=== PATIENT | female | born 1995 | race Caucasian/White ===

== ENCOUNTER 2016-05-17 10:15 | Emergency (ER) | payer MEDICAID ==
[~2016-05-17] VITALS: Ht 157.5 cm; Wt 63.5 kg
[~2016-05-17 10:15] MED LIST: AMOX500C2 PO; CEFU250T11 PO; CEPH500C PO; CETI10CA PO; CLOT15CR5 TP; Claritin; Conserta; DOXY1TAB3 PO; FERR-74 PO; FERR325C PO; FRS325T PO; HYDR30SU RC; IBP600T1 PO; IBUP-1773 PO; Ibuprofen PO; LORA10TA2 PO; LORA10TA76 PO; Lithium; NITR-65 PO; ONDA-42 SL; PHEN51CR RC; PREN-115 PO; PREN-37 PO; Ritalin; Zoloft
--- OUTSIDE RECORDS SUMMARY | 2016-05-17 10:22 | XMS REPORT | Continuity of Care Document ---
Author Author [facility] Organization [facility] Address Unknown Phone Unavailable Care Team Providers Care Director Clinical Research Name Role Phone PCP Unavailable Source Comments Some departments are not documenting in the electronic medical record. If you do not see the information that you expected, contact Release of Information in the Health Information Management department at [phone] for further assistance in locating additional records.[facility] Active Allergies and Adverse Reactions Not on File Current Medications Not on file Active Problems Not on file Social History Tobacco Use Types Packs/Day Years Used Date Never Assessed Plan of Care Health Maintenance Due Date Last Done Comments Physical (Comprehensive) 2000 Exam Hpv Vaccines (#1) 2004 Pertussis Vaccine 2004 Tetanus Vaccine 2010 Cervical Cancer Screening 2014 Influenza Vaccine 12/18/2015 Results from Last 3 Months Not on file
--- NOTE | 2016-05-17 11:02 | ED GU-Female ---
General Chief Complaint: -Female Stated Complaint: VAG BLEEDING Nursing Triage Note: c/o intermittant vaginal bleeding x 1 month. Had nonpainful intercourse last night. Noticed bleeding this morningl. Had pelvic exam at [facility] earlier this month. Soaked through 3 diapers today. Nursing Sepsis Screen: No Definite Risk Source: patient, RN notes reviewed Exam Limitations: no limitations History of Present Illness Time seen by provider: 11:01 Initial Comments As above. Timing/Duration: this morning (current episode. Has had episodic vaginal bleeding for last month.) Severity/Quality: other (denies pain) Radiation: none Activities at Onset: sleep Prior Genitourinary Problems: similar symptoms Sexual Gilson History: other (last PM) Modifying Factors: Improves With Other (none) Associated Symptoms: denies symptoms Allergies and Home Medications Allergies Coded Allergies: hydrocodone (Verified Allergy, Severe, ANAPHYLAXIS, 05/10/13) latex (Verified Allergy, Unknown, EDEMA, 10/20/13) Uncoded Allergies: BEES (Allergy, Unknown, 09/06/05) Home Medications Ferrous Sulfate 325 Mg Tablet #30 325 MG PO DAILY@0700 Prescribed by: ROSALIO STLOL on 05/16/15 0820 Ibuprofen 600 Mg Tablet #60 600 MG PO Q6H PRN PRN PAIN Prescribed by: ROSALIO STOLL on 05/16/15 0820 Loratadine 10 Mg Tablet 10 MG PO DAILY (Reported) Naproxen Sodium 550 Mg Tablet #20 550 MG PO BID PRN PRN DUB Prescribed by: ANTHONY COCHRAN on 05/17/16 1408 Vit/Iron Fumarate/FA 1 Each Tablet 1 EACH PO DAILY (Reported) Constitutional: see HPI Genitourinary: see HPI other (vag bleeding) : No Past Gerxibo-Diadsc-Fgmgir Hx Patient Social History Former Smoker/When Quit: Apr 17, 2015 Recent Foreign Travel: No Contact w/Someone Who Travel: No Recent Infectious Disease Expo: No Immunizations Up To Date Tetanus Booster (TDap): Less than 5yrs PED Vaccines UTD: Yes Date of Influenza Vaccine: Jan 14, 2015 Seasonal Allergies Seasonal Allergies: No Surgeries HX Surgeries: Yes (oral surgery for teeth) Respiratory Hx Respiratory Disorders: No Cardiovascular Hx Cardiac Disorders: No Neurological Hx Neurological Disorders: Yes (reports hx of seizures) Neurological Disorders: Seizure Disorder Reproductive System Hx Reproductive Disorders: No Sexually Transmitted Disease: No HIV/AIDS: No Female Reproductive Disorders: Denies Genitourinary Hx Genitourinary Disorders: No Gastrointestinal Hx Gastrointestinal Disorders: Yes Gastrointestinal Disorders: Hemorrhoids Musculoskeletal Hx Musculoskeletal Disorders: Yes (rt elbow) Musculoskeletal Disorders: Fractures Endocrine Hx Endocrine Disorders: No HEENT HX ENT Disorders: No Cancer Hx Cancer: No Psychosocial Hx Psychiatric Problems: Yes Behavioral Health Disorders: Anxiety, Depression Integumentary HX Skin/Integumentary Disorder: No Blood Transfusions Hx Blood Disorders: No Adverse Reaction to a Blood Tr: Yes (hx of transfusion last year 2 units received) Family Medical History Significant Family History: No Pertinent Family Hx Family Medial History: Aphasia G8 BROTHER Chest pain 19 MOTHER Family history: Arthritis 19 MOTHER Family history: Diabetes mellitus 19 MOTHER Family history: Hypertension 19 FATHER 19 MOTHER Family history: Thyroid disorder 19 MOTHER G8 BROTHER Headache 19 MOTHER History of drug abuse G8 BROTHER Seizure disorder 19 MOTHER No Family History of: Abdominal aortic aneurysm Clifford's disease Alcoholism Cancer Cancer of colon Cataract Congenital heart disease Congestive heart failure Cystic fibrosis Dementia Dysphagia Family history: Allergy Family history: Alzheimer's disease Family history: Asthma Family history: Breast disease Family history: Cardiovascular disease Family history: Coronary thrombosis Family history: Gastrointestinal disease Family history: Glaucoma Family history: Osteoporosis Hearing loss Heart disease Hereditary disease History of - anemia History of - disorder History of - respiratory disease Human immunodeficiency virus (HIV) seropositivity Hypercholesterolemia Infertile Kidney disease Malignant neoplasm of lung Myocardial infarction Not obtainable due to adoption Parkinson's disease Prostate cancer Psychotic disorder Stroke Tuberculosis Visual impairment Physical Exam Vital Signs Vital Sign - Last 12Hours 05/17/16 05/17/16 10:52 14:15 Temp 96.9 Pulse 65 Resp 16 B/P 134/80 Pulse Ox 98 O2 Delivery Room Air Capillary Refill : Less Than 3 Seconds General Appearance: WD/WN no apparent distress Cardiovascular: regular rate, rhythm Respiratory: no respiratory distress Gastrointestinal: softNo tenderness Rectal: deferred Neurologic/Psychiatric: no motor/sensory deficits alert oriented x 3 Skin: warm/dry Progress/Results/Core Measures Results/Orders Lab Results Laboratory Tests Test 05/17/16 12:05 Range/Units Activated Partial Thromboplast Time 28 24-35 SEC Alanine Aminotransferase (ALT/SGPT) 9 0-55 U/L Albumin 4.0 3.2-4.5 G/DL Alkaline Phosphatase 124 40-136 U/L Anion Gap 7 5-14 MMOL/L Aspartate Amino Transf (AST/SGOT) 12 5-34 U/L BUN/Creatinine Ratio 13 Basophils # (Auto) 0.0 0.0-0.1 10^3/uL Basophils (%) (Auto) 0 0-10 % Blood Urea Nitrogen 9 7-18 MG/DL Calcium Level 9.2 8.5-10.1 MG/DL Carbon Dioxide Level 25 21-32 MMOL/L Chloride Level 107 98-107 MMOL/L Creatinine 0.71 0.60-1.30 MG/DL Eosinophils # (Auto) 0.1 0.0-0.3 10^3/uL Eosinophils (%) (Auto) 2 0-10 % Estimat Glomerular Filtration Rate > 60 Glucose Level 83 70-105 MG/DL Hematocrit 39 35-52 % Hemoglobin 13.3 11.5-16.0 G/DL INR Comment 1.0 0.8-1.4 Lymphocytes # (Auto) 2.6 1.0-4.0 X 10^3 Lymphocytes (%) (Auto) 36 12-44 % Mean Corpuscular Hemoglobin 29 25-34 PG Mean Corpuscular Hemoglobin Concent 34 32-36 G/DL Mean Corpuscular Volume 85 80-99 FL Mean Platelet Volume 11.7 H 7.4-10.4 FL Monocytes # (Auto) 0.4 0.0-1.0 X 10^3 Monocytes (%) (Auto) 6 0-12 % Neutrophils # (Auto) 4.0 1.8-7.8 X 10^3 Neutrophils (%) (Auto) 56 42-75 % Platelet Count 183 130-400 10^3/uL Potassium Level 4.2 3.6-5.0 MMOL/L Prothrombin Time 12.5 12.2-14.7 SEC Red Blood Count 4.60 4.35-5.85 10^6/uL Red Cell Distribution Width 13.8 10.0-14.5 % Serum Test, Qualitative NEGATIVE NEGATIVE Sodium Level 139 135-145 MMOL/L Total Bilirubin 0.4 0.1-1.0 MG/DL Total Protein 7.1 6.4-8.2 G/DL White Blood Count 7.2 4.3-11.0 10^3/uL My Orders Orders-ANTHONY COCHRAN DO Cbc With Automated Diff (05/17/16 11:02) Comprehensive Metabolic Panel (05/17/16 11:02) Hcg,Qualitative Serum (05/17/16 11:02) Protime With Inr (05/17/16 11:02) Partial Thromboplastin Time (05/17/16 11:02) Us Non Ob Transvaginal [id number] (05/17/16 12:38) Ketorolac Injection (Toradol Injection) (05/17/16 14:15) Vital Signs/I&O Blood Pressure Mean: 98 Departure Impression Impression: Primary Impression: DUB (dysfunctional uterine bleeding) Disposition: 01 HOME, SELF-CARE Condition: Critical Departure-Patient Inst. Decision time for Depature: 14:05 Referrals: ROSALIO STOLL MD (PCP/Family) Primary Care Physician Patient Instructions: Menstruation Scripts Naproxen Sodium (Anaprox Ds)550 Mg Qynjms637 Mg PO BID PRN DUB #20 TAB Ref 0 Prov:ANTHONY COCHRAN DO 05/17/16 ANTHONY COCHRAN DO May 17, 2016 11:01
[2016-05-17 12:14] LABS: BASOPHILS % (AUTO) 0 % (0-10); EOSINOPHILS # (AUTO) 0.1 10^3/uL (0.0-0.3); EOSINOPHILS % (AUTO) 2 % (0-10); LYMPHOCYTES # (AUTO) 2.6 X 10^3 (1.0-4.0); LYMPHOCYTES % (AUTO) 36 % (12-44); MEAN CORPUSCULAR HEMOGLOBIN 29 PG (25-34); MEAN CORPUSCULAR HGB CONC 34 G/DL (32-36); MEAN CORPUSCULAR VOLUME 85 FL (80-99); MEAN PLATELET VOLUME 11.7 FL (7.4-10.4); MONOCYTES # (AUTO) 0.4 X 10^3 (0.0-1.0); MONOCYTES % (AUTO) 6 % (0-12); NEUTROPHILS % (AUTO) 56 % (42-75); PLATELET COUNT 183 10^3/uL (130-400); RED CELL DISTRIBUTION WIDTH 13.8 % (10.0-14.5); WHITE BLOOD COUNT 7.2 10^3/uL (4.3-11.0)
[2016-05-17 12:22] LABS: PROTHROMBIN TIME PATIENT 12.5 SEC (12.2-14.7)
[2016-05-17 12:32] LABS: ALANINE AMINOTRANSFERASE 9 U/L (0-55); ANION GAP 7 MMOL/L (5-14); ASPARTATE AMINO TRANSFERASE 12 U/L (5-34); BILIRUBIN,TOTAL 0.4 MG/DL (0.1-1.0); BLOOD UREA NITROGEN 9 MG/DL (7-18); BUN/CREATININE RATIO 13; CALCIUM 9.2 MG/DL (8.5-10.1); CARBON DIOXIDE 25 MMOL/L (21-32); CHLORIDE 107 MMOL/L (98-107); CREATININE SERUM 0.71 MG/DL (0.60-1.30); GFR ESTIMATED > 60; GLUCOSE 83 MG/DL (70-105); POTASSIUM 4.2 MMOL/L (3.6-5.0); SODIUM 139 MMOL/L (135-145); TOTAL PROTEIN 7.1 G/DL (6.4-8.2)
[2016-05-17] MEDS ORDERED: NAPR550T PO (14:08)
--- NOTE | 2016-05-17 14:08 | Diagnostic Imaging Report ---
Transvaginal pelvic ultrasound. INDICATION: Vaginal bleeding. FINDINGS: The uterus is 7.4 x 4.5 x 4.1 cm. The endometrial stripe is 0.6 cm in thickness. The right ovary is 3.9 x 1.5 x 2.3 cm. The left ovary is 2.5 x 3.1 x 1.6 cm. Normal follicle seen. No solid mass or fluid collection identified. Both ovaries demonstrate color flow with Doppler examination. IMPRESSION: Unremarkable exam. Dictated by: Dictated on workstation # [id number]
[2016-05-17 14:15] VITALS: BP 119/75
[2016-05-17] MEDS ORDERED: KETOROLAC 60 MG/2 ML VIAL IM ONE (14:15)
== END 2016-05-17 14:15 | disposition home or self-care (01) ==
LOC: EDUNIT# 10:15 → ER 10:18
DX: N93.8 Other specified abnormal uterine and vaginal bleeding (principal)
CPT/HCPCS: 36415; 76830; 80053; 84703; 85025; 85610; 85730; 96372; 99282

== ENCOUNTER 2016-06-23 21:44 | Emergency (ER) | payer MEDICAID ==
[~2016-06-23] VITALS: Ht 160 cm; Wt 72.1 kg
[~2016-06-23 21:44] MED LIST changes: +NAPR550T PO
--- OUTSIDE RECORDS SUMMARY | 2016-06-23 21:50 | XMS REPORT | Continuity of Care Document ---
Author Author [facility] Organization [facility] Address Unknown Phone Unavailable Care Team Providers Care Labview Programmer Name Role Phone PCP Unavailable Source Comments Some departments are not documenting in the electronic medical record. If you do not see the information that you expected, contact Release of Information in the Health Information Management department at [phone] for further assistance in locating additional records.[facility] Active Allergies and Adverse Reactions Not on [...]
[2016-06-23] MEDS ORDERED: SUDOGEST (22:26)
[2016-06-23] MEDS ORDERED: AMOX1TAB12 (22:26)
[2016-06-23] MEDS ORDERED: TETRACAINE 0.5% OPHTH SOLN 5 ML BTL OU STA (22:32)
[2016-06-23] MEDS ORDERED: FLUORESCEIN (FLUOR-I-STRIPS) 1 MG STRP OU ONE (22:45)
[2016-06-23] MEDS ORDERED: BSS 15 ML IR ONE (22:45)
[2016-06-23] MEDS ORDERED: RX-GENTAMICIN 0.3% OP OINT 3.5 GM TUBE OP STA (23:00)
--- NOTE | 2016-06-23 23:07 | ED EENT ---
History of Present Illness General Chief Complaint: Eye Problems Stated Complaint: RT EYE PAIN Nursing Triage Note: PT TO ED 10 W/ C/O RT EYE IRRITATION ONSET YESTERDAY. REPORTS WAS SEEN AT [facility] ET TOLD SHE HAD "DUST AND AN INFECTION IN HER EYE". PT STATES SHE WAS PLACED ON ABX BUT DENIES IMPROVEMENT Source: patient Exam Limitations: no limitations History of Present Illness Time seen by provider: 22:20 Initial Comments This patient complains of right eye irritation with pain and itching 3 days. It started in the morning after she drove down a dirt road with the windows down. She has localized erythema of the eyelid and face surrounding the eye. She was seen at the clinic and was started on Augmentin and pseudoephedrine. She complains of blurred vision in the right eye with inability to distinguish fingers on my exam. She has some light sensitivity. She denies any other symptoms. She receives her eye care at Dr. Funez[facility] clinic. Allergies and Home Medications Allergies Coded Allergies: hydrocodone (Verified Allergy, Severe, ANAPHYLAXIS, 05/10/13) latex (Verified Allergy, Unknown, EDEMA, 10/20/13) Uncoded Allergies: BEES (Allergy, Unknown, 09/06/05) Home Medications (Reported) Amoxicillin/Potassium Clav 1 Each Tablet #20 (Reported) Review of Systems Constitutional: no symptoms reported Eyes: See HPI Ears: No Symptoms Reported Nose: no symptoms reported Mouth: no symptoms reported Throat: no symptoms reported Respiratory: no symptoms reported Cardiovascular: no symptoms reported Gastrointestinal: no symptoms reported Musculoskeletal: no symptoms reported Skin: see HPI Neurological: No Symptoms Reported Past Reezfnu-Zrlcyd-Rpauha Hx Patient Social History Alcohol Use: Denies Use Recreational Drug Use: No Smoking Status: Current Everyday Smoker Type Used: Cigarettes Former Smoker/When Quit: Apr 17, 2015 Recent Foreign Travel: No Contact w/Someone Who Travel: No Recent Infectious Disease Expo: No Recent Hopitalizations: No Immunizations Up To Date Tetanus Booster (TDap): Less than 5yrs PED Vaccines UTD: Yes Date of Influenza Vaccine: Jan 14, 2015 Seasonal Allergies Seasonal Allergies: No Surgeries HX Surgeries: Yes (oral surgery for teeth) Surgeries: Tubal Ligation Respiratory Hx Respiratory Disorders: No Cardiovascular Hx Cardiac Disorders: No Neurological Hx Neurological Disorders: Yes (reports hx of seizures) Neurological Disorders: Seizure Disorder Reproductive System Hx Reproductive Disorders: No Sexually Transmitted Disease: No HIV/AIDS: No Female Reproductive Disorders: Denies Genitourinary Hx Genitourinary Disorders: No Gastrointestinal Hx Gastrointestinal Disorders: Yes Gastrointestinal Disorders: Hemorrhoids Musculoskeletal Hx Musculoskeletal Disorders: Yes (rt elbow) Musculoskeletal Disorders: Fractures Endocrine Hx Endocrine Disorders: No HEENT HX ENT Disorders: No Cancer Hx Cancer: No Psychosocial Hx Psychiatric Problems: Yes Behavioral Health Disorders: Anxiety, Depression Integumentary HX Skin/Integumentary Disorder: No Blood Transfusions Hx Blood Disorders: No Adverse Reaction to a Blood Tr: Yes (hx of transfusion last year 2 units received) Family Medical History Significant Family History: No Pertinent Family Hx Family Medial History: Aphasia G8 BROTHER Chest pain 19 MOTHER Family history: Arthritis 19 MOTHER Family history: Diabetes mellitus 19 MOTHER Family history: Hypertension 19 FATHER 19 MOTHER Family history: Thyroid disorder 19 MOTHER G8 BROTHER Headache 19 MOTHER History of drug abuse G8 BROTHER Seizure disorder 19 MOTHER No Family History of: Abdominal aortic aneurysm [place]'s disease Alcoholism Cancer Cancer of colon Cataract Congenital heart disease Congestive heart failure Cystic fibrosis Dementia Dysphagia Family history: Allergy Family history: Alzheimer's disease Family history: Asthma Family history: Breast disease Family history: Cardiovascular disease Family history: Coronary thrombosis Family history: Gastrointestinal disease Family history: Glaucoma Family history: Osteoporosis Hearing loss Heart disease Hereditary disease History of - anemia History of - disorder History of - respiratory disease Human immunodeficiency virus (HIV) seropositivity Hypercholesterolemia Infertile Kidney disease Malignant neoplasm of lung Myocardial infarction Not obtainable due to adoption Parkinson's disease Prostate cancer Psychotic disorder Stroke Tuberculosis Visual impairment Visual Acuity : Eye Location: Right Physical Exam Vital Signs Vital Sign - Last 12Hours 06/23/16 22:13 Temp 98.3 Pulse 73 Resp 18 B/P 118/85 Pulse Ox 99 O2 Delivery Room Air General Appearance: WD/WN no apparent distress Eyes: right eye lid inflammation, right eye vision changes, left eye normal inspection, bilateral eye EOMI, bilateral eye PERRL Ears: bilateral ear TM normal, bilateral ear auricle normal, bilateral ear canal normal Nose: normal inspection Mouth/Throat: normal mouth inspection pharynx normal Neck: normal inspection Cardiovascular: regular rate, rhythm no edema no murmur Respiratory: lungs clear normal breath sounds no respiratory distress no accessory muscle use Neurologic/Psychiatric: hook tender II-XII nml as tested no motor/sensory deficits alert normal mood/affect oriented x 3 Skin: normal color other (erythema of the right eyelid and surrounding skin including the cheek) Additional Procedures : Progress Patient was treated with tetracaine which completely resolved her pain. Exam was then performed with fluorescein. No abnormalities were identified. Patient was irrigated thoroughly with balanced saline. This improved her vision significantly and she could again distinguish fingers. Gentamicin ointment was then applied by nursing staff. Progress/Results/Core Measures Results/Orders My Orders Orders-PAULY BELLO MD Tetracaine 0.5% Ophth Soln (Tetravisc 0. (06/23/16 22:32) Fluorescein Strips (Cqtbs-B-Elxorn) (06/23/16 22:45) Balanced Salt Irrigation Soln (Bss Irrig (06/23/16 22:45) Rx-Gentamicin Ophth Oint (Rx-Gentamicin (06/23/16 23:00) Medications Given in ED Current Medications Medications Dose Ordered Sig/Brissa Route Start Time Stop Time Status Last Admin Dose Admin Balanced Salt Solution 15 ml ONCE ONCE IR 06/23/16 22:45 06/23/16 22:46 DC 06/23/16 22:45 15 ML Fluorescein Sodium 1 mg ONCE ONCE OU 06/23/16 22:45 06/23/16 22:46 DC 06/23/16 22:45 1 MG Vital Signs/I&O Vital Sign - Last 12Hours 06/23/16 06/23/16 22:13 23:12 Temp 98.3 Pulse 73 0 Resp 18 0 B/P 118/85 Pulse Ox 99 0 O2 Delivery Room Air Blood Pressure Mean: 96 Progress Note : Progress Note No abnormalities were identified on the fluorescein exam. Patient reported complete resolution of pain with tetracaine. Vision improved after irrigation. Patient was given instructions to follow-up with Dr. Funez symptoms were not completely resolved by morning. Departure Impression Impression: Primary Impression: Periorbital cellulitis Qualified Code: L03.213 - Periorbital cellulitis Additional Impressions: Blurred vision Conjunctivitis Qualified Code: H10.31 - Unspecified acute conjunctivitis, right eye Disposition: HOME, SELF-CARE Condition: Improved Departure-Patient Inst. Decision time for Depature: 23:04 Referrals: ROSALIO STOLL MD (PCP/Family) Primary Care Physician Patient Instructions: Cellulitis (Skin Infection), Adult (DC) Add. Discharge Instructions: Apply a half-inch ribbon of ointment to your lower eyelid 3 times daily for at least 3 days. For itching you may use Benadryl 25-50 mg every 4 hours as needed. If you need a nondrowsy antihistamine, use loratadine 10 mg daily for itching. You may use the saline drops provided as needed to moisten URI. Avoid rubbing URI as this may cause further irritation. Follow-up with Dr. Funez tomorrow if symptoms are not completely resolved by tomorrow morning. Continue to take the oral antibiotic, but discontinue Pseudogest. All discharge instructions reviewed with patient and/or family. Voiced understanding. Copy Copies To 1: ISAURA FUNEZ OD, JOSHUA T MD Jun 23, 2016 23:07
[2016-06-23 23:12] VITALS: BP 0/0
== END 2016-06-23 23:12 | disposition home or self-care (01) ==
LOC: EDUNIT# 21:44 → ER 21:45
DX: H10.31 Unspecified acute conjunctivitis, right eye (principal); H53.8 Other visual disturbances
CPT/HCPCS: 99283

== ENCOUNTER 2016-07-19 20:34 | Emergency (ER) | payer MEDICAID ==
[~2016-07-19] VITALS: Ht 160 cm; Wt 87.1 kg
[~2016-07-19 20:34] MED LIST changes: +AMOX1TAB12; +SUDOGEST
--- NOTE | 2016-07-19 20:59 | ED Cough/URI ---
General Chief Complaint: Cough/Cold/Flu Symptoms Stated Complaint: DIZZINESS/CHEST AND RIB PAIN Nursing Triage Note: PT REPORTS COUGH X 2 WEEKS, LEFT SIDE RIB/CHEST PAIN X 30-45 MINS Source: patient, RN notes reviewed Exam Limitations: no limitations History of Present Illness Time seen by provider: 20:58 Initial Comments As above and below. Severity/Quality: moderate, dry cough Prior Episodes/Possible Cause: occasional episodes Modifying Factors: Worse With Coughing Associated Symptoms: chest pain/soreness (left sided, especially c/ coughing and inspiration), cough Allergies and Home Medications Allergies Coded Allergies: hydrocodone (Verified Allergy, Severe, ANAPHYLAXIS, 05/10/13) latex (Verified Allergy, Unknown, EDEMA, 10/20/13) Uncoded Allergies: BEES (Allergy, Unknown, 09/06/05) Home Medications Meloxicam 15 Mg Tablet, 15 MG PO DAILY PRN for rib pain, #30 Ref 0 Prescribed by: ANTHONY COCHRAN on 07/19/168 Constitutional: see HPI Respiratory: see HPI, cough Cardiovascular: see HPI, chest pain : No All Other Systems Reviewed Negative Unless Noted: Yes (Negative excepted noted.) Past Iatlonj-Xihpjj-Fxopxi Hx Patient Social History Type Used: Cigarettes Former Smoker/When Quit: Apr 17, 2015 Recent Foreign Travel: No Contact w/Someone Who Travel: No Recent Infectious Disease Expo: No Recent Hopitalizations: No Immunizations Up To Date Tetanus Booster (TDap): Less than 5yrs PED Vaccines UTD: Yes Date of Influenza Vaccine: Jan 14, 2015 Seasonal Allergies Seasonal Allergies: No Surgeries HX Surgeries: Yes (oral surgery for teeth) Surgeries: Tubal Ligation Respiratory Hx Respiratory Disorders: No Cardiovascular Hx Cardiac Disorders: No Neurological Hx Neurological Disorders: Yes (reports hx of seizures) Neurological Disorders: Seizure Disorder Reproductive System Hx Reproductive Disorders: No Sexually Transmitted Disease: No HIV/AIDS: No Female Reproductive Disorders: Denies Genitourinary Hx Genitourinary Disorders: No Gastrointestinal Hx Gastrointestinal Disorders: Yes Gastrointestinal Disorders: Hemorrhoids Musculoskeletal Hx Musculoskeletal Disorders: Yes (rt elbow) Musculoskeletal Disorders: Fractures Endocrine Hx Endocrine Disorders: No HEENT HX ENT Disorders: No Cancer Hx Cancer: No Psychosocial Hx Psychiatric Problems: Yes Behavioral Health Disorders: Anxiety, Depression Integumentary HX Skin/Integumentary Disorder: No Blood Transfusions Hx Blood Disorders: No Adverse Reaction to a Blood Tr: Yes (hx of transfusion last year 2 units received) Family Medical History Significant Family History: No Pertinent Family Hx Family Medial History: Aphasia G8 BROTHER Chest pain 19 MOTHER Family history: Arthritis 19 MOTHER Family history: Diabetes mellitus 19 MOTHER Family history: Hypertension 19 FATHER 19 MOTHER Family history: Thyroid disorder 19 MOTHER G8 BROTHER Headache 19 MOTHER History of drug abuse G8 BROTHER Seizure disorder 19 MOTHER No Family History of: Abdominal aortic aneurysm Radhames's disease Alcoholism Cancer Cancer of colon Cataract Congenital heart disease Congestive heart failure Cystic fibrosis Dementia Dysphagia Family history: Allergy Family history: Alzheimer's disease Family history: Asthma Family history: Breast disease Family history: Cardiovascular disease Family history: Coronary thrombosis Family history: Gastrointestinal disease Family history: Glaucoma Family history: Osteoporosis Hearing loss Heart disease Hereditary disease History of - anemia History of - disorder History of - respiratory disease Human immunodeficiency virus (HIV) seropositivity Hypercholesterolemia Infertile Kidney disease Malignant neoplasm of lung Myocardial infarction Not obtainable due to adoption Parkinson's disease Prostate cancer Psychotic disorder Stroke Tuberculosis Visual impairment Physical Exam Vital Signs Vital Sign - Last 12Hours 07/19/16 07/19/16 20:40 22:48 Temp 97.6 Pulse 90 Resp 16 B/P (MAP) 120/84 Pulse Ox 96 O2 Delivery Room Air Capillary Refill : Less Than 3 Seconds General Appearance: WD/WN, mild distress HEENT: pharynx normal Neck: normal inspection Respiratory: no respiratory distress, decreased breath sounds, other ((+) left ACW/costochondral pain c/ palpation) Cardiovascular: regular rate, rhythm Neurologic/Psychiatric: no motor/sensory deficits, alert, oriented x 3 Skin: warm/dry Progress/Results/Core Measures Results/Orders Lab Results Laboratory Tests Test 07/19/16 21:30 Range/Units White Blood Count 10.1 4.3-11.0 10^3/uL Red Blood Count 4.75 4.35-5.85 10^6/uL Hemoglobin 13.3 11.5-16.0 G/DL Hematocrit 40 35-52 % Mean Corpuscular Volume 84 80-99 FL Mean Corpuscular Hemoglobin 28 25-34 PG Mean Corpuscular Hemoglobin Concent 33 32-36 G/DL Red Cell Distribution Width 13.9 10.0-14.5 % Platelet Count 187 130-400 10^3/uL Mean Platelet Volume 11.9 H 7.4-10.4 FL Neutrophils (%) (Auto) 63 42-75 % Lymphocytes (%) (Auto) 29 12-44 % Monocytes (%) (Auto) 6 0-12 % Eosinophils (%) (Auto) 2 0-10 % Basophils (%) (Auto) 1 0-10 % Neutrophils # (Auto) 6.4 1.8-7.8 X 10^3 Lymphocytes # (Auto) 2.9 1.0-4.0 X 10^3 Monocytes # (Auto) 0.6 0.0-1.0 X 10^3 Eosinophils # (Auto) 0.2 0.0-0.3 10^3/uL Basophils # (Auto) 0.1 0.0-0.1 10^3/uL Sodium Level 140 135-145 MMOL/L Potassium Level 3.7 3.6-5.0 MMOL/L Chloride Level 106 98-107 MMOL/L Carbon Dioxide Level 25 21-32 MMOL/L Anion Gap 9 5-14 MMOL/L Blood Urea Nitrogen 11 7-18 MG/DL Creatinine 0.77 0.60-1.30 MG/DL Estimat Glomerular Filtration Rate > 60 BUN/Creatinine Ratio 14 Glucose Level 105 70-105 MG/DL Calcium Level 9.5 8.5-10.1 MG/DL Total Bilirubin 0.5 0.1-1.0 MG/DL Aspartate Amino Transf (AST/SGOT) 13 5-34 U/L Alanine Aminotransferase (ALT/SGPT) 8 0-55 U/L Alkaline Phosphatase 106 40-136 U/L Troponin I < 0.30 <0.30 NG/ML Total Protein 7.6 6.4-8.2 G/DL Albumin 4.2 3.2-4.5 G/DL My Orders Orders - ANTHONY COCHRAN DO Chest Pa/Lat (2 View) (07/19/16 20:59) Ekg Tracing (07/19/16 21:01) Cbc With Automated Diff (07/19/16 21:01) Comprehensive Metabolic Panel (07/19/16 21:01) Troponin I (07/19/16 21:01) Meloxicam Tablet (Mobic Tablet) (07/20/16 09:00) Meloxicam Tablet (Mobic Tablet) (07/19/16 22:40) Vital Signs/I&O Vital Sign - Last 12Hours 07/19/16 07/19/16 07/19/16 20:40 20:59 22:48 Temp 97.6 Pulse 90 85 Resp 16 16 B/P (MAP) 120/84 Pulse Ox 96 O2 Delivery Room Air Room Air Blood Pressure Mean: 96 ECG Initial ECG Impression Date: Jul 19, 2016 Initial ECG Impression Time: 20:49 Initial ECG Rate: 82 Initial ECG Rhythm: Normal Sinus Initial ECG Intervals: Normal Initial ECG Impression: Normal Initial ECG Comparisson: No Previous ECG Available Diagnostic Imaging Diagonstic Imaging: Xray Plain Films/CT/US/NM/MRI: chest (nothing acute) Departure Impression Impression: Primary Impression: Cough Additional Impressions: Costochondritis, acute Tobacco abuse Disposition: HOME, SELF-CARE Condition: Stable Departure-Patient Inst. Decision time for Depature: 22:26 Referrals: ROSALIO STOLL MD (PCP/Family) Primary Care Physician Patient Instructions: Costochondritis (DC), Cough, Adult (DC) Scripts Meloxicam (Mobic) 15 Mg Tablet 15 MG PO DAILY Y for rib pain, #30 TAB 0 Refills Prov: ANTHONY COCHRAN DO 07/19/16 ANTHONY COCHRAN DO Jul 19, 2016 20:59
--- NOTE | 2016-07-19 21:18 | Diagnostic Imaging Report ---
Indication: Chest pain PA and lateral chest Heart size and pulmonary vascularity are normal. Lungs are clear. There are no effusions or pneumothoraces. Impression: Negative chest Dictated by: Dictated on workstation # [id number]
[2016-07-19 21:40] LABS: BASOPHILS # (AUTO) 0.1 10^3/uL (0.0-0.1); BASOPHILS % (AUTO) 1 % (0-10); EOSINOPHILS # (AUTO) 0.2 10^3/uL (0.0-0.3); EOSINOPHILS % (AUTO) 2 % (0-10); LYMPHOCYTES # (AUTO) 2.9 X 10^3 (1.0-4.0); LYMPHOCYTES % (AUTO) 29 % (12-44); MEAN CORPUSCULAR HEMOGLOBIN 28 PG (25-34); MEAN CORPUSCULAR HGB CONC 33 G/DL (32-36); MEAN CORPUSCULAR VOLUME 84 FL (80-99); MEAN PLATELET VOLUME 11.9 FL (7.4-10.4); MONOCYTES # (AUTO) 0.6 X 10^3 (0.0-1.0); MONOCYTES % (AUTO) 6 % (0-12); NEUTROPHILS # (AUTO) 6.4 X 10^3 (1.8-7.8); NEUTROPHILS % (AUTO) 63 % (42-75); PLATELET COUNT 187 10^3/uL (130-400); RED BLOOD COUNT 4.75 10^6/uL (4.35-5.85); RED CELL DISTRIBUTION WIDTH 13.9 % (10.0-14.5); WHITE BLOOD COUNT 10.1 10^3/uL (4.3-11.0)
[2016-07-19 22:01] LABS: TROPONIN I < 0.30 NG/ML (<0.30)
[2016-07-19 22:06] LABS: ALANINE AMINOTRANSFERASE 8 U/L (0-55); ALBUMIN 4.2 G/DL (3.2-4.5); ANION GAP 9 MMOL/L (5-14); ASPARTATE AMINO TRANSFERASE 13 U/L (5-34); BILIRUBIN,TOTAL 0.5 MG/DL (0.1-1.0); BLOOD UREA NITROGEN 11 MG/DL (7-18); BUN/CREATININE RATIO 14; CALCIUM 9.5 MG/DL (8.5-10.1); CARBON DIOXIDE 25 MMOL/L (21-32); CHLORIDE 106 MMOL/L (98-107); CREATININE SERUM 0.77 MG/DL (0.60-1.30); GFR ESTIMATED > 60; GLUCOSE 105 MG/DL (70-105); POTASSIUM 3.7 MMOL/L (3.6-5.0); SODIUM 140 MMOL/L (135-145); TOTAL PROTEIN 7.6 G/DL (6.4-8.2)
[2016-07-19] MEDS ORDERED: MELO15TA14 PO (22:28)
[2016-07-19] MEDS ORDERED: MELOXICAM 7.5 MG (MOBIC) TABLET PO ONE (22:40)
[2016-07-19 22:48] VITALS: BP 112/69
[2016-07-20] MEDS ORDERED: MELOXICAM 7.5 MG (MOBIC) TABLET PO SCH (09:00)
--- OUTSIDE RECORDS SUMMARY | 2016-08-22 06:57 | XMS REPORT ---
Author Author ROSALIO STOLL [facility] Address [address] [place] [address] Care Team Providers Care Clinical Documentation Nurse Name Role Phone ROSALIO STOLL Unavailable PROBLEMS Type Condition ICD9-CM Code [id number] Code Onset Dates Condition Status SNOMED Code Problem Adjustment disorder with mixed anxiety and depressed mood F43.23 Active 77837419 Problem Major depressive disorder F32.9 Active [id number] ALLERGIES Unknown Allergies SOCIAL HISTORY No smoking Hx information available PLAN OF CARE VITAL SIGNS MEDICATIONS Medication Instructions Dosage Frequency Start Date End Date Duration Status Clindamycin Phosphate 2 % Vaginal Once a day 1 application at bedtime 24h Dec, Jan, 07 days Active RESULTS No Results PROCEDURES No Known procedures IMMUNIZATIONS No Known Immunizations
--- OUTSIDE RECORDS SUMMARY | 2016-08-22 06:57 | XMS REPORT ---
Author Author ROSALIO STOLL [employer] Address Unknown Phone Unavailable Care Team Providers Care Correctional Probation Officer Name Role Phone ROSALIO STOLL Unavailable Allergies No Known Allergies Problems Problem Type Condition Code Onset Dates Condition Status Assessment 34 weeks gestation of Z3A.34 Active Assessment Supervision of high risk , unspecified, third trimester O09.93 Active Problem Supervision of high risk , unspecified, third trimester O09.93 Active Medications No Known Medications Procedures Procedure Coding System Code Date Office Visit, Est Pt., Level 2 CPT-4 82183 Apr 08, 2015 URINE-NO MICRO CPT-4 13335 Apr 08, 2015 Vital Signs Date/Time: Apr 08, 2015 Temperature 98.6 F Weight 185.7 lbs Height 62 in BMI 33.965 Index Blood Pressure Diastolic 78 mmHg Blood Pressure Systolic 118 mmHg Cardiac Monitoring Heart Rate 82 bpm Results Name Result Date Reference Range Unit Abnormality Flag UA OB DIP (IN HOUSE) ----Glucose negative [id number] ----Protein negative [id number] Summary Purpose eClinicalWorks Submission
--- OUTSIDE RECORDS SUMMARY | 2016-08-22 06:57 | XMS REPORT | Continuity of Care Document ---
Author Author [facility] Organization [facility] Address Unknown Phone Unavailable Care Team Providers Care Helicopter Specialist Name Role Phone PCP Unavailable Source Comments Some departments are not documenting in the electronic medical record. If you do not see the information that you expected, contact Release of Information in the Health Information Management department at [phone] for further assistance in locating additional records.[facility] Active Allergies and Adverse Reactions Not on File Current Medications Not on file Active Problems Not on file Social History Tobacco Use Types Packs/Day Years Used Date Never Assessed Plan of Care Health Maintenance Due Date Last Done Comments Physical (Comprehensive) 2000 Exam Hpv Vaccines (#1) 2004 Pertussis Vaccine 2004 Tetanus Vaccine 2010 Cervical Cancer Screening 2014 Influenza Vaccine 12/17/2016 Results from Last 3 Months Not on file
--- OUTSIDE RECORDS SUMMARY | 2016-08-22 06:57 | XMS REPORT ---
Author Author ROSALIO STOLL [facility] e[employer] Address Unknown Phone Unavailable Care Team Providers Care Aquatics Manager Name Role Phone ROSALIO STOLL Unavailable Allergies No Known Allergies Problems Problem Type Condition Code Onset Dates Condition Status Problem Supervision of high risk , unspecified, third trimester O09.93 Active Medications No Known Medications Results No Known Results Summary Purpose eClinicalWorks Submission
--- OUTSIDE RECORDS SUMMARY | 2016-08-22 06:57 | XMS REPORT ---
Author Author ROSALIO STOLL [employer] Address Unknown Phone Unavailable Care Team Providers Care Drywall Contractor Name Role Phone ROSALIO STOLL CP Unavailable Allergies, Adverse Reactions, Alerts Substance Reaction Event Type Hydrocodone-Acetaminophen anaphylaxis Drug Allergy Problems Problem Type Condition Code Onset Dates Condition Status Problem Supervision of high risk , unspecified, second trimester O09.92 Active Assessment Supervision of high risk , unspecified, third trimester O09.93 Active Problem Supervision of high risk , unspecified, third trimester O09.93 Active Assessment 31 weeks gestation of Z3A.31 Active Medications Medication Code System Code Instructions Start Date End Date Status Dosage Classic [facility] [address]-08 28-0.8 MG Orally 1 time a day September 17, 2014 as directed Procedures Procedure Coding System Code Date Office Visit, Est Pt., Level 2 CPT-4 26090 Mar 18, 2015 URINE-NO MICRO CPT-4 76881 Mar 18, 2015 Vital Signs Date/Time: Mar 18, 2015 Temperature 97.4 F Weight 184.2 lbs Height 62 in BMI 33.691 Index Blood Pressure Diastolic 68 mmHg Blood Pressure Systolic 102 mmHg Cardiac Monitoring Heart Rate 84 bpm Results No Known Results Summary Purpose eClinicalWorks Submission
--- OUTSIDE RECORDS SUMMARY | 2016-08-22 06:58 | XMS REPORT ---
Author Author ROSALIO STOLL [facility] e[employer] Address Unknown Phone Unavailable Care Team Providers Care Director Of Casino Marketing Name Role Phone ROSALIO STOLL Unavailable Allergies No Known Allergies Problems Problem Type Condition Code Onset Dates Condition Status Problem UTI in 646.60 Active Problem Supervision of high risk , unspecified, second trimester O09.92 Active Medications Medication Code System Code Instructions Start Date End Date Status Dosage Natroba [facility] [address]-56 0.9 % Externally Jan 22, 2015 as directed Results No Known Results Summary Purpose eClinicalWorks Submission
--- OUTSIDE RECORDS SUMMARY | 2016-08-22 06:58 | XMS REPORT ---
Author Author ROSALIO STOLL [facility] e[employer] Address Unknown Phone Unavailable Care Team Providers Care Tyre Finisher And Examiner Name Role Phone ROSALIO STOLL CP Unavailable Allergies No Known Allergies Problems Problem Type Condition Code Onset Dates Condition Status Problem UTI in 646.60 Active Problem , high-risk V23.9 Active Problem Unspecified high-risk V23.9 Active Assessment Unspecified high-risk V23.9 Active Assessment Influenza vaccine administered V04.81 Active Medications No Known Medications Procedures Procedure Coding System Code Date Office Visit, Est Pt., Level 2 CPT-4 34108 Jan 14, 2015 FLUARIX QUAD (3 & UP)-GSK-2014 CPT-4 57875 Jan 14, 2015 URINE-NO MICRO CPT-4 08579 Jan 14, 2015 SINGLE IMMUNIZATION ADMIN CPT-4 58210 Jan 14, 2015 Vital Signs Date/Time: Jan 14, 2015 Temperature 97.2 F Weight 182.5 lbs Height 62 in BMI 33.38 Index Blood Pressure Diastolic 74 mmHg Blood Pressure Systolic 112 mmHg Cardiac Monitoring Heart Rate 86 bpm Results Name Result Date Reference Range Unit Abnormality Flag UA OB DIP (IN HOUSE) Immunizations Vaccine Administration Date FLUARIX QUAD (3 & UP)-GSK-2014Jan 14, 2015 Summary Purpose eClinicalWorks Submission
--- OUTSIDE RECORDS SUMMARY | 2016-08-22 06:58 | XMS REPORT ---
Author ORIN Damon Organization [employer] Address Unknown Phone Unavailable Care Team Providers Care Track Layer Name Role Phone ORIN KULKARNI CP Unavailable Allergies No Known Allergies Problems Problem Type Condition Code Onset Dates Condition Status Problem Adjustment disorder with mixed anxiety and depressed mood F43.23 Active Problem Major depressive disorder F32.9 Active Problem Slow transit constipation K59.01 Active Medications No Known Medications Results No Known Results Summary Purpose eClinicalWorks Submission
--- OUTSIDE RECORDS SUMMARY | 2016-08-22 06:58 | XMS REPORT ---
Author STEPHANE Calle [facility] e[employer] Address Unknown Phone Unavailable Care Team Providers Care Video Surveillance Technician Name Role Phone STEPHANE JUAREZ CP Unavailable Allergies, Adverse Reactions, Alerts Substance Reaction Event Type Hydrocodone-Acetaminophen anaphylaxis Drug Allergy Problems Problem Type Condition Code Onset Dates Condition Status Problem UTI in 646.60 Active Assessment Supervision of high risk , unspecified, second trimester O09.92 Active Problem Supervision of high risk , unspecified, second trimester O09.92 Active Assessment 23 weeks gestation of Z3A.23 Active Assessment Acute nasopharyngitis [common cold] J00 Active Medications Medication Code System Code Instructions Start Date End Date Status Dosage Claritin [facility] [address]-73 10 MG Orally Once a day October 15, 2014 Feb 12, 2015 1 tablet Classic [facility] [address]-66 28-0.8 MG Orally 1 time a day September 17, 2014 as directed Procedures Procedure Coding System Code Date Office Visit, Est Pt., Level 3 CPT-4 91503 Jan 22, 2015 URINE-NO MICRO CPT-4 89518 Jan 22, 2015 Vital Signs Date/Time: Jan 22, 2015 Temperature 98.8 F Weight 183.0 lbs Height 62 in BMI 33.471 Index Blood Pressure Diastolic 70 mmHg Blood Pressure Systolic 120 mmHg Cardiac Monitoring Heart Rate 78 bpm Results Name Result Date Reference Range Unit Abnormality Flag UA OB DIP (IN HOUSE) Summary Purpose eClinicalWorks Submission
--- OUTSIDE RECORDS SUMMARY | 2016-08-22 06:59 | XMS REPORT ---
Author Author ROSALIO STOLL [facility] [employer] Address Unknown Phone Unavailable Care Team Providers Care Quality Compliance Consultant Name Role Phone ROSALIO STOLL Unavailable Allergies No Known Allergies Problems Problem Type Condition Code Onset Dates Condition Status Problem UTI in 646.60 Active Assessment Supervision of high risk , unspecified, second trimester O09.92 Active Problem Supervision of high risk , unspecified, second trimester O09.92 Active Medications No Known Medications Results No Known Results Summary Purpose eClinicalWorks Submission
--- OUTSIDE RECORDS SUMMARY | 2016-08-22 06:59 | XMS REPORT ---
Author Author JIMMIE CONTEH [facility] Address [address] [place] [address] Care Team Providers Care Manager Banking Name Role Phone JIMMIE CONTEH Unavailable PROBLEMS Type Condition ICD9-CM Code [id number] Code Onset Dates Condition Status SNOMED Code Problem Adjustment disorder with mixed anxiety and depressed mood F43.23 Active 35356386 Problem Major depressive disorder F32.9 Active [id number] Assessment Dysmenorrhea N94.6 08 Dec, 2015 Active [id number] ALLERGIES Unknown Allergies SOCIAL HISTORY No smoking Hx information available PLAN OF CARE VITAL SIGNS MEDICATIONS Unknown Medications RESULTS Name Result Date Reference Range HEMOGLOBIN (IN HOUSE) 2015-12-25 HEMOGLOBIN 13.1 11.5 - 16 gm/dL Lot # [id number] Exp date 10/12/16 PROCEDURES Procedure Date Ordered Related Diagnosis Body Site Office Visit, Est Pt., Level 2 Dec 25, 2015 HEMOGLOBIN Dec 25, 2015 IMMUNIZATIONS No Known Immunizations
--- OUTSIDE RECORDS SUMMARY | 2016-08-22 06:59 | XMS REPORT ---
Author Author ROSALIO STOLL [employer] Address Unknown Phone Unavailable Care Team Providers Care Profiling Machine Set Up Operator Name Role Phone ROSALIO STOLL CP Unavailable Allergies, Adverse Reactions, Alerts Substance Reaction Event Type Hydrocodone-Acetaminophen anaphylaxis Drug Allergy Problems Problem Type Condition Code Onset Dates Condition Status Assessment Supervision of high risk , unspecified, second trimester O09.92 Active Problem Supervision of high risk , unspecified, second trimester O09.92 Active Medications Medication Code System Code Instructions Start Date End Date Status Dosage Classic [facility] [address]-47 28-0.8 MG Orally 1 time a day September 17, 2014 as directed Procedures Procedure Coding System Code Date GLUCOSE TEST CPT-4 41672 Feb 13, 2015 URINE-NO MICRO CPT-4 93494 Feb 13, 2015 COMPLETE CBC W/AUTO DIFF WBC CPT-4 33151 Feb 13, 2015 VENIPUNCT, ROUTINE* CPT-4 46808 Feb 13, 2015 Office Visit, Est Pt., Level 2 CPT-4 34238 Feb 13, 2015 Vital Signs Date/Time: Feb 13, 2015 Temperature 98.3 F Weight 182.3 lbs Height 62 in BMI 33.343 Index Blood Pressure Diastolic 72 mmHg Blood Pressure Systolic 124 mmHg Cardiac Monitoring Heart Rate 88 bpm Results Name Result Date Reference Range Unit Abnormality Flag UA OB DIP (IN HOUSE) Summary Purpose eClinicalWorks Submission
--- OUTSIDE RECORDS SUMMARY | 2016-08-22 06:59 | XMS REPORT ---
Author ORIN Damon Organization [employer] Address Unknown Phone Unavailable Care Team Providers Care Hydrant Setter Name Role Phone ORIN KULKARNI CP Unavailable Allergies, Adverse Reactions, Alerts Substance Reaction Event Type Hydrocodone-Acetaminophen anaphylaxis Drug Allergy Latex Info Not Available Non Drug Allergy Problems Problem Type Condition Code Onset Dates Condition Status Problem Adjustment disorder with mixed anxiety and depressed mood F43.23 Active Problem Major depressive disorder F32.9 Active Problem Slow transit constipation K59.01 Active Assessment Slow transit constipation K59.01 Active Medications Medication Code System Code Instructions Start Date End Date Status Dosage Magnesium Citrate [facility] [address]-53 1.745 GM/30ML Orally once Feb 02, 2016 drink full bottle within 30 min, follow wtih 12oz water Zoloft [facility] [address]-66 100 MG Orally Once a day 1 tablet Procedures Procedure Coding System Code Date Office Visit, Est Pt., Level 3 CPT-4 09620 Feb 02, 2016 Vital Signs Date/Time: Feb 02, 2016 Cardiac Monitoring Heart Rate 68 bpm Weight 192.3 lbs Height 62 in BMI 35.17 Index Blood Pressure Diastolic 88 mmHg Blood Pressure Systolic 116 mmHg Results No Known Results Summary Purpose eClinicalWorks Submission
--- OUTSIDE RECORDS SUMMARY | 2016-08-22 06:59 | XMS REPORT ---
Author MARCELLE Freeman [facility] eClinicalWorks Address Unknown Phone Unavailable Care Team Providers Care Rebar Fabricator Name Role Phone MARCELLE IRWIN CP Unavailable Allergies No Known Allergies Problems Problem Type Condition Code Onset Dates Condition Status Problem Major depressive disorder F32.9 Active Assessment Adjustment disorder with mixed anxiety and depressed mood F43.23 Active Problem Adjustment disorder with mixed anxiety and depressed mood F43.23 Active Medications No Known Medications Procedures Procedure Coding System Code Date Psych diagnostic evaluation, established patient CPT-4 64270 Dec 16, 2015 Results No Known Results Summary Purpose eClinicalWorks Submission
--- OUTSIDE RECORDS SUMMARY | 2016-08-22 06:59 | XMS REPORT ---
Author JENNIFER Christianson Organization [employer] Address Unknown Phone Unavailable Care Team Providers Care Lunch Wagon Operator Name Role Phone JENNIFER MELLO CP Unavailable Allergies, Adverse Reactions, Alerts Substance Reaction Event Type Hydrocodone-Acetaminophen anaphylaxis Drug Allergy Latex Info Not Available Non Drug Allergy Problems Problem Type Condition Code Onset Dates Condition Status Assessment Gastroenteritis and colitis, viral A08.4 Active Problem Major depressive disorder F32.9 Active Medications Medication Code System Code Instructions Start Date End Date Status Dosage Ondansetron HCl [facility] [address]-45 4 MG Orally 3 times a day November 10, 2015 1 tablets Procedures Procedure Coding System Code Date URINALYSIS, AUTO, W/O SCOPE CPT-4 38969 November 10, 2015 Office Visit, Est Pt., Level 4 CPT-4 51352 November 10, 2015 Vital Signs Date/Time: November 10, 2015 Cardiac Monitoring Heart Rate 80 bpm Weight 187 lbs Height 62 in Blood Pressure Diastolic 80 mmHg Blood Pressure Systolic 118 mmHg Results No Known Results Summary Purpose eClinicalWorks Submission
--- OUTSIDE RECORDS SUMMARY | 2016-08-22 06:59 | XMS REPORT ---
Author Author ROSALIO STOLL [facility] eClinicalWorks Address Unknown Phone Unavailable Care Team Providers Care Money Order Clerk Name Role Phone ROSALIO STOLL Unavailable Allergies No Known Allergies Problems Problem Type Condition Code Onset Dates Condition Status Problem Supervision of high risk , unspecified, second trimester O09.92 Active Medications No Known Medications Results No Known Results Summary Purpose eClinicalWorks Submission
--- OUTSIDE RECORDS SUMMARY | 2016-08-22 07:00 | XMS REPORT ---
Author Author ROSALIO STOLL [facility] e[employer]Works Address Unknown Phone Unavailable Care Team Providers Care Program Scheduler Name Role Phone ROSALIO STOLL Unavailable Allergies No Known Allergies Problems Problem Type Condition Code Onset Dates Condition Status Problem Supervision of high risk , unspecified, third trimester O09.93 Active Medications No Known Medications Results No Known Results Summary Purpose eClinicalWorks Submission
--- OUTSIDE RECORDS SUMMARY | 2016-08-22 07:00 | XMS REPORT ---
Author Author ROSALIO STOLL eClinical[employer] Address Unknown Phone Unavailable Care Team Providers [place] Demonstrator Name Role Phone ROSALIO STOLL CP Unavailable Allergies, Adverse Reactions, Alerts Substance Reaction Event Type Hydrocodone-Acetaminophen anaphylaxis Drug Allergy Problems Problem Type Condition ICD-9 Code Onset Dates Condition Status Problem UTI in 646.60 Active Problem , high-risk V23.9 Active Problem Unspecified high-risk V23.9 Active Assessment Unspecified high-risk V23.9 Active Medications Medication Code System Code Instructions Start Date End Date Status Dosage Classic [facility] [address]-34 28-0.8 MG Orally 1 time a day September 17, 2014 as directed Claritin [facility] [address]-66 10 MG Orally Once a day October 15, 2014 Feb 12, 2015 1 tablet Procedures Procedure Coding System Code Date ALPHA-FETOPROTEIN, SERUM CPT-4 23039 Dec 17, 2014 INHIBIN A CPT-4 81308 Dec 17, 2014 URINE-NO MICRO CPT-4 87204 Dec 17, 2014 CHORIONIC GONADOTROPIN TEST CPT-4 25040 Dec 17, 2014 ASSAY OF [place] CPT-4 21406 Dec 17, 2014 VENIPUNCT, ROUTINE* CPT-4 93699 Dec 17, 2014 Office Visit, Est Pt., Level 2 CPT-4 60531 Dec 17, 2014 Vital Signs Date/Time: Dec 17, 2014 Temperature 97.4 F Weight 180.5 lbs Height 62 in BMI 33.014 Index Blood Pressure Diastolic 78 mmHg Blood Pressure Systolic 122 mmHg Cardiac Monitoring Heart Rate 100 bpm Results Name Result Date Reference Range Unit Abnormality Flag UA OB DIP (IN HOUSE) Summary Purpose eClinicalWorks Submission
--- OUTSIDE RECORDS SUMMARY | 2016-08-22 07:00 | XMS REPORT ---
Author Author ROSALIO STOLL e[employer] Address Unknown Phone Unavailable Care Team Providers Care Hand Reamer Name Role Phone ROSALIO STOLL CP Unavailable Allergies, Adverse Reactions, Alerts Substance Reaction Event Type Hydrocodone-Acetaminophen anaphylaxis Drug Allergy Latex Info Not Available Non Drug Allergy Problems Problem Type Condition Code Onset Dates Condition Status Assessment screening for streptococcus B Z36 Active Assessment Supervision of high risk , unspecified, third trimester O09.93 Active Problem Supervision of high risk , unspecified, third trimester O09.93 Active Assessment Candidal vaginitis B37.3 Active Assessment 36 weeks gestation of Z3A.36 Active Assessment Other specified related conditions, third trimester O26.893 Active Assessment Pelvic and perineal pain R10.2 Active Medications Medication Code System Code Instructions Start Date End Date Status Dosage Claritin [facility] [address]-37 10 MG Orally Once a day 1 tablet Clotrimazole-7 [facility] [address] 1 % Vaginal Once a day Apr 22, 2015Apr 1 application at bedtime Classic [facility] [address]-90 28-0.8 MG Orally 1 time a day September 17, 2014 as directed Procedures Procedure Coding System Code Date DETECT AGNT MULT, DNA, AMPLI CPT-4 07886 Apr 22, 2015 URINALYSIS, AUTO, W/O SCOPE CPT-4 96661 Apr 22, 2015 URINE-NO MICRO CPT-4 45373 Apr 22, 2015 URINE CULTURE/COLONY COUNT CPT-4 45121 Apr 22, 2015 Office Visit, Est Pt., Level 3 CPT-4 83678 Apr 22, 2015 Vital Signs Date/Time: Apr 22, 2015 Temperature 97.3 F Weight 189.5 lbs Height 62 in BMI 34.66 Index Blood Pressure Diastolic 72 mmHg Blood Pressure Systolic 118 mmHg Cardiac Monitoring Heart Rate 88 bpm Results Name Result Date Reference Range Unit Abnormality Flag UA OB DIP (IN HOUSE) ----Glucose negative 20150422 ----Protein negative 20150422 UA W/CULTURE IF INDICATED (IN HOUSE) ----SAIRA neg 20150422 ----GLU neg 20150422 ----SG 1.025 20150422 ----KET neg 20150422 ----pH 7.0 20150422 ----Protein neg 20150422 ----BLO trace-intact 20150422 ----[place] 1= [id number] ----Color dark yellow 20150422 ----Odor yes 20150422 ----Exp date 20150422 ----URO 1.0 20150422 ----NIT neg 20150422 ----Clarity cloudy 20150422 ----Lot # [id number] Summary Purpose eClinicalWorks Submission
--- OUTSIDE RECORDS SUMMARY | 2016-08-22 07:03 | XMS REPORT | Continuity of Care Document ---
Author Author [facility] Address Unknown Phone Unavailable Allergies Active Description Code Type Severity Reaction Onset Reported/Identified Relationship to Patient Clinical Status Yes BEES BEES Unknown N/A 09/06/2005 Yes hydrocodone [id number] Drug Allergy Severe ANAPHYLAXIS 05/10/2013 Yes latex [id number] Drug Allergy Unknown EDEMA 10/20/2013 Medications Problems Date Dx Coded Attending Type Code Diagnosis Diagnosed By 02/03/2010 STEPHANE JUAREZ DO 296.52 MO BIPOLAR I DEPRESSED MODERATE 02/03/2010 STEPHANE JUAREZ DO 313.81 CD OPPOSITIONAL DEFIANT 02/03/2010 STEPHANE JUAREZ DO 314.01 ADHD COMBINED 02/03/2010 SCOTTIE ALTAMIRANO APRN 296.52 MO BIPOLAR I DEPRESSED MODERATE 02/03/2010 SCOTTIE ALTAMIRANO APRN 313.81 CD OPPOSITIONAL DEFIANT 02/03/2010 SCOTTIE ALTAMIRANO APRN 314.01 ADHD COMBINED 02/03/2010 296.52 MO BIPOLAR I DEPRESSED MODERATE 02/03/2010 313.81 CD OPPOSITIONAL DEFIANT 02/03/2010 314.01 ADHD COMBINED 02/03/2010 296.52 MO BIPOLAR I DEPRESSED MODERATE 02/03/2010 313.81 CD OPPOSITIONAL DEFIANT 02/03/2010 314.01 ADHD COMBINED 02/03/2010 296.52 MO BIPOLAR I DEPRESSED MODERATE 02/03/2010 313.81 CD OPPOSITIONAL DEFIANT 02/03/2010 314.01 ADHD COMBINED 02/03/2010 296.52 MO BIPOLAR I DEPRESSED MODERATE 02/03/2010 313.81 CD OPPOSITIONAL DEFIANT 02/03/2010 314.01 ADHD COMBINED 02/03/2010 296.52 MO BIPOLAR I DEPRESSED MODERATE 02/03/2010 313.81 CD OPPOSITIONAL DEFIANT 02/03/2010 314.01 ADHD COMBINED 02/03/2010 296.52 MO BIPOLAR I DEPRESSED MODERATE 02/03/2010 313.81 CD OPPOSITIONAL DEFIANT 02/03/2010 314.01 ADHD COMBINED 02/03/2010 296.52 MO BIPOLAR I DEPRESSED MODERATE 02/03/2010 313.81 CD OPPOSITIONAL DEFIANT 02/03/2010 314.01 ADHD COMBINED 02/03/2010 296.52 MO BIPOLAR I DEPRESSED MODERATE 02/03/2010 313.81 CD OPPOSITIONAL DEFIANT 02/03/2010 314.01 ADHD COMBINED 02/03/2010 296.52 MO BIPOLAR I DEPRESSED MODERATE 02/03/2010 313.81 CD OPPOSITIONAL DEFIANT 02/03/2010 314.01 ADHD COMBINED 02/03/2010 JUAREZ DO, STEPHANE K 296.52 MO BIPOLAR I DEPRESSED MODERATE 02/03/2010 JUAREZ DO, STEPHANE K 313.81 CD OPPOSITIONAL DEFIANT 02/03/2010 JUAREZ DO, STEPHANE K 314.01 ADHD COMBINED 02/03/2010 JUAREZ DO, STEPHANE K 296.52 MO BIPOLAR I DEPRESSED MODERATE 02/03/2010 JUAREZ DO, STEPHANE K 313.81 CD OPPOSITIONAL DEFIANT 02/03/2010 JUAREZ DO, STEPHANE K 314.01 ADHD COMBINED 02/03/2010 EVEILA SORIANON, SCOTTIE A 296.52 MO BIPOLAR I DEPRESSED MODERATE 02/03/2010 EVELIA PILLOWCASE CUTTER, SCOTTIE A 313.81 CD OPPOSITIONAL DEFIANT 02/03/2010 EVELIA PILLOWCASE CUTTER, SCOTTIE A 314.01 ADHD COMBINED 02/03/2010 EVELIA PILLOWCASE CUTTER, SCOTTIE A 296.52 MO BIPOLAR I DEPRESSED MODERATE 02/03/2010 EVELIA PILLOWCASE CUTTER, SCOTTIE A 313.81 CD OPPOSITIONAL DEFIANT 02/03/2010 EVELIA SORIANON, SCOTTIE A 314.01 ADHD COMBINED 02/03/2010 296.52 MO BIPOLAR I DEPRESSED MODERATE 02/03/2010 313.81 CD OPPOSITIONAL DEFIANT 02/03/2010 314.01 ADHD COMBINED 02/03/2010 EVELIA PILLOWCASE CUTTER, SCOTTIE A 296.52 MO BIPOLAR I DEPRESSED MODERATE 02/03/2010 EVELIA PILLOWCASE CUTTER, SCOTTIE A 313.81 CD OPPOSITIONAL DEFIANT 02/03/2010 EVELIA PILLOWCASE CUTTER, SCOTTIE A 314.01 ADHD COMBINED 02/03/2010 PRESTON PHD, HANS A 296.52 MO BIPOLAR I DEPRESSED MODERATE 02/03/2010 PRESTON PHD, HANS A 313.81 CD OPPOSITIONAL DEFIANT 02/03/2010 PRESTON PHD, HANS A 314.01 ADHD COMBINED 02/03/2010 [facility] PHD, HANS A 296.52 MO BIPOLAR I DEPRESSED MODERATE 02/03/2010 [facility] PHD, HANS A 313.81 CD OPPOSITIONAL DEFIANT 02/03/2010 [facility] PHD, HANS A 314.01 ADHD COMBINED 02/03/2010 [facility] PHD, HANS A 296.52 MO BIPOLAR I DEPRESSED MODERATE 02/03/2010 [facility] PHD, HANS A 313.81 CD OPPOSITIONAL DEFIANT 02/03/2010 [facility] PHD, HANS A 314.01 ADHD COMBINED 02/03/2010 ROSALIO STOLL MD N 296.52 MO BIPOLAR I DEPRESSED MODERATE 02/03/2010 DODIE HICKS, ROSALIO N 313.81 CD OPPOSITIONAL DEFIANT 02/03/2010 ROSALIO STOLL MD N 314.01 ADHD COMBINED 02/03/2010 [facility] PHD, HANS A 296.52 MO BIPOLAR I DEPRESSED MODERATE 02/03/2010 [facility] PHD, HANS A 313.81 CD OPPOSITIONAL DEFIANT 02/03/2010 [facility] PHD, HANS A 314.01 ADHD COMBINED 02/03/2010 ROSALIO STOLL MD N 296.52 MO BIPOLAR I DEPRESSED MODERATE 02/03/2010 CARMELA STOLL MDY N 313.81 CD OPPOSITIONAL DEFIANT 02/03/2010 CARMELA STOLL MDY N 314.01 ADHD COMBINED 02/03/2010 CARMELA STOLL MDY N 296.52 MO BIPOLAR I DEPRESSED MODERATE 02/03/2010 CARMELA STOLL MDY N 313.81 CD OPPOSITIONAL DEFIANT 02/03/2010 DODIE HICKS ROSALIO N 314.01 ADHD COMBINED 02/03/2010 DODIE HICKS, ROSALIO N 296.52 MO BIPOLAR I DEPRESSED MODERATE 02/03/2010 DODIE HICKS ROSALIO N 313.81 CD OPPOSITIONAL DEFIANT 02/03/2010 CARMELA STOLL MDY N 314.01 ADHD COMBINED 02/03/2010 CARMELA STOLL MDY N 296.52 MO BIPOLAR I DEPRESSED MODERATE 02/03/2010 CARMELA STOLL MDY N 313.81 CD OPPOSITIONAL DEFIANT 02/03/2010 DODIE HICKS ROSALIO N 314.01 ADHD COMBINED 02/03/2010 SCOTTIE ALTAMIRANO APRN A 296.52 MO BIPOLAR I DEPRESSED MODERATE 02/03/2010 EVELIA PILLOWCASE CUTTER, SCOTTIE A 313.81 CD OPPOSITIONAL DEFIANT 02/03/2010 EVELIA PILLOWCASE CUTTER, SCOTTIE A 314.01 ADHD COMBINED 02/03/2010 JUAREZ DO, STEPHANE K 296.52 MO BIPOLAR I DEPRESSED MODERATE 02/03/2010 JUAREZ DO, STEPHANE K 313.81 CD OPPOSITIONAL DEFIANT 02/03/2010 JUAREZ DO, STEPHANE K 314.01 ADHD COMBINED 02/03/2010 EVELIA PILLOWCASE CUTTER, SCOTTIE A 296.52 MO BIPOLAR I DEPRESSED MODERATE 02/03/2010 EVELIA PILLOWCASE CUTTER, SCOTTIE A 313.81 CD OPPOSITIONAL DEFIANT 02/03/2010 EVELIA PILLOWCASE CUTTER, SCOTTIE A 314.01 ADHD COMBINED 02/03/2010 ROSALIO STOLL MD 296.52 MO BIPOLAR I DEPRESSED MODERATE 02/03/2010 ROSALIO STOLL MD 313.81 CD OPPOSITIONAL DEFIANT 02/03/2010 ROSALIO STOLL MD 314.01 ADHD COMBINED 02/03/2010 EVELIA PILLOWCASE CUTTER, SCOTTIE A 296.52 MO BIPOLAR I DEPRESSED MODERATE 02/03/2010 EVELIA PILLOWCASE CUTTER, SCOTTIE A 313.81 CD OPPOSITIONAL DEFIANT 02/03/2010 EVELIA PILLOWCASE CUTTER, SCOTTIE A 314.01 ADHD COMBINED 02/03/2010 JUAREZ DO, STEPHANE K 296.52 MO BIPOLAR I DEPRESSED MODERATE 02/03/2010 JUAREZ DO, STEPHANE K 313.81 CD OPPOSITIONAL DEFIANT 02/03/2010 JUAREZ DO, STEPHANE K 314.01 ADHD COMBINED 02/03/2010 EVELIA PILLOWCASE CUTTER, SCOTTIE A 296.52 MO BIPOLAR I DEPRESSED MODERATE 02/03/2010 EVELIA PILLOWCASE CUTTER, SCOTTIE A 313.81 CD OPPOSITIONAL DEFIANT 02/03/2010 EVELIA PILLOWCASE CUTTER, SCOTTIE A 314.01 ADHD COMBINED 02/03/2010 ROSALIO STOLL MD N 296.52 MO BIPOLAR I DEPRESSED MODERATE 02/03/2010 ROSALIO STOLL MD N 313.81 CD OPPOSITIONAL DEFIANT 02/03/2010 ROSALIO STOLL MD N 314.01 ADHD COMBINED 02/03/2010 EVELIA PILLOWCASE CUTTER, SCOTTIE A 296.52 MO BIPOLAR I DEPRESSED MODERATE 02/03/2010 EVELIA PILLOWCASE CUTTER, SCOTTIE A 313.81 CD OPPOSITIONAL DEFIANT 02/03/2010 EVELIA PILLOWCASE CUTTER, SCOTTIE A 314.01 ADHD COMBINED 02/03/2010 ROSALIO STOLL MD N 296.52 MO BIPOLAR I DEPRESSED MODERATE 02/03/2010 ROSALIO STOLL MD N 313.81 CD OPPOSITIONAL DEFIANT 02/03/2010 ROSALIO STOLL MD N 314.01 ADHD COMBINED 02/03/2010 EVELIA PILLOWCASE CUTTER, SCOTTIE A 296.52 MO BIPOLAR I DEPRESSED MODERATE 02/03/2010 EVELIA PILLOWCASE CUTTER, SCOTTIE A 313.81 CD OPPOSITIONAL DEFIANT 02/03/2010 EVELIA PILLOWCASE CUTTER, SCOTTIE A 314.01 ADHD COMBINED 02/03/2010 EVELIA PILLOWCASE CUTTER, SCOTTIE A 296.52 MO BIPOLAR I DEPRESSED MODERATE 02/03/2010 EVELIA PILLOWCASE CUTTER, SCOTTIE A 313.81 CD OPPOSITIONAL DEFIANT 02/03/2010 EVELIA PILLOWCASE CUTTER, SCOTTIE A 314.01 ADHD COMBINED 02/03/2010 EVELIA PILLOWCASE CUTTER, SCOTTIE A 296.52 MO BIPOLAR I DEPRESSED MODERATE 02/03/2010 EVELIA PILLOWCASE CUTTER, SCOTTIE A 313.81 CD OPPOSITIONAL DEFIANT 02/03/2010 EVELIA PILLOWCASE CUTTER, SCOTTIE A 314.01 ADHD COMBINED 02/03/2010 EVELIA PILLOWCASE CUTTER, SCOTTIE A 296.52 MO BIPOLAR I DEPRESSED MODERATE 02/03/2010 EVELIA PILLOWCASE CUTTER, SCOTTIE A 313.81 CD OPPOSITIONAL DEFIANT 02/03/2010 EVELIA PILLOWCASE CUTTER, SCOTTIE A 314.01 ADHD COMBINED 02/03/2010 EVELIA PILLOWCASE CUTTER, SCOTTIE A 296.52 MO BIPOLAR I DEPRESSED MODERATE 02/03/2010 EVELIA PILLOWCASE CUTTER, SCOTTIE A 313.81 CD OPPOSITIONAL DEFIANT 02/03/2010 EVELIA PILLOWCASE CUTTER, SCOTTIE A 314.01 ADHD COMBINED 02/03/2010 EVELIA PILLOWCASE CUTTER, SCOTTIE A 296.52 MO BIPOLAR I DEPRESSED MODERATE 02/03/2010 EVELIA PILLOWCASE CUTTER, SCOTTIE A 313.81 CD OPPOSITIONAL DEFIANT 02/03/2010 EVELIA PILLOWCASE CUTTER, SCOTTIE A 314.01 ADHD COMBINED 02/03/2010 EVELIA PILLOWCASE CUTTER, SCOTTIE A 296.52 MO BIPOLAR I DEPRESSED MODERATE 02/03/2010 EVELIA PILLOWCASE CUTTER, SCOTTIE A 313.81 CD OPPOSITIONAL DEFIANT 02/03/2010 EVELIA PILLOWCASE CUTTER, SCOTTIE A 314.01 ADHD COMBINED 02/03/2010 CHRISTOPHER PILLOWCASE CUTTER, COLTEN R 296.52 MO BIPOLAR I DEPRESSED MODERATE 02/03/2010 CHRISTOPHER PILLOWCASE CUTTER, COLTEN R 313.81 CD OPPOSITIONAL DEFIANT 02/03/2010 CHRISTOPHER PILLOWCASE CUTTER, COLTEN R 314.01 ADHD COMBINED 02/03/2010 CHRISTOPHER PILLOWCASE CUTTER, COLTEN R 296.52 MO BIPOLAR I DEPRESSED MODERATE 02/03/2010 CHRISTOPHER PILLOWCASE CUTTER, COLTEN R 313.81 CD OPPOSITIONAL DEFIANT 02/03/2010 CHRISTOPHER PILLOWCASE CUTTER, COLTEN R 314.01 ADHD COMBINED 07/21/2010 STEPHANE JUAREZ DO 296.80 MO BIPOLAR NOS 07/21/2010 STEPHANE JUAREZ DO V58.69 MEDICATION HIGH RISK 07/21/2010 HEVER ALTAMIRANO APRNIDI A 296.80 MO BIPOLAR NOS 07/21/2010 SCOTTIE ALTAMIRANO APRN A V58.69 MEDICATION HIGH RISK 07/21/2010 296.80 MO BIPOLAR NOS 07/21/2010 V58.69 MEDICATION HIGH RISK 07/21/2010 296.80 MO BIPOLAR NOS 07/21/2010 V58.69 MEDICATION HIGH RISK 07/21/2010 296.80 MO BIPOLAR NOS 07/21/2010 V58.69 MEDICATION HIGH RISK 07/21/2010 296.80 MO BIPOLAR NOS 07/21/2010 V58.69 MEDICATION HIGH RISK 07/21/2010 296.80 MO BIPOLAR NOS 07/21/2010 V58.69 MEDICATION HIGH RISK 07/21/2010 296.80 MO BIPOLAR NOS 07/21/2010 V58.69 MEDICATION HIGH RISK 07/21/2010 296.80 MO BIPOLAR NOS 07/21/2010 V58.69 MEDICATION HIGH RISK 07/21/2010 296.80 MO BIPOLAR NOS 07/21/2010 V58.69 MEDICATION HIGH RISK 07/21/2010 296.80 MO BIPOLAR NOS 07/21/2010 V58.69 MEDICATION HIGH RISK 07/21/2010 STEPHANE JUAREZ DO 296.80 MO BIPOLAR NOS 07/21/2010 STEPHANE JUAREZ DO V58.69 MEDICATION HIGH RISK 07/21/2010 STEPHANE JUAREZ DO 296.80 MO BIPOLAR NOS 07/21/2010 STEPHANE JUAREZ DO V58.69 MEDICATION HIGH RISK 07/21/2010 EVELIA PILLOWCASE CUTTER, SCOTTIE A 296.80 MO BIPOLAR NOS 07/21/2010 EVELIA PILLOWCASE CUTTER, SCOTTIE A V58.69 MEDICATION HIGH RISK 07/21/2010 EVELIA PILLOWCASE CUTTER, SCOTTIE A 296.80 MO BIPOLAR NOS 07/21/2010 EVELIA PILLOWCASE CUTTER, SCOTTIE A V58.69 MEDICATION HIGH RISK 07/21/2010 296.80 MO BIPOLAR NOS 07/21/2010 V58.69 MEDICATION HIGH RISK 07/21/2010 EVELIA PILLOWCASE CUTTER, SCOTTIE A 296.80 MO BIPOLAR NOS 07/21/2010 EVELIA PILLOWCASE CUTTER, SCOTTIE A V58.69 MEDICATION HIGH RISK 07/21/2010 PRESTON PHD, HANS A 296.80 MO BIPOLAR NOS 07/21/2010 PRESTON PHD, HANS A V58.69 MEDICATION HIGH RISK 07/21/2010 PRESTON PHD, HANS A 296.80 MO BIPOLAR NOS 07/21/2010 PRESTON PHD, HANS A V58.69 MEDICATION HIGH RISK 07/21/2010 PRESTON PHD, HANS A 296.80 MO BIPOLAR NOS 07/21/2010 PRESTON PHD, HANS A V58.69 MEDICATION HIGH RISK 07/21/2010 DODIE HICKS, ROSALIO N 296.80 MO BIPOLAR NOS 07/21/2010 DODIE HICKS, ROSALIO N V58.69 MEDICATION HIGH RISK 07/21/2010 PRESTON PHD, HANS A 296.80 MO BIPOLAR NOS 07/21/2010 PRESTON PHD, HANS A V58.69 MEDICATION HIGH RISK 07/21/2010 DODIE HICKS, ROSALIO N 296.80 MO BIPOLAR NOS 07/21/2010 DODIE HICKS, ROSALIO N V58.69 MEDICATION HIGH RISK 07/21/2010 DODIE HICKS, ROSALIO N 296.80 MO BIPOLAR NOS 07/21/2010 DODIE HICKS, ROSALIO N V58.69 MEDICATION HIGH RISK 07/21/2010 DODIE HICKS, ROSALIO N 296.80 MO BIPOLAR NOS 07/21/2010 DODIE HICKS, ROSALIO N V58.69 MEDICATION HIGH RISK 07/21/2010 DODIE HICKS, ROSALIO N 296.80 MO BIPOLAR NOS 07/21/2010 DODIE HICKS, ROSALIO N V58.69 MEDICATION HIGH RISK 07/21/2010 EVELIA PILLOWCASE CUTTER, SCOTTIE A 296.80 MO BIPOLAR NOS 07/21/2010 EVELIA PILLOWCASE CUTTER, SCOTTIE A V58.69 MEDICATION HIGH RISK 07/21/2010 JUAREZ DO, STEPHANE K 296.80 MO BIPOLAR NOS 07/21/2010 JUAREZ DO, STEPHANE K V58.69 MEDICATION HIGH RISK 07/21/2010 EVELIA PILLOWCASE CUTTER, SCOTTIE A 296.80 MO BIPOLAR NOS 07/21/2010 EVELIA PILLOWCASE CUTTER, SCOTTIE A V58.69 MEDICATION HIGH RISK 07/21/2010 ROSALIO STOLL MD N 296.80 MO BIPOLAR NOS 07/21/2010 ROSALIO STOLL MD V58.69 MEDICATION HIGH RISK 07/21/2010 EVELIA PILLOWCASE CUTTER, SCOTTIE A 296.80 MO BIPOLAR NOS 07/21/2010 EVELIA PILLOWCASE CUTTER, SCOTTIE A V58.69 MEDICATION HIGH RISK 07/21/2010 JUAREZ DO, STEPHANE K 296.80 MO BIPOLAR NOS 07/21/2010 JUAREZ DO, STEPHANE K V58.69 MEDICATION HIGH RISK 07/21/2010 EVELIA PILLOWCASE CUTTER, SCOTTIE A 296.80 MO BIPOLAR NOS 07/21/2010 EVELIA PILLOWCASE CUTTER, SCOTTIE A V58.69 MEDICATION HIGH RISK 07/21/2010 ROSALIO STOLL MD N 296.80 MO BIPOLAR NOS 07/21/2010 ROSALIO STOLL MD V58.69 MEDICATION HIGH RISK 07/21/2010 EVELIA PILLOWCASE CUTTER, SCOTTIE A 296.80 MO BIPOLAR NOS 07/21/2010 EVELIA PILLOWCASE CUTTER, SCOTTIE A V58.69 MEDICATION HIGH RISK 07/21/2010 ROSALIO STOLL MD N 296.80 MO BIPOLAR NOS 07/21/2010 ROSALIO STOLL MD V58.69 MEDICATION HIGH RISK 07/21/2010 EVELIA PILLOWCASE CUTTER, SCOTTIE A 296.80 MO BIPOLAR NOS 07/21/2010 EVELIA PILLOWCASE CUTTER, SCOTTIE A V58.69 MEDICATION HIGH RISK 07/21/2010 EVELIA PILLOWCASE CUTTER, SCOTTIE A 296.80 MO BIPOLAR NOS 07/21/2010 EVELIA PILLOWCASE CUTTER, SCOTTIE A V58.69 MEDICATION HIGH RISK 07/21/2010 EVELIA PILLOWCASE CUTTER, SCOTTIE A 296.80 MO BIPOLAR NOS 07/21/2010 EVELIA PILLOWCASE CUTTER, SCOTTIE A V58.69 MEDICATION HIGH RISK 07/21/2010 EVELIA PILLOWCASE CUTTER, SCOTTIE A 296.80 MO BIPOLAR NOS 07/21/2010 EVELIA PILLOWCASE CUTTER, SCOTTIE A V58.69 MEDICATION HIGH RISK 07/21/2010 EVELIA PILLOWCASE CUTTER, SCOTTIE A 296.80 MO BIPOLAR NOS 07/21/2010 EVELIA PILLOWCASE CUTTER, SCOTTIE A V58.69 MEDICATION HIGH RISK 07/21/2010 EVELIA PILLOWCASE CUTTER, SCOTTIE A 296.80 MO BIPOLAR NOS 07/21/2010 EVELIA PILLOWCASE CUTTER, SCOTTIE A V58.69 MEDICATION HIGH RISK 07/21/2010 EVELIA PILLOWCASE CUTTER, SCOTTIE A 296.80 MO BIPOLAR NOS 07/21/2010 EVELIA PILLOWCASE CUTTER, SCOTTIE A V58.69 MEDICATION HIGH RISK 07/21/2010 CHRISTOPHER PILLOWCASE CUTTER, COLTEN R 296.80 MO BIPOLAR NOS 07/21/2010 CHRISTOPHER PILLOWCASE CUTTER, COLTEN R V58.69 MEDICATION HIGH RISK 07/21/2010 CHRISTOPHER PILLOWCASE CUTTER, COLTEN R 296.80 MO BIPOLAR NOS 07/21/2010 CHRISTOPHER PILLOWCASE CUTTER, COLTEN R V58.69 MEDICATION HIGH RISK 06/12/2011 Ot 789.00 ABDOMINAL PAIN, UNSPECIFIED SITE 07/10/2011 STEPHANE JUAREZ DO 314.00 ADHD INATTENTIVE 07/10/2011 EVELIA PILLOWCASE CUTTER, SCOTTIE A 314.00 ADHD INATTENTIVE 07/10/2011 314.00 ADHD INATTENTIVE 07/10/2011 314.00 ADHD INATTENTIVE 07/10/2011 314.00 ADHD INATTENTIVE 07/10/2011 314.00 ADHD INATTENTIVE 07/10/2011 314.00 ADHD INATTENTIVE 07/10/2011 314.00 ADHD INATTENTIVE 07/10/2011 314.00 ADHD INATTENTIVE 07/10/2011 314.00 ADHD INATTENTIVE 07/10/2011 314.00 ADHD INATTENTIVE 07/10/2011 STEPHANE JUAREZ DO 314.00 ADHD INATTENTIVE 07/10/2011 STEPHANE JUAREZ DO 314.00 ADHD INATTENTIVE 07/10/2011 EVELIA PILLOWCASE CUTTER, SCOTTIE A 314.00 ADHD INATTENTIVE 07/10/2011 EVELIA PILLOWCASE CUTTER, SCOTTIE A 314.00 ADHD INATTENTIVE 07/10/2011 314.00 ADHD INATTENTIVE 07/10/2011 EVELIA PILLOWCASE CUTTER, SCOTTIE A 314.00 ADHD INATTENTIVE 07/10/2011 PRESTON PHD, HANS A 314.00 ADHD INATTENTIVE 07/10/2011 PRESTON PHD, HANS A 314.00 ADHD INATTENTIVE 07/10/2011 PRESTON PHD, HANS A 314.00 ADHD INATTENTIVE 07/10/2011 DODIE HICKS, ROSALIO N 314.00 ADHD INATTENTIVE 07/10/2011 PRESTON PHD, HANS A 314.00 ADHD INATTENTIVE 07/10/2011 DODIE HICKS, ROSALIO N 314.00 ADHD INATTENTIVE 07/10/2011 DODIE HICKS, ROSALIO N 314.00 ADHD INATTENTIVE 07/10/2011 DODIE HICKS, ROSALIO N 314.00 ADHD INATTENTIVE 07/10/2011 DODIE HICKS, ROSALIO N 314.00 ADHD INATTENTIVE 07/10/2011 EVELIA PILLOWCASE CUTTER, SCOTTIE A 314.00 ADHD INATTENTIVE 07/10/2011 JUAREZ DO, STEPHANE K 314.00 ADHD INATTENTIVE 07/10/2011 EVELIA PILLOWCASE CUTTER, SCOTTIE A 314.00 ADHD INATTENTIVE 07/10/2011 DODIE HICKS, ROSALIO N 314.00 ADHD INATTENTIVE 07/10/2011 EVELIA PILLOWCASE CUTTER, SCOTTIE A 314.00 ADHD INATTENTIVE 07/10/2011 JUAREZ DO, STEPHANE K 314.00 ADHD INATTENTIVE 07/10/2011 EVELIA PILLOWCASE CUTTER, SCOTTIE A 314.00 ADHD INATTENTIVE 07/10/2011 DODIE HICKS, ROSALIO N 314.00 ADHD INATTENTIVE 07/10/2011 EVELIA PILLOWCASE CUTTER, SCOTTIE A 314.00 ADHD INATTENTIVE 07/10/2011 DODIE HICKS, ROSALIO N 314.00 ADHD INATTENTIVE 07/10/2011 EVELIA PILLOWCASE CUTTER, SCOTTIE A 314.00 ADHD INATTENTIVE 07/10/2011 EVELIA PILLOWCASE CUTTER, SCOTTIE A 314.00 ADHD INATTENTIVE 07/10/2011 EVELIA PILLOWCASE CUTTER, SCOTTIE A 314.00 ADHD INATTENTIVE 07/10/2011 EVELIA PILLOWCASE CUTTER, SCOTTIE A 314.00 ADHD INATTENTIVE 07/10/2011 EVELIA PILLOWCASE CUTTER, SCOTTIE A 314.00 ADHD INATTENTIVE 07/10/2011 EVELIA PILLOWCASE CUTTER, SCOTTIE A 314.00 ADHD INATTENTIVE 07/10/2011 EVELIA PILLOWCASE CUTTER, SCOTTIE A 314.00 ADHD INATTENTIVE 07/10/2011 CHRISTOPHER PILLOWCASE CUTTER, COLTEN R 314.00 ADHD INATTENTIVE 07/10/2011 CHRISTOPHER PILLOWCASE CUTTER, COLTEN R 314.00 ADHD INATTENTIVE 06/09/2012 STEPHANE JUAREZ DO K 521.00 DENTAL CARIES 06/09/2012 STEPHANE JUAREZ DO K 599.0 URINARY TRACT INFECTION 06/09/2012 YUE JUAREZ DOA K V72.42 TEST POSITIVE RESULT 06/09/2012 EVELIA ARAYA, SCOTTIE A 521.00 DENTAL CARIES 06/09/2012 EVELIA SORIANON, SCOTTIE A 599.0 URINARY TRACT INFECTION 06/09/2012 EVELIA ARAYA, SCOTTIE A V72.42 TEST POSITIVE RESULT 06/09/2012 521.00 DENTAL CARIES 06/09/2012 599.0 URINARY TRACT INFECTION 06/09/2012 V72.42 TEST POSITIVE RESULT 06/09/2012 521.00 DENTAL CARIES 06/09/2012 599.0 URINARY TRACT INFECTION 06/09/2012 V72.42 TEST POSITIVE RESULT 06/09/2012 521.00 DENTAL CARIES 06/09/2012 599.0 URINARY TRACT INFECTION 06/09/2012 V72.42 TEST POSITIVE RESULT 06/09/2012 521.00 DENTAL CARIES 06/09/2012 599.0 URINARY TRACT INFECTION 06/09/2012 V72.42 TEST POSITIVE RESULT 06/09/2012 521.00 DENTAL CARIES 06/09/2012 599.0 URINARY TRACT INFECTION 06/09/2012 V72.42 TEST POSITIVE RESULT 06/09/2012 521.00 DENTAL CARIES 06/09/2012 599.0 URINARY TRACT INFECTION 06/09/2012 V72.42 TEST POSITIVE RESULT 06/09/2012 521.00 DENTAL CARIES 06/09/2012 599.0 URINARY TRACT INFECTION 06/09/2012 V72.42 TEST POSITIVE RESULT 06/09/2012 521.00 DENTAL CARIES 06/09/2012 599.0 URINARY TRACT INFECTION 06/09/2012 V72.42 TEST POSITIVE RESULT 06/09/2012 521.00 DENTAL CARIES 06/09/2012 599.0 URINARY TRACT INFECTION 06/09/2012 V72.42 TEST POSITIVE RESULT 06/09/2012 STEPHANE JUAREZ DO K 521.00 DENTAL CARIES 06/09/2012 JUAREZ DO, STEPHANE K 599.0 URINARY TRACT INFECTION 06/09/2012 JUAREZ DO, STEPHANE K V72.42 TEST POSITIVE RESULT 06/09/2012 JUAREZ DO, STEPHANE K 521.00 DENTAL CARIES 06/09/2012 JUAREZ DO, STEPHANE K 599.0 URINARY TRACT INFECTION 06/09/2012 JUAREZ DO, STEPHANE K V72.42 TEST POSITIVE RESULT 06/09/2012 EVELIA ARAYA, SCOTTIE A 521.00 DENTAL CARIES 06/09/2012 EVELIA ARAYA, SCOTTIE A 599.0 URINARY TRACT INFECTION 06/09/2012 EVELIA ARAYA, SCOTTIE A V72.42 TEST POSITIVE RESULT 06/09/2012 EVELIA ARAYA, SCOTTIE A 521.00 DENTAL CARIES 06/09/2012 EVELIA ARAYA, SCOTTIE A 599.0 URINARY TRACT INFECTION 06/09/2012 EVELIA ARAYA, SCOTTIE A V72.42 TEST POSITIVE RESULT 06/09/2012 521.00 DENTAL CARIES 06/09/2012 599.0 URINARY TRACT INFECTION 06/09/2012 V72.42 TEST POSITIVE RESULT 06/09/2012 EVELIA ARAYA, SCOTTIE A 521.00 DENTAL CARIES 06/09/2012 EVELIA ARAYA, SCOTTIE A 599.0 URINARY TRACT INFECTION 06/09/2012 HEVER ALTAMIRANO APRNIDI A V72.42 TEST POSITIVE RESULT 06/09/2012 PRESTON OJY, HANS A 521.00 DENTAL CARIES 06/09/2012 PRESTON PHD, HANS A 599.0 URINARY TRACT INFECTION 06/09/2012 PRESTON PHD, HANS A V72.42 TEST POSITIVE RESULT 06/09/2012 PRESTON PHD, HANS A 521.00 DENTAL CARIES 06/09/2012 PRESTON PHD, HANS A 599.0 URINARY TRACT INFECTION 06/09/2012 PRESTON JOY, HANS A V72.42 TEST POSITIVE RESULT 06/09/2012 PRESTON PHD, HANS A 521.00 DENTAL CARIES 06/09/2012 PRESTON PHD, HANS A 599.0 URINARY TRACT INFECTION 06/09/2012 PRESTON JOY, HANS A V72.42 TEST POSITIVE RESULT 06/09/2012 ROSALIO STOLL MD N 521.00 DENTAL CARIES 06/09/2012 ROSALIO STOLL MD N 599.0 URINARY TRACT INFECTION 06/09/2012 ROSALIO STOLL MD V72.42 TEST POSITIVE RESULT 06/09/2012 PRESTON PHD, HANS A 521.00 DENTAL CARIES 06/09/2012 PRESTON PHD, HANS A 599.0 URINARY TRACT INFECTION 06/09/2012 PRESTON JOY, HANS [place] V72.42 TEST POSITIVE RESULT 06/09/2012 ROSALIO STOLL MD N 521.00 DENTAL CARIES 06/09/2012 ROSALIO STOLL MD N 599.0 URINARY TRACT INFECTION 06/09/2012 ROSALIO STOLL MD V72.42 TEST POSITIVE RESULT 06/09/2012 ROSALIO STOLL MD N 521.00 DENTAL CARIES 06/09/2012 ROSALIO STOLL MD N 599.0 URINARY TRACT INFECTION 06/09/2012 ROSALIO STOLL MD V72.42 TEST POSITIVE RESULT 06/09/2012 ROSALIO STOLL MD N 521.00 DENTAL CARIES 06/09/2012 ROSALIO STOLL MD N 599.0 URINARY TRACT INFECTION 06/09/2012 ROSALIO STOLL MD V72.42 TEST POSITIVE RESULT 06/09/2012 ROSALIO STOLL MD N 521.00 DENTAL CARIES 06/09/2012 ROSALIO STOLL MD N 599.0 URINARY TRACT INFECTION 06/09/2012 ROSALIO STOLL MD N V72.42 TEST POSITIVE RESULT 06/09/2012 SCOTTIE ALTAMIRANO APRN A 521.00 DENTAL CARIES 06/09/2012 SCOTTIE ALTAMIRANO APRN A 599.0 URINARY TRACT INFECTION 06/09/2012 SCOTTIE ALTAMIRANO APRN V72.42 TEST POSITIVE RESULT 06/09/2012 JUAREZ DO STEPHANE K 521.00 DENTAL CARIES 06/09/2012 JUAREZ DO STEPHANE K 599.0 URINARY TRACT INFECTION 06/09/2012 [place] STPEHANE K V72.42 TEST POSITIVE RESULT 06/09/2012 SCOTTIE ALTAMIRANO APRN A 521.00 DENTAL CARIES 06/09/2012 EVELIA PILLOWCASE CUTTER, SCOTTIE A 599.0 URINARY TRACT INFECTION 06/09/2012 EVELIA PILLOWCASE CUTTERHEVERSCOTTIE A V72.42 TEST POSITIVE RESULT 06/09/2012 ROSALIO STOLL MD N 521.00 DENTAL CARIES 06/09/2012 ROSALIO STOLL MD N 599.0 URINARY TRACT INFECTION 06/09/2012 ROSALIO STOLL MD V72.42 TEST POSITIVE RESULT 06/09/2012 EVELIAALLA ARAYAHEVERSCOTTIE A 521.00 DENTAL CARIES 06/09/2012 EVELIA PILLOWCASE CUTTER, SCOTTIE A 599.0 URINARY TRACT INFECTION 06/09/2012 EVELIA PILLOWCASE CUTTERHEVERSCOTTIE A V72.42 TEST POSITIVE RESULT 06/09/2012 JUAREZ DO, STEPHANE K 521.00 DENTAL CARIES 06/09/2012 JUAREZ DO, STEPHANE K 599.0 URINARY TRACT INFECTION 06/09/2012 JUAREZ DO, STEPHANE K V72.42 TEST POSITIVE RESULT 06/09/2012 EVELIAALLA ARAYAHEVERSCOTTIE A 521.00 DENTAL CARIES 06/09/2012 EVELIA ARAYA SCOTTIE A 599.0 URINARY TRACT INFECTION 06/09/2012 EVELIAALLA ARAYAHEVERSCOTTIE A V72.42 TEST POSITIVE RESULT 06/09/2012 ROSALIO STOLL MD N 521.00 DENTAL CARIES 06/09/2012 ROSALIO STOLL MD N 599.0 URINARY TRACT INFECTION 06/09/2012 ROSALIO STOLL MD V72.42 TEST POSITIVE RESULT 06/09/2012 EVELIAALLA ARAYA SCOTTIE A 521.00 DENTAL CARIES 06/09/2012 EVELIA ARAYA SCOTTIE A 599.0 URINARY TRACT INFECTION 06/09/2012 EVELIAALLA ARAYA SCOTTIE A V72.42 TEST POSITIVE RESULT 06/09/2012 ROSALIO STOLL MD N 521.00 DENTAL CARIES 06/09/2012 ROSALIO STOLL MD 599.0 URINARY TRACT INFECTION 06/09/2012 ROSALIO STOLL MD N V72.42 TEST POSITIVE RESULT 06/09/2012 EVELIAALLA ARAYAHEVERSCOTTIE A 521.00 DENTAL CARIES 06/09/2012 EVELIA ARAYA SCOTTIE A 599.0 URINARY TRACT INFECTION 06/09/2012 EVELIA PILLOWCASE CUTTER, SCOTTIE A V72.42 TEST POSITIVE RESULT 06/09/2012 EVELIA PILLOWCASE CUTTER, SCOTTIE A 521.00 DENTAL CARIES 06/09/2012 EVELIA PILLOWCASE CUTTER, SCOTTIE A 599.0 URINARY TRACT INFECTION 06/09/2012 EVELIA PILLOWCASE CUTTER, SCOTTIE A V72.42 TEST POSITIVE RESULT 06/09/2012 EVELIA PILLOWCASE CUTTER, SCOTTIE A 521.00 DENTAL CARIES 06/09/2012 EVELIA PILLOWCASE CUTTER, SCOTTIE A 599.0 URINARY TRACT INFECTION 06/09/2012 EVELIA PILLOWCASE CUTTER, SCOTTIE A V72.42 TEST POSITIVE RESULT 06/09/2012 EVELIA PILLOWCASE CUTTER, SCOTTIE A 521.00 DENTAL CARIES 06/09/2012 EVELIA PILLOWCASE CUTTER, SCOTTIE A 599.0 URINARY TRACT INFECTION 06/09/2012 EVELIA PILLOWCASE CUTTER, SCOTTIE A V72.42 TEST POSITIVE RESULT 06/09/2012 EVELIA PILLOWCASE CUTTER, SCOTTIE A 521.00 DENTAL CARIES 06/09/2012 EVELIA PILLOWCASE CUTTER, SCOTTIE A 599.0 URINARY TRACT INFECTION 06/09/2012 EVELAI PILLOWCASE CUTTER, SCOTTIE A V72.42 TEST POSITIVE RESULT 06/09/2012 EVELIA PILLOWCASE CUTTER, SCOTTIE A 521.00 DENTAL CARIES 06/09/2012 EVELIA PILLOWCASE CUTTER, SCOTTIE A 599.0 URINARY TRACT INFECTION 06/09/2012 EVELIA PILLOWCASE CUTTER, SCOTTIE A V72.42 TEST POSITIVE RESULT 06/09/2012 EVELIA PILLOWCASE CUTTER, SCOTTIE A 521.00 DENTAL CARIES 06/09/2012 EVELIA PILLOWCASE CUTTER, SCOTTIE A 599.0 URINARY TRACT INFECTION 06/09/2012 EVELIA PILLOWCASE CUTTER, SCOTTIE A V72.42 TEST POSITIVE RESULT 06/09/2012 CHRISTOPHER PILLOWCASE CUTTER, COLTEN R 521.00 DENTAL CARIES 06/09/2012 CHRISTOPHER PILLOWCASE CUTTER, COLTEN R 599.0 URINARY TRACT INFECTION 06/09/2012 CHRISTOPHER PILLOWCASE CUTTER, COLTEN R V72.42 TEST POSITIVE RESULT 06/09/2012 CHRISTOPHER PILLOWCASE CUTTER, COLTEN R 521.00 DENTAL CARIES 06/09/2012 CHRISTOPHER PILLOWCASE CUTTER, COLTEN R 599.0 URINARY TRACT INFECTION 06/09/2012 CHRISTOPHER PILLOWCASE CUTTER, COLTEN R V72.42 TEST POSITIVE RESULT 07/12/2012 EVELIA PILLOWCASE CUTTER, SCOTTIE A V23.9 , HIGH-RISK (UNSPEC) 07/12/2012 V23.9 , HIGH-RISK (UNSPEC) 07/12/2012 V23.9 , HIGH-RISK (UNSPEC) 07/12/2012 V23.9 , HIGH-RISK (UNSPEC) 07/12/2012 V23. , HIGH-RISK (UNSPEC) 07/12/2012 V23. , HIGH-RISK (UNSPEC) 07/12/2012 V23 , HIGH-RISK (UNSPEC) 07/12/2012 V23 , HIGH-RISK (UNSPEC) 07/12/2012 V206.24 , HIGH-RISK (UNSPEC) 07/12/2012 , HIGH-RISK (UNSPEC) 07/12/2012 JUAREZ DO, STEPHANE K V23.9 , HIGH-RISK (UNSPEC) 07/12/2012 JUAREZ DO, STEPHANE K V23.9 , HIGH-RISK (UNSPEC) 07/12/2012 EVELIA PILLOWCASE CUTTER, SCOTTIE A V23.9 , HIGH-RISK (UNSPEC) 07/12/2012 EVELIA PILLOWCASE CUTTER, SCOTTIE A V23.9 , HIGH-RISK (UNSPEC) 07/12/2012 V23.9 , HIGH-RISK (UNSPEC) 07/12/2012 EVELIA PILLOWCASE CUTTER, SCOTTIE A V23.9 , HIGH-RISK (UNSPEC) 07/12/2012 PRESTON JOY, HANS A V23.9 , HIGH-RISK (UNSPEC) 07/12/2012 PRESTON JOY, HANS A V23.9 , HIGH-RISK (UNSPEC) 07/12/2012 PRESTON PHD, HANS A V23.9 , HIGH-RISK (UNSPEC) 07/12/2012 ROSALIO STOLL MD V23.9 , HIGH-RISK (UNSPEC) 07/12/2012 PRESTON JOY, HANS A V23.9 , HIGH-RISK (UNSPEC) 07/12/2012 ROSALIO STOLL MD V23.9 , HIGH-RISK (UNSPEC) 07/12/2012 ROSALIO STOLL MD V23.9 , HIGH-RISK (UNSPEC) 07/12/2012 DODIE HICKS, ROSALIO N V23.9 , HIGH-RISK (UNSPEC) 07/12/2012 ROSALIO STOLL MD N V23.9 , HIGH-RISK (UNSPEC) 07/12/2012 EVELIA PILLOWCASE CUTTER, SCOTTIE A V23.9 , HIGH-RISK (UNSPEC) 07/12/2012 JUAREZ DO, STEPHANE K V23.9 , HIGH-RISK (UNSPEC) 07/12/2012 EVELIA PILLOWCASE CUTTER, SCOTTIE A V23.9 , HIGH-RISK (UNSPEC) 07/12/2012 ROSALIO STOLL MD N V23.9 , HIGH-RISK (UNSPEC) 07/12/2012 EVELIA PILLOWCASE CUTTER, SCOTTIE A V23.9 , HIGH-RISK (UNSPEC) 07/12/2012 JUAREZ DO, STEPHANE K V23.9 , HIGH-RISK (UNSPEC) 07/12/2012 EVELIA PILLOWCASE CUTTER, SCOTTIE A V23.9 , HIGH-RISK (UNSPEC) 07/12/2012 ROSALIO STOLL MD N V23.9 , HIGH-RISK (UNSPEC) 07/12/2012 EVELIA PILLOWCASE CUTTER, SCOTTIE A V23.9 , HIGH-RISK (UNSPEC) 07/12/2012 ROSALIO STOLL MD N V23.9 , HIGH-RISK (UNSPEC) 07/12/2012 EVELIA PILLOWCASE CUTTER, SCOTTIE A V23.9 , HIGH-RISK (UNSPEC) 07/12/2012 EVELIA PILLOWCASE CUTTER, SCOTTIE A V23.9 , HIGH-RISK (UNSPEC) 07/12/2012 EVELIA PILLOWCASE CUTTER, SCOTTIE A V23.9 , HIGH-RISK (UNSPEC) 07/12/2012 EVELIA PILLOWCASE CUTTER, SCOTTIE A V23.9 , HIGH-RISK (UNSPEC) 07/12/2012 EVELIA PILLOWCASE CUTTER, SCOTTIE A V23.9 , HIGH-RISK (UNSPEC) 07/12/2012 EVELIA PILLOWCASE CUTTER, SCOTTIE A V23.9 , HIGH-RISK (UNSPEC) 07/12/2012 EVELIA PILLOWCASE CUTTER, SCOTTIE A V23.9 , HIGH-RISK (UNSPEC) 07/12/2012 CHRISTOPHER PILLOWCASE CUTTER, COLTEN R V23.9 , HIGH-RISK (UNSPEC) 07/12/2012 CHRISTOPHER PILLOWCASE CUTTER, COLTEN R V23.9 , HIGH-RISK (UNSPEC) 08/11/2012 477.9 ALLERGIC RHINITIS CAUSE UNSPECIFIED 08/11/2012 646.60 COMPL OF - UTI 08/11/2012 V74.5 STD SCREEN 08/11/2012 477.9 ALLERGIC RHINITIS CAUSE UNSPECIFIED 08/11/2012 646.60 COMPL OF - UTI 08/11/2012 V74.5 STD SCREEN 08/11/2012 477.9 ALLERGIC RHINITIS CAUSE UNSPECIFIED 08/11/2012 646.60 COMPL OF - UTI 08/11/2012 V74.5 STD SCREEN 08/11/2012 477.9 ALLERGIC RHINITIS CAUSE UNSPECIFIED 08/11/2012 646.60 COMPL OF - UTI 08/11/2012 V74.5 STD SCREEN 08/11/2012 477.9 ALLERGIC RHINITIS CAUSE UNSPECIFIED 08/11/2012 646.60 COMPL OF - UTI 08/11/2012 V74.5 STD SCREEN 08/11/2012 477.9 ALLERGIC RHINITIS CAUSE UNSPECIFIED 08/11/2012 646.60 COMPL OF - UTI 08/11/2012 V74.5 STD SCREEN 08/11/2012 477.9 ALLERGIC RHINITIS CAUSE UNSPECIFIED 08/11/2012 646.60 COMPL OF - UTI 08/11/2012 V74.5 STD SCREEN 08/11/2012 477.9 ALLERGIC RHINITIS CAUSE UNSPECIFIED 08/11/2012 646.60 COMPL OF - UTI 08/11/2012 V74.5 STD SCREEN 08/11/2012 477.9 ALLERGIC RHINITIS CAUSE UNSPECIFIED 08/11/2012 646.60 COMPL OF - UTI 08/11/2012 V74.5 STD SCREEN 08/11/2012 JUAREZ DOYUEA K 477.9 ALLERGIC RHINITIS CAUSE UNSPECIFIED 08/11/2012 STEPHANE JUAREZ DO K 646.60 COMPL OF - UTI 08/11/2012 YUE JUAREZ DOA K V74.5 STD SCREEN 08/11/2012 JUAREZ STEPHANE [place] 477.9 ALLERGIC RHINITIS CAUSE UNSPECIFIED 08/11/2012 JUAREZ YUE NYA K 646.60 COMPL OF - UTI 08/11/2012 JUAREZ DO STEPHANE K V74.5 STD SCREEN 08/11/2012 SCOTTIE ALTAMIRANO APRN A 477.9 ALLERGIC RHINITIS CAUSE UNSPECIFIED 08/11/2012 SCOTTIE ALTAMIRANO APRN A 646.60 COMPL OF - UTI 08/11/2012 SCOTTIE ALTAMIRANO APRN A V74.5 STD SCREEN 08/11/2012 SCOTTIE ALTAMIRANO APRN A 477.9 ALLERGIC RHINITIS CAUSE UNSPECIFIED 08/11/2012 SCOTTIE ALTAMIRANO APRN A 646.60 COMPL OF - UTI 08/11/2012 SCOTTIE ALTAMIRANO APRN A V74.5 STD SCREEN 08/11/2012 477.9 ALLERGIC RHINITIS CAUSE UNSPECIFIED 08/11/2012 646.60 COMPL OF - UTI 08/11/2012 V74.5 STD SCREEN 08/11/2012 SCOTTIE ALTAMIRANO APRN A 477.9 ALLERGIC RHINITIS CAUSE UNSPECIFIED 08/11/2012 SCOTTIE ALTAMIRANO APRN A 646.60 COMPL OF - UTI 08/11/2012 SCOTTIE ALTAMIRANO APRN A V74.5 STD SCREEN 08/11/2012 HANS JOHNSTON PHD 477.9 ALLERGIC RHINITIS CAUSE UNSPECIFIED 08/11/2012 HANS JOHNSTON PHD 646.60 COMPL OF - UTI 08/11/2012 HANS JOHNSTON PHD V74.5 STD SCREEN 08/11/2012 HANS JOHNSTON PHD 477.9 ALLERGIC RHINITIS CAUSE UNSPECIFIED 08/11/2012 HANS JOHNSTON PHD 646.60 COMPL OF - UTI 08/11/2012 HANS JOHNSTON PHD V74.5 STD SCREEN 08/11/2012 HANS JOHNSTON PHD 477.9 ALLERGIC RHINITIS CAUSE UNSPECIFIED 08/11/2012 HANS JOHNSTON PHD 646.60 COMPL OF - UTI 08/11/2012 HANS JOHNSTON PHD V74.5 STD SCREEN 08/11/2012 ROSALIO STOLL MD 477.9 ALLERGIC RHINITIS CAUSE UNSPECIFIED 08/11/2012 ROSALIO STOLL MD 646.60 COMPL OF - UTI 08/11/2012 ROSALIO STOLL MD V74.5 STD SCREEN 08/11/2012 HANS JOHNSTON PHD 477.9 ALLERGIC RHINITIS CAUSE UNSPECIFIED 08/11/2012 HANS JOHNSTON PHD A 646.60 COMPL OF - UTI 08/11/2012 HANS JOHNSTON PHD A V74.5 STD SCREEN 08/11/2012 ROSALIO STOLL MD 477.9 ALLERGIC RHINITIS CAUSE UNSPECIFIED 08/11/2012 ROSALIO STOLL MD 646.60 COMPL OF - UTI 08/11/2012 ROSALIO STOLL MD V74.5 STD SCREEN 08/11/2012 ROSALIO STOLL MD 477.9 ALLERGIC RHINITIS CAUSE UNSPECIFIED 08/11/2012 ROSALIO STOLL MD 646.60 COMPL OF - UTI 08/11/2012 ROSALIO STOLL MD V74.5 STD SCREEN 08/11/2012 ROSALIO STOLL MD 477.9 ALLERGIC RHINITIS CAUSE UNSPECIFIED 08/11/2012 ROSALIO STOLL MD 646.60 COMPL OF - UTI 08/11/2012 ROSALIO STOLL MD V74.5 STD SCREEN 08/11/2012 ROSALIO STOLL MD 477.9 ALLERGIC RHINITIS CAUSE UNSPECIFIED 08/11/2012 ROSALIO STOLL MD 646.60 COMPL OF - UTI 08/11/2012 ROSALIO STOLL MD V74.5 STD SCREEN 08/11/2012 SCOTTIE ALTAMIRANO APRN A 477.9 ALLERGIC RHINITIS CAUSE UNSPECIFIED 08/11/2012 SCOTTIE ALTAMRIANO APRN A 646.60 COMPL OF - UTI 08/11/2012 SCOTTIE ALTAMIRANO APRN A V74.5 STD SCREEN 08/11/2012 JUAREZ DO, STEPHANE K 477.9 ALLERGIC RHINITIS CAUSE UNSPECIFIED 08/11/2012 JUAREZ DO, STEPHANE K 646.60 COMPL OF - UTI 08/11/2012 JUAREZ DO, STEPHANE K V74.5 STD SCREEN 08/11/2012 SCOTTIE ALTAMIRANO APRN A 477.9 ALLERGIC RHINITIS CAUSE UNSPECIFIED 08/11/2012 HEVER ALTAMIRANO APRNIDI A 646.60 COMPL OF - UTI 08/11/2012 EVELIA ARAYA SCOTTIE A V74.5 STD SCREEN 08/11/2012 ROSALIO STOLL MD 477.9 ALLERGIC RHINITIS CAUSE UNSPECIFIED 08/11/2012 ROSALIO STOLL MD 646.60 COMPL OF - UTI 08/11/2012 ROSALIO STOLL MD V74.5 STD SCREEN 08/11/2012 SCOTTIE ALTAMIRANO APRN A 477.9 ALLERGIC RHINITIS CAUSE UNSPECIFIED 08/11/2012 SCOTTIE ALTAMIRANO APRN A 646.60 COMPL OF - UTI 08/11/2012 SCOTTIE ALTAMIRANO APRN A V74.5 STD SCREEN 08/11/2012 JUAREZ DO, STEPHANE K 477.9 ALLERGIC RHINITIS CAUSE UNSPECIFIED 08/11/2012 JUAREZ DO, STEPHANE K 646.60 COMPL OF - UTI 08/11/2012 JUAREZ DO, STEPHANE K V74.5 STD SCREEN 08/11/2012 SCOTTIE ALTAMIRANO APRN A 477.9 ALLERGIC RHINITIS CAUSE UNSPECIFIED 08/11/2012 SCOTTIE ALTAMIRANO APRN A 646.60 COMPL OF - UTI 08/11/2012 SCOTTIE ALTAMIRANO APRN A V74.5 STD SCREEN 08/11/2012 ROSALIO STOLL MD 477.9 ALLERGIC RHINITIS CAUSE UNSPECIFIED 08/11/2012 ROSALIO STOLL MD 646.60 COMPL OF - UTI 08/11/2012 ROSALIO STOLL MD V74.5 STD SCREEN 08/11/2012 SCOTTIE ALTAMIRANO APRN 477.9 ALLERGIC RHINITIS CAUSE UNSPECIFIED 08/11/2012 SCOTTIE ALTAMIRANO APRN A 646.60 COMPL OF - UTI 08/11/2012 SCOTTIE ALTAMIRANO APRN A V74.5 STD SCREEN 08/11/2012 ROSALIO STOLL MD 477.9 ALLERGIC RHINITIS CAUSE UNSPECIFIED 08/11/2012 ROSALIO STOLL MD 646.60 COMPL OF - UTI 08/11/2012 ROSALIO STOLL MD V74.5 STD SCREEN 08/11/2012 SCOTTIE ALTAMIRANO APRN A 477.9 ALLERGIC RHINITIS CAUSE UNSPECIFIED 08/11/2012 SCOTTIE ALTAMIRANO APRN A 646.60 COMPL OF - UTI 08/11/2012 EVELIA PILLOWCASE CUTTER, SCOTTIE A V74.5 STD SCREEN 08/11/2012 EVELIA PILLOWCASE CUTTER, SCOTTIE A 477.9 ALLERGIC RHINITIS CAUSE UNSPECIFIED 08/11/2012 EVELIA PILLOWCASE CUTTER, SCOTTIE A 646.60 COMPL OF - UTI 08/11/2012 EVELIA PILLOWCASE CUTTER, SCOTTIE A V74.5 STD SCREEN 08/11/2012 EVELIA PILLOWCASE CUTTER, SCOTTIE A 477.9 ALLERGIC RHINITIS CAUSE UNSPECIFIED 08/11/2012 EVELIA PILLOWCASE CUTTER, SCOTTIE A 646.60 COMPL OF - UTI 08/11/2012 EVELIA PILLOWCASE CUTTER, SCOTTIE A V74.5 STD SCREEN 08/11/2012 EEVLIA PILLOWCASE CUTTER, SCOTTIE A 477.9 ALLERGIC RHINITIS CAUSE UNSPECIFIED 08/11/2012 EVELIA PILLOWCASE CUTTER, SCOTTIE A 646.60 COMPL OF - UTI 08/11/2012 EVELIA PILLOWCASE CUTTER, SCOTTIE A V74.5 STD SCREEN 08/11/2012 EVELIA PILLOWCASE CUTTER, SCOTTIE A 477.9 ALLERGIC RHINITIS CAUSE UNSPECIFIED 08/11/2012 EVELIA PILLOWCASE CUTTER, SCOTTIE A 646.60 COMPL OF - UTI 08/11/2012 EVELIA PILLOWCASE CUTTER, SCOTTIE A V74.5 STD SCREEN 08/11/2012 EVELIA PILLOWCASE CUTTER, SCOTTIE A 477.9 ALLERGIC RHINITIS CAUSE UNSPECIFIED 08/11/2012 EVELIA PILLOWCASE CUTTER, SCOTTIE A 646.60 COMPL OF - UTI 08/11/2012 EVELIA PILLOWCASE CUTTER, SCOTTIE A V74.5 STD SCREEN 08/11/2012 EVELIA PILLOWCASE CUTTER, SCOTTIE A 477.9 ALLERGIC RHINITIS CAUSE UNSPECIFIED 08/11/2012 EEVLIA PILLOWCASE CUTTER, SCOTTIE A 646.60 COMPL OF - UTI 08/11/2012 EVELIA PILLOWCASE CUTTER, SCOTTIE A V74.5 STD SCREEN 08/11/2012 CHRISTOPHER PILLOWCASE CUTTER, COLTEN R 477.9 ALLERGIC RHINITIS CAUSE UNSPECIFIED 08/11/2012 CHRISTOPHER SORIANON, COLTEN R 646.60 COMPL OF - UTI 08/11/2012 CHRISTOPHER PILLOWCASE CUTTER, COLTEN R V74.5 STD SCREEN 08/11/2012 CHRISTOPHER PILLOWCASE CUTTER, COLTEN R 477.9 ALLERGIC RHINITIS CAUSE UNSPECIFIED 08/11/2012 CHRISTOPHER PILLOWCASE CUTTER, COLTEN R 646.60 COMPL OF - UTI 08/11/2012 CHRISTOPHER PILLOWCASE CUTTER, COLTEN R V74.5 STD SCREEN 08/13/2012 AKBAR BAILEY MD Ot 591 HYDRONEPHROSIS 08/13/2012 AKBAR BAILEY MD Ot 646.53 ASY BACTERIURIA-ANTEPART 08/13/2012 AKBAR BAILEY MD Ot 646.83 PREG COMPL NEC-ANTEPART 08/13/2012 AKBAR BAILEY MD Ot 789.09 ABDOMINAL PAIN, OTHER SPECIFIED SITE 08/19/2012 380.10 OTITIS EXTERNA RIGHT 08/19/2012 380.10 OTITIS EXTERNA RIGHT 08/19/2012 380.10 OTITIS EXTERNA RIGHT 08/19/2012 380.10 OTITIS EXTERNA RIGHT 08/19/2012 380.10 OTITIS EXTERNA RIGHT 08/19/2012 380.10 OTITIS EXTERNA RIGHT 08/19/2012 380.10 OTITIS EXTERNA RIGHT 08/19/2012 380.10 OTITIS EXTERNA RIGHT 08/19/2012 STEPHANE JUAREZ DO 380.10 OTITIS EXTERNA RIGHT 08/19/2012 STEPHANE JUAREZ DO K 380.10 OTITIS EXTERNA RIGHT 08/19/2012 SCOTTIE ALTAMIRANO APRN 380.10 OTITIS EXTERNA RIGHT 08/19/2012 SCOTTIE ALTAMIRANO APRN 380.10 OTITIS EXTERNA RIGHT 08/19/2012 380.10 OTITIS EXTERNA RIGHT 08/19/2012 SCOTTIE ALTAMIRANO APRN A 380.10 OTITIS EXTERNA RIGHT 08/19/2012 HANS JOHNSTON PHD 380.10 OTITIS EXTERNA RIGHT 08/19/2012 HANS JOHNSTON PHD 380.10 OTITIS EXTERNA RIGHT 08/19/2012 HANS JOHNSTON PHD 380.10 OTITIS EXTERNA RIGHT 08/19/2012 ROSALIO STOLL MD 380.10 OTITIS EXTERNA RIGHT 08/19/2012 HANS JOHNSTON PHD 380.10 OTITIS EXTERNA RIGHT 08/19/2012 ROSALIO STOLL MD 380.10 OTITIS EXTERNA RIGHT 08/19/2012 ROSALIO STOLL MD 380.10 OTITIS EXTERNA RIGHT 08/19/2012 ROSALIO STOLL MD 380.10 OTITIS EXTERNA RIGHT 08/19/2012 ROSALIO STOLL MD 380.10 OTITIS EXTERNA RIGHT 08/19/2012 EVELIA PILLOWCASE CUTTER, SCOTTIE A 380.10 OTITIS EXTERNA RIGHT 08/19/2012 STEPHANE JUAREZ DO K 380.10 OTITIS EXTERNA RIGHT 08/19/2012 EVELIA PILLOWCASE CUTTER, SCOTTIE A 380.10 OTITIS EXTERNA RIGHT 08/19/2012 ROSALIO STOLL MD N 380.10 OTITIS EXTERNA RIGHT 08/19/2012 EVELIA PILLOWCASE CUTTER, SCOTTIE A 380.10 OTITIS EXTERNA RIGHT 08/19/2012 JUAREZ , STEPHANE K 380.10 OTITIS EXTERNA RIGHT 08/19/2012 EVELIA PILLOWCASE CUTTER, SCOTTIE A 380.10 OTITIS EXTERNA RIGHT 08/19/2012 ROSALIO STOLL MD N 380.10 OTITIS EXTERNA RIGHT 08/19/2012 EVELIA PILLOWCASE CUTTER, SCOTTIE A 380.10 OTITIS EXTERNA RIGHT 08/19/2012 ROSALIO STOLL MD 380.10 OTITIS EXTERNA RIGHT 08/19/2012 EVELIA PILLOWCASE CUTTER, SCOTTIE A 380.10 OTITIS EXTERNA RIGHT 08/19/2012 EVELIA SORIANON, SCOTTIE A 380.10 OTITIS EXTERNA RIGHT 08/19/2012 EVELIA PILLOWCASE CUTTER, SCOTTIE A 380.10 OTITIS EXTERNA RIGHT 08/19/2012 EVELIA PILLOWCASE CUTTER, SCOTTIE A 380.10 OTITIS EXTERNA RIGHT 08/19/2012 EVELIA PILLOWCASE CUTTER, SCOTTIE A 380.10 OTITIS EXTERNA RIGHT 08/19/2012 EVELIA PILLOWCASE CUTTER, SCOTTIE A 380.10 OTITIS EXTERNA RIGHT 08/19/2012 EVELIA PILLOWCASE CUTTER, SCOTTIE A 380.10 OTITIS EXTERNA RIGHT 08/19/2012 CHRISTOPHER ARAYA, COLTEN R 380.10 OTITIS EXTERNA RIGHT 08/19/2012 CHRISTOPHER ARAYA, COLTEN R 380.10 OTITIS EXTERNA RIGHT 10/09/2012 V06.1 TDAP DX 10/09/2012 V77.1 DIABETES SCREENING 10/09/2012 V78.0 ANEMIA SCREENING 10/09/2012 V06.1 TDAP DX 10/09/2012 V77.1 DIABETES SCREENING 10/09/2012 V78.0 ANEMIA SCREENING 10/09/2012 V06.1 TDAP DX 10/09/2012 V77.1 DIABETES SCREENING 10/09/2012 V78.0 ANEMIA SCREENING 10/09/2012 V06.1 TDAP DX 10/09/2012 V77.1 DIABETES SCREENING 10/09/2012 V78.0 ANEMIA SCREENING 10/09/2012 V06.1 TDAP DX 10/09/2012 V77.1 DIABETES SCREENING 10/09/2012 V78.0 ANEMIA SCREENING 10/09/2012 V06.1 TDAP DX 10/09/2012 V77.1 DIABETES SCREENING 10/09/2012 V78.0 ANEMIA SCREENING 10/09/2012 JUAREZ DO STEPHANE K V06.1 TDAP DX 10/09/2012 JUAREZ DO, STEPHANE K V77.1 DIABETES SCREENING 10/09/2012 JUAREZ DO, STEPHANE K V78.0 ANEMIA SCREENING 10/09/2012 JUAREZ DO, STEPHANE K V06.1 TDAP DX 10/09/2012 JUAREZ DO, STEPHANE K V77.1 DIABETES SCREENING 10/09/2012 JUAREZ DO, STEPHANE K V78.0 ANEMIA SCREENING 10/09/2012 EVELIAALLA SORIANON, SCOTTIE A V06.1 TDAP DX 10/09/2012 HEVER ALTAMIRANO APRNIDI A V77.1 DIABETES SCREENING 10/09/2012 EVELIA SORIANON SCOTTIE A V78.0 ANEMIA SCREENING 10/09/2012 EVELIA PILLOWCASE CUTTER, SCOTTIE A V06.1 TDAP DX 10/09/2012 EVELIA PILLOWCASE CUTTER, SCOTTIE A V77.1 DIABETES SCREENING 10/09/2012 EVELIA SORIANON, SCOTTIE A V78.0 ANEMIA SCREENING 10/09/2012 V06.1 TDAP DX 10/09/2012 V77.1 DIABETES SCREENING 10/09/2012 V78.0 ANEMIA SCREENING 10/09/2012 EVELIA PILLOWCASE CUTTER, SCOTTIE A V06.1 TDAP DX 10/09/2012 EVELIA PILLOWCASE CUTTER, SCOTTIE A V77.1 DIABETES SCREENING 10/09/2012 EVELIA PILLOWCASE CUTTER, SCOTTIE A V78.0 ANEMIA SCREENING 10/09/2012 PRESTON PHD, HNAS Acuna V06.1 TDAP DX 10/09/2012 PRESTON PHD, HANS Acuna V77.1 DIABETES SCREENING 10/09/2012 PRESTON PHD, HANS Acuna V78.0 ANEMIA SCREENING 10/09/2012 PRESTON PHD, HANS Acuna V06.1 TDAP DX 10/09/2012 PRESTON PHD, HANS Acuna V77.1 DIABETES SCREENING 10/09/2012 PRESTON PHD, HANS A V78.0 ANEMIA SCREENING 10/09/2012 PRESTON PHD, HANS A V06.1 TDAP DX 10/09/2012 PRESTON PHD, HANS A V77.1 DIABETES SCREENING 10/09/2012 PRESTON PHD, HANS A V78.0 ANEMIA SCREENING 10/09/2012 DODIE HICKS, ROSALIO N V06.1 TDAP DX 10/09/2012 DODIE HICKS, ROSALIO N V77.1 DIABETES SCREENING 10/09/2012 DODIE HICKS, ROSALIO N V78.0 ANEMIA SCREENING 10/09/2012 PRESTON PHD, HANS A V06.1 TDAP DX 10/09/2012 PRESTON PHD, HANS A V77.1 DIABETES SCREENING 10/09/2012 PRESTON PHD, HANS A V78.0 ANEMIA SCREENING 10/09/2012 DODIE HICKS, ROSALIO N V06.1 TDAP DX 10/09/2012 DODIE HICKS, ROSALIO Nieto V77.1 DIABETES SCREENING 10/09/2012 DODIE HICKS, ROSALIO N V78.0 ANEMIA SCREENING 10/09/2012 DODIE HICKS, ROSALIO N V06.1 TDAP DX 10/09/2012 ROSALIO STOLL MD V77.1 DIABETES SCREENING 10/09/2012 DODIE HICKS, ROSALIO N V78.0 ANEMIA SCREENING 10/09/2012 DODIE HICKS, ROSALIO N V06.1 TDAP DX 10/09/2012 ROSALIO STOLL MD N V77.1 DIABETES SCREENING 10/09/2012 ROSALIO STOLL MD N V78.0 ANEMIA SCREENING 10/09/2012 DODIE HICKS, ROSALIO N V06.1 TDAP DX 10/09/2012 ROSALIO STOLL MD N V77.1 DIABETES SCREENING 10/09/2012 ROSALIO STOLL MD N V78.0 ANEMIA SCREENING 10/09/2012 SCOTTIE ALTAMIRANO APRN A V06.1 TDAP DX 10/09/2012 SCOTTIE ALTAMIRANO APRN A V77.1 DIABETES SCREENING 10/09/2012 SCOTTIE ALTAMIRANO APRN A V78.0 ANEMIA SCREENING 10/09/2012 STEPHANE JUAREZ DO V06.1 TDAP DX 10/09/2012 JUAREZ DO STEPHANE K V77.1 DIABETES SCREENING 10/09/2012 JUAREZ DO STEPHANE K V78.0 ANEMIA SCREENING 10/09/2012 EVELIA PILLOWCASE CUTTER, SCOTTIE A V06.1 TDAP DX 10/09/2012 EVELIA PILLOWCASE CUTTER, SCOTTIE A V77.1 DIABETES SCREENING 10/09/2012 EVELIA APRN, SCOTTIE A V78.0 ANEMIA SCREENING 10/09/2012 ROSALIO STOLL MD V06.1 TDAP DX 10/09/2012 ROSALIO STOLL MD V77.1 DIABETES SCREENING 10/09/2012 ROSALIO STOLL MD V78.0 ANEMIA SCREENING 10/09/2012 EVELIA APRN, SCOTTIE A V06.1 TDAP DX 10/09/2012 EVELIA APRN, SCOTTIE A V77.1 DIABETES SCREENING 10/09/2012 EVELIAALLA ARAYA, SCOTTIE A V78.0 ANEMIA SCREENING 10/09/2012 ANN [place] STEPHANE K V06.1 TDAP DX 10/09/2012 JUAREZ DO STEPHANE K V77.1 DIABETES SCREENING 10/09/2012 JUAERZ , STEPHANE K V78.0 ANEMIA SCREENING 10/09/2012 EVELIA APRN, SCOTTIE A V06.1 TDAP DX 10/09/2012 EVELIA APRN, SCOTTIE A V77.1 DIABETES SCREENING 10/09/2012 EVELIAALLA ARAYA, SCOTTIE A V78.0 ANEMIA SCREENING 10/09/2012 ROSALIO STOLL MD V06.1 TDAP DX 10/09/2012 ROSALIO STOLL MD V77.1 DIABETES SCREENING 10/09/2012 ROSALIO STOLL MD V78.0 ANEMIA SCREENING 10/09/2012 EVELIA APRN, SCOTTIE A V06.1 TDAP DX 10/09/2012 SCOTTIE ALTAMIRANO APRN A V77.1 DIABETES SCREENING 10/09/2012 EVELIA ARAYA, SCOTTIE A V78.0 ANEMIA SCREENING 10/09/2012 ROSALIO STOLL MD V06.1 TDAP DX 10/09/2012 ROSALIO STOLL MD V77.1 DIABETES SCREENING 10/09/2012 DODIE MD, ROSALIO N V78.0 ANEMIA SCREENING 10/09/2012 EVELIA PILLOWCASE CUTTER, SCOTTIE A V06.1 TDAP DX 10/09/2012 EVELIA PILLOWCASE CUTTER, SCOTTIE A V77.1 DIABETES SCREENING 10/09/2012 EVELIA PILLOWCASE CUTTER, SCOTTIE A V78.0 ANEMIA SCREENING 10/09/2012 EVELIA PILLOWCASE CUTTER, SCOTTIE A V06.1 TDAP DX 10/09/2012 EVELIA PILLOWCASE CUTTER, SCOTTIE A V77.1 DIABETES SCREENING 10/09/2012 EVELIA PILLOWCASE CUTTER, SCTOTIE A V78.0 ANEMIA SCREENING 10/09/2012 EVELIA PILLOWCASE CUTTER, SCOTTIE A V06.1 TDAP DX 10/09/2012 EVELIA PILLOWCASE CUTTER, SCOTTIE A V77.1 DIABETES SCREENING 10/09/2012 EVELIA PILLOWCASE CUTTER, SCOTTIE A V78.0 ANEMIA SCREENING 10/09/2012 EVELIA PILLOWCASE CUTTER, SCOTTIE A V06.1 TDAP DX 10/09/2012 EVELIA PILLOWCASE CUTTER, SCOTTIE A V77.1 DIABETES SCREENING 10/09/2012 EVELIA PILLOWCASE CUTTER, SCOTTIE A V78.0 ANEMIA SCREENING 10/09/2012 EVELIA PILLOWCASE CUTTER, SCOTTIE A V06.1 TDAP DX 10/09/2012 EVELIA PILLOWCASE CUTTER, SCOTTIE A V77.1 DIABETES SCREENING 10/09/2012 EVELIA PILLOWCASE CUTTER, SCOTTIE A V78.0 ANEMIA SCREENING 10/09/2012 EVELIA PILLOWCASE CUTTER, SCOTTIE A V06.1 TDAP DX 10/09/2012 EVELIA PILLOWCASE CUTTER, SCOTTIE A V77.1 DIABETES SCREENING 10/09/2012 EVELIA PILLOWCASE CUTTER, SCOTTIE A V78.0 ANEMIA SCREENING 10/09/2012 EVELIA PILLOWCASE CUTTER, SCOTTIE A V06.1 TDAP DX 10/09/2012 EVELIA PILLOWCASE CUTTER, SCOTTIE A V77.1 DIABETES SCREENING 10/09/2012 EVELIA PILLOWCASE CUTTER, SCOTTIE A V78.0 ANEMIA SCREENING 10/09/2012 CHRISTOPHER PILLOWCASE CUTTER, COLTEN R V06.1 TDAP DX 10/09/2012 CHRISTOPHER PILLOWCASE CUTTER, COLTEN R V77.1 DIABETES SCREENING 10/09/2012 CHRISTOPHER SORIANON, COLTEN R V78.0 ANEMIA SCREENING 10/09/2012 CHRISTOPHER PILLOWCASE CUTTER, COLTEN R V06.1 TDAP DX 10/09/2012 COLTEN WHITE APRN R V77.1 DIABETES SCREENING 10/09/2012 COLTEN WHITE APRN R V78.0 ANEMIA SCREENING 10/12/2012 ACE HICKS, PAULY Pope Ot 784.92 JAW PAIN 10/13/2012 ACE HICKS, PAULY Pope Ot 521.00 UNSPEC DENTAL CARIES 10/13/2012 ACE HICKS, PAULY Pope Ot 522.5 PERIAPICAL ABSCESS 10/13/2012 ACE HICKS, PAULY Pope Ot 646.83 PREG COMPL NEC-ANTEPART 10/13/2012 ACE HICKS, PAULY Pope Ot 784.92 JAW PAIN 11/04/2012 STEPHANE JUAREZ DO Ot 648.93 OTH CURR COND-ANTEPARTUM 11/04/2012 STEPHANE JUAREZ DO Ot 784.0 HEADACHE 11/24/2012 STEPHANE JUAREZ DO Ot 625.9 FEM GENITAL SYMPTOMS NOS 11/24/2012 STEPHANE JUAREZ DO Ot 648.93 OTH CURR COND-ANTEPARTUM 12/21/2012 V28.6 GBS SCREENING 12/21/2012 V28.6 GBS SCREENING 12/21/2012 V28.6 GBS SCREENING 12/21/2012 STEPHANE JUAREZ DO V28.6 GBS SCREENING 12/21/2012 STEPHANE JUAREZ DO V28.6 GBS SCREENING 12/21/2012 SCOTTIE ALTAMIRANO APRN V28.6 GBS SCREENING 12/21/2012 SCOTTIE ALTAMIRANO APRN A V28.6 GBS SCREENING 12/21/2012 V28.6 GBS SCREENING 12/21/2012 SCOTTIE ALTAMIRANO APRN A V28.6 GBS SCREENING 12/21/2012 PRESTON JOY, HANS Acuna V28.6 GBS SCREENING 12/21/2012 PRESTON PHD, HANS Acuna V28.6 GBS SCREENING 12/21/2012 PRESTON PHD, HANS Acuna V28.6 GBS SCREENING 12/21/2012 ROSALIO STOLL MD V28.6 GBS SCREENING 12/21/2012 PRESTON JOY, HANS Acuna V28.6 GBS SCREENING 12/21/2012 DODIE MD, ROSALIO N V28.6 GBS SCREENING 12/21/2012 ROSALIO STOLL MD V28.6 GBS SCREENING 12/21/2012 ROSALIO STOLL MD V28.6 GBS SCREENING 12/21/2012 ROSALIO STOLL MD V28.6 GBS SCREENING 12/21/2012 EVELIA ARAYA, SCOTTIE A V28.6 GBS SCREENING 12/21/2012 STEPHANE JUAREZ DO V28.6 GBS SCREENING 12/21/2012 EVELIA APRN, SCOTTIE A V28.6 GBS SCREENING 12/21/2012 ROSALIO STOLL MD V28.6 GBS SCREENING 12/21/2012 EVELIAALLA ARAYA, SCOTTIE A V28.6 GBS SCREENING 12/21/2012 STEPHANE JUAREZ DO V28.6 GBS SCREENING 12/21/2012 EVELIA ARAYA, SCOTTIE A V28.6 GBS SCREENING 12/21/2012 ROSALIO STOLL MD V28.6 GBS SCREENING 12/21/2012 EVELIA ARAYA, SCOTTIE A V28.6 GBS SCREENING 12/21/2012 ROSALIO STOLL MD V28.6 GBS SCREENING 12/21/2012 EVELIAALLA ARAYA, SCOTTIE A V28.6 GBS SCREENING 12/21/2012 EVELIA PILLOWCASE CUTTER, SCOTTIE A V28.6 GBS SCREENING 12/21/2012 EVELIA PILLOWCASE CUTTER, SCOTTIE A V28.6 GBS SCREENING 12/21/2012 EVELIA PILLOWCASE CUTTER, SCOTTIE A V28.6 GBS SCREENING 12/21/2012 EVELIA PILLOWCASE CUTTER, SCOTTIE A V28.6 GBS SCREENING 12/21/2012 EVELIA PILLOWCASE CUTTER, SCOTTIE A V28.6 GBS SCREENING 12/21/2012 EVELIA PILLOWCASE CUTTER, SCOTTIE A V28.6 GBS SCREENING 12/21/2012 CHRISTOPHER PILLOWCASE CUTTER, COLTEN R V28.6 GBS SCREENING 12/21/2012 CHRISTOPHER PILLOWCASE CUTTER, COLTEN R V28.6 GBS SCREENING 12/27/2012 642.90 COMPL OF - HTN/PIH 12/27/2012 642.90 COMPL OF - HTN/PIH 12/27/2012 JUAREZ DO, STEPHANE K 642.90 COMPL OF - HTN/PIH 12/27/2012 STEPHANE JUAREZ DO K 642.90 COMPL OF - HTN/PIH 12/27/2012 SCOTTIE ALTAMIRANO APRN A 642.90 COMPL OF - HTN/PIH 12/27/2012 EVELIA ARAYA, SCOTTIE A 642.90 COMPL OF - HTN/PIH 12/27/2012 642.90 COMPL OF - HTN/PIH 12/27/2012 SCOTTIE ALTAMIRANO APRN A 642.90 COMPL OF - HTN/PIH 12/27/2012 PRESTON PHD, HANS A 642.90 COMPL OF - HTN/PIH 12/27/2012 PRESTON JOY, HANS Acuna 642.90 COMPL OF - HTN/PIH 12/27/2012 PRESTON JOY, HANS A 642.90 COMPL OF - HTN/PIH 12/27/2012 ROSALIO STOLL MD N 642.90 COMPL OF - HTN/PIH 12/27/2012 PRESTON JOY, HANS Acuna 642.90 COMPL OF - HTN/PIH 12/27/2012 ROSALIO STOLL MD N 642.90 COMPL OF - HTN/PIH 12/27/2012 ROSALIO STOLL MD N 642.90 COMPL OF - HTN/PIH 12/27/2012 ROSALIO STOLL MD N 642.90 COMPL OF - HTN/PIH 12/27/2012 ROSALIO STOLL MD N 642.90 COMPL OF - HTN/PIH 12/27/2012 EVELIASCOTTIE Nieto APRN A 642.90 COMPL OF - HTN/PIH 12/27/2012 STEPHANE JUAREZ DO K 642.90 COMPL OF - HTN/PIH 12/27/2012 EVELIASCOTTIE Nieto APRN A 642.90 COMPL OF - HTN/PIH 12/27/2012 ROSALIO STOLL MD N 642.90 COMPL OF - HTN/PIH 12/27/2012 SCOTTIE ALTAMIRANO APRN A 642.90 COMPL OF - HTN/PIH 12/27/2012 STEPHANE JUAREZ DO 642.90 COMPL OF - HTN/PIH 12/27/2012 EVELIA PILLOWCASE CUTTER, SCOTTIE A 642.90 COMPL OF - HTN/PIH 12/27/2012 ROSALIO STOLL MD N 642.90 COMPL OF - HTN/PIH 12/27/2012 EVELIAALLA ARAYA, SCOTTIE A 642.90 COMPL OF - HTN/PIH 12/27/2012 ROSALIO STOLL MD N 642.90 COMPL OF - HTN/PIH 12/27/2012 EVELIA PILLOWCASE CUTTER, SCOTTIE A 642.90 COMPL OF -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 APRN A V72.41 TEST NEGATIVE RESULT 01/29/2014 SCOTTIE ALTAMIRANO APRN A V72.41 TEST NEGATIVE RESULT 01/29/2014 SCOTTIE ALTAMIRANO APRN A V72.41 TEST NEGATIVE RESULT 01/29/2014 SCOTTIE ALTAMIRANO APRN A V72.41 TEST NEGATIVE RESULT 01/29/2014 AHMET WHITE APRNINA R V72.41 TEST NEGATIVE RESULT 01/29/2014 AHMET WHITE APRNINA R V72.41 TEST NEGATIVE RESULT 01/29/2014 YISSEL SERRATO DO Ot 305.70 AMPHETAMINE ABUSE-UNSPEC 01/29/2014 YISSEL SERRATO DO Ot 558.9 NONINF GASTROENTERIT NEC 01/29/2014 YISSEL SERRATO DO Ot 599.0 URIN TRACT INFECTION NOS 01/29/2014 YISSEL SERRATO DO Ot 787.03 VOMITING ALONE 01/30/2014 SCOTTIE ALTAMIRANO APRN A V25.5 IMPLANON INSERTION 01/30/2014 SCOTTIE ALTAMIRANO APRN A V25.5 IMPLANON INSERTION 01/30/2014 SCOTTIE ALTAMIRANO APRN A V25.5 IMPLANON INSERTION 01/30/2014 COLTEN WHITE APRN R V25.5 IMPLANON INSERTION 01/30/2014 AHMET WHITE APRNINA R V25.5 IMPLANON INSERTION 06/12/2014 SCOTTIE ALTAMIRANO APRN V65.42 COUNSELING - SMOKING CESSATION 06/12/2014 SCOTTIE ALTAMIRANO APRN V72.31 MECHANICAL CAR CHECKER EXAM, ROUTINE 06/12/2014 SCOTTIE ALTAMIRANO APRN V74.5 STD SCREEN 06/12/2014 SCOTTIE ALTAMIRANO APRN V76.10 BREAST CANCER SCREENING 06/12/2014 SCOTTIE ALTAMIRANO APRN V76.2 CERVICAL CANCER SCREENING (PAP SMEAR) 06/12/2014 CHRISTOPHER ARAYA, COLTEN R V65.42 COUNSELING - SMOKING CESSATION 06/12/2014 COLTEN WHITE APRN R V72.31 MECHANICAL CAR CHECKER EXAM, ROUTINE 06/12/2014 CHRISTOPHER ARAYA, COLTEN R V74.5 STD SCREEN 06/12/2014 CHRISTOPHER ARAYA, COLTEN R V76.10 BREAST CANCER SCREENING 06/12/2014 CHRISTOPHER ARAYA, COLTEN R V76.2 CERVICAL CANCER SCREENING (PAP SMEAR) 06/12/2014 COLTEN WHITE APRN R V65.42 COUNSELING - SMOKING CESSATION 06/12/2014 CHRISTOPHER ARAYA, COLTEN R V72.31 MECHANICAL CAR CHECKER EXAM, ROUTINE 06/12/2014 CHRISTOPHER ARAYA, COLTEN R V74.5 STD SCREEN 06/12/2014 CHRISTOPHER ARAYA, COLTEN R V76.10 BREAST CANCER SCREENING 06/12/2014 CHRISTOPHER ARAYA, COLTEN R V76.2 CERVICAL CANCER SCREENING (PAP SMEAR) 06/21/2014 Ot 850.11 CONCUSSION, W LOSS OF CONSCIOUSNESS OF 3 06/21/2014 Ot 923.11 CONTUSION OF ELBOW 06/21/2014 Ot 959.01 HEAD INJURY, NOS 06/21/2014 Ot E000.8 OTHER EXTERNAL CAUSE STATUS 06/21/2014 Ot E849[address] NEC 06/21/2014 Ot E888.9 FALL NOS 06/27/2014 SCOTTIE ALTAMIRANO APRN A 959.3 OTHER AND UNSPECIFIED INJURY TO ELBOW FOREARM AND WRIST 06/27/2014 COLTEN WHITE APRN R 959.3 OTHER AND UNSPECIFIED INJURY TO ELBOW FOREARM AND WRIST 06/27/2014 COLTEN WHITE APRN R 959.3 OTHER AND UNSPECIFIED INJURY TO ELBOW FOREARM AND WRIST 07/02/2014 SCOTTIE ALTAMIRANO APRN A V25.43 IMPLANON REMOVAL 07/02/2014 COLTEN WHITE APRN R V25.43 IMPLANON REMOVAL 07/02/2014 AHMET WHITE APRNINA R V25.43 IMPLANON REMOVAL 07/02/2014 SCOTTIE ALTAMIRANO APRN A 626.9 MENSTRUATION AND OTHER ABNORMAL BLEEDING FROM FEMALE GENITAL TRACT 07/16/2014 COLTEN WHITE APRN R 462 ACUTE PHARYNGITIS 07/16/2014 COLTEN WHITE APRN E906.0 DOG BITE 07/16/2014 CHRISTOPHER PILLOWCASE CUTTER, COLTEN R 462 ACUTE PHARYNGITIS 07/16/2014 CHRISTOPHER PILLOWCASE CUTTER, COLTEN R E906.0 DOG BITE 07/17/2014 CHRISTOPHER PILLOWCASE CUTTER, COLTEN R 626.9 MENSTRUATION AND OTHER ABNORMAL BLEEDING FROM FEMALE GENITAL TRACT 07/17/2014 CHRISTOPHER PILLOWCASE CUTTER, COLTEN R 626.9 MENSTRUATION AND OTHER ABNORMAL BLEEDING FROM FEMALE GENITAL TRACT 07/30/2014 CHRISTOPHER PILLOWCASE CUTTER, COLTEN R 626.9 MENSTRUATION AND OTHER ABNORMAL BLEEDING FROM FEMALE GENITAL TRACT 09/23/2014 EVELIA, SCOTTIE A PILLOWCASE CUTTER Ot V28.81 09/23/2014 JUAREZ DO, STEPHANE K Ot V23.9 09/23/2014 JUAREZ DO, STEPHANE K Ot V23.9 09/23/2014 JUAREZ DO, STEPHANE K Ot V28.89 09/23/2014 EVELIA, SCOTTIE A PILLOWCASE CUTTER Ot V28.89 09/23/2014 EVELIA SCOTTIE A PILLOWCASE CUTTER Ot 641.93 09/23/2014 DODIE HICKS, ROSALIO Nieto Ot 317 09/23/2014 DODIE HICKS, ROSALIO Nieto Ot V28.81 09/23/2014 DODIE HICKS, ROSALIO Nieto Ot 663.93 09/23/2014 EVELIA SCOTTIE A PILLOWCASE CUTTER Ot V23.9 09/23/2014 EVELIA SCOTTIE A PILLOWCASE CUTTER Ot V77.1 09/23/2014 EVELIA SCOTTIE A PILLOWCASE CUTTER Ot 656.53 09/23/2014 EVELIA, SCOTTIE A PILLOWCASE CUTTER Ot 658.03 10/08/2014 EVELIA, SCOTTIE A PILLOWCASE CUTTER Ot V23.9 10/12/2014 EVELIA, SCOTTIE A PILLOWCASE CUTTER Ot V28.81 10/12/2014 JUAREZ DO, STEPHANE K Ot V23.9 10/12/2014 JUAREZ DO, STEPHANE K Ot V23.9 10/12/2014 JUAREZ DO, STEPHANE K Ot V28.89 10/12/2014 EVELIA, SCOTTIE A PILLOWCASE CUTTER Ot V28.89 10/12/2014 EVELIA, SCOTTIE A PILLOWCASE CUTTER Ot 641.93 10/12/2014 DODIE HICKS, ROSALIO Nieto Ot 317 10/12/2014 DODIE HICKS, ROSALIO N Ot V28.81 10/12/2014 DODIE HICKS, ROSALIO N Ot 663.93 10/12/2014 EVELIASCOTTIE PILLOWCASE CUTTER Ot V23.9 10/12/2014 EVELIASCOTTIE PILLOWCASE CUTTER Ot V77.1 10/12/2014 EVELIAHEVERSCOTTIE A PILLOWCASE CUTTER Ot 656.53 10/12/2014 EVELIAHEVERSCOTTIE A PILLOWCASE CUTTER Ot 658.03 10/12/2014 EVELIASCOTTIE PILLOWCASE CUTTER Ot V23.9 10/12/2014 ANA LAURA BENEDICT PILLOWCASE CUTTER Ot 599.0 URIN TRACT INFECTION NOS 10/12/2014 ANA LAURA BENEDICT PILLOWCASE CUTTER Ot 646.63 INFECTION-ANTEPARTUM 11/02/2014 EVELIA SCOTTIE Acuna PILLOWCASE CUTTER Ot V28.81 11/02/2014 JUAREZ DOYUEA K Ot V23.9 11/02/2014 JUAREZ DO, STEPHANE K Ot V23.9 11/02/2014 JUAREZ DO, STEPHANE K Ot V28.89 11/02/2014 EVELIASCOTTIE A PILLOWCASE CUTTER Ot V28.89 11/02/2014 EVELIASCOTTIE A PILLOWCASE CUTTER Ot 641.93 11/02/2014 DODIE HICKS, ROSALIO Nieto Ot 317 11/02/2014 DODIE HICKS, ROSALIO N Ot V28.81 11/02/2014 DODIE HICKS, ROSALIO N Ot 663.93 11/02/2014 EVELIASCOTTIE A PILLOWCASE CUTTER Ot V23.9 11/02/2014 EVELIASCOTTIE A PILLOWCASE CUTTER Ot V77.1 11/02/2014 EVELIASCOTTIE A PILLOWCASE CUTTER Ot 656.53 11/02/2014 EVELIAHEVERSCOTTIE A PILLOWCASE CUTTER Ot 658.03 11/02/2014 EVELIAHEVERSCOTTIE A PILLOWCASE CUTTER Ot V23.9 11/02/2014 ANA LAURA BENEDICT PILLOWCASE CUTTER Ot 643.03 MILD HYPEREMESIS-ANTEPAR 11/02/2014 ANA LAURA BENEDICT PILLOWCASE CUTTER Ot 649.03 TOBACCO USE DISOR COMP PREG/CHILDBIRTH/P 12/10/2014 EVELIA SCOTTIE A PILLOWCASE CUTTER Ot V28.81 12/10/2014 JUAREZ DO, STEPHANE K Ot V23.9 12/10/2014 JUAREZ DO, STEPHANE K Ot V23.9 12/10/2014 JUAREZ DO, STEPHANE K Ot V28.89 12/10/2014 EVELIAHEVERSCOTTIE A PILLOWCASE CUTTER Ot V28.89 12/10/2014 EVELIA, SCOTTIE A PILLOWCASE CUTTER Ot 641.93 12/10/2014 DODIE HICKS, ROSALIO Nieto Ot 317 12/10/2014 DODIE HICKS, ROSALIO Nieto Ot V28.81 12/10/2014 DODIE HICKS, ROSALIO N Ot 663.93 12/10/2014 EVELIA, SCOTTIE A PILLOWCASE CUTTER Ot V23.9 12/10/2014 EVELIA SCOTTIE A PILLOWCASE CUTTER Ot V77.1 12/10/2014 EVELIA SCOTTIE A PILLOWCASE CUTTER Ot 656.53 12/10/2014 EVELIA SCOTTIE A PILLOWCASE CUTTER Ot 658.03 12/10/2014 EVELIA SCOTTIE A PILLOWCASE CUTTER Ot V23.9 12/10/2014 ANA LAURA BENEDICT PILLOWCASE CUTTER Ot 623.8 NONINFLAM DIS VAGINA NEC 12/10/2014 ANA LAURA BENEDICT PILLOWCASE CUTTER Ot 640.03 THREATEN ABORT-ANTEPART 12/10/2014 ANA LAURA BENEDICT PILLOWCASE CUTTER Ot 654.73 ABNORM VAGINA-ANTEPARTUM 12/31/2014 EVELIA SCOTTIE A PILLOWCASE CUTTER Ot V28.81 12/31/2014 JUAREZ DOSTEPHANE K Ot V23.9 12/31/2014 JUAREZ DOSTEPHANE K Ot V23.9 12/31/2014 JUAREZ DO, STEPHANE K Ot V28.89 12/31/2014 EVELIA SCOTTIE A PILLOWCASE CUTTER Ot V28.89 12/31/2014 EVELIA, SCOTTIE A PILLOWCASE CUTTER Ot 641.93 12/31/2014 DODIE HICKS, ROSALIO Nieto Ot 317 12/31/2014 DODIE HICKS, ROSALIO N Ot V28.81 12/31/2014 DODIE HICKS, ROSALIO N Ot 663.93 12/31/2014 EVELIA, SCOTTIE A PILLOWCASE CUTTER Ot V23.9 12/31/2014 EVELIA, SCOTTIE A PILLOWCASE CUTTER Ot V77.1 12/31/2014 EVELIA SCOTTIE A PILLOWCASE CUTTER Ot 656.53 12/31/2014 EVELIA, SCOTTIE A PILLOWCASE CUTTER Ot 658.03 12/31/2014 EVELIA, SCOTTIE A PILLOWCASE CUTTER Ot V23.9 01/10/2015 DODIE HICKS, ROSALIO N Ot V23.9 01/10/2015 DODIE HICKS, ROSALIO N Ot V28.81 01/23/2015 EVELIA, SCOTTIE A PILLOWCASE CUTTER Ot V28.81 01/23/2015 JUAREZ DO, STEPHANE K Ot V23.9 01/23/2015 JUAREZ DO, STEPHANE K Ot V23.9 01/23/2015 JUAREZ DO, STEPHANE K Ot V28.89 01/23/2015 EVELIA, SCOTTIE A PILLOWCASE CUTTER Ot V28.89 01/23/2015 EVELIA, SCOTTIE A PILLOWCASE CUTTER Ot 641.93 01/23/2015 DODIE HICKS, ROSALIO N Ot 317 01/23/2015 DODIE HICKS, ROSALIO N Ot V28.81 01/23/2015 DODIE HICKS, ROSALIO N Ot 663.93 01/23/2015 EVELIA, SCOTTIE A PILLOWCASE CUTTER Ot V23.9 01/23/2015 EVELIA, SCOTTIE A PILLOWCASE CUTTER Ot V77.1 01/23/2015 EVELIA, SCOTTIE A PILLOWCASE CUTTER Ot 656.53 01/23/2015 EVELIA, SCOTTIE A PILLOWCASE CUTTER Ot 658.03 01/23/2015 EVELIA, SCOTTIE A PILLOWCASE CUTTER Ot V23.9 01/23/2015 DODIE HICKS, ROSALIO N Ot V23.9 01/23/2015 DODIE HICKS, ROSALIO N Ot V28.81 02/10/2015 DODIE HICKS, ROSALIO N Ot O09.92 02/10/2015 DODIE HICKS, ROSALIO N Ot Z36 02/10/2015 DODIE HICKS, ROSALIO N Ot Z3A.22 02/20/2015 EVELIA, SCOTTIE A PILLOWCASE CUTTER Ot V28.81 02/20/2015 JUAREZ DO, STEPHANE K Ot V23.9 02/20/2015 JUAREZ DO, STEPHANE K Ot V23.9 02/20/2015 JUAREZ DO, STEPHANE K Ot V28.89 02/20/2015 EVELIA, SCOTTIE A PILLOWCASE CUTTER Ot V28.89 02/20/2015 EVELIA, SCOTTIE A PILLOWCASE CUTTER Ot 641.93 02/20/2015 DODIE HICKS, ROSALIO N Ot 317 02/20/2015 DODIE HICKS, ROSALIO N Ot V28.81 02/20/2015 DODIE HICKS, ROSALIO N Ot 663.93 02/20/2015 EVELIA SCOTTIE A PILLOWCASE CUTTER Ot V23.9 02/20/2015 EVELIA, SCOTTIE A PILLOWCASE CUTTER Ot V77.1 02/20/2015 EVELIA, SCOTTIE A PILLOWCASE CUTTER Ot 656.53 02/20/2015 EVELIA, SCOTTIE A PILLOWCASE CUTTER Ot 658.03 02/20/2015 EVELIA SCOTTIE A PILLOWCASE CUTTER Ot V23.9 02/20/2015 DODIE HICKS, ROSALIO N Ot V23.9 02/20/2015 DODIE HICKS, ROSALIO N Ot V28.81 02/20/2015 DODIE HICKS, ROSALIO N Ot O09.92 02/20/2015 DODIE HICKS, ROSALIO Nieto Ot Z36 02/20/2015 DODIE HICKS, ROSALIO N Ot Z3A.22 03/04/2015 DODIE HICKS, ROSALIO Nieto Ot O09.92 03/06/2015 YUE JUAREZ DOA Georgina Ot O47.03 FALSE LABOR BEFORE 37 COMPLETED WEEKS OF 03/06/2015 YUE JUAREZ DOA K Ot Z3A.29 29 WEEKS GESTATION OF 04/18/2015 SCOTTIE ALTAMIRANO A PILLOWCASE CUTTER Ot V28.81 04/18/2015 JUAREZ DO STEPHANE K Ot V23.9 04/18/2015 [place] STEPHANE K Ot V23.9 04/18/2015 JUAREZ , STEPHANE K Ot V28.89 04/18/2015 EVELIA SCOTTIE A PILLOWCASE CUTTER Ot V28.89 04/18/2015 EVELIA SCOTTIE A PILLOWCASE CUTTER Ot 641.93 04/18/2015 DODIE HICKS, ROSALIO N Ot 317 04/18/2015 DODIE HICKS, ROSALIO N Ot V28.81 04/18/2015 DODIE HICKS, ROSALIO N Ot 663.93 04/18/2015 SCOTTIE ALTAMIRANO A PILLOWCASE CUTTER Ot V23.9 04/18/2015 EVELIA SCOTTIE A PILLOWCASE CUTTER Ot V77.1 04/18/2015 EVELIAHEVERSCOTTIE A PILLOWCASE CUTTER Ot 656.53 04/18/2015 EVELIA SCOTTIE A PILLOWCASE CUTTER Ot 658.03 04/18/2015 EVELIA SCOTTIE A PILLOWCASE CUTTER Ot V23.9 04/18/2015 DODIE HICKS, ROSALIO N Ot V23.9 04/18/2015 DODIE HICKS, ROSALIO N Ot V28.81 04/18/2015 DODIE HICKS, ROSALIO N Ot O09.92 04/18/2015 DODIE HICKS, ROSALIO N Ot Z36 04/18/2015 DODIE HICKS, ROSALIO N Ot Z3A.22 04/18/2015 DODIE HICKS, ROSALIO N Ot O09.92 04/18/2015 DODIE HICKS, ROSALIO N Ot O99.89 OTH DISEASES AND CONDITIONS COMPL PREG/C 04/18/2015 DODIE HICKS, ROSALIO N Ot R07.81 PLEURODYNIA 04/18/2015 DODIE HICKS, ROSALIO N Ot Z3A.36 36 WEEKS GESTATION OF 04/24/2015 EVELIA SCOTTIE A PILLOWCASE CUTTER Ot V28.81 04/24/2015 JUAREZ DO, STEPHANE K Ot V23.9 04/24/2015 JUAREZ DO, STEPHANE K Ot V23.9 04/24/2015 JUAREZ DO, STEPHANE K Ot V28.89 04/24/2015 EVELIA SCOTTIE A PILLOWCASE CUTTER Ot V28.89 04/24/2015 EVELIA SCOTTIE A PILLOWCASE CUTTER Ot 641.93 04/24/2015 DODIE HICKS, ROSALIO N Ot 317 04/24/2015 DODIE HICKS, ROSALIO N Ot V28.81 04/24/2015 DODIE HICKS, ROSALIO N Ot 663.93 04/24/2015 EVELIA SCOTTIE A PILLOWCASE CUTTER Ot V23.9 04/24/2015 EVELIA SCOTTIE A PILLOWCASE CUTTER Ot V77.1 04/24/2015 EVELIA SCOTTIE A PILLOWCASE CUTTER Ot 656.53 04/24/2015 EVELIA SCOTTIE A PILLOWCASE CUTTER Ot 658.03 04/24/2015 EVELIA SCOTTIE A PILLOWCASE CUTTER Ot V23.9 04/24/2015 DODIE ROSALIO HICKS Ot V23.9 04/24/2015 ROSALIO STOLL MD Ot V28.81 04/24/2015 ROSALIO STOLL MD Ot O09.92 04/24/2015 ROSALIO STOLL MD Ot Z36 04/24/2015 ROSALIO STOLL MD Ot Z3A.22 04/24/2015 ROSALIO STOLL MD Ot O09.92 04/25/2015 JED AGUILERA MD Ot O23.43 UNSP INFCT OF URINARY TRACT IN 04/25/2015 JED AGUILERA MD Ot Z3A.36 36 WEEKS GESTATION OF 2015 ROSALIO STOLL MD Ot O47.1 FALSE LABOR AT OR AFTER 37 COMPLETED WEE 2015 ROSALIO STOLL MD Ot Z3A.38 38 WEEKS GESTATION OF 05/05/2015 ROSALIO STOLL MD Ot O26.93 RELATED CONDITIONS, UNSPECIFIE 05/05/2015 ROSALIO STOLL MD Ot R10.9 UNSPECIFIED ABDOMINAL PAIN 05/05/2015 ROSALIO STOLL MD Ot Z3A.00 WEEKS OF GESTATION OF NOT SPEC 05/12/2015 ROSALIO STOLL MD Ot O47.1 FALSE LABOR AT OR AFTER 37 COMPLETED WEE 05/12/2015 ROSALIO STOLL MD Ot Z3A.39 39 WEEKS GESTATION OF 05/14/2015 SCOTTIE ALTAMIRANO APRN Ot V28.81 05/14/2015 JUAREZ DO STEPHANE K Ot V23.9 05/14/2015 JUAREZ DO STEPHANE K Ot V23.9 05/14/2015 JUAREZ DO, STEPHANE K Ot V28.89 05/14/2015 SCOTTIE ALTAMIRANO PILLOWCASE CUTTER Ot V28.89 05/14/2015 SCOTTIE ALTAMIRANO PILLOWCASE CUTTER Ot 641.93 05/14/2015 ROSALIO STOLL MD Ot 317 05/14/2015 ROSALIO STOLL MD Ot V28.81 05/14/2015 ROSALIO STOLL MD Ot 663.93 05/14/2015 SCOTTIE ALTAMIRANO APRN Ot V23.9 05/14/2015 SCOTTIE ALTAMIRANO PILLOWCASE CUTTER Ot V77.1 05/14/2015 EVELIAHEVERSCOTTIE Kalpana PILLOWCASE CUTTER Ot 656.53 05/14/2015 EVELIA, SCOTTIE Kalpana PILLOWCASE CUTTER Ot 658.03 05/14/2015 EVELIA, SCOTTIE Kalpana PILLOWCASE CUTTER Ot V23.9 05/14/2015 ROSALIO STOLL MD Ot V23.9 05/14/2015 ROSALIO STOLL MD Ot V28.81 05/14/2015 ROSALIO STOLL MD Ot O09.92 05/14/2015 ROSALIO STOLL MD Ot Z36 05/14/2015 ROSALIO STOLL MD Ot Z3A.22 05/14/2015 ROSALIO STOLL MD Ot O09.92 05/14/2015 ROSALIO STOLL MD Ot O09.93 05/14/2015 ROSALIO STOLL MD Ot Z3A.36 05/16/2015 ROSALIO STOLL MD Ot D62 ACUTE POSTHEMORRHAGIC ANEMIA 05/16/2015 ROSALIO STOLL MD Ot O36.0930 MATERNAL CARE FOR OTH RHESUS ISOIMMUN, T 05/16/2015 ROSALIO STOLL MD Ot O90.81 ANEMIA OF THE PUERPERIUM 05/16/2015 ROSALIO STOLL MD Ot Z23 ENCOUNTER FOR IMMUNIZATION 05/16/2015 ROSALIO STOLL MD Ot Z37.0 SINGLE LIVE 05/16/2015 ROSALIO STOLL MD Ot Z3A.39 39 WEEKS GESTATION OF 12/29/2015 SCOTTIE ALTAMIRANO APRN Ot V28.81 ENCOUNTER FOR ANATOMIC SURVEY 12/29/2015 STEPHANE JUAREZ DO Ot V23.9 SUPRV HIGH-RISK PREG NOS 12/29/2015 STEPHANE JUAREZ DO Ot V23.9 SUPRV HIGH-RISK PREG NOS 12/29/2015 STEPHANE JUAREZ DO Ot V28.89 OTHER SPECIFIED SCREENING 12/29/2015 SCOTTIE ALTAMIRANO APRN Ot V28.89 OTHER SPECIFIED SCREENING 12/29/2015 SCOTTIE ALTAMIRANO APRN Ot 641.93 ANTEPART HEM NOS-ANTEPAR 12/29/2015 ROSALIO STOLL MD Ot 317 MILD INTELLECTUAL DISABILITIES 12/29/2015 ROSALIO STOLL MD Ot V28.81 ENCOUNTER FOR ANATOMIC SURVEY 12/29/2015 ROSALIO STOLL MD Ot 663.93 CORD COMPL NOS-ANTEPART 12/29/2015 SCOTTIE ALTAMIRANO APRN Ot V23.9 SUPRV HIGH-RISK PREG NOS 12/29/2015 SCOTTIE ALTAMIRANO PILLOWCASE CUTTER Ot V77.1 SCREEN-DIABETES MELLITUS 12/29/2015 SCOTTIE ALTAMIRANO PILLOWCASE CUTTER Ot 656.53 POOR GRTH-ANTEPART 12/29/2015 SCOTTIE ALTAMIRANO APRN Ot 658.03 OLIGOHYDRAMNIOS-ANTEPAR 12/29/2015 SCOTTIE ALTAMIRANO APRN Ot V23.9 SUPRV HIGH-RISK PREG NOS 12/29/2015 ROSALIO STOLL MD Ot V23.9 SUPRV HIGH-RISK PREG NOS 12/29/2015 ROSALIO STOLL MD Ot V28.81 ENCOUNTER FOR ANATOMIC SURVEY 12/29/2015 ROSALIO STOLL MD Ot O09.92 SUPERVISION OF HIGH RISK , [facility] 12/29/2015 ROSALIO STOLL MD Ot Z36 ENCOUNTER FOR SCREENING OF MOT 12/29/2015 ROSALIO STOLL MD Ot Z3A.22 22 WEEKS GESTATION OF 12/29/2015 ROSALIO STOLL MD Ot O09.92 SUPERVISION OF HIGH RISK , [facility] 12/29/2015 ROSALIO STOLL MD Ot O09.93 SUPERVISION OF HIGH RISK , [facility] 12/29/2015 ROSALIO STOLL MD, Ot Z3A.36 36 WEEKS GESTATION OF 12/29/2015 ANTHONY COCHRAN DO Ot K59.00 CONSTIPATION, UNSPECIFIED 12/29/2015 ANTHONY COCHRAN DO Ot Z53.21 PROC/TRTMT NOT CRD OUT D/T PT LV BEF SEE 12/31/2015 ANTHONY COCHRAN DO Ot K59.00 CONSTIPATION, UNSPECIFIED 12/31/2015 ANTHONY COCHRAN DO Ot Z53.21 PROC/TRTMT NOT CRD OUT D/T PT LV BEF SEE 04/03/2016 SCOTTIE ALTAMIRANO APRN Ot V28.81 ENCOUNTER FOR ANATOMIC SURVEY 04/03/2016 JUAREZ DO, STEPHANE K Ot V23.9 SUPRV HIGH-RISK PREG NOS 04/03/2016 JUAREZ DO, STEPHANE K Ot V23.9 SUPRV HIGH-RISK PREG NOS 04/03/2016 JUAREZ DO, STEPHANE K Ot V28.89 OTHER SPECIFIED SCREENING 04/03/2016 EVELIAHEVERSCOTTIE A PILLOWCASE CUTTER Ot V28.89 OTHER SPECIFIED SCREENING 04/03/2016 EVELIA, SCOTTIE A PILLOWCASE CUTTER Ot 641.93 ANTEPART HEM NOS-ANTEPAR 04/03/2016 ROSALIO STOLL MD Ot 317 MILD INTELLECTUAL DISABILITIES 04/03/2016 ROSALIO STOLL MD Ot V28.81 ENCOUNTER FOR ANATOMIC SURVEY 04/03/2016 ROSALIO STOLL MD Ot 663.93 CORD COMPL NOS-ANTEPART 04/03/2016 EVELIA, SCOTTIE A PILLOWCASE CUTTER Ot V23.9 SUPRV HIGH-RISK PREG NOS 04/03/2016 EVELIAHEVER GOLDIDI A PILLOWCASE CUTTER Ot V77.1 SCREEN-DIABETES MELLITUS 04/03/2016 EVELIA SCOTTIE A PILLOWCASE CUTTER Ot 656.53 POOR GRTH-ANTEPART 04/03/2016 EVELIAHEVERSCOTTIE A PILLOWCASE CUTTER Ot 658.03 OLIGOHYDRAMNIOS-ANTEPAR 04/03/2016 SCOTTIE ALTAMIRANO A PILLOWCASE CUTTER Ot V23.9 SUPRV HIGH-RISK PREG NOS 04/03/2016 ROSALIO STOLL MD Ot V23.9 SUPRV HIGH-RISK PREG NOS 04/03/2016 ROSALIO STOLL MD Ot V28.81 ENCOUNTER FOR ANATOMIC SURVEY 04/03/2016 ROSALIO STOLL MD Ot O09.92 SUPERVISION OF HIGH RISK , [facility] 04/03/2016 ROSALIO STOLL MD Ot Z36 ENCOUNTER FOR SCREENING OF MOT 04/03/2016 ROSALIO STOLL MD Ot Z3A.22 22 WEEKS GESTATION OF 04/03/2016 ROSALIO STOLL MD Ot O09.92 SUPERVISION OF HIGH RISK , [facility] 04/03/2016 ROSALIO STOLL MD Ot O09.93 SUPERVISION OF HIGH RISK , [facility] 04/03/2016 ROSALIO STOLL MD Ot Z3A.36 36 WEEKS GESTATION OF 04/05/2016 ACE HICKS, PAULY Pope Ot R10.84 GENERALIZED ABDOMINAL PAIN 04/05/2016 ACE HICKS, PAULY Pope Ot Z53.21 PROC/TRTMT NOT CRD OUT D/T PT LV BEF SEE 05/17/2016 ANTHONY COCHRAN DO, Ot N92.0 EXCESSIVE AND FREQUENT MENSTRUATION WITH 05/17/2016 ANTHONY COCHRAN DO Ot N93.8 OTHER SPECIFIED ABNORMAL UTERINE AND VAG 06/23/2016 ACE HICKS, PAULY Pope Ot H10.31 UNSPECIFIED ACUTE CONJUNCTIVITIS, RIGHT 06/23/2016 ACE HICKS, PAULY Pope Ot H53.8 OTHER VISUAL DISTURBANCES 06/23/2016 ACE HICKS, PAULY Pope Ot H57.11 OCULAR PAIN, RIGHT EYE 06/24/2016 ACE HICKS, PAULY Pope Ot H10.31 UNSPECIFIED ACUTE CONJUNCTIVITIS, RIGHT 06/24/2016 ACE HICKS, PAULY Pope Ot H53.8 OTHER VISUAL DISTURBANCES 06/24/2016 ACE HICKS, PAULY Pope Ot H57.11 OCULAR PAIN, RIGHT EYE 07/19/2016 ANTHONY COCHRAN DO Ot F17.210 NICOTINE DEPENDENCE, CIGARETTES, UNCOMPL 07/19/2016 ANTHONY COCHRAN DO, Ot M94.0 CHONDROCOSTAL JUNCTION SYNDROME [TIETZE] 07/19/2016 ANTHONY COCHRAN DO, Ot R05 COUGH 07/19/2016 ANTHONY COCHRAN DO, Ot R07.89 OTHER CHEST PAIN Procedures Code Description [place] [address] URINE TEST (IN-HOUSE) 06/09/2012 72229 UA W/ CULTURE IF INDICATED 06/09/2012 60452 CULTURE URINE 50131 ROUTINE VENIPUNCTURE 07/12/2012 87182 UA LONG DIP 07/12 20259 CBC 07/12/2012 85907 TSH 07/12/2012 61534 BLOOD TYPE/Rh FACTOR 07/12/2012 8309521 ANTIBODY SCREEN (RESULT ONLY) 07/12/2012 71446 HIV ANTIBODIES (RML) 07/12/2012 52957 RUBELLA ANTIBODY, IGG 07/13/2012 14467 SYPHILLIS-[facility] 07/13/2012 32203 ANTIBODY SCREEN (order) 07/13/2012 79910 CULTURE URINE 05154 HEP B SURFACE ANTIGEN (STATE) 07/13/2012 27568 UA OB DIP 2012 50528 TRICHOMONAS (IN-HOUSE) 08/11/2012 07654 US OB - COMPLETE >14 WEEKS 08/13/2012 66341 CULTURE URINE 53872 CULTURE UROGENITAL 08/14/2012 06515 GC/CHLAM PROBE (STATE) 08/14/2012 64073 UA OB DIP 2012 03770 CULTURE URINE 41862 US OB - COMPLETE >14 WEEKS 09/13/2012 66211 ROUTINE VENIPUNCTURE 10/09/2012 95967 UA OB DIP 2012 98052 CBC 10/09/2012 47083 GLUCOSE VEENA 1 HOUR 10/09/2012 83639 US OB - LIMITED 11/08/2012 52746 UA OB DIP 2012 70062 UA OB DIP 2012 51038 UA OB DIP 2012 59477 CULTURE GROUP B STREP VAG 12/23/2012 20773 ROUTINE VENIPUNCTURE 12/27/2012 22095 UA LONG DIP 12/27 43899 CMP 12/27/2012 94555 LDH 12/27/2012 24790 URIC ACID 2012 94238 CBC 12/27/2012 33520 URINE PROTEIN 24 HOUR 12/29/2012 PRO/CRE URINE PROTEIN TO CREATNINE RATIO 12/29/2012 51264 ROUTINE VENIPUNCTURE 01/01/2013 84768 NON-STRESS TEST 01/01/2013 62261 UA OB DIP 2012 38118 CMP 01/02/2013 79265 URIC ACID 2012 96466 LDH 01/02/2013 5239990 GFR CALC (RESULT ONLY) 01/02/2013 20697 CBC 01/02/2013 75129 DIFFERENTIAL WBC COUNT (CBC DIFF RESULT) 01/02/2013 73.59 MANUAL ASSIST DELIV NEC 01/04/2013 96.49 OTHER INSTILLATION 01/04/2013 73313 URINE TEST (IN-HOUSE) 04/02/2013 96946 US OB - EARLY <14 WEEKS 04/02/2013 26033 UA W/ CULTURE IF INDICATED 04/26/2013 72110 TRICHOMONAS (IN-HOUSE) 04/26/2013 70598 US OB - FOLLOW UP 04/26/2013 56210 GC/CHLAM PROBE ([facility]) 04/26/2013 05369 CULTURE URINE 02/2014 33643 CULTURE UROGENITAL 04/29/2013 77951 ROUTINE VENIPUNCTURE 05/10/2013 69069 SYPHILLIS-[facility] 05/10/2013 88514 HIV ([facility]) 05/10/2013 37829 ANTIBODY SCREEN (order) 05/10/2013 62037 HEP B SURFACE ANTIGEN (STATE) 05/10/2013 11344 UA OB DIP 2013 94309 CBC 05/11/2013 5763868 ANTIBODY SCREEN (RESULT ONLY) 05/12/2013 72461 PSYCH DIAGNOSTIC EVALUATION 05/21/2013 81344 PSYCHO TESTING 1 HR W TECH 05/25/2013 33104 PSYCHO TESTING 1 HR W COMP 05/31/2013 02001 ROUTINE VENIPUNCTURE 06/07/2013 09653 UA OB DIP 2013 TETRA TETRA SCREEN 60283 PSYTX PT&/FAMILY 45 MINUTES 07/04/2013 73295 UA OB DIP 2013 14105 US OB - COMPLETE >14 WEEKS 07/05/2013 17820 US OB - FOLLOW UP 08/09/2013 83166 CULTURE URINE OBSTETRIC LUCA BASS 08/09/2013 03052 UA W/ CULTURE IF INDICATED 08/09/2013 45954 ROUTINE VENIPUNCTURE 09/12/2013 87625 GLUCOSE VEENA 3 HOUR 09/12/2013 57725 UA OB DIP 2013 34229 CBC 09/12/2013 70323 GLUCOSE VEENA 1 HOUR 09/12/2013 87513 UA OB DIP 2013 36403 UA LONG DIP 10/11 60139 CULTURE URINE 75883 UA OB DIP 2013 69220 NON-STRESS TEST 10/23/2013 11603 CULTURE GROUP B STREP VAG 10/23/2013 38834 NON-STRESS TEST 10/29/2013 79098 UA OB DIP 2013 43271 NON-STRESS TEST 11/01/2013 41168 BIOPHYSICAL PROFILE () W/O NST 11/01/2013 95435 UA W/ CULTURE IF INDICATED 11/05/2013 04895 CULTURE URINE 31888 UA OB DIP 2013 83257 UA OB DIP 2013 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 11/14/2013 73.59 MANUAL ASSIST DELIV NEC 11/14/2013 31730 THERAPUTIC INJ SQ/IM 11/19/2013 J1050 DEPO PROVERA 07/2013 84422 TEST, URINE (IN-HOUSE) 12/31/2013 11287 TEST, URINE (IN-HOUSE) 01/29/2014 01954 IMPLANON INSERTION 01/30/2014 J7307 ETONOGESTREL IMPLANT SYSTEM 01/30/2014 98103 TEST, URINE (IN-HOUSE) 01/30/2014 55009 URINE DRUG SCREEN (IN-HOUSE) 01/31/2014 62133 ROUTINE VENIPUNCTURE 07/30/2014 15532 TEST, SERUM (RML) 07/30/2014 [id number] DELIVERY OF PRODUCTS OF CONCEPTION, EXTE 05/14/2015 [id number] INTRODUCTION OF OTH HORMONE INTO PERIPH 05/14/2015 Results Test Result Range Complete blood count (CBC) with automated white blood cell (WBC) differential - 05/17/16 12:05 Blood leukocytes automated count (number/volume) 7.2 10*3/ uL 4.3-11.0 Blood erythrocytes automated count (number/volume) 4.60 10*6 /uL 4.35-5.85 Venous blood hemoglobin measurement (mass/volume) 13.3 g/dL 11.5-16.0 Blood hematocrit (volume fraction) 39 % 35-52 Automated erythrocyte mean corpuscular volume 85 [foz_us] 80-99 Automated erythrocyte mean corpuscular hemoglobin (mass per erythrocyte) 29 pg 25-34 Automated erythrocyte mean corpuscular hemoglobin concentration measurement ( mass/volume) 34 g/dL 32-36 Automated erythrocyte distribution width ratio 13.8 % 10.0-14.5 Automated blood platelet count (count/volume) 183 10*3/uL 130-400 Automated blood platelet mean volume measurement 11.7 [foz_ us] 7.4-10.4 Automated blood neutrophils/100 leukocytes 56 % 42-75 Automated blood lymphocytes/100 leukocytes 36 % 12-44 Blood monocytes/100 leukocytes 6 % 0-12 Automated blood eosinophils/100 leukocytes 2 % 0-10 Automated blood basophils/100 leukocytes 0 % 0-10 Blood neutrophils automated count (number/volume) 4.0 10*3 1.8-7.8 Blood lymphocytes automated count (number/volume) 2.6 10*3 1.0-4.0 Blood monocytes automated count (number/volume) 0.4 10*3 0.0-1.0 Automated eosinophil count 0.1 10*3/uL 0.0-0.3 Automated blood basophil count (count/volume) 0.0 10*3/uL 0.0-0.1 Serum or plasma choriogonadotropin ( test) detection - 05/17/16 12:05 Serum or plasma choriogonadotropin ( test) detection NEGATIVE NEGATIVE PT panel in platelet poor plasma by coagulation assay - 05/17/16 12:05 Prothrombin time (PT) in platelet poor plasma by coagulation assay 12.5 s 12.2-14.7 INR in platelet poor plasma or blood by coagulation assay 1.0 0.8-1.4 Activated partial thromboplastin time (aPTT) in platelet poor plasma bycoagulation assay - 05/17/16 12:05 Activated partial thromboplastin time (aPTT) in platelet poor plasma bycoagulation assay 28 s 24-35 Comprehensive metabolic panel - 05/17/16 12:05 Serum or plasma sodium measurement (moles/volume) 139 mmol/ L 135-145 Serum or plasma potassium measurement (moles/volume) 4.2 mmol/L 3.6-5.0 Serum or plasma chloride measurement (moles/volume) 107 mmol /L 98-107 Carbon dioxide 25 mmol/L 21-32 Serum or plasma anion gap determination (moles/volume) 7 mmol/L 5-14 Serum or plasma urea nitrogen measurement (mass/volume) 9 mg /dL 7-18 Serum or plasma creatinine measurement (mass/volume) 0.71 mg /dL 0.60-1.30 Serum or plasma urea nitrogen/creatinine mass ratio 13 NRG Serum or plasma creatinine measurement with calculation of estimated glomerular filtration rate > NRG Serum or plasma glucose measurement (mass/volume) 83 mg/dL 70-105 Serum or plasma calcium measurement (mass/volume) 9.2 mg/dL 8.5-10.1 Serum or plasma total bilirubin measurement (mass/volume) 0.4 mg/dL 0.1-1.0 Serum or plasma alkaline phosphatase measurement (enzymatic activity/volume) 124 U/L 40-136 Serum or plasma aspartate aminotransferase measurement (enzymatic activity/ volume) 12 U/L 5-34 Serum or plasma alanine aminotransferase measurement (enzymatic activity/volume ) 9 U/L 0-55 Serum or plasma protein measurement (mass/volume) 7.1 g/dL 6.4-8.2 Serum or plasma albumin measurement (mass/volume) 4.0 g/dL 3.2-4.5 Complete blood count (CBC) with automated white blood cell (WBC) differential - 07/19/16 21:30 Blood leukocytes automated count (number/volume) 10.1 10*3/ uL 4.3-11.0 Blood erythrocytes automated count (number/volume) 4.75 10*6 /uL 4.35-5.85 Venous blood hemoglobin measurement (mass/volume) 13.3 g/dL 11.5-16.0 Blood hematocrit (volume fraction) 40 % 35-52 Automated erythrocyte mean corpuscular volume 84 [foz_us] 80-99 Automated erythrocyte mean corpuscular hemoglobin (mass per erythrocyte) 28 pg 25-34 Automated erythrocyte mean corpuscular hemoglobin concentration measurement ( mass/volume) 33 g/dL 32-36 Automated erythrocyte distribution width ratio 13.9 % 10.0-14.5 Automated blood platelet count (count/volume) 187 10*3/uL 130-400 Automated blood platelet mean volume measurement 11.9 [foz_ us] 7.4-10.4 Automated blood neutrophils/100 leukocytes 63 % 42-75 Automated blood lymphocytes/100 leukocytes 29 % 12-44 Blood monocytes/100 leukocytes 6 % 0-12 Automated blood eosinophils/100 leukocytes 2 % 0-10 Automated blood basophils/100 leukocytes 1 % 0-10 Blood neutrophils automated count (number/volume) 6.4 10*3 1.8-7.8 Blood lymphocytes automated count (number/volume) 2.9 10*3 1.0-4.0 Blood monocytes automated count (number/volume) 0.6 10*3 0.0-1.0 Automated eosinophil count 0.2 10*3/uL 0.0-0.3 Automated blood basophil count (count/volume) 0.1 10*3/uL 0.0-0.1 Comprehensive metabolic panel - 07/19/16 21:30 Serum or plasma sodium measurement (moles/volume) 140 mmol/ L 135-145 Serum or plasma potassium measurement (moles/volume) 3.7 mmol/L 3.6-5.0 Serum or plasma chloride measurement (moles/volume) 106 mmol /L 98-107 Carbon dioxide 25 mmol/L 21-32 Serum or plasma anion gap determination (moles/volume) 9 mmol/L 5-14 Serum or plasma urea nitrogen measurement (mass/volume) 11 mg/dL 7-18 Serum or plasma creatinine measurement (mass/volume) 0.77 mg /dL 0.60-1.30 Serum or plasma urea nitrogen/creatinine mass ratio 14 NRG Serum or plasma creatinine measurement with calculation of estimated glomerular filtration rate > NRG Serum or plasma glucose measurement (mass/volume) 105 mg/dL 70-105 Serum or plasma calcium measurement (mass/volume) 9.5 mg/dL 8.5-10.1 Serum or plasma total bilirubin measurement (mass/volume) 0.5 mg/dL 0.1-1.0 Serum or plasma alkaline phosphatase measurement (enzymatic activity/volume) 106 U/L 40-136 Serum or plasma aspartate aminotransferase measurement (enzymatic activity/ volume) 13 U/L 5-34 Serum or plasma alanine aminotransferase measurement (enzymatic activity/volume ) 8 U/L 0-55 Serum or plasma protein measurement (mass/volume) 7.6 g/dL 6.4-8.2 Serum or plasma albumin measurement (mass/volume) 4.2 g/dL 3.2-4.5 Serum or plasma troponin i.cardiac measurement (mass/volume) - 07/19/16 21:30 Serum or plasma troponin i.cardiac measurement (mass/volume) < ng/mL <0.30 Encounters ACCT No. Visit Date/Time Discharge Status Pt. Type Provider Facility Loc./Unit Complaint [id number] 07/30/2014 10:41:00 07/30/2014 23: 59:59 [facility] Outpatient COLTEN WHITE APRN [id number] 07/16/2014 18:25:00 07/16/2014 23: 59:59 [facility] Outpatient COLTEN WHITE APRN [id number] 07/02/2014 14:48:00 07/02/2014 23: 59:59 [facility] Outpatient SCOTTIE ALTAMIRANO APRN [id number] 02/04/2014 14:21:00 02/04/2014 23: 59:59 [facility] Outpatient SCOTTIE ALTAMIRANO APRN [id number] 01/30/2014 13:50:00 01/30/2014 23: 59:59 [facility] SCOTTIE ALTAMIRANO APRN [id number] 01/29/2014 11:42:00 01/29/2014 23: 59:59 [facility]patient SCOTTIE ALTAMIRANO APRN [id number] 12/31/2013 11:11:00 12/31/2013 23: 59:59 [facility]patient SCOTTIE ALTAMIRANO APRN [id number] 12/31/2013 11:11:00 12/31/2013 23: 59:59 [facility]patient SCOTTIE ALTAMIRANO APRN [id number] 11/13/2013 13:38:00 11/13/2013 23: 59:59 [facility] Outpatient ROSALIO STOLL MD [id number] 11/06/2013 15:30:00 11/06/2013 23: 59:59 [facility] Outpatient ROSALIO STOLL MD [id number] 11/05/2013 12:31:00 11/05/2013 23: 59:59 [facility] Outpatient SCOTTIE ALTAMIRANO APRN [id number] 11/05/2013 12:31:00 11/05/2013 23: 59:59 [facility]patient SCOTTIE ALTAMIRANO APRN [id number] 11/01/2013 14:26:00 11/01/2013 23: 59:59 [facility]patient SCOTTIE ALTAMIRANO APRN [id number] 10/31/2013 11:37:00 10/31/2013 23: 59:59 [facility] Outpatient STEPHANE JUAREZ DO [id number] 10/29/2013 11:33:00 10/29/2013 23: 59:59 [facility]patient SCOTTIE ALTAMIRANO APRN [id number] 10/23/2013 14:50:00 10/23/2013 23: 59:59 [facility] Outpatient ROSALIO STOLL MD [id number] 10/11/2013 16:01:00 10/11/2013 23: 59:59 [facility]patient SCOTTIE ALTAMIRANO APRN [id number] 09/25/2013 14:03:00 09/25/2013 23: 59:59 [facility] Outpatient STEPHANE JUAREZ DO [id number] 09/12/2013 07:46:00 09/12/2013 23: 59:59 [facility]patient SCOTTIE ALTAMIRANO APRN A [id number] 08/09/2013 11:25:00 08/09/2013 23: 59:59 [facility] Outpatient ROSALIO STOLL MD [id number] 08/09/2013 11:25:00 08/09/2013 23: 59:59 [facility] Outpatient ROSALIO STOLL MD [id number] 07/05/2013 07:48:00 07/05/2013 23: 59:59 [facility] Outpatient ROSALIO STOLL MD [id number] 07/05/2013 07:48:00 07/05/2013 23: 59:59 [facility] Outpatient ROSALIO STOLL MD [id number] 07/03/2013 13:41:00 07/03/2013 23: 59:59 [facility] Outpatient HANS JOHNSTON PHD [id number] 06/07/2013 11:52:00 06/07/2013 23: 59:59 [facility] Outpatient ROSALIO STOLL MD [id number] 05/30/2013 11:41:00 05/30/2013 23: 59:59 [facility] Outpatient HANS JOHNSTON PHD [id number] 05/24/2013 17:15:00 05/24/2013 23: 59:59 [facility] Outpatient HANS JOHNSTON PHD [id number] 05/17/2013 09:47:00 05/17/2013 23: 59:59 [facility] Outpatient HANS JOHNSTON PHD [id number] 05/10/2013 14:06:00 05/10/2013 23: 59:59 [facility] Outpatient SCOTTIE ALTAMIRANO APRN [id number] 2013 06:11:00 2013 23: 59:59 [facility] Outpatient [id number] 04/26/2013 13:40:00 04/26/2013 23: 59:59 [facility] Outpatient SCOTTIE ALTAMIRANO APRN [id number] 04/02/2013 16:07:00 04/02/2013 23: 59:59 [facility] Outpatient SCOTTIE ALTAMIRANO APRN [id number] 01/01/2013 15:05:00 01/01/2013 23: 59:59 [facility] Outpatient STEPHANE JUAREZ DO [id number] 01/01/2013 15:05:00 01/01/2013 23: 59:59 [facility] Outpatient STEPHANE JUAREZ DO [id number] 07/12/2012 11:33:00 07/12/2012 23: 59:59 [facility] Outpatient SCOTTIE ALTAMIRANO APRN [id number] 06/09/2012 11:45:00 06/09/2012 23: 59:59 [facility] Outpatient STEPHANE JUAREZ DO [id number] 12/28/2012 17:20:00 Document Registration [id number] 12/27/2012 14:10:00 Document Registration [id number] 12/21/2012 14:19:00 Document Registration [id number] 11/20/2012 14:20:00 Document Registration [id number] 11/08/2012 14:18:00 Document Registration [id number] 10/09/2012 14:33:00 Document Registration [id number] 09/12/2012 09:50:00 Document Registration [id number] 08/19/2012 11:14:00 Document Registration [id number] 08/11/2012 08:50:00 Document Registration
--- OUTSIDE RECORDS SUMMARY | 2016-08-22 07:04 | XMS REPORT ---
Author Author ROSALIO STOLL [facility] eClinicalWorks Address Unknown Phone Unavailable Care Team Providers Care Optical Brightener Maker Helper Name Role Phone ROSALIO STOLL Unavailable Allergies No Known Allergies Problems Problem Type Condition Code Onset Dates Condition Status Problem UTI in 646.60 Active Problem Supervision of high risk , unspecified, second trimester O09.92 Active Medications No Known Medications Results No Known Results Summary Purpose eClinicalWorks Submission
--- OUTSIDE RECORDS SUMMARY | 2016-08-22 07:04 | XMS REPORT ---
Author Author ROSALIO STOLL eClinicalWorks Address Unknown Phone Unavailable Care Team Providers Care Residential Green Building Designer Name Role Phone ROSALIO STOLL Unavailable Allergies No Known Allergies Problems Problem Type Condition Code Onset Dates Condition Status Assessment 37 weeks gestation of Z3A.37 Active Assessment Supervision of high risk , unspecified, third trimester O09.93 Active Problem Supervision of high risk , unspecified, third trimester O09.93 Active Medications No Known Medications Procedures Procedure Coding System Code Date Office Visit, Est Pt., Level 2 CPT-4 68600 May 01, 2015 URINE-NO MICRO CPT-4 00362 May 01, 2015 Vital Signs Date/Time: May 01, 2015 Temperature 97.6 F Weight 190.1 lbs Height 62 in BMI 34.77 Index Blood Pressure Diastolic 76 mmHg Blood Pressure Systolic 116 mmHg Cardiac Monitoring Heart Rate 86 bpm Results Name Result Date Reference Range Unit Abnormality Flag UA OB DIP (IN HOUSE) ----Glucose negative 20150501 ----Protein negative [id number] Summary Purpose eClinicalWorks Submission
--- OUTSIDE RECORDS SUMMARY | 2016-08-22 07:04 | XMS REPORT ---
Author Author DODIE ROSALIO Organization [facility] [place] Address [address] [place] [address] Care Team Providers Care Technician Support Association Name Role Phone ROSALIO STOLL Unavailable PROBLEMS Type Condition ICD9-CM Code [id number] Code Onset Dates Condition Status SNOMED Code Problem Adjustment disorder with mixed anxiety and depressed mood F43.23 Active 83225326 Problem Major depressive disorder F32.9 Active 345995449 Assessment Pelvic pain R10.2 Dec, Active 45943412 Assessment Acute cystitis with hematuria N30.01 Dec, Active 14711639 Assessment PID (acute pelvic inflammatory disease) N73.0 Dec, Active 554499992 Assessment Vaginal bleeding N93.9 Dec, Active 672170936 ALLERGIES Substance Reaction Event Type Date Status Hydrocodone-Acetaminophen anaphylaxis Drug Allergy Dec, Active Latex Unknown Non Drug Allergy Dec, Active SOCIAL HISTORY No smoking Hx information available PLAN OF CARE VITAL SIGNS Height 62 in 2015-12-30 Weight 189.7 lbs 2015-12-30 Heart Rate 80 bpm 2015-12-30 Respiratory Rate 18 2015-12-30 BMI 34.69 kg/m2 2015-12-30 Blood pressure systolic 123 mmHg 2015-12-30 Blood pressure diastolic 82 mmHg 2015-12-30 MEDICATIONS Medication Instructions Dosage Frequency Start Date End Date Duration Status Macrobid 100 MG Orally every 12 hrs 1 capsule with food h Dec, Dec, 03 days Active Zoloft 100 MG Orally Once a day 1 tablet 24h Active Doxycycline Hyclate 100 MG Orally every 12 hrs 1 tablet 12h Dec, Dec, 14 days Active RESULTS Name Result Date Reference Range TEST, URINE (IN HOUSE) 2015-12-30 RESULTS Negative Lot # [id number] Control + Exp date TRICHOMONAS (IN HOUSE) 2015-12-30 TRICHOMONAS Negative Control + Lot # [id number] Exp date UA W/CULTURE IF INDICATED (IN HOUSE) 2015-12-30 Lot # [id number] Exp date Clarity clear Color dark yellow Odor yes GLU negative SAIRA 1+ KET Trace SG >=1.030 BLO Trace-intact pH 6.5 Protein 1+ URO 2.0 NIT positive CH[place] negative Lot # Exp date CULTURE, GENITAL 2015-12-30 Genital Culture, Routine Final report Result 1 CULTURE, URINE 2015-12-30 Urine Culture, Routine Final report Result 1 Antimicrobial Susceptibility BACTERIAL VAGINOSIS (IN HOUSE) 2015-12-30 RESULTS Positive Control + Lot # [id number] Exp date GC/CHLAM PROBE (STATE) 2015-12-30 CHLAMYDIA GC PROCEDURES Procedure Date Ordered Related Diagnosis Body Site No Charge Dec 30, 2015 [facility] Dec 30, 2015 THER/PROPH/DIAG INJ, SC/IM Dec 30, 2015 ROCEPHIN 250 MG (IM) Dec 30, 2015 URINE TEST Dec 30, 2015 VELAZQUEZ VAG, DNA, DIR PROBE Dec 30, 2015 Office Visit, Est Pt., Level 3 Dec 30, 2015 URINALYSIS, AUTO, W/O SCOPE Dec 30, 2015 IMMUNIZATIONS Vaccine Route Administration Date Status ROCEPHIN 250 MG (IM) IM Intramuscular Dec 30, 2015 Administered
== END 2016-07-19 22:49 | disposition home or self-care (01) ==
LOC: EDUNIT# 20:34 → ER 20:35
DX: R05 Cough (principal); M94.0 Chondrocostal junction syndrome [Tietze]; F17.210 Nicotine dependence, cigarettes, uncomplicated
CPT/HCPCS: 36415; 71020; 80053; 84484; 85025; 93005

== ENCOUNTER 2016-11-21 16:14 | Emergency (ER) | payer MEDICAID ==
[~2016-11-21] VITALS: Ht 160 cm; Wt 84.8 kg
[~2016-11-21 16:14] MED LIST changes: +MELO15TA14 PO
--- NOTE | 2016-11-21 16:43 | ED Upper Extremity ---
General Chief Complaint: Upper Extremity Stated Complaint: L HAND INJ Nursing Triage Note: PT STATES SHE FELL OFF THE COUCH LAST NIGHT AND HIT HER LT HAND, CC OF LT THUMB PAIN AND SWELLING. Nursing Sepsis Screen: No Definite Risk Source: patient History of Present Illness Time seen by provider: 16:35 Initial Comments PT STATES SHE FELL GETTING ON THE COUCH AND HIT LEFT HAND ON A TABLE OCCURRED LAST NIGHT AT HOME C/O PAIN TO LEFT HAND/WRIST/THUMB NO PARESTHESIAS OR MOTOR DEFICITS NO PRIOR INJURY TO THIS HAND NO OTHER INJURIES PT IS RIGHT HANDED Allergies and Home Medications Allergies Coded Allergies: hydrocodone (Verified Allergy, Severe, ANAPHYLAXIS, 05/10/13) latex (Verified Allergy, Unknown, EDEMA, 10/20/13) Uncoded Allergies: BEES (Allergy, Unknown, 09/06/05) Constitutional: no symptoms reported LMP: Nov 03, 2016 (S/P BTL) Musculoskeletal: see HPI Skin: no symptoms reported Psychiatric/Neurological: No Symptoms Reported Past Akkfvfu-Galvge-Fccnjq Hx Patient Social History Type Used: Cigarettes Former Smoker/When Quit: Apr 17, 2015 Recent Foreign Travel: No Contact w/Someone Who Travel: No Recent Infectious Disease Expo: No Recent Hopitalizations: No Immunizations Up To Date Tetanus Booster (TDap): Less than 5yrs PED Vaccines UTD: Yes Date of Influenza Vaccine: Jan 14, 2015 Seasonal Allergies Seasonal Allergies: No Surgeries HX Surgeries: Yes (oral surgery for teeth) Surgeries: Tubal Ligation Respiratory Hx Respiratory Disorders: No Cardiovascular Hx Cardiac Disorders: No Neurological Hx Neurological Disorders: Yes (reports hx of seizures) Neurological Disorders: Seizure Disorder Reproductive System : No Hx Reproductive Disorders: No Sexually Transmitted Disease: No HIV/AIDS: No Female Reproductive Disorders: Denies 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 Genitourinary Hx Genitourinary Disorders: No Gastrointestinal Hx Gastrointestinal Disorders: Yes Gastrointestinal Disorders: Hemorrhoids Musculoskeletal Hx Musculoskeletal Disorders: Yes (rt elbow) Musculoskeletal Disorders: Fractures Endocrine Hx Endocrine Disorders: No HEENT HX ENT Disorders: Yes (POOR DENTITION) Cancer Hx Cancer: No Psychosocial Hx Psychiatric Problems: Yes Behavioral Health Disorders: Anxiety, Depression Integumentary HX Skin/Integumentary Disorder: No Blood Transfusions Hx Blood Disorders: No Hx of Blood Transfusion YES Adverse Reaction to a Blood Tr: No (hx of transfusion last year 2 units received) Family Medical History Significant Family History: No Pertinent Family Hx Family Medial History: Aphasia G8 BROTHER Chest pain 19 MOTHER Family history: Arthritis 19 MOTHER Family history: Diabetes mellitus 19 MOTHER Family history: Hypertension 19 FATHER 19 MOTHER Family history: Thyroid disorder 19 MOTHER G8 BROTHER Headache 19 MOTHER History of drug abuse G8 BROTHER Seizure disorder 19 MOTHER No Family History of: Abdominal aortic aneurysm Vigo's disease Alcoholism Cancer Cancer of colon Cataract Congenital heart disease Congestive heart failure Cystic fibrosis Dementia Dysphagia Family history: Allergy Family history: Alzheimer's disease Family history: Asthma Family history: Breast disease Family history: Cardiovascular disease Family history: Coronary thrombosis Family history: Gastrointestinal disease Family history: Glaucoma Family history: Osteoporosis Hearing loss Heart disease Hereditary disease History of - anemia History of - disorder History of - respiratory disease Human immunodeficiency virus (HIV) seropositivity Hypercholesterolemia Infertile Kidney disease Malignant neoplasm of lung Myocardial infarction Not obtainable due to adoption Parkinson's disease Prostate cancer Psychotic disorder Stroke Tuberculosis Visual impairment Physical Exam Vital Signs Vital Sign - Last 12Hours 11/21/16 16:31 Temp 97.7 Pulse 83 Resp 20 B/P (MAP) 129/86 Pulse Ox 99 O2 Delivery Room Air Capillary Refill : Less Than 3 Seconds General Appearance: WD/WN, no apparent distress, other (MALODOROUS) HEENT: other (EXTENSIVE DENTAL DECAY-MOST DECAYED DOWN TO GUMS) Wrist: Yes bone tenderness, Yes limited ROM, Yes pain, Yes soft tissue tenderness Hand: Left, bone tenderness, limited ROM, soft tissue tenderness Neurologic/Tendon: normal sensation, normal motor functions, normal tendon functions Neurologic/Psychiatric: implementation technician II-XII nml as tested, no motor/sensory deficits, alert, oriented x 3 Skin: normal color, warm/dry Progress/Results/Core Measures Results/Orders My Orders Orders - YISSEL SERRATO DO Wrist, Left, 3 Views Or More (11/21/16 16:37) Hand, Left, 3 Views (11/21/16 16:37) Vital Signs/I&O Vital Sign - Last 12Hours 11/21/16 16:31 Temp 97.7 Pulse 83 Resp 20 B/P (MAP) 129/86 Pulse Ox 99 O2 Delivery Room Air Blood Pressure Mean: 100 Diagnostic Imaging Comments XRAYS LEFT HAND AND WRIST--NO ACUTE PROCESS, PER RADIOLOGIST REPORTS AT 1712 Reviewed: Reviewed by Me Departure Impression Impression: Primary Impression: LEFT HAND AND WRIST SPRAIN/CONTUSION Disposition: 01 HOME, SELF-CARE Condition: Stable Departure-Patient Inst. Referrals: GINGER JIMENEZ MD (PCP/Family) Primary Care Physician Patient Instructions: Contusion (DC), Common Wrist Injuries (DC) Add. Discharge Instructions: ICE TO AREA AT 20 MINUTE INTERVALS TYLENOL AND MOTRIN NEEDED FOR PAIN FOLLOW UP WITH YOUR DR IN 1 WEEK IF NO BETTER All discharge instructions reviewed with patient and/or family. Voiced understanding. Images Extremities-Upper 1 - Moderate, Tenderness YISSEL SERRATO DO Nov 21, 2016 16:43
--- NOTE | 2016-11-21 17:06 | Diagnostic Imaging Report ---
INDICATION: Trauma, left hand pain. EXAMINATION: Three views of the left hand were obtained. FINDINGS: No fracture, dislocation or other abnormality. IMPRESSION: Normal left hand. Dictated by: Dictated on workstation # [id number]
--- NOTE | 2016-11-21 17:06 | Diagnostic Imaging Report ---
INDICATION: Trauma, left wrist pain. EXAMINATION: Three views of the left wrist were obtained. FINDINGS: No fracture, dislocation or other abnormality. IMPRESSION: Normal left wrist. Dictated by: Dictated on workstation # [id number]
[2016-11-21 17:21] VITALS: BP 129/86
== END 2016-11-21 17:21 | disposition home or self-care (01) ==
LOC: EDUNIT# 16:14 → ER 16:16
DX: S63.92XA Sprain of unspecified part of left wrist and hand, initial encounter (principal); F41.9 Anxiety disorder, unspecified; F32.9 Major depressive disorder, single episode, unspecified; G40.909 Epilepsy, unspecified, not intractable, without status epilepticus; Z87.81 Personal history of (healed) traumatic fracture; Z98.51 Tubal ligation status; Z87.891 Personal history of nicotine dependence; W08.XXXA Fall from other furniture, initial encounter; W22.03XA Walked into furniture, initial encounter
CPT/HCPCS: 73110; 73130; 99282

== ENCOUNTER 2017-04-28 11:06 | Emergency (ER) | payer MEDICAID ==
[~2017-04-28 11:06] MED LIST changes: -FERR-74 PO; +FERR325T18 PO; +NAPR-1070 PO; -NAPR550T PO
--- OUTSIDE RECORDS SUMMARY | 2017-04-28 21:02 | XMS REPORT ---
Author Author GINGER JIMENEZ [facility] Address [address] [place] [address] Care Team Providers Care Production Expert Name Role Phone GINGER JIMENEZ Unavailable PROBLEMS Type Condition ICD9-CM Code [id number] Code Onset Dates Condition Status SNOMED Code Problem Adjustment disorder with mixed anxiety and depressed mood F43.23 Active 65932524 Problem Major depressive disorder F32.9 Active 764835566 Problem Excessive, frequent and irregular menstruation N92.1 Active 265912663 Problem Intractable migraine without aura and without status migrainosus G43.019 Active 388813891 Problem Postcoital bleeding N93.0 Active 41845767 Problem Slow transit constipation K59.01 Active 10458067 Problem Seasonal allergic rhinitis due to pollen J30.1 Active 83242415 Problem Muscle tension headache G44.209 Active 141112650 ALLERGIES Substance Reaction Event Type Date Status Hydrocodone-Acetaminophen anaphylaxis Drug Allergy August, Active Latex Unknown Non Drug Allergy August, Active SOCIAL HISTORY Never Assessed PLAN OF CARE Activity Details Follow Up prn Reason: VITAL SIGNS Height 62 in 2016-08-19 Weight 186.0 lbs 2016-08-19 Temperature 98.4 degrees Fahrenheit 2016-08-19 Heart Rate 84 bpm 2016-08-19 Respiratory Rate 18 2016-08-19 BMI 34.02 kg/m2 2016-08-19 Blood pressure systolic 120 mmHg 2016-08-19 Blood pressure diastolic 76 mmHg 2016-08-19 MEDICATIONS Medication Instructions Dosage Frequency Start Date End Date Duration Status Lamisil 250 MG Orally Once a day 1 tablet 24h August, August, 10 day(s) Active RESULTS No Results PROCEDURES No Known procedures IMMUNIZATIONS No Known Immunizations MEDICAL (GENERAL) HISTORY Type Description Date Medical History depression Surgical History dental surgery Surgical History Bilateral Tubal Ligation 05/2015 Hospitalization History for deliveries
--- OUTSIDE RECORDS SUMMARY | 2017-04-28 21:02 | XMS REPORT ---
Author Author DODIE ROSALIO Organization [facility] Address [address] [place] [address] Care Team Providers Care Municipal [address] Magistrate Name Role Phone JUSTYN STOLLHANY Unavailable PROBLEMS Type Condition ICD9-CM Code YWW02-AW Code Onset Dates Condition Status SNOMED Code Problem Major depressive disorder F32.9 Active 289341652 Problem Intractable migraine without aura and without status migrainosus G43.019 Active 214720060 Problem Seasonal allergic rhinitis due to pollen J30.1 Active 48330297 Problem Slow transit constipation K59.01 Active 85169733 Problem Adjustment disorder with mixed anxiety and depressed mood F43.23 Active 71804175 Problem Muscle tension headache G44.209 Active 766036058 Problem Postcoital bleeding N93.0 Active 68757765 ALLERGIES Substance Reaction Event Type Date Status Hydrocodone-Acetaminophen anaphylaxis Drug Allergy Apr, Active Latex Unknown Non Drug Allergy Apr, Active SOCIAL HISTORY No smoking Hx information available PLAN OF CARE Activity Details Follow Up 4 Weeks Reason:irregular bleeding VITAL SIGNS Height 62 in 2016-04-29 Weight 193.6 lbs 2016-04-29 Temperature 97.3 degrees Fahrenheit 2016-04-29 Heart Rate 72 bpm 2016-04-29 Respiratory Rate 18 2016-04-29 BMI 35.41 kg/m2 2016-04-29 Blood pressure systolic 108 mmHg 2016-04-29 Blood pressure diastolic 72 mmHg 2016-04-29 MEDICATIONS Unknown Medications RESULTS Name Result Date Reference Range TRICHOMONAS (IN HOUSE) 2016-04-29 TRICHOMONAS negative Control + Lot # [id number] Exp date 03/2017 BACTERIAL VAGINOSIS (IN HOUSE) 2016-04-29 RESULTS negative Control + Lot # [id number] Exp date 11/2016 CULTURE, GENITAL 2016-04-29 Genital Culture, Routine Final report Result 1 GC/CHLAM PROBE (STATE) 2016-04-29 CHLAMYDIA Neg GC Neg PROCEDURES Procedure Date Ordered Related Diagnosis Body Site LAB NOT BILLED BY [facility] Apr 29, 2016 No Charge Apr 29, 2016 Office Visit, Est Pt., Level 3 Apr 29, 2016 CAROLINE VAG, DNA, DIR PROBE Apr 29, 2016 IMMUNIZATIONS No Known Immunizations
--- OUTSIDE RECORDS SUMMARY | 2017-04-28 21:03 | XMS REPORT ---
Author Author DOUGLASSLEONARDO Vila Organization [facility] Address [address] [place] [address] Care Team Providers Care Sand Car Worker Name Role Phone LEONARDO DOUGLASS Unavailable PROBLEMS Type Condition ICD9-CM Code [id number] Code Onset Dates Condition Status SNOMED Code Problem Adjustment disorder with mixed anxiety and depressed mood F43.23 Active 04416585 Problem Major depressive disorder F32.9 Active 344668730 Problem Excessive, frequent and irregular menstruation N92.1 Active 816089834 Problem Intractable migraine without aura and without status migrainosus G43.019 Active 738586350 Problem Postcoital bleeding N93.0 Active 29745825 Problem Slow transit constipation K59.01 Active 44593572 Problem Seasonal allergic rhinitis due to pollen J30.1 Active 19133779 Problem Muscle tension headache G44.209 Active 841114595 ALLERGIES Substance Reaction Event Type Date Status Hydrocodone-Acetaminophen anaphylaxis Drug Allergy August, Active Latex Unknown Non Drug Allergy August, Active SOCIAL HISTORY Never Assessed PLAN OF CARE Activity Details Follow Up prn Reason: VITAL SIGNS Height 62 in 2016-09-02 Weight 187.6 lbs 2016-09-02 Temperature 98.5 degrees Fahrenheit 2016-09-02 Heart Rate 82 bpm 2016-09-02 Respiratory Rate 18 2016-09-02 BMI 34.31 kg/m2 2016-09-02 Blood pressure systolic 109 mmHg 2016-09-02 Blood pressure diastolic 74 mmHg 2016-09-02 MEDICATIONS Medication Instructions Dosage Frequency Start Date End Date Duration Status Cetirizine HCl 10 mg Orally Once a day 1 tablet 24h August, Nov, 90 days Active Amoxicillin 500 mg Orally every 12 hrs 1 capsule 12h August, August, 10 day(s) Active RESULTS Name Result Date Reference Range STREP A (IN HOUSE) 2016-09-02 STREP A Negative Control + Lot # [id number] Exp date PROCEDURES Procedure Date Ordered Result Body Site STREP A ASSAY W/OPTIC September 02, 2016 IMMUNIZATIONS No Known Immunizations MEDICAL (GENERAL) HISTORY Type Description Date Medical History depression Surgical History dental surgery Surgical History Bilateral Tubal Ligation 05/2015 Hospitalization History for deliveries
--- OUTSIDE RECORDS SUMMARY | 2017-04-28 21:03 | XMS REPORT ---
Author Author GINGER JIMENEZ [facility] Address [address] [place] [address] Care Team Providers Care Switch Box Installer Name Role Phone GINGER JIMENEZ Unavailable PROBLEMS Type Condition ICD9-CM Code [id number] Code Onset Dates Condition Status SNOMED Code Problem Adjustment disorder with mixed anxiety and depressed mood F43.23 Active 87774817 Problem Major depressive disorder F32.9 Active 056597361 Problem Excessive, frequent and irregular menstruation N92.1 Active 260825806 Problem Intractable migraine without aura and without status migrainosus G43.019 Active 001096252 Problem Postcoital bleeding N93.0 Active 90250905 Problem Slow transit constipation K59.01 Active 41712913 Problem Seasonal allergic rhinitis due to pollen J30.1 Active 84548021 Problem Muscle tension headache G44.209 Active 259326988 ALLERGIES Substance Reaction Event Type Date Status Hydrocodone-Acetaminophen anaphylaxis Drug Allergy Jun, Active Latex Unknown Non Drug Allergy Jun, Active SOCIAL HISTORY Never Assessed PLAN OF CARE Activity Details Follow Up prn Reason: VITAL SIGNS Height 62 in 2016-06-22 Weight 192 lbs 2016-06-22 Temperature 98.4 degrees Fahrenheit 2016-06-22 Heart Rate 76 bpm 2016-06-22 Respiratory Rate 18 2016-06-22 BMI 35.11 kg/m2 2016-06-22 Blood pressure systolic 106 mmHg 2016-06-22 Blood pressure diastolic 74 mmHg 2016-06-22 MEDICATIONS Medication Instructions Dosage Frequency Start Date End Date Duration Status Augmentin 875-125 MG Orally every 12 hrs 1 tablet 12h Jun,Jun 10 day(s) Active Pseudoephedrine HCl 60 mg Orally every 6 hrs 1 tablet as needed 6h Jun, 05 days Active RESULTS No Results PROCEDURES No Known procedures IMMUNIZATIONS No Known Immunizations MEDICAL (GENERAL) HISTORY Type Description Date Medical History depression Surgical History dental surgery Surgical History Bilateral Tubal Ligation 05/2015 Hospitalization History for deliveries
--- OUTSIDE RECORDS SUMMARY | 2017-04-28 21:03 | XMS REPORT ---
Author Author STEPHANE JUAREZ [facility] Address [address] [place] [address] Care Team Providers Care Senior Lead Project Manager Name Role Phone STEPHANE JUAREZ Unavailable PROBLEMS Type Condition ICD9-CM Code [id number] Code Onset Dates Condition Status SNOMED Code Problem Major depressive disorder F32.9 Active 162810609 Problem Intractable migraine without aura and without status migrainosus G43.019 Active 620070120 Problem Seasonal allergic rhinitis due to pollen J30.1 Active 71854026 Problem Slow transit constipation K59.01 Active 63495283 Problem Adjustment disorder with mixed anxiety and depressed mood F43.23 Active 41394051 Problem Muscle tension headache G44.209 Active 487267882 Problem Postcoital bleeding N93.0 Active 45428956 ALLERGIES Unknown Allergies SOCIAL HISTORY No smoking Hx information available PLAN OF CARE VITAL SIGNS MEDICATIONS Unknown Medications RESULTS No Results PROCEDURES No Known procedures IMMUNIZATIONS No Known Immunizations
--- OUTSIDE RECORDS SUMMARY | 2017-04-28 21:03 | XMS REPORT ---
Author Author CIARA RAYO Organization [facility] Address [address] [place] [address] Care Team Providers Care Assembler Convertible Top Name Role Phone GIRMA, CIARA Unavailable PROBLEMS Type Condition ICD9-CM Code [id number] Code Onset Dates Condition Status SNOMED Code Problem Adjustment disorder with mixed anxiety and depressed mood F43.23 Active 99822152 Problem Major depressive disorder F32.9 Active 961334100 Problem Excessive, frequent and irregular menstruation N92.1 Active 942023372 Problem Intractable migraine without aura and without status migrainosus G43.019 Active 805020962 Problem Postcoital bleeding N93.0 Active 08800574 Problem Slow transit constipation K59.01 Active 27310776 Problem Seasonal allergic rhinitis due to pollen J30.1 Active 97243022 Problem Muscle tension headache G44.209 Active 438380923 ALLERGIES Substance Reaction Event Type Date Status Hydrocodone-Acetaminophen anaphylaxis Drug Allergy August, Active Latex Unknown Non Drug Allergy August, Active SOCIAL HISTORY Never Assessed PLAN OF CARE Activity Details Follow Up prn Reason: VITAL SIGNS Height 62 in 2016-09-14 Weight 183.7 lbs 2016-09-14 Temperature 98.1 degrees Fahrenheit 2016-09-14 Heart Rate 60 bpm 2016-09-14 Respiratory Rate 18 2016-09-14 BMI 33.60 kg/m2 2016-09-14 Blood pressure systolic 98 mmHg 2016-09-14 Blood pressure diastolic 64 mmHg 2016-09-14 MEDICATIONS Medication Instructions Dosage Frequency Start Date End Date Duration Status Cetirizine HCl 10 mg Orally Once a day 1 tablet 24h August, Nov, 90 days Active RESULTS No Results PROCEDURES No Known procedures IMMUNIZATIONS No Known Immunizations MEDICAL (GENERAL) HISTORY Type Description Date Medical History depression Surgical History dental surgery Surgical History Bilateral Tubal Ligation 05/2015 Hospitalization History for deliveries
--- OUTSIDE RECORDS SUMMARY | 2017-04-28 21:05 | XMS REPORT ---
Author Author GINGER JIMENEZ [facility] Address [address] [place] [address] Care Team Providers Care Wet Roaster Name Role Phone GINGER JIMENEZ Unavailable PROBLEMS Type Condition ICD9-CM Code [id number] Code Onset Dates Condition Status SNOMED Code Problem Adjustment disorder with mixed anxiety and depressed mood F43.23 Active 06848932 Problem Major depressive disorder F32.9 Active 082159151 Problem Excessive, frequent and irregular menstruation N92.1 Active 599731764 Problem Intractable migraine without aura and without status migrainosus G43.019 Active 207949991 Problem Postcoital bleeding N93.0 Active 28590375 Problem Slow transit constipation K59.01 Active 05900537 Problem Seasonal allergic rhinitis due to pollen J30.1 Active 99249231 Problem Muscle tension headache G44.209 Active 892377312 ALLERGIES Substance Reaction Event Type Date Status Hydrocodone-Acetaminophen anaphylaxis Drug Allergy Jun, Active Latex Unknown Non Drug Allergy Jun, Active SOCIAL HISTORY Never Assessed PLAN OF CARE Activity Details Follow Up prn Reason: VITAL SIGNS Height 62 in 2016-07-01 Weight 190 lbs 2016-07-01 Temperature 97.0 degrees Fahrenheit 2016-07-01 Heart Rate 70 bpm 2016-07-01 Respiratory Rate 16 2016-07-01 BMI 34.75 kg/m2 2016-07-01 Blood pressure systolic 102 mmHg 2016-07-01 Blood pressure diastolic 70 mmHg 2016-07-01 MEDICATIONS Unknown Medications RESULTS No Results PROCEDURES No Known procedures IMMUNIZATIONS No Known Immunizations MEDICAL (GENERAL) HISTORY Type Description Date Medical History depression Surgical History dental surgery Surgical History Bilateral Tubal Ligation 05/2015 Hospitalization History for deliveries
--- OUTSIDE RECORDS SUMMARY | 2017-04-28 21:09 | XMS REPORT | Continuity of Care Document ---
Author Author [facility] C[facility] of [facility] C[facility] of [facility] [place] Address Unknown Phone Unavailable Allergies Active Description Code Type Severity Reaction Onset Reported/Identified Relationship to Patient Clinical Status Yes BEES BEES Unknown N/A 09/06/2005 Yes hydrocodone [id number] Drug Allergy Severe ANAPHYLAXIS 05/10/2013 Yes latex [id number] Drug Allergy Unknown EDEMA 10/20/2013 Medications There is no data. Problems Date Dx Coded Attending Type Code [...] STEPHANE K 314.01 ADHD COMBINED 02/03/2010 EVELIA TIMING INSPECTOR, SCOTTIE A 296.52 MO BIPOLAR I DEPRESSED MODERATE 02/03/2010 EVELIA TIMING INSPECTOR, SCOTTIE A 313.81 CD OPPOSITIONAL DEFIANT 02/03/2010 EVELIA TIMING INSPECTOR, SCOTTIE A 314.01 ADHD COMBINED 02/03/2010 EVELIA TIMING INSPECTOR, SCOTTIE A 296.52 MO BIPOLAR I DEPRESSED MODERATE 02/03/2010 EVELIA TIMING INSPECTOR, SCOTTIE A 313.81 CD OPPOSITIONAL DEFIANT 02/03/2010 EVELIA TIMING INSPECTOR, SCOTTIE A 314.01 ADHD COMBINED 02/03/2010 296.52 MO BIPOLAR I DEPRESSED MODERATE 02/03/2010 313.81 CD OPPOSITIONAL DEFIANT 02/03/2010 314.01 ADHD COMBINED 02/03/2010 EVELIA TIMING INSPECTOR, SCOTTIE A 296.52 MO BIPOLAR I DEPRESSED MODERATE 02/03/2010 EVELIA TIMING INSPECTOR, SCOTTIE A 313.81 CD OPPOSITIONAL DEFIANT 02/03/2010 EVELIA TIMING INSPECTOR, SCOTTIE A 314.01 ADHD COMBINED 02/03/2010 [facility] PHD, HANS A 296.52 MO BIPOLAR I DEPRESSED MODERATE 02/03/2010 [facility] PHD, HANS A 313.81 CD OPPOSITIONAL DEFIANT 02/03/2010 [facility] PHD, HANS A 314.01 ADHD COMBINED 02/03/2010 [facility] PHD, HANS A 296.52 MO BIPOLAR I DEPRESSED MODERATE 02/03/2010 [facility] PHD, HANS A 313.81 CD OPPOSITIONAL DEFIANT 02/03/2010 [facility] PHD, HANS A 314.01 ADHD COMBINED 02/03/2010 [facility] PHD, HANS A 296.52 MO BIPOLAR I DEPRESSED MODERATE 02/03/2010 [facility] PHD, HANS A 313.81 CD OPPOSITIONAL DEFIANT 02/03/2010 [facility] PHD, HANS A 314.01 ADHD COMBINED 02/03/2010 DODIE HICKS, ROSALIO N 296.52 MO BIPOLAR I DEPRESSED MODERATE 02/03/2010 DODIE HICKS, ROSALIO N 313.81 CD OPPOSITIONAL DEFIANT 02/03/2010 DODIE HICKS, ROSALIO N 314.01 ADHD COMBINED 02/03/2010 [facility] PHD, HANS A 296.52 MO BIPOLAR I DEPRESSED MODERATE 02/03/2010 [facility] PHD, HANS A 313.81 CD OPPOSITIONAL DEFIANT 02/03/2010 [facility] PHD, HANS A 314.01 ADHD COMBINED 02/03/2010 ROSALIO STOLL MD N 296.52 MO BIPOLAR I DEPRESSED MODERATE 02/03/2010 DODIE HICKS ROSALIO N 313.81 CD OPPOSITIONAL DEFIANT 02/03/2010 CARMELA STOLL MDY N 314.01 ADHD COMBINED 02/03/2010 ROSALIO STOLL MD N 296.52 MO BIPOLAR I DEPRESSED MODERATE 02/03/2010 CARMELA STOLL MDY N 313.81 CD OPPOSITIONAL DEFIANT 02/03/2010 DODIE HICKS ROSALIO N 314.01 ADHD COMBINED 02/03/2010 DODIE HICKS, ROSALIO N 296.52 MO BIPOLAR I DEPRESSED MODERATE 02/03/2010 DODIE HICKS, ROSALIO N 313.81 CD OPPOSITIONAL DEFIANT 02/03/2010 DODIE HICKS, ROSALIO N 314.01 ADHD COMBINED 02/03/2010 DODIE HICKS ROSALIO N 296.52 MO BIPOLAR I DEPRESSED MODERATE 02/03/2010 DODIE HICKS ROSALIO N 313.81 CD OPPOSITIONAL DEFIANT 02/03/2010 DODIE HICKS ROSALIO N 314.01 ADHD COMBINED 02/03/2010 EVELIA TIMING INSPECTOR, SCOTTIE A 296.52 MO BIPOLAR I DEPRESSED MODERATE 02/03/2010 EVELIA TIMING INSPECTOR, SCOTTIE A 313.81 CD OPPOSITIONAL DEFIANT 02/03/2010 EVELIA TIMING INSPECTOR, SCOTTIE A 314.01 ADHD COMBINED 02/03/2010 JUAREZ DO, STEPHANE K 296.52 MO BIPOLAR I DEPRESSED MODERATE 02/03/2010 JUAREZ DO, STEPHANE K 313.81 CD OPPOSITIONAL DEFIANT 02/03/2010 JUAREZ DO, STEPHANE K 314.01 ADHD COMBINED 02/03/2010 EVELIA TIMING INSPECTOR, SCOTTIE A 296.52 MO BIPOLAR I DEPRESSED MODERATE 02/03/2010 EVELIA TIMING INSPECTOR, SCOTTIE A 313.81 CD OPPOSITIONAL DEFIANT 02/03/2010 EVELIA TIMING INSPECTOR, SCOTTIE A 314.01 ADHD COMBINED 02/03/2010 ROSALIO STOLL MD 296.52 MO BIPOLAR I DEPRESSED MODERATE 02/03/2010 ROSALIO STOLL MD 313.81 CD OPPOSITIONAL DEFIANT 02/03/2010 ROSALIO STOLL MD 314.01 ADHD COMBINED 02/03/2010 EVELIA TIMING INSPECTOR, SCOTTIE A 296.52 MO BIPOLAR I DEPRESSED MODERATE 02/03/2010 EVELIA TIMING INSPECTOR, SCOTTIE A 313.81 CD OPPOSITIONAL DEFIANT 02/03/2010 EVELIA TIMING INSPECTOR, SCOTTIE A 314.01 ADHD COMBINED 02/03/2010 JUAREZ DO, STEPHANE K 296.52 MO BIPOLAR I DEPRESSED MODERATE 02/03/2010 JUAREZ DO, STEPHANE K 313.81 CD OPPOSITIONAL DEFIANT 02/03/2010 JUAREZ DO, STEPHANE K 314.01 ADHD COMBINED 02/03/2010 EVELIA TIMING INSPECTOR, SCOTTIE A 296.52 MO BIPOLAR I DEPRESSED MODERATE 02/03/2010 EVELIA TIMING INSPECTOR, SCOTTIE A 313.81 CD OPPOSITIONAL DEFIANT 02/03/2010 EVELIA TIMING INSPECTOR, SCOTTIE A 314.01 ADHD COMBINED 02/03/2010 ROSALIO STOLL MD 296.52 MO BIPOLAR I DEPRESSED MODERATE 02/03/2010 ROSALIO STOLL MD N 313.81 CD OPPOSITIONAL DEFIANT 02/03/2010 ROSALIO STOLL MD N 314.01 ADHD COMBINED 02/03/2010 EVELIA TIMING INSPECTOR, SCOTTIE A 296.52 MO BIPOLAR I DEPRESSED MODERATE 02/03/2010 EVELIA TIMING INSPECTOR, SCOTTIE A 313.81 CD OPPOSITIONAL DEFIANT 02/03/2010 EVELIA TIMING INSPECTOR, SCOTTIE A 314.01 ADHD COMBINED 02/03/2010 ROSALIO STOLL MD N 296.52 MO BIPOLAR I DEPRESSED MODERATE 02/03/2010 ROSALIO STOLL MD N 313.81 CD OPPOSITIONAL DEFIANT 02/03/2010 ROSALIO STOLL MD N 314.01 ADHD COMBINED 02/03/2010 EVELIA TIMING INSPECTOR, SCOTTIE A 296.52 MO BIPOLAR I DEPRESSED MODERATE 02/03/2010 EVELIA TIMING INSPECTOR, SCOTTIE A 313.81 CD OPPOSITIONAL DEFIANT 02/03/2010 EVELIA TIMING INSPECTOR, SCOTTIE A 314.01 ADHD COMBINED 02/03/2010 EVELIA TIMING INSPECTOR, SCOTTIE A 296.52 MO BIPOLAR I DEPRESSED MODERATE 02/03/2010 EVELIA TIMING INSPECTOR, SCOTTIE A 313.81 CD OPPOSITIONAL DEFIANT 02/03/2010 EVELIA TIMING INSPECTOR, SCOTTIE A 314.01 ADHD COMBINED 02/03/2010 EVELIA TIMING INSPECTOR, SCOTTIE A 296.52 MO BIPOLAR I DEPRESSED MODERATE 02/03/2010 EVELIA TIMING INSPECTOR, SCOTTIE A 313.81 CD OPPOSITIONAL DEFIANT 02/03/2010 EVELIA TIMING INSPECTOR, SCOTTIE A 314.01 ADHD COMBINED 02/03/2010 EVELIA TIMING INSPECTOR, SCOTTIE A 296.52 MO BIPOLAR I DEPRESSED MODERATE 02/03/2010 EVELIA TIMING INSPECTOR, SCOTTIE A 313.81 CD OPPOSITIONAL DEFIANT 02/03/2010 EVELIA TIMING INSPECTOR, SCOTTIE A 314.01 ADHD COMBINED 02/03/2010 EVELIA TIMING INSPECTOR, SCOTTIE A 296.52 MO BIPOLAR I DEPRESSED MODERATE 02/03/2010 EVELIA TIMING INSPECTOR, SCOTTIE A 313.81 CD OPPOSITIONAL DEFIANT 02/03/2010 EVELIA TIMING INSPECTOR, SCOTTIE A 314.01 ADHD COMBINED 02/03/2010 EVELIA TIMING INSPECTOR, SCOTTIE A 296.52 MO BIPOLAR I DEPRESSED MODERATE 02/03/2010 EVELIA TIMING INSPECTOR, SCOTTIE A 313.81 CD OPPOSITIONAL DEFIANT 02/03/2010 EVELIA TIMING INSPECTOR, SCOTTIE A 314.01 ADHD COMBINED 02/03/2010 EVELIA TIMING INSPECTOR, SCOTTIE A 296.52 MO BIPOLAR I DEPRESSED MODERATE 02/03/2010 EVELIA TIMING INSPECTOR, SCOTTIE A 313.81 CD OPPOSITIONAL DEFIANT 02/03/2010 EVELIA TIMING INSPECTOR, SCOTTIE A 314.01 ADHD COMBINED 02/03/2010 CHRISTOPHER TIMING INSPECTOR, COLTEN R 296.52 MO BIPOLAR I DEPRESSED MODERATE 02/03/2010 CHRISTOPHER TIMING INSPECTOR, COLTEN R 313.81 CD OPPOSITIONAL DEFIANT 02/03/2010 CHRISTOPHER TIMING INSPECTOR, COLTEN R 314.01 ADHD COMBINED 02/03/2010 CHRISTOPHER TIMING INSPECTOR, COLTEN R 296.52 MO BIPOLAR I DEPRESSED MODERATE 02/03/2010 CHRISTOPHER TIMING INSPECTOR, COLTEN R 313.81 CD OPPOSITIONAL DEFIANT 02/03/2010 CHRISTOPHER TIMING INSPECTOR, COLTEN R 314.01 ADHD COMBINED 07/21/2010 STEPHANE JUAREZ DO 296.80 MO BIPOLAR NOS 07/21/2010 STEPHANE JUAREZ DO V58.69 MEDICATION HIGH RISK 07/21/2010 EVELIA ARAYA, SCOTTIE A 296.80 MO BIPOLAR NOS 07/21/2010 EVELIA ARAYA SCOTTIE A V58.69 MEDICATION HIGH RISK 07/21/2010 [...] DO V58.69 MEDICATION HIGH RISK 07/21/2010 EVELIA TIMING INSPECTOR, SCOTTIE A 296.80 MO BIPOLAR NOS 07/21/2010 EVELIA TIMING INSPECTOR, SCOTTIE A V58.69 MEDICATION HIGH RISK 07/21/2010 EVELIA TIMING INSPECTOR, SCOTTIE A 296.80 MO BIPOLAR NOS 07/21/2010 EVELIA TIMING INSPECTOR, SCOTTIE A V58.69 MEDICATION HIGH RISK 07/21/2010 296.80 MO BIPOLAR NOS 07/21/2010 V58.69 MEDICATION HIGH RISK 07/21/2010 EVELIA TIMING INSPECTOR, SCOTTIE A 296.80 MO BIPOLAR NOS 07/21/2010 EVELIA TIMING INSPECTOR, SCOTTIE A V58.69 MEDICATION HIGH RISK 07/21/2010 [...] N V58.69 MEDICATION HIGH RISK 07/21/2010 EVELIA TIMING INSPECTOR, SCOTTIE A 296.80 MO BIPOLAR NOS 07/21/2010 EVELIA TIMING INSPECTOR, SCOTTIE A V58.69 MEDICATION HIGH RISK 07/21/2010 JUAREZ DO, STEPHANE K 296.80 MO BIPOLAR NOS 07/21/2010 JUAREZ DO, STEPHANE K V58.69 MEDICATION HIGH RISK 07/21/2010 EVELIA TIMING INSPECTOR, SCOTTIE A 296.80 MO BIPOLAR NOS 07/21/2010 EVELIA TIMING INSPECTOR, SCOTTIE A V58.69 MEDICATION HIGH RISK 07/21/2010 DODIE HICKS, ROSALIO N 296.80 MO BIPOLAR NOS 07/21/2010 ROSALIO STOLL MD V58.69 MEDICATION HIGH RISK 07/21/2010 EVELIA TIMING INSPECTOR, SCOTTIE A 296.80 MO BIPOLAR NOS 07/21/2010 EVELIA TIMING INSPECTOR, SCOTTIE A V58.69 MEDICATION HIGH RISK 07/21/2010 JUAREZ DO, STEPHANE K 296.80 MO BIPOLAR NOS 07/21/2010 JUAREZ DO, STEPHANE K V58.69 MEDICATION HIGH RISK 07/21/2010 EVELIA TIMING INSPECTOR, SCOTTIE A 296.80 MO BIPOLAR NOS 07/21/2010 EVELIA TIMING INSPECTOR, SCOTTIE A V58.69 MEDICATION HIGH RISK 07/21/2010 ROSALIO STOLL MD N 296.80 MO BIPOLAR NOS 07/21/2010 ROSALIO STOLL MD V58.69 MEDICATION HIGH RISK 07/21/2010 EVELIA TIMING INSPECTOR, SCOTTIE A 296.80 MO BIPOLAR NOS 07/21/2010 EVELIA TIMING INSPECTOR, SCOTTIE A V58.69 MEDICATION HIGH RISK 07/21/2010 ROSALIO STOLL MD N 296.80 MO BIPOLAR NOS 07/21/2010 ROSALIO STOLL MD V58.69 MEDICATION HIGH RISK 07/21/2010 EVELIA TIMING INSPECTOR, SCOTTIE A 296.80 MO BIPOLAR NOS 07/21/2010 EVELIA TIMING INSPECTOR, SCOTTIE A V58.69 MEDICATION HIGH RISK 07/21/2010 EVELIA TIMING INSPECTOR, SCOTTIE A 296.80 MO BIPOLAR NOS 07/21/2010 EVELIA TIMING INSPECTOR, SCOTTIE A V58.69 MEDICATION HIGH RISK 07/21/2010 EVELIA TIMING INSPECTOR, SCOTTIE A 296.80 MO BIPOLAR NOS 07/21/2010 EVELIA TIMING INSPECTOR, SCOTTIE A V58.69 MEDICATION HIGH RISK 07/21/2010 EVELIA TIMING INSPECTOR, SCOTTIE A 296.80 MO BIPOLAR NOS 07/21/2010 EVELIA TIMING INSPECTOR, SCOTTIE A V58.69 MEDICATION HIGH RISK 07/21/2010 EVELIA TIMING INSPECTOR, SCOTTIE A 296.80 MO BIPOLAR NOS 07/21/2010 EVELIA TIMING INSPECTOR, SCOTTIE A V58.69 MEDICATION HIGH RISK 07/21/2010 EVELIA TIMING INSPECTOR, SCOTTIE A 296.80 MO BIPOLAR NOS 07/21/2010 EVELIA TIMING INSPECTOR, SCOTTIE A V58.69 MEDICATION HIGH RISK 07/21/2010 EVELIA TIMING INSPECTOR, SCOTTIE A 296.80 MO BIPOLAR NOS 07/21/2010 EVELIA TIMING INSPECTOR, SCOTTIE A V58.69 MEDICATION HIGH RISK 07/21/2010 CHRISTOPHER TIMING INSPECTOR, COLTEN R 296.80 MO BIPOLAR NOS 07/21/2010 CHRISTOPHER TIMING INSPECTOR, COLTEN R V58.69 MEDICATION HIGH RISK 07/21/2010 CHRISTOPHER TIMING INSPECTOR, COLTEN R 296.80 MO BIPOLAR NOS 07/21/2010 CHRISTOPHER TIMING INSPECTOR, COLTEN R V58.69 MEDICATION HIGH RISK 06/12/2011 Ot 789.00 ABDOMINAL PAIN, UNSPECIFIED SITE 07/10/2011 STEPHANE JUAREZ DO 314.00 ADHD INATTENTIVE 07/10/2011 EVELIA ARAYA SCOTTIE A 314.00 ADHD INATTENTIVE 07/10/2011 314.00 ADHD INATTENTIVE 07/10/2011 314.00 ADHD INATTENTIVE 07/10/2011 314.00 ADHD INATTENTIVE 07/10/2011 314.00 ADHD INATTENTIVE 07/10/2011 314.00 ADHD INATTENTIVE 07/10/2011 314.00 ADHD INATTENTIVE 07/10/2011 314.00 ADHD INATTENTIVE 07/10/2011 314.00 ADHD INATTENTIVE 07/10/2011 314.00 ADHD INATTENTIVE 07/10/2011 STEPHANE JUAREZ DO 314.00 ADHD INATTENTIVE 07/10/2011 STEPHANE JUAREZ DO 314.00 ADHD INATTENTIVE 07/10/2011 HEVER ALTAMIRANO APRNIDI A 314.00 ADHD INATTENTIVE 07/10/2011 EVELIAALLA ARAYA SCOTTIE A 314.00 ADHD INATTENTIVE 07/10/2011 314.00 ADHD INATTENTIVE 07/10/2011 EVELIA TIMING INSPECTOR, SCOTTIE A 314.00 ADHD INATTENTIVE 07/10/2011 PRESTON [...] ROSALIO N 314.00 ADHD INATTENTIVE 07/10/2011 EVELIA TIMING INSPECTOR, SCOTTIE A 314.00 ADHD INATTENTIVE 07/10/2011 JUAREZ DOSTEPHANE K 314.00 ADHD INATTENTIVE 07/10/2011 EVELIA TIMING INSPECTOR, SCOTTIE A 314.00 ADHD INATTENTIVE 07/10/2011 DODIE HICKS, ROSALIO N 314.00 ADHD INATTENTIVE 07/10/2011 EVELIA TIMING INSPECTOR, SCOTTIE A 314.00 ADHD INATTENTIVE 07/10/2011 JUAREZ DO, STEPHANE K 314.00 ADHD INATTENTIVE 07/10/2011 EVELIA TIMING INSPECTOR, SCOTTIE A 314.00 ADHD INATTENTIVE 07/10/2011 DODIE HICKS, ROSALIO N 314.00 ADHD INATTENTIVE 07/10/2011 EVEILA TIMING INSPECTOR, SCOTTIE A 314.00 ADHD INATTENTIVE 07/10/2011 DODIE HICKS, ROSALIO N 314.00 ADHD INATTENTIVE 07/10/2011 EVELIA TIMING INSPECTOR, SCOTTIE A 314.00 ADHD INATTENTIVE 07/10/2011 EVELIA TIMING INSPECTOR, SCOTTIE A 314.00 ADHD INATTENTIVE 07/10/2011 EVELIA TIMING INSPECTOR, SCOTTIE A 314.00 ADHD INATTENTIVE 07/10/2011 EVELIA TIMING INSPECTOR, SCOTTIE A 314.00 ADHD INATTENTIVE 07/10/2011 EVELIA TIMING INSPECTOR, SCOTTIE A 314.00 ADHD INATTENTIVE 07/10/2011 EVELIA TIMING INSPECTOR, SCOTTIE A 314.00 ADHD INATTENTIVE 07/10/2011 EVELIA TIMING INSPECTOR, SCOTTIE A 314.00 ADHD INATTENTIVE 07/10/2011 CHRISTOPHER TIMING INSPECTOR, COLTEN R 314.00 ADHD INATTENTIVE 07/10/2011 CHRISTOPHER TIMING INSPECTOR, COLTEN R 314.00 ADHD INATTENTIVE 06/09/2012 STEPHANE JUAREZ DO 521.00 DENTAL CARIES 06/09/2012 JUAREZ DOSTEPHANE K 599.0 URINARY TRACT INFECTION 06/09/2012 JUAREZ DO, STEPHANE K V72.42 TEST POSITIVE RESULT 06/09/2012 EVELIA ARAYA, SCOTTIE A 521.00 DENTAL CARIES 06/09/2012 HEVER ALTAMIRANO APRNIDI A 599.0 URINARY TRACT INFECTION 06/09/2012 EVELIA [...] SCOTTIE A V72.42 TEST POSITIVE RESULT 06/09/2012 PRESTON [...] URINARY TRACT INFECTION 06/09/2012 [facility] PHD, HANS [place] V72.42 TEST POSITIVE RESULT 06/09/2012 ROSALIO STOLL MD N 521.00 DENTAL CARIES 06/09/2012 ROSALIO STOLL MD N 599.0 URINARY TRACT INFECTION 06/09/2012 ROSALIO STOLL MD N V72.42 TEST POSITIVE RESULT 06/09/2012 [facility] JOY, HANS A 521.00 DENTAL CARIES 06/09/2012 [facility] PHD, HANS A 599.0 URINARY TRACT INFECTION 06/09/2012 [facility] , HANS A V72.42 TEST POSITIVE RESULT 06/09/2012 [...] STOLL MD V72.42 TEST POSITIVE RESULT 06/09/2012 SCOTTIE ALTAMIRANO APRN A 521.00 DENTAL CARIES 06/09/2012 SCOTTIE ALTAMIRANO APRN A 599.0 URINARY TRACT INFECTION 06/09/2012 SCOTTIE ALTAMIRANO APRN A V72.42 TEST POSITIVE RESULT 06/09/2012 JUAREZ DO, STEPHANE K 521.00 DENTAL CARIES 06/09/2012 JUAREZ DO, STEPHANE K 599.0 URINARY TRACT INFECTION 06/09/2012 JUAREZ DO, STEPHANE K V72.42 TEST POSITIVE RESULT 06/09/2012 SCOTTIE ALTAMIRANO APRN A 521.00 DENTAL CARIES 06/09/2012 SCOTTIE ALTAMIRANO APRN A 599.0 URINARY TRACT INFECTION 06/09/2012 EVELIAALLA ARAYAHEVERSCOTTIE A V72.42 TEST POSITIVE RESULT 06/09/2012 ROSALIO STOLL MD 521.00 DENTAL CARIES 06/09/2012 ROSALIO STOLL MD 599.0 URINARY TRACT INFECTION 06/09/2012 ROSALIO STOLL MD V72.42 TEST POSITIVE RESULT 06/09/2012 EVELIASCOTTIE GOLD APRN A 521.00 DENTAL CARIES 06/09/2012 EVELIASCOTTIE GOLD APRN A 599.0 URINARY TRACT INFECTION 06/09/2012 EVELIAALLA ARAYA SCOTTIE A V72.42 TEST POSITIVE RESULT 06/09/2012 JUAREZ DO, STEPHANE K 521.00 DENTAL CARIES 06/09/2012 JUAREZ DO, STEPHANE K 599.0 URINARY TRACT INFECTION 06/09/2012 JUAREZ DO, STEPHANE K V72.42 TEST POSITIVE RESULT 06/09/2012 EVELIA ARAYA SCOTTIE A 521.00 DENTAL CARIES 06/09/2012 SCOTTIE ALTAMIRANO APRN A 599.0 URINARY TRACT INFECTION 06/09/2012 SCOTTIE ALTAMIRANO APRN A V72.42 TEST POSITIVE RESULT 06/09/2012 ROSALIO STOLL MD N 521.00 DENTAL CARIES 06/09/2012 ROSALIO STOLL MD 599.0 URINARY TRACT INFECTION 06/09/2012 ROSALIO STOLL MD V72.42 TEST POSITIVE RESULT 06/09/2012 SCOTTIE ALTAMIRANO APRN A 521.00 DENTAL CARIES 06/09/2012 SCOTTIE ALTAMIRANO APRN A 599.0 URINARY TRACT INFECTION 06/09/2012 SCOTTIE ALTAMIRANO APRN A V72.42 TEST POSITIVE RESULT 06/09/2012 ROSALIO STOLL MD N 521.00 DENTAL CARIES 06/09/2012 ROSALIO STOLL MD 599.0 URINARY TRACT INFECTION 06/09/2012 ROSALIO STOLL MD V72.42 TEST POSITIVE RESULT 06/09/2012 SCOTTIE ALTAMIRANO APRN A 521.00 DENTAL CARIES 06/09/2012 SCOTTIE ALTAMIRANO APRN A 599.0 URINARY TRACT INFECTION 06/09/2012 EVELIA SORIANON, SCOTTIE A V72.42 TEST POSITIVE RESULT 06/09/2012 EVELIA TIMING INSPECTOR, SCOTTIE A 521.00 DENTAL CARIES 06/09/2012 EVELIA TIMING INSPECTOR, SCOTTIE A 599.0 URINARY TRACT INFECTION 06/09/2012 EVELIA SORIANON, SCOTTIE A V72.42 TEST POSITIVE RESULT 06/09/2012 EVELIA TIMING INSPECTOR, SCOTTIE A 521.00 DENTAL CARIES 06/09/2012 EVELIA TIMING INSPECTOR, SCOTTIE A 599.0 URINARY TRACT INFECTION 06/09/2012 EVELIA SORIANON, SCOTTIE A V72.42 TEST POSITIVE RESULT 06/09/2012 EVELIA SORIANON, SCOTTIE A 521.00 DENTAL CARIES 06/09/2012 EVELIA SORIANON, SCOTTIE A 599.0 URINARY TRACT INFECTION 06/09/2012 EVELIA SORIANON, SCOTTIE A V72.42 TEST POSITIVE RESULT 06/09/2012 EVELIA SORIANON, SCOTTIE A 521.00 DENTAL CARIES 06/09/2012 EVELIA TIMING INSPECTOR, SCOTTIE A 599.0 URINARY TRACT INFECTION 06/09/2012 EVELIA SORIANON, SCOTTIE A V72.42 TEST POSITIVE RESULT 06/09/2012 EVELIA SORIANON, SCOTTIE A 521.00 DENTAL CARIES 06/09/2012 EVELIA SORIANON, SCOTTIE A 599.0 URINARY TRACT INFECTION 06/09/2012 EVELIA SORIANON, SCOTTIE A V72.42 TEST POSITIVE RESULT 06/09/2012 EVELIA SORIANON, SCOTTIE A 521.00 DENTAL CARIES 06/09/2012 EVELIA TIMING INSPECTOR, SCOTTIE A 599.0 URINARY TRACT INFECTION 06/09/2012 EVELIA TIMING INSPECTOR, SCOTTIE A V72.42 TEST POSITIVE RESULT 06/09/2012 CHRISTOPHER TIMING INSPECTOR, COLTEN R 521.00 DENTAL CARIES 06/09/2012 CHRISTOPHER TIMING INSPECTOR, COLTEN R 599.0 URINARY TRACT INFECTION 06/09/2012 CHRISTOPHER TIMING INSPECTOR, COLTEN R V72.42 TEST POSITIVE RESULT 06/09/2012 CHRISTOPHER TIMING INSPECTOR, COLTEN R 521.00 DENTAL CARIES 06/09/2012 CHRISTOPHER SORIANON, COLTEN R 599.0 URINARY TRACT INFECTION 06/09/2012 CHRISTOPHER TIMING INSPECTOR, COLTEN [place] V72.42 TEST POSITIVE RESULT 07/12/2012 EVELIA TIMING INSPECTOR, SCOTTIE A V23.9 , HIGH-RISK (UNSPEC) 07/12/2012 V23. , HIGH-RISK (UNSPEC) 07/12/2012 V23 , HIGH-RISK (UNSPEC) 07/12/2012 V23. , HIGH-RISK (UNSPEC) 07/12/2012 V23 , HIGH-RISK (UNSPEC) 07/12/2012 V206.24 , HIGH-RISK (UNSPEC) 07/12/2012 V206.24 , HIGH-RISK (UNSPEC) 07/12/2012 V206.24 , HIGH-RISK (UNSPEC) 07/12/2012 , HIGH-RISK (UNSPEC) 07/12/2012 V206.24 , HIGH-RISK (UNSPEC) 07/12/2012 JUAREZ DO, STEPHANE K V23.9 , HIGH-RISK (UNSPEC) 07/12/2012 JUAREZ DO, STEPHANE K V23.9 , HIGH-RISK (UNSPEC) 07/12/2012 EVELIA TIMING INSPECTOR, SCOTTIE A V23.9 , HIGH-RISK (UNSPEC) 07/12/2012 EVELIA TIMING INSPECTOR, SCOTTIE A V23.9 , HIGH-RISK (UNSPEC) 07/12/2012 V206.24 , HIGH-RISK (UNSPEC) 07/12/2012 EVELIA TIMING INSPECTOR, SCOTTIE A V23.9 , HIGH-RISK (UNSPEC) 07/12/2012 [facility] JOY, HANS A V23.9 , HIGH-RISK (UNSPEC) 07/12/2012 [facility] PHD, HANS A V23.9 , HIGH-RISK (UNSPEC) 07/12/2012 [facility] PHD, HANS A V23.9 , HIGH-RISK (UNSPEC) 07/12/2012 ROSALIO STOLL MD V23.9 , HIGH-RISK (UNSPEC) 07/12/2012 PRE[facility]ON JOY, HANS A V23.9 , HIGH-RISK (UNSPEC) 07/12/2012 ROSALIO STOLL MD V23.9 , HIGH-RISK (UNSPEC) 07/12/2012 DODIE MD, ROSALIO N V23.9 , HIGH-RISK (UNSPEC) 07/12/2012 ROSALIO STOLL MD N V23.9 , HIGH-RISK (UNSPEC) 07/12/2012 ROSALIO STOLL MD N V23.9 , HIGH-RISK (UNSPEC) 07/12/2012 EVELIA TIMING INSPECTOR, SCOTTIE A V23.9 , HIGH-RISK (UNSPEC) 07/12/2012 JUAREZ DO, STEPHANE K V23.9 , HIGH-RISK (UNSPEC) 07/12/2012 EVELIA TIMING INSPECTOR, SCOTTIE A V23.9 , HIGH-RISK (UNSPEC) 07/12/2012 ROSALIO STOLL MD N V23.9 , HIGH-RISK (UNSPEC) 07/12/2012 EVELIA TIMING INSPECTOR, SCOTTIE A V23.9 , HIGH-RISK (UNSPEC) 07/12/2012 JUAREZ DO, STEPHANE K V23.9 , HIGH-RISK (UNSPEC) 07/12/2012 EVELIA TIMING INSPECTOR, SCOTTIE A V23.9 , HIGH-RISK (UNSPEC) 07/12/2012 ROSALIO STOLL MD N V23.9 , HIGH-RISK (UNSPEC) 07/12/2012 EVELIA TIMING INSPECTOR, SCOTTIE A V23.9 , HIGH-RISK (UNSPEC) 07/12/2012 ROSALIO STOLL MD N V23.9 , HIGH-RISK (UNSPEC) 07/12/2012 EVELIA TIMING INSPECTOR, SCOTTIE A V23.9 , HIGH-RISK (UNSPEC) 07/12/2012 EVELIA TIMING INSPECTOR, SCOTTIE A V23.9 , HIGH-RISK (UNSPEC) 07/12/2012 EVELIA TIMING INSPECTOR, SCOTTIE A V23.9 , HIGH-RISK (UNSPEC) 07/12/2012 EVELIA TIMING INSPECTOR, SCOTTIE A V23.9 , HIGH-RISK (UNSPEC) 07/12/2012 EVELIA TIMING INSPECTOR, SCOTTIE A V23.9 , HIGH-RISK (UNSPEC) 07/12/2012 EVELIA TIMING INSPECTOR, SCOTTIE A V23.9 , HIGH-RISK (UNSPEC) 07/12/2012 EVELIA TIMING INSPECTOR, SCOTTIE A V23.9 , HIGH-RISK (UNSPEC) 07/12/2012 CHRISTOPHER TIMING INSPECTOR, COLTEN R V23.9 , HIGH-RISK (UNSPEC) 07/12/2012 CHRISTOPHER TIMING INSPECTOR, COLTEN R V23.9 , HIGH-RISK (UNSPEC) 08/11/2012 [...] UTI 08/11/2012 V74.5 STD SCREEN 08/11/2012 JUAREZ DOSTEPHANE K 477.9 ALLERGIC RHINITIS CAUSE UNSPECIFIED 08/11/2012 STEPHANE JUAREZ DO K 646.60 COMPL OF - UTI 08/11/2012 JUAREZ DOYUEA K V74.5 STD SCREEN 08/11/2012 JUAREZ YUE NYA K 477.9 ALLERGIC RHINITIS CAUSE UNSPECIFIED 08/11/2012 JUAREZ YUE NYA K 646.60 COMPL OF - UTI 08/11/2012 JUAREZ DO STEPHANE K V74.5 STD SCREEN 08/11/2012 EVELIA ARAYA, SCOTTIE A 477.9 ALLERGIC RHINITIS CAUSE UNSPECIFIED 08/11/2012 EVELIA ARAYA, SCOTTIE A 646.60 COMPL OF - UTI 08/11/2012 EVELIA SORIANON, SCOTTIE A V74.5 STD SCREEN 08/11/2012 EVELIA SORIANON, SCOTTIE A 477.9 ALLERGIC RHINITIS CAUSE UNSPECIFIED 08/11/2012 EVELIA SORIANON, SCOTTIE A 646.60 COMPL OF - UTI 08/11/2012 EVELIA SORIANON, SCOTTIE A V74.5 STD SCREEN 08/11/2012 477.9 ALLERGIC RHINITIS CAUSE UNSPECIFIED 08/11/2012 646.60 COMPL OF - UTI 08/11/2012 V74.5 STD SCREEN 08/11/2012 EVELIA ARAYA, SCOTTIE A 477.9 ALLERGIC RHINITIS CAUSE UNSPECIFIED 08/11/2012 EVELIA ARAYA, SCOTTIE A 646.60 COMPL OF - UTI 08/11/2012 EVELIA SORIANON, SCOTTIE A V74.5 STD SCREEN 08/11/2012 HANS JOHNSTON [...] RHINITIS CAUSE UNSPECIFIED 08/11/2012 ROSALIO STOLL MD N 646.60 COMPL OF - UTI 08/11/2012 ROSALIO STOLL MD V74.5 STD SCREEN 08/11/2012 ROSALIO STOLL MD 477.9 ALLERGIC RHINITIS CAUSE UNSPECIFIED 08/11/2012 ROSALIO STOLL MD N 646.60 COMPL OF - UTI 08/11/2012 ROSALIO [...] A 646.60 COMPL OF - UTI 08/11/2012 HEVER ALTAMIRANO APRNIDI A V74.5 STD SCREEN 08/11/2012 JUAREZ DO, STEPHANE K 477.9 ALLERGIC RHINITIS CAUSE UNSPECIFIED 08/11/2012 JUAREZ DO, STEPHANE K 646.60 COMPL OF - UTI 08/11/2012 JUAREZ DO, STEPHANE K V74.5 STD SCREEN 08/11/2012 SCOTTIE ALTAMIRANO APRN A 477.9 ALLERGIC RHINITIS CAUSE UNSPECIFIED 08/11/2012 EVELIA ARAYA SCOTTIE A 646.60 COMPL OF - UTI 08/11/2012 EVELIA ARAYA SCOTTIE A V74.5 STD SCREEN 08/11/2012 ROSALIO STOLL MD 477.9 ALLERGIC RHINITIS CAUSE UNSPECIFIED 08/11/2012 ROSALIO STOLL MD 646.60 COMPL OF - UTI 08/11/2012 ROSALIO STOLL MD V74.5 STD SCREEN 08/11/2012 SCOTTIE ALTAMIRANO APRN A 477.9 ALLERGIC RHINITIS CAUSE UNSPECIFIED 08/11/2012 EVELIA TIMING INSPECTORHEVERSCOTTIE A 646.60 COMPL OF - UTI 08/11/2012 EVELIA TIMING INSPECTOR SCOTTIE A V74.5 STD SCREEN 08/11/2012 JUAREZ DO, STEPHANE K 477.9 ALLERGIC RHINITIS CAUSE UNSPECIFIED 08/11/2012 JUAREZ DO, STEPHANE K 646.60 COMPL OF - UTI 08/11/2012 JUAREZ DO, STEPHANE K V74.5 STD SCREEN 08/11/2012 SCOTTIE ALTAMIRANO APRN A 477.9 ALLERGIC RHINITIS CAUSE UNSPECIFIED 08/11/2012 EVELIASCOTTIE Nieto APRN A 646.60 COMPL OF - UTI [...] A 477.9 ALLERGIC RHINITIS CAUSE UNSPECIFIED 08/11/2012 EVELIASCOTTIE Nieto APRN A 646.60 COMPL OF - UTI 08/11/2012 EVELIA TIMING INSPECTOR, SCOTTIE A V74.5 STD SCREEN 08/11/2012 EVELIA TIMING INSPECTOR, SCOTTIE A 477.9 ALLERGIC RHINITIS CAUSE UNSPECIFIED 08/11/2012 EVELIA TIMING INSPECTOR, SCOTTIE A 646.60 COMPL OF - UTI 08/11/2012 EVELIA TIMING INSPECTOR, SCOTTIE A V74.5 STD SCREEN 08/11/2012 EVELIA TIMING INSPECTOR, SCOTTIE A 477.9 ALLERGIC RHINITIS CAUSE UNSPECIFIED 08/11/2012 EVELIA TIMING INSPECTOR, SCOTTIE A 646.60 COMPL OF - UTI 08/11/2012 EVELIA TIMING INSPECTOR, SCOTTIE A V74.5 STD SCREEN 08/11/2012 EVELIA TIMING INSPECTOR, SCOTTIE A 477.9 ALLERGIC RHINITIS CAUSE UNSPECIFIED 08/11/2012 EVELIA TIMING INSPECTOR, SCOTTIE A 646.60 COMPL OF - UTI 08/11/2012 EVELIA TIMING INSPECTOR, SCOTTIE A V74.5 STD SCREEN 08/11/2012 EVELIA TIMING INSPECTOR, SCOTTIE A 477.9 ALLERGIC RHINITIS CAUSE UNSPECIFIED 08/11/2012 EVELIA TIMING INSPECTOR, SCOTTIE A 646.60 COMPL OF - UTI 08/11/2012 EVELIA TIMING INSPECTOR, SCOTTIE A V74.5 STD SCREEN 08/11/2012 EVELIA TIMING INSPECTOR, SCOTTIE A 477.9 ALLERGIC RHINITIS CAUSE UNSPECIFIED 08/11/2012 EVELIA TIMING INSPECTOR, SCOTTIE A 646.60 COMPL OF - UTI 08/11/2012 EVELIA TIMING INSPECTOR, SCOTTIE A V74.5 STD SCREEN 08/11/2012 EVELIA TIMING INSPECTOR, SCOTTIE A 477.9 ALLERGIC RHINITIS CAUSE UNSPECIFIED 08/11/2012 EVELIA TIMING INSPECTOR, SCOTTIE A 646.60 COMPL OF - UTI 08/11/2012 EVELIA TIMING INSPECTOR, SCOTTIE A V74.5 STD SCREEN 08/11/2012 CHRISTOPHER SORIANON, COLTEN R 477.9 ALLERGIC RHINITIS CAUSE UNSPECIFIED 08/11/2012 CHRISTOPHER ARAYA, COLTNE R 646.60 COMPL OF - UTI 08/11/2012 CHRISTOPHER ARAYA, COLTEN R V74.5 STD SCREEN 08/11/2012 CHRISTOPHER ARAYA, COLTEN R 477.9 ALLERGIC RHINITIS CAUSE UNSPECIFIED 08/11/2012 CHRISTOPHER ARAYA, COLTEN R 646.60 COMPL OF - UTI 08/11/2012 CHRISTOPHER TIMING INSPECTOR, COLTEN R V74.5 STD SCREEN 08/13/2012 LEO HICKS, AKBAR Ac[place] Ot 591 HYDRONEPHROSIS 08/13/2012 LEO HICKS, AKBAR [facility] Ot 646.53 ASY BACTERIURIA-ANTEPART 08/13/2012 LEO HICKS, AKBAR [place] Ot 646.83 PREG COMPL NEC-ANTEPART 08/13/2012 LEO HICKS, AKBAR Ac[place] Ot 789.09 ABDOMINAL PAIN, OTHER SPECIFIED SITE 08/19/2012 380.10 OTITIS EXTERNA RIGHT 08/19/2012 380.10 OTITIS EXTERNA RIGHT 08/19/2012 380.10 OTITIS EXTERNA RIGHT 08/19/2012 380.10 OTITIS EXTERNA RIGHT 08/19/2012 380.10 OTITIS EXTERNA RIGHT 08/19/2012 380.10 OTITIS EXTERNA RIGHT 08/19/2012 380.10 OTITIS EXTERNA RIGHT 08/19/2012 380.10 OTITIS EXTERNA RIGHT 08/19/2012 STEPHANE JUAREZ DO K 380.10 OTITIS EXTERNA RIGHT 08/19/2012 STEPHANE JUAREZ DO K 380.10 OTITIS EXTERNA RIGHT 08/19/2012 SCOTTIE ALTAMIRANO APRN A 380.10 OTITIS EXTERNA RIGHT 08/19/2012 SCOTTIE ALTAMIRANO APRN A 380.10 OTITIS EXTERNA RIGHT 08/19/2012 380.10 OTITIS EXTERNA RIGHT 08/19/2012 SCOTTIE ALTAMIRANO APRN A 380.10 OTITIS EXTERNA RIGHT 08/19/2012 PRESTON JOY, HANS Acuna 380.10 OTITIS EXTERNA RIGHT 08/19/2012 PRESTON PHD, HANS A 380.10 OTITIS EXTERNA RIGHT 08/19/2012 PRESTON PHD, HANS Ac[facility] 380.10 OTITIS EXTERNA RIGHT 08/19/2012 ROSALIO STOLL MD 380.10 OTITIS EXTERNA RIGHT 08/19/2012 PRESTON JOY, HANS [place] 380.10 OTITIS EXTERNA RIGHT 08/19/2012 ROSALIO STOLL MD 380.10 OTITIS EXTERNA RIGHT 08/19/2012 ROSALIO STOLL MD 380.10 OTITIS EXTERNA RIGHT 08/19/2012 ROSALIO STOLL MD 380.10 OTITIS EXTERNA RIGHT 08/19/2012 ROSALIO STOLL MD 380.10 OTITIS EXTERNA RIGHT 08/19/2012 EVELIA TIMING INSPECTOR, SCOTTIE A 380.10 OTITIS EXTERNA RIGHT 08/19/2012 STEPHANE JUAREZ DO K 380.10 OTITIS EXTERNA RIGHT 08/19/2012 EVELIA TIMING INSPECTOR, SCOTTIE A 380.10 OTITIS EXTERNA RIGHT 08/19/2012 ROSALIO STOLL MD 380.10 OTITIS EXTERNA RIGHT 08/19/2012 EVELIA TIMING INSPECTOR, SCOTTIE A 380.10 OTITIS EXTERNA RIGHT 08/19/2012 STEPHANE JUAREZ DO K 380.10 OTITIS EXTERNA RIGHT 08/19/2012 EVELIA TIMING INSPECTOR, SCOTTIE A 380.10 OTITIS EXTERNA RIGHT 08/19/2012 ROSALIO STOLL MD N 380.10 OTITIS EXTERNA RIGHT 08/19/2012 EVELIA TIMING INSPECTOR, SCOTTIE A 380.10 OTITIS EXTERNA RIGHT 08/19/2012 ROSALIO STOLL MD 380.10 OTITIS EXTERNA RIGHT 08/19/2012 EVELIA TIMING INSPECTOR, SCOTTIE A 380.10 OTITIS EXTERNA RIGHT 08/19/2012 EVELIA TIMING INSPECTOR, SCOTTIE A 380.10 OTITIS EXTERNA RIGHT 08/19/2012 EVELIA TIMING INSPECTOR, SCOTTIE A 380.10 OTITIS EXTERNA RIGHT 08/19/2012 EVELIA TIMING INSPECTOR, SCOTTIE A 380.10 OTITIS EXTERNA RIGHT 08/19/2012 EVELIA TIMING INSPECTOR, SCOTTIE A 380.10 OTITIS EXTERNA RIGHT 08/19/2012 EVELIA TIMING INSPECTOR, SCOTTIE A 380.10 OTITIS EXTERNA RIGHT 08/19/2012 EVELIA TIMING INSPECTOR, SCOTTIE A 380.10 OTITIS EXTERNA RIGHT 08/19/2012 CHRISTOPHER ARAAY, COLTEN R 380.10 OTITIS EXTERNA RIGHT 08/19/2012 [...] DO, STEPHANE K V78.0 ANEMIA SCREENING 10/09/2012 EVELIA TIMING INSPECTOR, SCOTTIE A V06.1 TDAP DX 10/09/2012 EEVLIAALLA ARAYA, SCOTTIE A V77.1 DIABETES SCREENING 10/09/2012 EVELIAALLA SORIANON, SCOTTIE A V78.0 ANEMIA SCREENING 10/09/2012 EVELIA TIMING INSPECTOR, SCOTTIE A V06.1 TDAP DX 10/09/2012 EVELIA TIMING INSPECTOR, SCOTTIE A V77.1 DIABETES SCREENING 10/09/2012 EVELIA TIMING INSPECTOR, SCOTTIE A V78.0 ANEMIA SCREENING 10/09/2012 V06.1 TDAP DX 10/09/2012 V77.1 DIABETES SCREENING 10/09/2012 V78.0 ANEMIA SCREENING 10/09/2012 EVELIA TIMING INSPECTOR, SCOTTIE A V06.1 TDAP DX 10/09/2012 EVELIA TIMING INSPECTOR, SCOTTIE A V77.1 DIABETES SCREENING 10/09/2012 EVELIA TIMING INSPECTOR, SCOTTIE A V78.0 ANEMIA SCREENING 10/09/2012 PRESTON [...] STOLL MD N V77.1 DIABETES SCREENING 10/09/2012 DODIE HICKS, ROSALIO N V78.0 ANEMIA SCREENING 10/09/2012 ROSALIO STOLL MD N V06.1 TDAP DX 10/09/2012 DODIE HICKS, ROSALIO N V77.1 DIABETES SCREENING 10/09/2012 DODIE HICKS, ROSALIO N V78.0 ANEMIA SCREENING 10/09/2012 SCOTTIE ALTAMIRANO APRN A V06.1 TDAP DX 10/09/2012 EVELIA ARAYA, SCOTTIE A V77.1 DIABETES SCREENING 10/09/2012 EVELIA ARAYA SCOTTIE A V78.0 ANEMIA SCREENING 10/09/2012 JUAREZ DO, STEPHANE K V06.1 TDAP DX 10/09/2012 JUAREZ DO STEPHANE K V77.1 DIABETES SCREENING 10/09/2012 JUAREZ DO, STEPHANE K V78.0 ANEMIA SCREENING 10/09/2012 EVELIA APRN, SCOTTIE A V06.1 TDAP DX 10/09/2012 EVELIA TIMING INSPECTOR, SCOTTIE A V77.1 DIABETES SCREENING 10/09/2012 EVELIA APRN, SCOTTIE A V78.0 ANEMIA SCREENING 10/09/2012 ROSALIO STOLL MD V06.1 TDAP DX 10/09/2012 ROSALIO STOLL MD V77.1 DIABETES SCREENING 10/09/2012 ROSALIO STOLL MD V78.0 ANEMIA SCREENING 10/09/2012 EVELIAALLA ARAYA, SCOTTIE A V06.1 TDAP DX 10/09/2012 EVELIA ARAYA, SCOTTIE A V77.1 DIABETES SCREENING 10/09/2012 EVELIAHEVER GOLD APRNIDI A V78.0 ANEMIA SCREENING 10/09/2012 JUAREZ DO STEPHANE K V06.1 TDAP DX 10/09/2012 JUAREZ DO STEPHANE K V77.1 DIABETES SCREENING 10/09/2012 JUAREZ DO, STEPHANE K V78.0 ANEMIA SCREENING 10/09/2012 EVELIAALLA ARAYA, SCOTTIE A V06.1 TDAP DX 10/09/2012 EVELIA ARAYA, SCOTTIE A V77.1 DIABETES SCREENING 10/09/2012 EVELIAALLA ARAYA, SCOTTIE A V78.0 ANEMIA SCREENING 10/09/2012 ROSALIO STOLL MD V06.1 TDAP DX 10/09/2012 ROSALIO STOLL MD V77.1 DIABETES SCREENING 10/09/2012 ROSALIO STOLL MD V78.0 ANEMIA SCREENING 10/09/2012 EVELIA ARAYA, SCOTTIE A V06.1 TDAP DX 10/09/2012 SCOTTIE ALTAMIRANO APRN A V77.1 DIABETES SCREENING 10/09/2012 HEVER ALTAMIRANO APRNIDI A V78.0 ANEMIA SCREENING 10/09/2012 ROSALIO STOLL MD V06.1 TDAP DX 10/09/2012 ROSALIO STOLL MD V77.1 DIABETES SCREENING 10/09/2012 ROSALIO STOLL MD V78.0 ANEMIA SCREENING 10/09/2012 EVELIA TIMING INSPECTOR, SCOTTIE A V06.1 TDAP DX 10/09/2012 EVELIA TIMING INSPECTOR, SCOTTIE A V77.1 DIABETES SCREENING 10/09/2012 EVELIA TIMING INSPECTOR, SCOTTIE A V78.0 ANEMIA SCREENING 10/09/2012 EVELIA TIMING INSPECTOR, SCOTTIE A V06.1 TDAP DX 10/09/2012 EVELIA TIMING INSPECTOR, SCOTTIE A V77.1 DIABETES SCREENING 10/09/2012 EVELIA TIMING INSPECTOR, SCOTTIE A V78.0 ANEMIA SCREENING 10/09/2012 EVELIA TIMING INSPECTOR, SCOTTIE A V06.1 TDAP DX 10/09/2012 EVELIA TIMING INSPECTOR, SCOTTIE A V77.1 DIABETES SCREENING 10/09/2012 EVELIA TIMING INSPECTOR, SCOTTIE A V78.0 ANEMIA SCREENING 10/09/2012 EVELIA TIMING INSPECTOR, SCOTTIE A V06.1 TDAP DX 10/09/2012 EVELIA TIMING INSPECTOR, SCOTTIE A V77.1 DIABETES SCREENING 10/09/2012 EVELIA TIMING INSPECTOR, SCOTTIE A V78.0 ANEMIA SCREENING 10/09/2012 EVELIA TIMING INSPECTOR, SCOTTIE A V06.1 TDAP DX 10/09/2012 EVELIA TIMING INSPECTOR, SCOTTIE A V77.1 DIABETES SCREENING 10/09/2012 EVELIA TIMING INSPECTOR, SCOTTIE A V78.0 ANEMIA SCREENING 10/09/2012 EVELIA TIMING INSPECTOR, SCOTTIE A V06.1 TDAP DX 10/09/2012 EVELIA TIMING INSPECTOR, SCOTTIE A V77.1 DIABETES SCREENING 10/09/2012 EVELIA TIMING INSPECTOR, SCOTTIE A V78.0 ANEMIA SCREENING 10/09/2012 EVELIA TIMING INSPECTOR, SCOTTIE A V06.1 TDAP DX 10/09/2012 EVELIA TIMING INSPECTOR, SCOTTIE A V77.1 DIABETES SCREENING 10/09/2012 EVELIA TIMING INSPECTOR, SCOTTIE A V78.0 ANEMIA SCREENING 10/09/2012 CHRISTOPHER ARAYA, COLTEN R V06.1 TDAP DX 10/09/2012 CHRISTOPHER ARAYA, COLTEN R V77.1 DIABETES SCREENING 10/09/2012 CHRISTOPHER ARAYA, COLTEN R V78.0 ANEMIA SCREENING 10/09/2012 COLTEN WHITE APRN R V06.1 TDAP DX 10/09/2012 COLTEN WHITE APRN R V77.1 DIABETES SCREENING 10/09/2012 COLTEN WHITE APRN R V78.0 ANEMIA SCREENING 10/12/2012 ACE HICKS, PAULY Pope Ot 784.92 JAW PAIN 10/13/2012 ACE HICKS, PAULY Pope Ot 521.00 UNSPEC DENTAL CARIES 10/13/2012 ACE HICKS, PAULY Pope Ot 522.5 PERIAPICAL ABSCESS 10/13/2012 ACE HICKS, PAULY Pope Ot 646.83 PREG COMPL NEC-ANTEPART 10/13/2012 PAULY BELLO MD Ot 784.92 JAW PAIN 11/04/2012 STEPHANE JUAREZ [...] SCOTTIE ALTAMIRANO APRN V28.6 GBS SCREENING 12/21/2012 V28.6 GBS SCREENING 12/21/2012 SCOTTIE ALTAMIRANO APRN A V28.6 GBS SCREENING 12/21/2012 PRESTON JOY, HANS [facility] V28.6 GBS SCREENING 12/21/2012 PRESTON JOY, HANS [facility] V28.6 GBS SCREENING 12/21/2012 PRESTON JOY, HANS [facility] V28.6 GBS SCREENING 12/21/2012 ROSALIO STOLL MD V28.6 GBS SCREENING 12/21/2012 PRESTON JOY, HANS [facility] V28.6 GBS SCREENING 12/21/2012 ROSALIO STOLL MD N V28.6 GBS SCREENING 12/21/2012 ROSALIO STOLL MD V28.6 GBS SCREENING 12/21/2012 ROSALIO SOTLL MD V28.6 GBS SCREENING 12/21/2012 ROSALIO STOLL MD V28.6 GBS SCREENING 12/21/2012 EVELIA ARAYA SCOTTIE A V28.6 GBS SCREENING 12/21/2012 STEPHANE JUAREZ DO V28.6 GBS SCREENING 12/21/2012 EVELIA ARAYA SCOTTIE A V28.6 GBS SCREENING 12/21/2012 ROSALIO STOLL MD V28.6 GBS SCREENING 12/21/2012 EVELIA ARAYA SCOTTIE A V28.6 GBS SCREENING 12/21/2012 STEPHANE JUAREZ DO V28.6 GBS SCREENING 12/21/2012 EVELIA ARAYA SCOTTIE A V28.6 GBS SCREENING 12/21/2012 ROSALIO STOLL MD N V28.6 GBS SCREENING 12/21/2012 EVELIA ARAYA SCOTTIE A V28.6 GBS SCREENING 12/21/2012 ROSALIO STOLL MD V28.6 GBS SCREENING 12/21/2012 EVELIA ARAYA SCOTTIE A V28.6 GBS SCREENING 12/21/2012 EVELIA ARAYA SCOTTIE A V28.6 GBS SCREENING 12/21/2012 EVELIA ARAYA, SCOTTIE A V28.6 GBS SCREENING 12/21/2012 EVELIA ARAYA, SCOTTIE A V28.6 GBS SCREENING 12/21/2012 EVELIA ARAYA, SCOTTIE A V28.6 GBS SCREENING 12/21/2012 EVELIA ARAYA, SCOTTIE A V28.6 GBS SCREENING 12/21/2012 EVELIA ARAYA, SCOTTIE A V28.6 GBS SCREENING 12/21/2012 CHRISTOPHER ARAYA, COLTEN R V28.6 GBS SCREENING 12/21/2012 CHRISTOPHER ARAYA, COLTEN R V28.6 GBS SCREENING 12/27/2012 642.90 COMPL OF - HTN/PIH 12/27/2012 642.90 COMPL OF - HTN/PIH 12/27/2012 STEPHANE JUAREZ DO K 642.90 COMPL OF - HTN/PIH 12/27/2012 STEPHANE JUAREZ DO K 642.90 COMPL OF - HTN/PIH 12/27/2012 SCOTTIE ALTAMIRANO APRN A 642.90 COMPL OF - HTN/PIH 12/27/2012 SCOTTIE [...] OF - HTN/PIH 12/27/2012 ROSALIO STOLL MD 642.90 COMPL OF - HTN/PIH 12/27/2012 PRESTON [...] K 642.90 COMPL OF - HTN/PIH 12/27/2012 EVELIA TIMING INSPECTOR, SCOTTIE A 642.90 COMPL OF - HTN/PIH 12/27/2012 ROSALIO STOLL MD N 642.90 COMPL OF - HTN/PIH 12/27/2012 EVELIAALLA ARAYA, SCOTTIE A 642.90 COMPL OF - HTN/PIH 12/27/2012 ROSALIO STOLL MD N 642.90 COMPL OF - HTN/PIH 12/27/2012 EVELIA TIMING INSPECTOR, SCOTTIE A 642.90 COMPL OF - HTN/PIH 12/27/2012 EVELIA TIMING INSPECTOR, SCOTTIE A 642.90 COMPL OF - HTN/PIH 12/27/2012 EVELIA TIMING INSPECTOR, SCOTTIE A 642.90 COMPL OF - HTN/PIH 12/27/2012 EVELIA TIMING INSPECTOR, SCOTTIE A 642.90 COMPL OF - HTN/PIH 12/27/2012 EVELIA ARAYA, SCOTTIE A 642.90 COMPL OF - HTN/PIH 12/27/2012 EVELIA TIMING INSPECTOR, SCOTTIE A 642.90 COMPL OF - HTN/PIH 12/27/2012 EVELIA TIMING INSPECTOR, SCOTTIE A 642.90 COMPL OF - HTN/PIH 12/27/2012 CHRISTOPHER ARAYA, COLTEN R 642.90 COMPL OF - HTN/PIH 12/27/2012 CHRISTOPHER ARAYA, COLTEN R 642.90 COMPL OF - HTN/PIH [...] FET HT RT/RHYTHM,W OR W/O MENTIO 01/06/2013 [place] STEPHANE Georgina Ot 666.12 POSTPA HEM NEC-DEL W P/P 01/06/2013 [place] STEPHANE Georgina Ot 669.22 MATERN HYPOTEN-DEL W P/P 01/06/2013 ANN DO STEPHANE Georgina Ot V06.4 [id number] 01/06/2013 STEPHANE JUAREZ DO Ot V07.2 PROPHYLACT IMMUNOTHERAPY 01/06/2013 STEPHANE JUAREZ [...] ALTAMIRANO APRN A V74.5 STD SCREEN 04/26/2013 641.90 COMPL OF [...] 649.00 COMPL OF - TOBACCO USE 04/26/2013 PRESTON JOY, HANS [facility] V74.5 STD SCREEN 04/26/2013 ROSALIO STOLL MD [...] JUAREZ DO K V74.5 STD SCREEN 04/26/2013 EVELIASCOTTIE Nieto APRN A 641.90 COMPL OF - BLEEDING 04/26/2013 SCOTTIE ALTAMIRANO APRN A 649.00 COMPL OF - TOBACCO USE 04/26/2013 EVELIASCOTTIE GOLD APRN A V74.5 STD SCREEN 04/26/2013 ROSALIO STOLL MD 641.90 COMPL OF - BLEEDING 04/26/2013 ROSALIO STOLL MD 649.00 COMPL OF - TOBACCO USE 04/26/2013 ROSALIO STOLL MD V74.5 STD SCREEN 04/26/2013 EVELIASCOTTIE Nieto APRN A 641.90 COMPL OF - BLEEDING 04/26/2013 SCOTTIE ALTAMIRANO APRN A 649.00 COMPL OF - TOBACCO USE 04/26/2013 SCOTTIE ALTAMIRANO APRN A V74.5 STD SCREEN 04/26/2013 STEPHANE JUAREZ DO K 641.90 COMPL OF - BLEEDING 04/26/2013 STEPHANE JUAREZ DO K 649.00 COMPL OF - TOBACCO USE 04/26/2013 STEPHANE JUAREZ DO K V74.5 STD SCREEN 04/26/2013 EVELIASCOTTIE Nieto APRN A 641.90 COMPL OF - BLEEDING 04/26/2013 SCOTTIE ALTAMIRANO APRN A 649.00 COMPL OF - TOBACCO USE 04/26/2013 SCOTTIE ALTAMIRANO APRN A V74.5 STD SCREEN 04/26/2013 ROSALIO STOLL MD 641.90 COMPL OF - BLEEDING 04/26/2013 DODIE MD, ROSALIO N 649.00 COMPL OF - TOBACCO USE [...] APRN A V74.5 STD SCREEN 04/26/2013 EVELIA TIMING INSPECTOR, SCOTTIE A 641.90 COMPL OF - BLEEDING 04/26/2013 EVELIA TIMING INSPECTOR, SCOTTIE A 649.00 COMPL OF - TOBACCO USE 04/26/2013 EVELIA SORIANON, SCOTTIE A V74.5 STD SCREEN 04/26/2013 EVELIA SORIANON, SCOTTIE A 641.90 COMPL OF - BLEEDING 04/26/2013 EVELIA SORIANON, SCOTTIE A 649.00 COMPL OF - TOBACCO USE 04/26/2013 EVELIA SORIANON, SCOTTIE A V74.5 STD SCREEN 04/26/2013 CHRISTOPHER ARAYA, COLTEN R 641.90 COMPL OF - BLEEDING 04/26/2013 CHRISTOPHER SORIANON, COLTEN R 649.00 COMPL OF - TOBACCO USE 04/26/2013 CHRISTOPHER SORIANON, COLTEN R V74.5 STD SCREEN 04/26/2013 CHRISTOPHER ARAYA, COLTEN R 641.90 COMPL OF - BLEEDING 04/26/2013 CHRISTOPHER ARAYA, COLTEN R 649.00 COMPL OF - TOBACCO [...] HICKS, ROSALIO N V04.81 FLU SHOT 05/10/2013 EVELIAALLA SORIANON, SCOTTIE A V04.81 FLU SHOT 05/10/2013 STEPHANE JUAREZ DO V04.81 FLU SHOT 05/10/2013 EVELIA TIMING INSPECTOR, SCOTTIE A V04.81 FLU SHOT 05/10/2013 DODIE HICKS, ROSALIO Nieto V04.81 FLU SHOT 05/10/2013 EVELIA TIMING INSPECTOR, SCOTTIE A V04.81 FLU SHOT 05/10/2013 STEPHANE JUAREZ DO V04.81 FLU SHOT 05/10/2013 EVELIA TIMING INSPECTOR, SCOTTIE A V04.81 FLU SHOT 05/10/2013 DODIE HICKS, ROSALIO Nieto V04.81 FLU SHOT 05/10/2013 EVELIA TIMING INSPECTOR, SCOTTIE A V04.81 FLU SHOT 05/10/2013 DODIE HICKS, ROSALIO N V04.81 FLU SHOT 05/10/2013 EVELIA TIMING INSPECTOR, SCOTTIE A V04.81 FLU SHOT 05/10/2013 EVELIA TIMING INSPECTOR, SCOTTIE A V04.81 FLU SHOT 05/10/2013 EVELIA TIMING INSPECTOR, SCOTTIE A V04.81 FLU SHOT 05/10/2013 EVELIA TIMING INSPECTOR, SCOTTIE A V04.81 FLU SHOT 05/10/2013 EVELIA TIMING INSPECTOR, SCOTTIE A V04.81 FLU SHOT 05/10/2013 EVELIA TIMING INSPECTOR, SCOTTIE A V04.81 FLU SHOT 05/10/2013 EVELIA TIMING INSPECTOR, SCOTTIE A V04.81 FLU SHOT 05/10/2013 CHRISTOPHER TIMING INSPECTOR, COLTEN R V04.81 FLU SHOT 05/10/2013 CHRISTOPHER TIMING INSPECTOR, COLTEN R V04.81 FLU SHOT 05/10/2013 LEO [...] HANS [facility] 311 DEPRESSIVE DISORDER NOS 05/17/2013 ROSALIO STOLL MD 311 DEPRESSIVE DISORDER NOS 05/17/2013 ROSALIO STOLL MD 311 DEPRESSIVE DISORDER NOS 05/17/2013 DODIE MD, ROSALIO N 311 DEPRESSIVE DISORDER NOS 05/17/2013 ROSALIO STOLL MD 311 DEPRESSIVE DISORDER NOS 05/17/2013 EVELIA TIMING INSPECTOR, SCOTTIE A 311 DEPRESSIVE DISORDER NOS 05/17/2013 JUAREZ STEPHANE [place] K 311 DEPRESSIVE DISORDER NOS 05/17/2013 EVELIA TIMING INSPECTOR, SCOTTIE A 311 DEPRESSIVE DISORDER NOS 05/17/2013 ROSALIO STOLL MD 311 DEPRESSIVE DISORDER NOS 05/17/2013 EVELIA TIMING INSPECTOR, SCOTTIE A 311 DEPRESSIVE DISORDER NOS 05/17/2013 YUE JUAREZ DOA K 311 DEPRESSIVE DISORDER NOS 05/17/2013 EVELIA TIMING INSPECTOR, SCOTTIE A 311 DEPRESSIVE DISORDER NOS 05/17/2013 ROSALIO STOLL MD 311 DEPRESSIVE DISORDER NOS 05/17/2013 EVELIA TIMING INSPECTOR, SCOTTIE A 311 DEPRESSIVE DISORDER NOS 05/17/2013 ROSALIO STOLL MD N 311 DEPRESSIVE DISORDER NOS 05/17/2013 EVELIA TIMING INSPECTOR, SCOTTIE A 311 DEPRESSIVE DISORDER NOS 05/17/2013 EVELIA TIMING INSPECTOR, SCOTTIE A 311 DEPRESSIVE DISORDER NOS 05/17/2013 EVELIA TIMING INSPECTOR, SCOTTIE A 311 DEPRESSIVE DISORDER NOS 05/17/2013 EVELIA TIMING INSPECTOR, SCOTTIE A 311 DEPRESSIVE DISORDER NOS 05/17/2013 EVELIA TIMING INSPECTOR, SCOTTIE A 311 DEPRESSIVE DISORDER NOS 05/17/2013 EVELIA TIMING INSPECTOR, SCOTTIE A 311 DEPRESSIVE DISORDER NOS 05/17/2013 EVELIA TIMING INSPECTOR, SCOTTIE A 311 DEPRESSIVE DISORDER NOS 05/17/2013 CHRISTOPHER TIMING INSPECTOR, COLTEN R 311 DEPRESSIVE DISORDER NOS 05/17/2013 CHRISTOPHER TIMING INSPECTOR, COLTEN R 311 DEPRESSIVE DISORDER NOS 05/30/2013 HANS JOHNSTON PHD A 317 MENTAL RETARDATION-MILD 05/30/2013 ROSALIO STOLL MD 317 MENTAL RETARDATION-MILD 05/30/2013 HANS JOHNSTON PHD A 317 MENTAL RETARDATION-MILD 05/30/2013 ROSALIO STOLL MD 317 MENTAL RETARDATION-MILD 05/30/2013 ROSALIO STOLL MD 317 MENTAL RETARDATION-MILD 05/30/2013 ROSALIO STOLL MD 317 MENTAL RETARDATION-MILD 05/30/2013 ROSALIO STOLL MD 317 MENTAL RETARDATION-MILD 05/30/2013 EVELIA TIMING INSPECTOR, SCOTTIE A 317 MENTAL RETARDATION-MILD 05/30/2013 [place] STEPHANE K 317 MENTAL RETARDATION-MILD 05/30/2013 EVELIA TIMING INSPECTOR, SCOTTIE A 317 MENTAL RETARDATION-MILD 05/30/2013 ROSALIO STOLL MD 317 MENTAL RETARDATION-MILD 05/30/2013 EVELIA TIMING INSPECTOR, SCOTTIE A 317 MENTAL RETARDATION-MILD 05/30/2013 JUAREZ DO, STEPHANE K 317 MENTAL RETARDATION-MILD 05/30/2013 EVELIA TIMING INSPECTOR, SCOTTIE A 317 MENTAL RETARDATION-MILD 05/30/2013 ROSALIO STOLL MD 317 MENTAL RETARDATION-MILD 05/30/2013 EVELIA TIMING INSPECTOR, SCOTTIE A 317 MENTAL RETARDATION-MILD 05/30/2013 ROSALIO STOLL MD 317 MENTAL RETARDATION-MILD 05/30/2013 EVELIA TIMING INSPECTOR, SCOTTIE A 317 MENTAL RETARDATION-MILD 05/30/2013 EVELIA TIMING INSPECTOR, SCOTTIE A 317 MENTAL RETARDATION-MILD 05/30/2013 EVELIA TIMING INSPECTOR, SCOTTIE A 317 MENTAL RETARDATION-MILD 05/30/2013 EVELIA TIMING INSPECTOR, SCOTTIE A 317 MENTAL RETARDATION-MILD 05/30/2013 EVELIA TIMING INSPECTOR, SCOTTIE A 317 MENTAL RETARDATION-MILD 05/30/2013 EVELIA TIMING INSPECTOR, SCOTTIE A 317 MENTAL RETARDATION-MILD 05/30/2013 EVELIA TIMING INSPECTOR, SCOTTIE A 317 MENTAL RETARDATION-MILD 05/30/2013 CHRISTOPHER TIMING INSPECTOR, COLTEN R 317 MENTAL RETARDATION-MILD 05/30/2013 CHRISTOPHER TIMING INSPECTOR, COLTEN R 317 MENTAL RETARDATION-MILD 07/03/2013 PRESTON PHD, HANS A 300.00 AN ANXIETY UNSPEC 07/03/2013 ROSALIO STOLL MD 300.00 AN ANXIETY UNSPEC 07/03/2013 ROSALIO STOLL MD 300.00 AN ANXIETY UNSPEC 07/03/2013 ROSALIO STOLL MD N 300.00 AN ANXIETY UNSPEC 07/03/2013 ROSALIO STOLL MD 300.00 AN ANXIETY UNSPEC 07/03/2013 EVELIA TIMING INSPECTOR, SCOTTIE A 300.00 AN ANXIETY UNSPEC 07/03/2013 JUAREZ STEPHANE [place] K 300.00 AN ANXIETY UNSPEC 07/03/2013 EVELIA TIMING INSPECTOR, SCOTTIE A 300.00 AN ANXIETY UNSPEC 07/03/2013 ROSALIO STOLL MD N 300.00 AN ANXIETY UNSPEC 07/03/2013 EVELIA TIMING INSPECTOR, SCOTTIE A 300.00 AN ANXIETY UNSPEC 07/03/2013 JUAREZ STEPHANE [place] K 300.00 AN ANXIETY UNSPEC 07/03/2013 EVELIA TIMING INSPECTOR, SCOTTIE A 300.00 AN ANXIETY UNSPEC 07/03/2013 ROSALIO STOLL MD 300.00 AN ANXIETY UNSPEC 07/03/2013 EVELIA ARAYA, SCOTTIE A 300.00 AN ANXIETY UNSPEC 07/03/2013 ROSALIO STOLL MD 300.00 AN ANXIETY UNSPEC 07/03/2013 EVELIA APRN, SCOTTIE A 300.00 AN ANXIETY UNSPEC 07/03/2013 EVELIA APRN, SCOTTIE A 300.00 AN ANXIETY UNSPEC 07/03/2013 EVELIA ARAYA, SCOTTIE A 300.00 AN ANXIETY UNSPEC 07/03/2013 EVELIA ARAYA, SCOTTIE A 300.00 AN ANXIETY UNSPEC 07/03/2013 EVELIA ARAYA, SCOTTIE A 300.00 AN ANXIETY UNSPEC 07/03/2013 HEVER ALTAMIRANO APRNIDI A 300.00 AN ANXIETY UNSPEC 07/03/2013 EVELIA ARAYA, SCOTTIE A 300.00 AN ANXIETY UNSPEC 07/03/2013 CHRISTOPHER ARAYA COLTEN R 300.00 AN ANXIETY UNSPEC 07/03/2013 CHRISTOPHER ARAYA COLTEN R 300.00 AN ANXIETY UNSPEC 08/12/2013 ROJELIO [place] YISSEL Georgina Ot 455.3 EXT HEMORRHOID W/O COMPL 08/12/2013 [...] APRN A 656.90 2 VESSEL CORD 09/12/2013 SCOTTIE ALTAMIRANO APRN A 658.00 OLIGOHYDRAMNIOS 09/12/2013 SCOTTIE ALTAMIRANO APRN A V77.1 DIABETES SCREENING 09/12/2013 EVELIA TIMING INSPECTOR, SCOTTIE A V78.0 ANEMIA SCREENING 09/12/2013 JUAREZ DO, STEPHANE K 649.60 UTER INE SIZE DATE DISCREPANCY -SGA 09/12/2013 JUAREZ DO, STEPHANE K 656.90 2 VESSEL CORD 09/12/2013 JUAREZ DO, STEPHANE K 658.00 OLIGOHYDRAMNIOS 09/12/2013 JUAREZ DO, STEPHANE K V77.1 DIABETES SCREENING 09/12/2013 JUAREZ DO, STEPHANE K V78.0 ANEMIA SCREENING 09/12/2013 EVELIA QUIANA, SCOTTIE A 649.60 UTER INE SIZE DATE DISCREPANCY -SGA 09/12/2013 EVELIA TIMING INSPECTOR, SCOTTIE A 656.90 2 VESSEL CORD 09/12/2013 EVELIA TIMING INSPECTOR, SCOTTIE A 658.00 OLIGOHYDRAMNIOS 09/12/2013 EVELIAGerson ARAYA SCOTTIE A V77.1 DIABETES SCREENING 09/12/2013 EVELIA APRN, SCOTTIE A V78.0 ANEMIA SCREENING 09/12/2013 ROSALIO STOLL MD 649.60 UTER INE SIZE DATE DISCREPANCY -SGA 09/12/2013 ROSALIO STOLL MD N 656.90 2 VESSEL CORD 09/12/2013 ROSALIO STOLL MD N 658.00 OLIGOHYDRAMNIOS 09/12/2013 ROSALIO STOLL MD V77.1 DIABETES SCREENING 09/12/2013 ROSALIO STOLL MD V78.0 ANEMIA SCREENING 09/12/2013 EVELIAGerson ARAYA SCOTTIE A 649.60 UTER INE SIZE DATE DISCREPANCY -SGA 09/12/2013 EVELIAHEVER Nieto APRNIDI A 656.90 2 VESSEL CORD 09/12/2013 EVELIA TIMING INSPECTOR, SCOTTIE A 658.00 OLIGOHYDRAMNIOS 09/12/2013 EVELIA TIMING INSPECTOR, SCOTTIE A V77.1 DIABETES SCREENING 09/12/2013 EVELIA TIMING INSPECTOR, SCOTTIE A V78.0 ANEMIA SCREENING 09/12/2013 JUAREZ DO, STEPHANE K 649.60 UTER INE SIZE DATE DISCREPANCY -SGA 09/12/2013 JUAREZ DO, STEPHANE K 656.90 2 VESSEL CORD 09/12/2013 JUAREZ DO, STEPHANE K 658.00 OLIGOHYDRAMNIOS 09/12/2013 JUAREZ DO, STEPHANE K V77.1 DIABETES SCREENING 09/12/2013 JUAREZ DO, STEPHANE Georgina V78.0 ANEMIA SCREENING 09/12/2013 EVELIA TIMING INSPECTORSCOTTIE Nieto A 649.60 UTER INE SIZE DATE DISCREPANCY -SGA 09/12/2013 EVELIA TIMING INSPECTORSCOTTIE Nieto A 656.90 2 VESSEL CORD 09/12/2013 EVELIA TIMING INSPECTOR, SCOTTIE A 658.00 OLIGOHYDRAMNIOS 09/12/2013 EVELIA TIMING INSPECTORSCOTTIE Nieto A V77.1 DIABETES SCREENING 09/12/2013 EVELIA TIMING INSPECTORSCOTTIE Nieto A V78.0 ANEMIA SCREENING 09/12/2013 ROSALIO STOLL MD N 649.60 UTER INE SIZE DATE DISCREPANCY -SGA 09/12/2013 ROSALIO STOLL MD 656.90 2 VESSEL CORD 09/12/2013 ROSALIO STOLL MD 658.00 OLIGOHYDRAMNIOS 09/12/2013 ROSALIO STOLL MD V77.1 DIABETES SCREENING 09/12/2013 ROSALIO STOLL MD V78.0 ANEMIA SCREENING 09/12/2013 EVELIASCOTTIE Nieto APRN A 649.60 UTER INE SIZE DATE DISCREPANCY -SGA 09/12/2013 EVELIA TIMING INSPECTORSCOTTIE Nieto A 656.90 2 VESSEL CORD 09/12/2013 EVELIASCOTTIE Nieto APRN A 658.00 OLIGOHYDRAMNIOS 09/12/2013 EVELIASCOTTIE Nieto APRN V77.1 DIABETES SCREENING 09/12/2013 EVELIASCOTTIE Nieto APRN A V78.0 ANEMIA SCREENING 09/12/2013 ROSALIO STOLL MD 649.60 UTER INE SIZE DATE DISCREPANCY -SGA 09/12/2013 ROSALIO STOLL MD N 656.90 2 VESSEL CORD 09/12/2013 ROSALIO STOLL MD 658.00 OLIGOHYDRAMNIOS 09/12/2013 ROSALIO STOLL MD V77.1 DIABETES SCREENING 09/12/2013 ROSALIO STOLL MD V78.0 ANEMIA SCREENING 09/12/2013 EVELIA TIMING INSPECTORSCOTTIE Nieto A 649.60 UTER INE SIZE DATE DISCREPANCY -SGA 09/12/2013 EVELIASCOTTIE Nieto APRN A 656.90 2 VESSEL CORD 09/12/2013 EVELIASCOTTIE Nieto APRN A 658.00 OLIGOHYDRAMNIOS 09/12/2013 EVELIASCOTTIE Nieto APRN A V77.1 DIABETES SCREENING 09/12/2013 EVELIASCOTTIE Nieto APRN A V78.0 ANEMIA SCREENING 09/12/2013 EVELIA SORIANOGerson SCOTTIE A 649.60 UTER INE SIZE DATE DISCREPANCY -SGA 09/12/2013 EVELIA SORIANOGerson SCOTTIE A 656.90 2 VESSEL CORD 09/12/2013 EVELIASCOTTIE Nieto APRN A 658.00 OLIGOHYDRAMNIOS 09/12/2013 EVELIAGerson ARAYA SCOTTIE A V77.1 DIABETES SCREENING 09/12/2013 EVELIASCOTTIE Nieto APRN A V78.0 ANEMIA SCREENING 09/12/2013 EVELIASCOTTIE Nieto APRN A 649.60 UTER INE SIZE DATE DISCREPANCY -SGA 09/12/2013 EVELIASCOTTIE Nieto APRN A 656.90 2 VESSEL CORD 09/12/2013 EVELIASCOTTIE Nieto APRN A 658.00 OLIGOHYDRAMNIOS 09/12/2013 EVELIASCOTTIE GOLD APRN A V77.1 DIABETES SCREENING 09/12/2013 EVELIASCOTTIE Nieto APRN A V78.0 ANEMIA SCREENING 09/12/2013 EVELIAGerson ARAYA SCOTTIE A 649.60 UTER INE SIZE DATE [...] UTER INE SIZE DATE DISCREPANCY -SGA 09/12/2013 EVELIAALLA ARAYA, SCOTTIE A 656.90 2 VESSEL CORD 09/12/2013 EVELIA APRN, SCOTTIE A 658.00 OLIGOHYDRAMNIOS 09/12/2013 EVELIA APRN, SCOTTIE A V77.1 DIABETES SCREENING 09/12/2013 EVELIA APRN, SCOTTIE A V78.0 ANEMIA SCREENING 09/12/2013 EVELIASCOTTIE GOLD APRN A 649.60 UTER INE SIZE DATE DISCREPANCY -SGA 09/12/2013 EVELIA APRN, SCOTTIE A 656.90 2 VESSEL CORD 09/12/2013 EVELIA APRN, SCOTTIE A 658.00 OLIGOHYDRAMNIOS 09/12/2013 EVELIASCOTTIE Nieto APRN A V77.1 DIABETES SCREENING 09/12/2013 EVELIASCOTTIE Nieto APRN A V78.0 ANEMIA SCREENING 09/12/2013 CHRISTOPHER ARAYA COLTEN R 649.60 UTER INE SIZE DATE DISCREPANCY -SGA 09/12/2013 CHRISTOPHER ARAYA COLTEN R 656.90 2 VESSEL CORD 09/12/2013 CHRISTOPHER ARAYA, COLTEN R 658.00 OLIGOHYDRAMNIOS 09/12/2013 CHRISTOPHER ARAYA, COLTEN R V77.1 DIABETES SCREENING 09/12/2013 CHRISTOPHER ARAYA, COLTEN R V78.0 ANEMIA SCREENING 09/12/2013 CHRISTOPHER ARAYA, COLTEN R 649.60 UTER INE SIZE DATE DISCREPANCY -SGA 09/12/2013 CHRISTOPHER ARAYA, COLTEN R 656.90 2 VESSEL CORD 09/12/2013 CHRISTOPHER ARAYA, COLTEN R 658.00 OLIGOHYDRAMNIOS 09/12/2013 CHRISTOPHER ARAYA, COLTEN R V77.1 DIABETES SCREENING 09/12/2013 CHRISTOPHER ARAYA, COLTEN R V78.0 ANEMIA SCREENING 09/25/2013 STEPHANE JUAREZ DO 648.20 COMPL OF - ANEMIA 09/25/2013 SCOTTIE ALTAMIRANO APRN A 648.20 COMPL OF - ANEMIA 09/25/2013 ROSALIO STOLL MD 648.20 COMPL OF - ANEMIA 09/25/2013 SCOTTIE ALTAMIRANO APRN A 648.20 COMPL OF - ANEMIA 09/25/2013 STEPHANE JUAREZ DO 648.20 COMPL OF - ANEMIA 09/25/2013 SCOTTIE [...] A 648.20 COMPL OF - ANEMIA 09/25/2013 EVELIA ARAYA, SCOTTIE A 648.20 COMPL OF - ANEMIA 09/25/2013 [...] V02.51 GROUP B STREPT CARRIER/SUSPECTED CARRIER 11/16/2013 DODIE HICKS, ROSALIO Nieto Ot V07.2 PROPHYLACT IMMUNOTHERAPY 11/16/2013 ROSALIO STOLL MD Ot V27.0 DELIVER-SINGLE LIVEBORN 11/19/2013 EVELIA ARAYA, SCOTTIE A V25.9 CONTRACEPTION MANAGEMENT 11/19/2013 EVELIA TIMING INSPECTOR, SCOTTIE A V25.9 CONTRACEPTION MANAGEMENT 11/19/2013 EVELIA ARAYA, SCOTTIE A V25.9 CONTRACEPTION MANAGEMENT 11/19/2013 EVELIA TIMING INSPECTOR, SCOTTIE A V25.9 CONTRACEPTION MANAGEMENT 11/19/2013 EVELIA ARAYA, SCOTTIE A V25.9 CONTRACEPTION MANAGEMENT 11/19/2013 EVELIA ARAYA, SCOTTIE A V25.9 CONTRACEPTION MANAGEMENT 11/19/2013 EVELIA ARAYA, SCOTTIE A V25.9 CONTRACEPTION MANAGEMENT 11/19/2013 CHRISTOPHER ARAYA, COLTEN R V25.9 CONTRACEPTION MANAGEMENT 11/19/2013 CHRISTOPHER ARAYA COLTEN R V25.9 CONTRACEPTION MANAGEMENT 12/31/2013 HEVER ALTAMIRANO APRNIDI A V24.2 F/U, ROUTINE 12/31/2013 SCOTTIE ALTAMIRANO APRN A V25.09 CONTRACEPTIVE COUNSELING - GENERAL 12/31/2013 SCOTTIE ALTAMIRANO APRN A V24.2 F/U, ROUTINE 12/31/2013 EHVER ALTAMIRANO APRNIDI A V25.09 CONTRACEPTIVE COUNSELING - GENERAL 12/31/2013 HEVER ALTAMIRANO APRNIDI A V24.2 F/U, ROUTINE 12/31/2013 HEVER ALTAMIRANO APRNIDI A V25.09 CONTRACEPTIVE COUNSELING - GENERAL 12/31/2013 HEVER ALTAMIRANO APRNIDI A V24.2 F/U, ROUTINE 12/31/2013 EVELIA ARAYA, SOCTTIE A V25.09 CONTRACEPTIVE COUNSELING - GENERAL 12/31/2013 [...] APRN A V72.41 TEST NEGATIVE RESULT 01/29/2014 HAMET WHITE APRNINA R V72.41 TEST NEGATIVE RESULT [...] SMOKING CESSATION 06/12/2014 SCOTTIE ALTAMIRANO APRN V72.31 ASSOCIATE ACCOUNT EXECUTIVE EXAM, ROUTINE 06/12/2014 SCOTTIE ALTAMIRANO APRN V74.5 STD SCREEN 06/12/2014 SCOTTIE ALTAMIRANO APRN V76.10 BREAST CANCER SCREENING 06/12/2014 SCOTTIE ALTAMIRANO APRN V76.2 CERVICAL CANCER SCREENING (PAP SMEAR) 06/12/2014 COLTEN WHITE APRN R V65.42 COUNSELING - SMOKING CESSATION 06/12/2014 COLTEN WHITE APRN R V72.31 ASSOCIATE ACCOUNT EXECUTIVE EXAM, ROUTINE 06/12/2014 CHRISTOPHER ARAYA, COLTEN R V74.5 STD SCREEN 06/12/2014 CHRISTOPHER ARAYA, COLTEN R V76.10 BREAST CANCER SCREENING 06/12/2014 AHMET WHITE APRNINA R V76.2 CERVICAL CANCER SCREENING (PAP SMEAR) 06/12/2014 COLTEN WHITE APRN R V65.42 COUNSELING - SMOKING CESSATION 06/12/2014 CHRISTOPHER ARAYA, COLTEN R V72.31 ASSOCIATE ACCOUNT EXECUTIVE EXAM, ROUTINE 06/12/2014 CHRISTOPHER ARAYA, COLTEN R V74.5 STD SCREEN 06/12/2014 CHRISTOPHER ARAYA, COLTEN R V76.10 BREAST CANCER SCREENING 06/12/2014 COLTEN WHITE APRN R V76.2 CERVICAL CANCER SCREENING (PAP SMEAR) 06/21/2014 Ot 850.11 CONCUSSION, W LOSS OF CONSCIOUSNESS OF 3 06/21/2014 Ot 923.11 CONTUSION OF ELBOW 06/21/2014 Ot 959.01 HEAD INJURY , NOS 06/21/2014 Ot E000.8 OTHER EXTERNAL CAUSE [...] WHITE APRN R V25.43 IMPLANON REMOVAL 07/02/2014 COLTEN WHITE APRN R V25.43 IMPLANON REMOVAL 07/02/2014 SCOTTIE ALTAMIRANO APRN A 626.9 MENSTRUATION AND OTHER ABNORMAL BLEEDING FROM FEMALE GENITAL TRACT 07/16/2014 COLTEN WHITE APRN R 462 ACUTE PHARYNGITIS 07/16/2014 CHRISTOPHER TIMING INSPECTOR, COLTEN R E906.0 DOG BITE 07/16/2014 CHRISTOPHER TIMING INSPECTOR, COLTEN R 462 ACUTE PHARYNGITIS 07/16/2014 CHRISTOPHER TIMING INSPECTOR, COLTEN R E906.0 DOG BITE 07/17/2014 CHRISTOPHER TIMING INSPECTOR, COLTEN R 626.9 MENSTRUATION AND OTHER ABNORMAL BLEEDING FROM FEMALE GENITAL TRACT 07/17/2014 CHRISTOPHER TIMING INSPECTOR, COLTEN R 626.9 MENSTRUATION AND OTHER ABNORMAL BLEEDING FROM FEMALE GENITAL TRACT 07/30/2014 CHRISTOPHER TIMING INSPECTOR, COLTEN R 626.9 MENSTRUATION AND OTHER ABNORMAL BLEEDING FROM FEMALE GENITAL TRACT 09/23/2014 EVELIA, SCOTTIE A TIMING INSPECTOR Ot V28.81 09/23/2014 JUAREZ DO, STEPHANE K Ot V23.9 09/23/2014 JUAREZ DO, STEPHANE K Ot V23.9 09/23/2014 JUAREZ DO, STEPHANE K Ot V28.89 09/23/2014 EVELIA, SCOTTIE A TIMING INSPECTOR Ot V28.89 09/23/2014 EVELIA, SCOTTIE A TIMING INSPECTOR Ot 641.93 09/23/2014 DODIE HICKS, ROSALIO Nieto Ot 317 09/23/2014 ROSALIO STOLL MD Ot V28.81 09/23/2014 DODIE HICKS, ROSALIO Nieto Ot 663.93 09/23/2014 EVELIA, SCOTTIE A TIMING INSPECTOR Ot V23.9 09/23/2014 EVELIA, SCOTTIE A TIMING INSPECTOR Ot V77.1 09/23/2014 EVELIA, SCOTTIE A TIMING INSPECTOR Ot 656.53 09/23/2014 EVELIA, SCOTTIE A TIMING INSPECTOR Ot 658.03 10/08/2014 EVELIA, SCOTTIE A TIMING INSPECTOR Ot V23.9 10/12/2014 EVELIA, SCOTTIE A TIMING INSPECTOR Ot V28.81 10/12/2014 JUAREZ DO, STEPHANE K Ot V23.9 10/12/2014 JUAREZ DO, STEPHANE K Ot V23.9 10/12/2014 JUAREZ DO, STEPHANE K Ot V28.89 10/12/2014 EVELIA, SCOTTIE A TIMING INSPECTOR Ot V28.89 10/12/2014 EVELIA, SCOTTIE A TIMING INSPECTOR Ot 641.93 10/12/2014 DODIE HICKS, ROSALIO Nieto Ot 317 10/12/2014 DODIE HICKS, ROSALIO Nieto Ot V28.81 10/12/2014 DODIE HICKS, ROSALIO Nieto Ot 663.93 10/12/2014 EVELIAHEVERSCOTTIE Kalpana TIMING INSPECTOR Ot V23.9 10/12/2014 EVELIASCOTTIE TIMING INSPECTOR Ot V77.1 10/12/2014 EVELIAHEVERSCOTTIE A TIMING INSPECTOR Ot 656.53 10/12/2014 EVELIA SCOTTIE A TIMING INSPECTOR Ot 658.03 10/12/2014 EVELIA SCOTTIE Kalpana TIMING INSPECTOR Ot V23.9 10/12/2014 ANA LAURA BENEDICT TIMING INSPECTOR Ot 599.0 URIN TRACT INFECTION NOS 10/12/2014 ANA LAURA BENEDICT TIMING INSPECTOR Ot 646.63 INFECTION-ANTEPARTUM 11/02/2014 EVELIA SCOTTIE A TIMING INSPECTOR Ot V28.81 11/02/2014 JUAREZ DOSTEPHANE Ot V23.9 11/02/2014 JUAREZ DOSTEPHANE Ot V23.9 11/02/2014 JUAREZ DOYUEA K Ot V28.89 11/02/2014 EVELIA SCOTTIE A TIMING INSPECTOR Ot V28.89 11/02/2014 EVELIAHEVERSCOTTIE Kalpana TIMING INSPECTOR Ot 641.93 11/02/2014 DODIE HICKS, ROSALIO Nieto Ot 317 11/02/2014 DODIE HICKS, ROSALIO Nieto Ot V28.81 11/02/2014 ROSALIO STOLL MD Ot 663.93 11/02/2014 EVELIA SCOTTIE A TIMING INSPECTOR Ot V23.9 11/02/2014 EVELIA SCOTTIE A TIMING INSPECTOR Ot V77.1 11/02/2014 EVELIA SCOTTIE A TIMING INSPECTOR Ot 656.53 11/02/2014 EVELIA SCOTTIE A TIMING INSPECTOR Ot 658.03 11/02/2014 EVELIA SCOTTIE A TIMING INSPECTOR Ot V23.9 11/02/2014 ANA LAURA BENEDICT TIMING INSPECTOR Ot 643.03 MILD HYPEREMESIS-ANTEPAR 11/02/2014 ANA LAURA BENEDICT TIMING INSPECTOR Ot 649.03 TOBACCO USE DISOR COMP PREG/CHILDBIRTH/P 12/10/2014 EVELIA SCOTTIE A TIMING INSPECTOR Ot V28.81 12/10/2014 JUAREZ DO, STEPHANE K Ot V23.9 12/10/2014 JUAREZ DOYUEA K Ot V23.9 12/10/2014 JUAREZ DO, STEPHANE K Ot V28.89 12/10/2014 EVELIAHEVERSCOTTIE A TIMING INSPECTOR Ot V28.89 12/10/2014 EVELIA SCOTTIE A TIMING INSPECTOR Ot 641.93 12/10/2014 DODIE HICKS, ROSALIO Nieto Ot 317 12/10/2014 DODIE HICKS, ROSALIO N Ot V28.81 12/10/2014 DODIE HICKS, ROSALIO N Ot 663.93 12/10/2014 EVELIA, SCOTTIE A TIMING INSPECTOR Ot V23.9 12/10/2014 EVELIA SCOTTIE A TIMING INSPECTOR Ot V77.1 12/10/2014 EVELIA, SCOTTIE A TIMING INSPECTOR Ot 656.53 12/10/2014 EVELIA SCOTTIE A TIMING INSPECTOR Ot 658.03 12/10/2014 EVELIA SCOTTIE A TIMING INSPECTOR Ot V23.9 12/10/2014 ANA LAURA BENEDICT TIMING INSPECTOR Ot 623.8 NONINFLAM DIS VAGINA NEC 12/10/2014 ANA LAURA BENEDICT TIMING INSPECTOR Ot 640.03 THREATEN ABORT-ANTEPART 12/10/2014 ANA LAURA BENEDICT TIMING INSPECTOR Ot 654.73 ABNORM VAGINA-ANTEPARTUM 12/31/2014 EVELIA SCOTTIE A TIMING INSPECTOR Ot V28.81 12/31/2014 JUAREZ DOSTEPHANE K Ot V23.9 12/31/2014 JUAREZ DOYUEA K Ot V23.9 12/31/2014 JUAREZ DOYUEA K Ot V28.89 12/31/2014 EVELIAHEVERSCOTTIE A TIMING INSPECTOR Ot V28.89 12/31/2014 EVELIA SCOTTIE A TIMING INSPECTOR Ot 641.93 12/31/2014 DODIE HICKS, ROSALIO Nieto Ot 317 12/31/2014 DODIE HICKS, ROSALIO N Ot V28.81 12/31/2014 DODIE HICKS, ROSALIO N Ot 663.93 12/31/2014 EVELIA, SCOTTIE A TIMING INSPECTOR Ot V23.9 12/31/2014 EVELIA SCOTTIE A TIMING INSPECTOR Ot V77.1 12/31/2014 EVELIA SCOTTIE A TIMING INSPECTOR Ot 656.53 12/31/2014 EVELIA, SCOTTIE A TIMING INSPECTOR Ot 658.03 12/31/2014 EVELIA, SCOTTIE A TIMING INSPECTOR Ot V23.9 01/10/2015 DODIE HICKS, ROSALIO N Ot V23.9 01/10/2015 DODIE HICKS, ROSALIO N Ot V28.81 01/23/2015 EVELIA, SCOTTIE A TIMING INSPECTOR Ot V28.81 01/23/2015 JUAREZ DO, STEPHANE K Ot V23.9 01/23/2015 JUAREZ DO, STEPHANE K Ot V23.9 01/23/2015 JUAREZ DO, STEPHANE K Ot V28.89 01/23/2015 EVELIA, SCOTTIE A TIMING INSPECTOR Ot V28.89 01/23/2015 EVELIA, SCOTTIE A TIMING INSPECTOR Ot 641.93 01/23/2015 DODIE HICKS, ROSALIO N Ot 317 01/23/2015 DODIE HICKS, ROSALIO N Ot V28.81 01/23/2015 DODIE HICKS, ROSALIO N Ot 663.93 01/23/2015 EVELIA, SCOTTIE A TIMING INSPECTOR Ot V23.9 01/23/2015 EVELIA, SCOTTIE A TIMING INSPECTOR Ot V77.1 01/23/2015 EVELIA, SCOTTIE A TIMING INSPECTOR Ot 656.53 01/23/2015 EVELIA, SCOTTIE A TIMING INSPECTOR Ot 658.03 01/23/2015 EVELIA, SCOTTIE A TIMING INSPECTOR Ot V23.9 01/23/2015 DODIE HICKS, ROSALIO N Ot V23.9 01/23/2015 DODIE HICKS, ROSALIO N Ot V28.81 02/10/2015 DODIE HICKS, ROSALIO N Ot O09.92 02/10/2015 DODIE HICKS, ROSALIO N Ot Z36 02/10/2015 DODIE HICKS, ROSALIO N Ot Z3A.22 02/20/2015 EVELIA, SCOTTIE A TIMING INSPECTOR Ot V28.81 02/20/2015 JUAREZ DO, STEPHANE K Ot V23.9 02/20/2015 JUAREZ DO, STEPHANE K Ot V23.9 02/20/2015 JUAREZ DO, STEPHANE K Ot V28.89 02/20/2015 EVELIA, SCOTTIE A TIMING INSPECTOR Ot V28.89 02/20/2015 EVELIA SCOTTIE A TIMING INSPECTOR Ot 641.93 02/20/2015 DODIE HICKS, ROSALIO N Ot 317 02/20/2015 DODIE HICKS, ROSALIO N Ot V28.81 02/20/2015 DODIE HICKS, ROSALIO N Ot 663.93 02/20/2015 EVELIA SCOTTIE A TIMING INSPECTOR Ot V23.9 02/20/2015 EVELIA SCOTTIE A TIMING INSPECTOR Ot V77.1 02/20/2015 EVELIA SCOTTIE A TIMING INSPECTOR Ot 656.53 02/20/2015 EVELIA SCOTTIE A TIMING INSPECTOR Ot 658.03 02/20/2015 HEVER ALTAMIRANOIDI A TIMING INSPECTOR Ot V23.9 02/20/2015 DODIE HICKS, ROSALIO Nieto Ot V23.9 02/20/2015 DODIE HICKS, ROSALIO N Ot V28.81 02/20/2015 DODIE HICKS, ROSALIO N Ot O09.92 02/20/2015 DODIE HICKS, ROSALIO N Ot Z36 02/20/2015 DODIE HICKS, ROSALIO N Ot Z3A.22 03/04/2015 DODIE HICKS, ROSALIO N Ot O09.92 03/06/2015 YUE JUAREZ DOA Georgina Ot O47.03 FALSE LABOR BEFORE 37 COMPLETED WEEKS OF 03/06/2015 YUE JUAREZ DOA K Ot Z3A.29 29 WEEKS GESTATION OF 04/18/2015 SCOTTIE ALTAMIRANO A TIMING INSPECTOR Ot V28.81 04/18/2015 YUE JUAREZ DOA K Ot V23.9 04/18/2015 YUE JUAREZ DOA K Ot V23.9 04/18/2015 JUAREZ DO STEPHANE K Ot V28.89 04/18/2015 EVELIA SCOTTIE A TIMING INSPECTOR Ot V28.89 04/18/2015 HEVER ALTAMIRANOIDI A TIMING INSPECTOR Ot 641.93 04/18/2015 DODIE HICKS, ROSALIO N Ot 317 04/18/2015 DODIE HICKS, ROSALIO N Ot V28.81 04/18/2015 DODIE HICKS, ROSALIO N Ot 663.93 04/18/2015 SCOTTIE ALTAMIRANO A TIMING INSPECTOR Ot V23.9 04/18/2015 EVELIA SCOTTIE A TIMING INSPECTOR Ot V77.1 04/18/2015 EVELIA, SCOTTIE A TIMING INSPECTOR Ot 656.53 04/18/2015 EVELIA, SCOTTIE A TIMING INSPECTOR Ot 658.03 04/18/2015 EVELIA, SCOTTIE A TIMING INSPECTOR Ot V23.9 04/18/2015 DODIE HICKS, ROSALIO N Ot V23.9 04/18/2015 DOIDE HICKS, ROSALIO N Ot V28.81 04/18/2015 DODIE [...] WEEKS GESTATION OF 04/24/2015 EVELIA SCOTTIE A TIMING INSPECTOR Ot V28.81 04/24/2015 JUAREZ DO, STEPHANE K Ot V23.9 04/24/2015 JUAREZ DO, STEPHANE K Ot V23.9 04/24/2015 JUAREZ DO, STEPHANE K Ot V28.89 04/24/2015 EVELIA SCOTTIE A TIMING INSPECTOR Ot V28.89 04/24/2015 EVELIA SCOTTIE A TIMING INSPECTOR Ot 641.93 04/24/2015 DODIE HICKS, RSOALIO N Ot 317 04/24/2015 DODIE HICKS, ROSALIO N Ot V28.81 04/24/2015 DODIE HICKS, ROSALIO N Ot 663.93 04/24/2015 EVELIA, SCOTTIE A TIMING INSPECTOR Ot V23.9 04/24/2015 EVELIA SCOTTIE A TIMING INSPECTOR Ot V77.1 04/24/2015 EVELIA, SCOTTIE A TIMING INSPECTOR Ot 656.53 04/24/2015 EVELIA, SCOTTIE A TIMING INSPECTOR Ot 658.03 04/24/2015 EVELIA SCOTTIE A TIMING INSPECTOR Ot V23.9 04/24/2015 ROSALIO STOLL MD Ot V23.9 04/24/2015 ROSALIO STOLL MD Ot [...] 39 WEEKS GESTATION OF 05/14/2015 SCOTTIE ALTAMIRANO TIMING INSPECTOR Ot V28.81 05/14/2015 JUAREZ DO STEPHANE K Ot V23.9 05/14/2015 JUAREZ DO STEPHANE K Ot V23.9 05/14/2015 JUAREZ DO STEPHANE K Ot V28.89 05/14/2015 SCOTTIE ALTAMIRANO TIMING INSPECTOR Ot V28.89 05/14/2015 SCOTTIE ALTAMIRANO TIMING INSPECTOR Ot 641.93 05/14/2015 ROSALIO STOLL MD Ot 317 05/14/2015 ROSALIO STOLL MD Ot V28.81 05/14/2015 ROSALIO STOLL MD Ot 663.93 05/14/2015 SCOTTIE ALTAMIRANO TIMING INSPECTOR Ot V23.9 05/14/2015 EVELIAHEVERSCOTTIEAMNA Acuna APRN Ot V77.1 05/14/2015 SCOTTIE ALTAMIRANO APRN Ot 656.53 05/14/2015 SCOTTIE ALTAMIRANO APRN Ot 658.03 05/14/2015 SCOTTIE ALTAMIRANO APRN Ot V23.9 05/14/2015 ROSALIO STOLL MD Ot [...] V23.9 SUPRV HIGH-RISK PREG NOS 12/29/2015 STEPHANE UJAREZ DO Ot V28.89 OTHER SPECIFIED SCREENING 12/29/2015 [...] SUPRV HIGH-RISK PREG NOS 12/29/2015 SCOTTIE ALTAMIRANO TIMING INSPECTOR Ot V77.1 SCREEN-DIABETES MELLITUS 12/29/2015 SCOTTIE ALTAMIRANO TIMING INSPECTOR Ot 656.53 POOR GRTH-ANTEPART 12/29/2015 SCOTTIE ALTAMIRANO TIMING INSPECTOR Ot 658.03 OLIGOHYDRAMNIOS-ANTEPAR 12/29/2015 SCOTTIE ALTAMIRANO APRN Ot V23.9 SUPRV HIGH-RISK PREG NOS 12/29/2015 ROSALIO STOLL MD Ot V23.9 SUPRV HIGH-RISK PREG NOS 12/29/2015 ROSALIO STOLL MD Ot V28.81 ENCOUNTER FOR ANATOMIC SURVEY 12/29/2015 ROSALIO STOLL MD Ot O09.92 SUPERVISION OF HIGH RISK , [facility] 12/29/2015 ROSALIO STOLL MD Ot Z36 ENCOUNTER FOR SCREENING OF MOT 12/29/2015 ROSALIO STOLL MD Ot Z3A.22 22 WEEKS GESTATION OF 12/29/2015 ROSALIO STOLL MD Ot O09.92 SUPERVISION OF HIGH RISK , [facility] 12/29/2015 ROSALIO STOLL MD Ot O09.93 SUPERVISION OF HIGH RISK , [facility] 12/29/2015 ROSALIO STOLL MD, Ot Z3A.36 36 WEEKS GESTATION OF 12/29/2015 ANTHONY COCHRAN DO Ot K59.00 CONSTIPATION, UNSPECIFIED 12/29/2015 ANTHONY COCHRAN DO Ot Z53.21 PROC/TRTMT NOT CRD OUT D/T PT LV BEF SEE 12/31/2015 ANTHONY COCHRAN DO Ot K59.00 CONSTIPATION, UNSPECIFIED 12/31/2015 ANTHONY COCHRAN DO Ot Z53.21 PROC/TRTMT NOT CRD OUT D/T PT LV BEF SEE 04/03/2016 EVELIA, SCOTTIE A TIMING INSPECTOR Ot V28.81 ENCOUNTER FOR ANATOMIC SURVEY 04/03/2016 JUAREZ DO, STEPHANE K Ot V23.9 SUPRV HIGH-RISK PREG NOS 04/03/2016 JUAREZ DO, STEPHANE K Ot V23.9 SUPRV HIGH-RISK PREG NOS 04/03/2016 JUAREZ DO, STEPHANE K Ot V28.89 OTHER SPECIFIED SCREENING 04/03/2016 EVELIA SCOTTIE A TIMING INSPECTOR Ot V28.89 OTHER SPECIFIED SCREENING 04/03/2016 SCOTTIE ALTAMIRANO A TIMING INSPECTOR Ot 641.93 ANTEPART HEM NOS-ANTEPAR 04/03/2016 ROSALIO STOLL MD Ot 317 MILD INTELLECTUAL DISABILITIES 04/03/2016 ROSALIO STOLL MD Ot V28.81 ENCOUNTER FOR ANATOMIC SURVEY 04/03/2016 ROSALIO STOLL MD Ot 663.93 CORD COMPL NOS-ANTEPART 04/03/2016 EVELIASCOTTIE GOLD TIMING INSPECTOR Ot V23.9 SUPRV HIGH-RISK PREG NOS 04/03/2016 SCOTTIE ALTAMIRANO TIMING INSPECTOR Ot V77.1 SCREEN-DIABETES MELLITUS 04/03/2016 SCOTTIE ALTAMIRANO A TIMING INSPECTOR Ot 656.53 POOR GRTH-ANTEPART 04/03/2016 SCOTTIE ALTAMIRANO TIMING INSPECTOR Ot 658.03 OLIGOHYDRAMNIOS-ANTEPAR 04/03/2016 SCOTTIE ALTAMIRANO TIMING INSPECTOR Ot V23.9 SUPRV HIGH-RISK PREG NOS 04/03/2016 ROSALIO STOLL MD Ot V23.9 SUPRV HIGH-RISK PREG NOS 04/03/2016 ROSALIO STOLL MD Ot V28.81 ENCOUNTER FOR ANATOMIC SURVEY 04/03/2016 ROSALIO STOLL MD Ot O09.92 SUPERVISION OF HIGH RISK , [facility] 04/03/2016 ROSALIO STOLL MD Ot Z36 ENCOUNTER FOR SCREENING OF MOT 04/03/2016 ROSALIO STOLL MD Ot Z3A.22 22 WEEKS GESTATION OF 04/03/2016 ROSALIO STOLL MD Ot O09.92 SUPERVISION OF HIGH RISK , [facility] 04/03/2016 ROSALIO STOLL MD Ot O09.93 SUPERVISION OF HIGH RISK , [facility] 04/03/2016 ROSALIO STOLL MD, Ot Z3A.36 36 WEEKS GESTATION OF 04/03/2016 ACE HICKS, PAULY Pope Ot R10.84 GENERALIZED ABDOMINAL PAIN 04/03/2016 ACE HICKS, PAULY Pope Ot Z53.21 PROC/TRTMT NOT CRD OUT D/T PT LV BEF SEE 04/05/2016 PAULY BELLO MD Ot R10.84 GENERALIZED ABDOMINAL PAIN 04/05/2016 ACE [...] OTHER VISUAL DISTURBANCES 06/24/2016 ACE HICKS, PAULY T Ot H57.11 OCULAR PAIN, RIGHT EYE 07/19/2016 ANTHONY COCHRAN DO Ot F17.210 NICOTINE DEPENDENCE, CIGARETTES, UNCOMPL 07/19/2016 ANTHONY COCHRAN DO, Ot M94.0 CHONDROCOSTAL JUNCTION SYNDROME [TIETZE] 07/19/2016 ANTHONY COCHRAN DO, Ot R05 COUGH 07/19/2016 ANTHONY COCHRAN DO Ot R07.89 OTHER CHEST PAIN 09/21/2016 ANTHONY COCHRAN DO, Ot N92.0 EXCESSIVE AND FREQUENT MENSTRUATION WITH 09/21/2016 ANTHONY COCHRAN DO Ot N93.8 OTHER SPECIFIED ABNORMAL UTERINE AND VAG 10/02/2016 ANTHONY COCHRAN DO, Ot N92.0 EXCESSIVE AND FREQUENT MENSTRUATION WITH 10/02/2016 ANTHONY COCHRAN DO Ot N93.8 OTHER SPECIFIED ABNORMAL UTERINE AND VAG 11/21/2016 EVELIA, SCOTTIE A TIMING INSPECTOR Ot V28.81 ENCOUNTER FOR ANATOMIC SURVEY 11/21/2016 JUAREZ DO, STEPHANE K Ot V23.9 SUPRV HIGH-RISK PREG NOS 11/21/2016 JUAREZ DO, STEPHANE K Ot V23.9 SUPRV HIGH-RISK PREG NOS 11/21/2016 JUAREZ DO, STEPHANE K Ot V28.89 OTHER SPECIFIED SCREENING 11/21/2016 SCOTTIE ALTAMIRANO TIMING INSPECTOR Ot V28.89 OTHER SPECIFIED SCREENING 11/21/2016 SCOTTIE ALTAMIRANO TIMING INSPECTOR Ot 641.93 ANTEPART HEM NOS-ANTEPAR 11/21/2016 ROSALIO STOLL MD Ot 317 MILD INTELLECTUAL DISABILITIES 11/21/2016 ROSALIO STOLL MD Ot V28.81 ENCOUNTER FOR ANATOMIC SURVEY 11/21/2016 ROSALIO STOLL MD Ot 663.93 CORD COMPL NOS-ANTEPART 11/21/2016 SCOTTIE ALTAMIRANO TIMING INSPECTOR Ot V23.9 SUPRV HIGH-RISK PREG NOS 11/21/2016 SCOTTIE ALTAMIRANO TIMING INSPECTOR Ot V77.1 SCREEN-DIABETES MELLITUS 11/21/2016 SCOTTIE ALTAMIRANO TIMING INSPECTOR Ot 656.53 POOR GRTH-ANTEPART 11/21/2016 SCOTTIE ALTAMIRANO TIMING INSPECTOR Ot 658.03 OLIGOHYDRAMNIOS-ANTEPAR 11/21/2016 SCOTTIE ALTAMIRANO APRN Ot V23.9 SUPRV HIGH-RISK PREG NOS 11/21/2016 ROSALIO STOLL MD Ot V23.9 SUPRV HIGH-RISK PREG NOS 11/21/2016 ROSALIO STOLL MD Ot V28.81 ENCOUNTER FOR ANATOMIC SURVEY 11/21/2016 ROSALIO STOLL MD Ot O09.92 SUPERVISION OF HIGH RISK , [facility] 11/21/2016 ROSALIO STOLL MD Ot Z36 ENCOUNTER FOR SCREENING OF MOT 11/21/2016 ROSALIO STOLL MD, Ot Z3A.22 22 WEEKS GESTATION OF 11/21/2016 ROSALIO STOLL MD Ot O09.92 SUPERVISION OF HIGH RISK , [facility] 11/21/2016 ROSALIO STOLL MD Ot O09.93 SUPERVISION OF HIGH RISK , [facility] 11/21/2016 CARMELA STOLL MDY N Ot Z3A.36 36 WEEKS GESTATION OF 11/21/2016 ROJELIO [place] YISSEL Georgina Ot F32.9 MAJOR DEPRESSIVE DISORDER, SINGLE EPISOD 11/21/2016 YISSEL SERRATO DO Ot F41.9 ANXIETY DISORDER, UNSPECIFIED 11/21/2016 ROJELIO [place] YISSEL K Ot G40.909 EPILEPSY, UNSP, NOT INTRACTABLE, WITHOUT 11/21/2016 ROJELIO [place] Y[place]SEL K Ot S63.92XA SPRAIN OF UNSP PART OF LEFT WRIST AND [place] 11/21/2016 ROJELIO [place] Y[place]SEL K Ot S69.92XA UNSP INJURY OF LEFT WRIST, HAND AND FING 11/21/2016 YISSEL SERRATO DO Ot W08.XXXA FALL FROM OTHER FURNITURE, INITIAL ENCOU 11/21/2016 YISSEL SERRATO DO Ot W22.03XA WALKED INTO FURNITURE, INITIAL ENCOUNTER 11/21/2016 YISSEL SERRATO DO Ot Z87.81 PERSONAL HISTORY OF (HEALED) TRAUMATIC F 11/21/2016 YISSEL SERRATO DO Ot Z87.891 PERSONAL HISTORY OF NICOTINE DEPENDENCE 11/21/2016 YISSEL SERRATO DO Ot Z98.51 TUBAL LIGATION STATUS 11/24/2016 YISSEL SERRATO DO Ot F32.9 MAJOR DEPRESSIVE DISORDER, SINGLE EPISOD 11/24/2016 ROJELIO [place] YISSEL K Ot F41.9 ANXIETY DISORDER, UNSPECIFIED 11/24/2016 ROJELIO [place] YISSEL K Ot G40.909 EPILEPSY, UNSP, NOT INTRACTABLE, WITHOUT 11/24/2016 YISSEL SERRATO DO Ot S63.92XA SPRAIN OF UNSP PART OF LEFT WRIST AND [place] 11/24/2016 YISSEL SERRATO DO Ot S69.92XA UNSP INJURY OF LEFT WRIST, HAND AND FING 11/24/2016 YISSEL SERRATO DO Ot W08.XXXA FALL FROM OTHER FURNITURE, INITIAL ENCOU 11/24/2016 YISSEL SERRATO DO Ot W22.03XA WALKED INTO FURNITURE, INITIAL ENCOUNTER 11/24/2016 YISSEL SERRATO DO Ot Z87.81 PERSONAL HISTORY OF (HEALED) TRAUMATIC F 11/24/2016 YISSEL SERRATO DO Ot Z87.891 PERSONAL HISTORY OF NICOTINE DEPENDENCE 11/24/2016 YISSEL SERRATO DO Ot Z98.51 TUBAL LIGATION STATUS Procedures Code Description [place] [address] URINE TEST (IN- HOUSE) 06/09/2012 09203 UA W/ CULTURE IF INDICATED 06/09/2012 97361 CULTURE URINE 06/11/2012 56728 ROUTINE VENIPUNCTURE 07/12/2012 89360 UA LONG DIP 07/12/2012 90772 CBC 07/12/2012 35634 TSH 07/12/2012 88087 BLOOD TYPE/Rh FACTOR 07/12/2012 8077701 ANTIBODY SCREEN (RESULT ONLY) 07/12/2012 89543 HIV ANTIBODIES (RML) 07/12/2012 20478 RUBELLA ANTIBODY, IGG 07/13/2012 61590 SYPHILLIS-[facility] 07/13/2012 79237 ANTIBODY SCREEN (order) 07/13/2012 48506 CULTURE URINE 07/13/2012 52993 HEP B SURFACE ANTIGEN (STATE ) 07/13/2012 69563 UA OB DIP 08/11/2012 48274 TRICHOMONAS (IN-HOUSE) 08/11/2012 45262 US OB - COMPLETE >14 WEEKS 08/13/2012 83165 CULTURE URINE 08/13/2012 92480 CULTURE UROGENITAL 08/14/2012 37051 GC/CHLAM PROBE (STATE) 08/14/2012 96531 UA OB DIP 09/12/2012 39394 CULTURE URINE 09/13/2012 21366 US OB - COMPLETE >14 WEEKS 09/13/2012 34283 ROUTINE VENIPUNCTURE 10/09/2012 55444 UA OB DIP 10/09/2012 05185 CBC 10/09/2012 60252 GLUCOSE VEENA 1 HOUR 10/09/2012 12521 US OB - LIMITED 11/08/2012 18836 UA OB DIP 11/20/2012 39184 UA OB DIP 12/04/2012 33753 UA OB DIP 12/21/2012 50951 CULTURE GROUP B STREP VAG 12/23/2012 22485 ROUTINE VENIPUNCTURE 12/27/2012 17847 UA LONG DIP 12/27/2012 39936 CMP 12/27/2012 19520 LDH 12/27/2012 50106 URIC ACID 12/27/2012 82398 CBC 12/27/2012 14398 URINE PROTEIN 24 HOUR 12/29/2012 PRO/CRE URINE PROTEIN TO CREATNINE RATIO 12/29/2012 80274 ROUTINE VENIPUNCTURE 01/01/2013 61409 NON-STRESS TEST 01/01/2013 45817 UA OB DIP 01/01/2013 33912 CMP 01/02/2013 05845 URIC ACID 01/02/2013 62680 LDH 01/02/2013 2169133 GFR CALC (RESULT ONLY) 01/02/2013 68574 CBC 01/02/2013 62183 DIFFERENTIAL WBC COUNT (CBC DIFF RESULT) 01/02/2013 73.59 MANUAL ASSIST DELIV NEC 01/04/2013 96.49 OTHER INSTILLATION 01/04/2013 78511 URINE TEST (IN- HOUSE) 04/02/2013 32275 US OB - EARLY <14 WEEKS 04/02/2013 09263 UA W/ CULTURE IF INDICATED 04/26/2013 98816 TRICHOMONAS (IN-HOUSE) 04/26/2013 07304 OB - FOLLOW UP 04/26/2013 79329 GC/CHLAM PROBE ([facility]) 04/26/2013 33856 CULTURE URINE 04/28/2013 40926 CULTURE UROGENITAL 04/29/2013 21720 ROUTINE VENIPUNCTURE 05/10/2013 11360 SYPHILLIS-[facility] 05/10/2013 88509 HIV ([facility]) 05/10/2013 26708 ANTIBODY SCREEN (order) 05/10/2013 24394 HEP B SURFACE ANTIGEN ([facility] ) 05/10/2013 86947 UA OB DIP 05/10/2013 03574 CBC 05/11/2013 0019867 ANTIBODY SCREEN (RESULT ONLY) 05/12/2013 38038 PSYCH DIAGNOSTIC EVALUATION 05/21/2013 59045 PSYCHO TESTING 1 HR W TECH 05/25/2013 75884 PSYCHO TESTING 1 HR W COMP 05/31/2013 12247 ROUTINE VENIPUNCTURE 06/07/2013 80232 UA OB DIP 06/07/2013 TETRA TETRA SCREEN 06/07/2013 26951 PSYTX PT&/FAMILY 45 MINUTES 07/04/2013 44886 UA OB DIP 07/05/2013 80475 US OB - COMPLETE >14 WEEKS 07/05/2013 55699 US OB - FOLLOW UP 08/09/2013 52755 CULTURE URINE 08/09/2013 OBSTETRIC LUCA BASS 08/09/2013 89210 UA W/ CULTURE IF INDICATED 08/09/2013 18195 ROUTINE VENIPUNCTURE 09/12/2013 59608 GLUCOSE VEENA 3 HOUR 09/12/2013 15537 UA OB DIP 09/12/2013 95921 CBC 09/12/2013 50010 GLUCOSE VEENA 1 HOUR 09/12/2013 08087 UA OB DIP 09/25/2013 91894 UA LONG DIP 10/11/2013 11345 CULTURE URINE 10/13/2013 23945 UA OB DIP 10/23/2013 26631 NON-STRESS TEST 10/23/2013 46531 CULTURE GROUP B STREP VAG 10/23/2013 56322 NON-STRESS TEST 10/29/2013 20638 UA OB DIP 10/31/2013 08494 NON-STRESS TEST 11/01/2013 45345 BIOPHYSICAL PROFILE () W/O NST 11/01/2013 82079 UA W/ CULTURE IF INDICATED 11/05/2013 25235 CULTURE URINE 11/05/2013 34431 UA OB DIP 11/06/2013 91581 UA OB DIP 11/13/2013 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 11/14/2013 73.59 MANUAL ASSIST DELIV NEC 11/14/2013 29718 THERAPUTIC INJ SQ/IM 11/19/2013 J1050 DEPO PROVERA 11/19/2013 84880 TEST, URINE (IN- HOUSE) 12/31/2013 36916 TEST, URINE (IN- HOUSE) 01/29/2014 74971 IMPLANON INSERTION 01/30/2014 J7307 ETONOGESTREL IMPLANT SYSTEM 01/30/2014 35926 TEST, URINE (IN- HOUSE) 01/30/2014 28079 URINE DRUG SCREEN (IN-HOUSE ) 01/31/2014 33972 ROUTINE VENIPUNCTURE 07/30/2014 31212 TEST, SERUM (RML) 07/30/2014 [id number] DELIVERY OF PRODUCTS OF CONCEPTION, EXTE 05/14/2015 [id number] INTRODUCTION OF OTH HORMONE INTO PERIPH 05/14/2015 Results Test Result Range Complete blood count (CBC) with automated white blood cell (WBC) differential - 05/17/16 12:05 Blood leukocytes automated count (number/volume) 7.2 10*3/uL 4.3-11.0 Blood erythrocytes automated count (number/volume) 4.60 10*6/uL 4.35-5.85 Venous blood hemoglobin measurement (mass/volume) 13.3 [...] Automated blood platelet mean volume measurement 11.7 [foz_us] 7.4-10.4 Automated blood neutrophils/100 leukocytes 56 % [...] Serum or plasma sodium measurement (moles/volume) 139 mmol/L 135-145 Serum or plasma potassium measurement (moles/volume) 4.2 mmol/L 3.6-5.0 Serum or plasma chloride measurement (moles/volume) 107 mmol/L 98-107 Carbon dioxide 25 mmol/L 21-32 Serum or plasma anion gap determination (moles/volume) 7 mmol/L 5-14 Serum or plasma urea nitrogen measurement (mass/volume) 9 mg/dL 7-18 Serum or plasma creatinine measurement (mass/volume) 0.71 mg/dL 0.60-1.30 Serum or plasma urea nitrogen/creatinine mass [...] 21:30 Blood leukocytes automated count (number/volume) 10.1 10*3/uL 4.3-11.0 Blood erythrocytes automated count (number/volume) 4.75 10*6/uL 4.35-5.85 Venous blood hemoglobin measurement (mass/volume) 13.3 [...] Automated blood platelet mean volume measurement 11.9 [foz_us] 7.4-10.4 Automated blood neutrophils/100 leukocytes 63 % [...] Serum or plasma sodium measurement (moles/volume) 140 mmol/L 135-145 Serum or plasma potassium measurement (moles/volume) 3.7 mmol/L 3.6-5.0 Serum or plasma chloride measurement (moles/volume) 106 mmol/L 98-107 Carbon dioxide 25 mmol/L 21-32 Serum or plasma anion gap determination (moles/volume) 9 mmol/L 5-14 Serum or plasma urea nitrogen measurement (mass/volume) 11 mg/dL 7-18 Serum or plasma creatinine measurement (mass/volume) 0.77 mg/dL 0.60-1.30 Serum or plasma urea nitrogen/creatinine mass [...] or plasma troponin i.cardiac measurement (mass/volume) < ng/ mL <0.30 Encounters ACCT No. Visit Date/Time Discharge Status Pt. Type Provider Facility Loc./Unit Complaint [id number] 07/30/2014 10:41:00 07/30/2014 23:59:59 CLS Outpatient COLTEN WHITE APRN [id number] 07/16/2014 18:25:00 07/16/2014 23:59:59 CLS Outpatient CHRISTOPHER SORIANOCOLTEN Nieto [id number] 07/02/2014 14:48:00 07/02/2014 23:59:59 CLS Outpatient EVELIASCOTTIE GOLD APRN A [id number] 02/04/2014 14:21:00 02/04/2014 23:59:59 CLS Outpatient SCOTTIE ALTAMIRANO APRN A [id number] 01/30/2014 13:50:00 01/30/2014 23:59:59 [facility] Outpatient SOCTTIE ALTAMIRANO APRN A [id number] 01/29/2014 11:42:00 01/29/2014 23:59:59 CLS Outpatient EVELIASCOTTIE GOLD APRN A [id number] 12/31/2013 11:11:00 12/31/2013 23:59:59 CLS Outpatient SCOTTIE ALTAMIRANO APRN A [id number] 12/31/2013 11:11:00 12/31/2013 23:59:59 CLS Outpatient SCOTTIE ALTAMIRANO APRN A [id number] 11/13/2013 13:38:00 11/13/2013 23:59:59 CLS Outpatient ROSALIO STOLL MD [id number] 11/06/2013 15:30:00 11/06/2013 23:59:59 CLS Outpatient ROSALIO STOLL MD [id number] 11/05/2013 12:31:00 11/05/2013 23:59:59 [facility] Outpatient SCOTTIE ALTAMIRANO APRN A [id number] 11/05/2013 12:31:00 11/05/2013 23:59:59 CLS Outpatient SCOTTIE ALTAMIRANO APRN A [id number] 11/01/2013 14:26:00 11/01/2013 23:59:59 [facility] Outpatient SCOTTIE ALTAMIRANO APRN A [id number] 10/31/2013 11:37:00 10/31/2013 23:59:59 CLS Outpatient STEPHANE JUAREZ DO [id number] 10/29/2013 11:33:00 10/29/2013 23:59:59 CLS Outpatient SCOTTIE ALTAMIRANO APRN [id number] 10/23/2013 14:50:00 10/23/2013 23:59:59 CLS Outpatient ROSALIO STOLL MD [id number] 10/11/2013 16:01:00 10/11/2013 23:59:59 CLS Outpatient SCOTTIE ALTAMIRANO APRN [id number] 09/25/2013 14:03:00 09/25/2013 23:59:59 CLS Outpatient STEPHANE JUAREZ DO [id number] 09/12/2013 07:46:00 09/12/2013 23:59:59 CLS Outpatient SCOTTIE ALTAMIRANO APRN [place] [id number] 08/09/2013 11:25:00 08/09/2013 23:59:59 CLS Outpatient ROSALIO STOLL MD [id number] 08/09/2013 11:25:00 08/09/2013 23:59:59 CLS Outpatient ROSALIO STOLL MD [id number] 07/05/2013 07:48:00 07/05/2013 23:59:59 CLS Outpatient ROSALIO STOLL MD [id number] 07/05/2013 07:48:00 07/05/2013 23:59:59 CLS Outpatient ROSALIO STOLL MD [id number] 07/03/2013 13:41:00 07/03/2013 23:59:59 CLS Outpatient HANS JOHNSTON PHD [id number] 06/07/2013 11:52:00 06/07/2013 23:59:59 CLS Outpatient ROSALIO STOLL MD [id number] 05/30/2013 11:41:00 05/30/2013 23:59:59 CLS Outpatient HANS JOHNSTON PHD [id number] 05/24/2013 17:15:00 05/24/2013 23:59:59 CLS Outpatient HANS JOHNSTON PHD [id number] 05/17/2013 09:47:00 05/17/2013 23:59:59 CLS Outpatient HANS JOHNSTON PHD [id number] 05/10/2013 14:06:00 05/10/2013 23:59:59 CLS Outpatient SCOTTIE ALTAMIRANO APRN [id number] 2013 06:11:00 2013 23:59:59 CLS Outpatient [id number] 04/26/2013 13:40:00 04/26/2013 23:59:59 CLS Outpatient SCOTTIE ALTAMIRANO APRN [id number] 04/02/2013 16:07:00 04/02/2013 23:59:59 CLS Outpatient SCOTTIE ALTAMIRANO APRN [id number] 01/01/2013 15:05:00 01/01/2013 23:59:59 CLS Outpatient STEPHANE JUAREZ DO [id number] 01/01/2013 15:05:00 01/01/2013 23:59:59 CLS Outpatient STEPHANE JUAREZ DO [id number] 07/12/2012 11:33:00 07/12/2012 23:59:59 CLS Outpatient SCOTTIE ALTAMIRANO APRN [id number] 06/09/2012 11:45:00 06/09/2012 23:59:59 CLS Outpatient STEPHANE JUAREZ DO [id number] 12/28/2012 17:20:00 Document Registration [id number] 12/27/2012 14:10:00 Document Registration [id number] 12/21/2012 14:19:00 Document Registration [id number] 11/20/2012 14:20:00 Document Registration [id number] 11/08/2012 14:18:00 Document Registration [id number] 10/09/2012 14:33:00 Document Registration [id number] 09/12/2012 09:50:00 Document Registration [id number] 08/19/2012 11:14:00 Document Registration [id number] 08/11/2012 08:50:00 Document Registration [id number] 01/06/2017 10:30:00 01/06/2017 23:59:59 CLS Preadmit DODIE HICKS, ROSALIO Nieto [facility] RAD N92.1 [id number] 11/21/2016 16:16:00 11/21/2016 17:21:00 DIS Emergency YISSEL SERRATO DO [facility] ER L HAND INJ [id number] 07/19/2016 20:35:00 07/19/2016 22:49:00 DIS Emergency ANTHONY COCHRAN DO [facility] ER DIZZINESS/CHEST AND RIB PAIN [id number] 06/23/2016 21:45:00 06/23/2016 23:12:00 DIS Emergency PAULY BELLO MD [facility] ER RT EYE PAIN [id number] 05/17/2016 10:18:00 05/17/2016 14:15:00 DIS Emergency ANTHONY COCHRAN DO [facility] ER VAG BLEEDING [id number] 04/03/2016 13:00:00 04/03/2016 14:03:00 DIS Emergency PAULY BELLO MD [facility] ER ABD PAIN/VAG BLEEDING [id number] 12/29/2015 20:58:00 12/29/2015 22:01:00 DIS Emergency ANTHONY COCHRAN DO [facility] ER CONSTIPATED [id number] 10/04/2015 14:18:00 10/04/2015 23:59:59 CLS Outpatient ELMER FIGUEREDO DO [facility] QUICK [id number] 05/12/2015 16:48:00 05/12/2015 18:13:00 DIS Outpatient ROSALIO STOLL MD [facility] CTXS [id number] 05/05/2015 18:50:00 05/05/2015 20:23:00 DIS Outpatient ROSALIO STOLL MD [facility] CTXS [id number] 2015 16:51:00 2015 17:32:00 DIS Outpatient ROSALIO STOLL MD [facility] WATER BROKE [id number] 04/25/2015 19:32:00 04/25/2015 21:17:00 DIS Outpatient JED AGUILERA MD [facility] ABD PAIN [id number] 04/24/2015 13:13:00 04/24/2015 23:59:59 CLS Outpatient ROSALIO STOLL MD [facility] RAD SMALL FOR DATES [id number] 04/18/2015 14:48:00 04/18/2015 16:35:00 DIS Outpatient ROSALIO STOLL MD [facility] WSo RIB CAGE PAIN/VAG PRESSURE [id number] 03/06/2015 18:12:00 03/06/2015 19:30:00 DIS Outpatient STEPHANE JUAREZ DO [facility] WSo C/O CONTRACTIONS [id number] 02/20/2015 10:11:00 02/20/2015 23:59:59 CLS Outpatient ROSALIO STOLL MD [facility] RAD F/U PLACENTA LOCATION [id number] 01/23/2015 12:15:00 01/23/2015 23:59:59 CLS Outpatient ROSALIO STOLL MD [facility] RAD FOLLOW UP POOR VISUALIZATION HEART [id number] 12/31/2014 10:28:00 12/31/2014 23:59:59 CLS Outpatient ROSALIO STOLL MD [facility] RAD ANATOMY [id number] 12/10/2014 14:22:00 12/10/2014 15:49:00 DIS Emergency ANA LAURA BENEDICT TIMING INSPECTOR [facility] ER VAG BLEEDING 17 WKS PREG [id number] 11/02/2014 13:16:00 11/02/2014 13:50:00 DIS Emergency ANA LAURA BENEDICT TIMING INSPECTOR [facility] ER LOWER ABD PAIN,12 WEEKS [id number] 10/12/2014 17:24:00 10/12/2014 19:16:00 DIS Emergency ANA LAURA BENEDICT TIMING INSPECTOR [facility] ER STOMACH PAINS/ [id number] 09/23/2014 13:42:00 09/23/2014 23:59:59 CLS Outpatient SCOTTIE ALTAMIRANO TIMING INSPECTOR [facility] RAD DATING [id number] 01/29/2014 18:31:00 01/29/2014 20:28:00 DIS Emergency YISSEL SERRATO DO [facility] ER VOMITING,THROAT PAIN [id number] 11/13/2013 15:18:00 11/16/2013 16:00:00 DIS Inpatient ROSALIO SOTLL MD [facility] LDRP INDUCTION [id number] 11/01/2013 15:34:00 11/01/2013 23:59:59 CLS Outpatient SCOTTIE ALTAMIRANO TIMING INSPECTOR [facility] RAD IUGR OLIG HYDRAMOS [id number] 10/23/2013 17:42:00 10/23/2013 18:00:00 DIS Outpatient STEPHANE JUAREZ DO [facility] WSo DECREASED MOVEMENT [id number] 10/20/2013 16:54:00 10/20/2013 19:46:00 DIS Outpatient YUE JUAREZ DOA Georgina [facility] WSo BACK/ABD PAIN [id number] 09/13/2013 08:30:00 09/13/2013 23:59:59 CLS Outpatient SCOTTIE ALTAMIRANO APRN [facility] LAB HIGH RISK, DIABETES SCREENING [id number] 08/31/2013 08:54:00 08/31/2013 23:59:59 CLS Outpatient ROSALIO STOLL MD [facility] RAD F/U 2 VESSEL CORD, GROWTH [id number] 08/12/2013 21:56:00 08/12/2013 22:22:00 DIS Emergency ROJELIO YISSEL K [facility] ER HEMORRHOIDS [id number] 07/13/2013 14:26:00 07/13/2013 23:59:59 CLS Outpatient ROSALIO STOLL MD [facility] RAD ANATOMY [id number] 05/10/2013 21:56:00 05/10/2013 22:58:00 DIS Emergency AKBAR BAILEY MD [facility] ER LEG RASH @ 11 WEEKS, DIZZINESS [id number] 05/02/2013 11:58:00 05/02/2013 23:59:59 CLS Outpatient SCOTTIE ALTAMIRANO TIMING INSPECTOR [facility] RAD F/U SUBCHORIONIC HEMORRHAGE [id number] 04/06/2013 14:55:00 04/06/2013 23:59:59 CLS Outpatient SCOTTIE ALTAMIRANO TIMING INSPECTOR [facility] RAD DATING,UNKNOWN LMP [id number] 03/17/2013 20:56:00 03/17/2013 21:54:00 DIS Emergency ANA LAURA BENEDICT APRN [facility] ER FALL; LEG PAIN [id number] 01/03/2013 17:10:00 01/06/2013 20:15:00 DIS Inpatient STEPHANE JUAREZ DO [facility] WS INDUCTION [id number] 11/24/2012 20:05:00 11/24/2012 22:20:00 DIS Outpatient STEPHANE JUAREZ DO [facility] WSo LOWER ABD PAIN [id number] 11/23/2012 13:46:00 11/23/2012 23:59:59 CLS Outpatient STEPHANE JUAREZ DO [facility] RAD CHECK KAREN [id number] 11/13/2012 10:57:00 11/13/2012 23:59:59 CLS Outpatient STEPHANE JUAREZ DO [facility] RAD FOLLOW-UP SURVEY [id number] 11/04/2012 17:48:00 11/04/2012 19:44:00 DIS Outpatient STEPHANE JUAREZ DO [facility] WSo N/V, HEADACHE [id number] 10/13/2012 00:00:00 10/13/2012 00:52:00 DIS Emergency PAULY BELLO MD [facility] ER SWOLLEN JAW/DENTAL PAIN [id number] 10/11/2012 22:02:00 10/12/2012 00:02:00 DIS Emergency PAULY BELLO MD [facility] ER SWOLLEN JAW [id number] 09/18/2012 15:23:00 09/18/2012 23:59:59 CLS Outpatient SCOTTIE ALTAMIRANO TIMING INSPECTOR [facility] RAD SURVEY [id number] 08/13/2012 18:32:00 08/13/2012 20:14:00 DIS Emergency AKBAR BAILEY MD [facility] ER R SIDE ABDOMINAL PAIN LESS THAN 20 WEEKS [id number] 05/14/2015 05:50:00 ACT Inpatient ROSALIO STOLL MD [facility] LDRP INDUCTION [id number] 06/20/2014 23:57:00 Document Registration [id number] 06/12/2011 08:59:00 Document Registration
== END 2017-04-28 12:06 | disposition left against medical advice (07) ==
LOC: EDUNIT# 11:06 → ER 11:09
DX: M25.532 Pain in left wrist (principal)

== ENCOUNTER 2018-03-18 23:20 | Inpatient (IN) | payer MEDICAID ==
[~2018-03-18] VITALS: Ht 157.5 cm; Wt 88.7 kg
[2018-03-18] MEDS ORDERED: LACTATED RINGERS 1,000 ML IV ONE (23:33)
[2018-03-18] MEDS ORDERED: ONDANSETRON 4 MG/2 ML (SDV) Z0FRAN IVP ONE (23:45)
[2018-03-18] MEDS ORDERED: ACETAMINOPHEN 500 MG TAB (TYLENOL) PO ONE (23:45)
[2018-03-18] MEDS ORDERED: IBUPROFEN 800 MG (MOTRIN) TAB PO ONE (23:45)
[2018-03-18 23:48] LABS: BASOPHILS % (AUTO) 0 % (0-10); EOSINOPHILS % (AUTO) 0 % (0-10); HEMATOCRIT 32 % (35-52); HEMOGLOBIN 10.7 G/DL (11.5-16.0); LYMPHOCYTES # (AUTO) 0.8 X 10^3 (1.0-4.0); LYMPHOCYTES % (AUTO) 7 % (12-44); MEAN CORPUSCULAR HEMOGLOBIN 26 PG (25-34); MEAN CORPUSCULAR HGB CONC 33 G/DL (32-36); MEAN CORPUSCULAR VOLUME 78 FL (80-99); MONOCYTES # (AUTO) 0.6 X 10^3 (0.0-1.0); MONOCYTES % (AUTO) 5 % (0-12); NEUTROPHILS # (AUTO) 10.1 X 10^3 (1.8-7.8); NEUTROPHILS % (AUTO) 88 % (42-75); PLATELET COUNT 157 10^3/uL (130-400); RED BLOOD COUNT 4.15 10^6/uL (4.35-5.85); RED CELL DISTRIBUTION WIDTH 16.6 % (10.0-14.5); WHITE BLOOD COUNT 11.5 10^3/uL (4.3-11.0)
[2018-03-19 00:01] LABS: INR 1.1 (0.8-1.4); PROTHROMBIN TIME PATIENT 14.7 SEC (12.2-14.7)
[2018-03-19 00:10] LABS: ALANINE AMINOTRANSFERASE 9 U/L (0-55); ALBUMIN 3.6 GM/DL (3.2-4.5); ALKALINE PHOSPHATASE 111 U/L (40-136); AMYLASE 33 U/L (25-125); BILIRUBIN,TOTAL 0.3 MG/DL (0.1-1.0); BUN/CREATININE RATIO 11; CALCIUM 8.7 MG/DL (8.5-10.1); CARBON DIOXIDE 15 MMOL/L (21-32); CHLORIDE 106 MMOL/L (98-107); CREATININE SERUM 0.72 MG/DL (0.60-1.30); GFR ESTIMATED > 60; GLUCOSE 127 MG/DL (70-105); LIPASE 9 U/L (8-78); MAGNESIUM 1.4 MG/DL (1.8-2.4); POTASSIUM 2.9 MMOL/L (3.6-5.0); SODIUM 134 MMOL/L (135-145)
[2018-03-19] MEDS ORDERED: IOHEXOL 350 MG/ML 100 ML (OMNIPAQUE 350) VIAL IV ONE (00:30)
[2018-03-19] MEDS ORDERED: RECEIVED CONTRAST (Hold Metformin) IV SCH (00:30)
[2018-03-19] MEDS ORDERED: 1/2 NS W/KCL 20 MEQ/L 1,000 ML IV SCH (00:30)
[2018-03-19] MEDS ORDERED: NS 250 ML (IVPB) BAG IV ONE (00:30)
[2018-03-19] MEDS ORDERED: D5 1/2 NS W/KCL 20 MEQ/L 1,000 ML IV ONE (00:37)
[2018-03-19 01:20] LABS: BILIRUBIN,URINE NEGATIVE (NEGATIVE); CLARITY,URINE SLIGHTLY CLOUDY; COLOR,URINE YELLOW; GLUCOSE, URINE (UA) NEGATIVE (NEGATIVE); KETONES,URINE NEGATIVE (NEGATIVE); LEUKOCYTE ESTERASE ,URINE 3+ (NEGATIVE); NITRITE,URINE NEGATIVE (NEGATIVE); PH,URINE 5 (5-9); PROTEIN,URINE 2+ (NEGATIVE); UROBILINOGEN,URINE NORMAL (NORMAL)
[2018-03-19 01:25] LABS: BACTERIA,URINE TRACE /HPF
[2018-03-19] MEDS ORDERED: NS IV 1000 ML 1,000 ML IV ONE (01:27)
[2018-03-19 01:43] LABS: AMPHETAMINE SCREEN, URINE NEGATIVE (NEGATIVE); BARBITURATE SCREEN URINE NEGATIVE (NEGATIVE); BENZODIAZEPINES SCREEN URINE NEGATIVE (NEGATIVE); CANNABINOID SCREEN, URINE NEGATIVE (NEGATIVE); COCAINE SCREEN URINE NEGATIVE (NEGATIVE); METHADONE STAT NEGATIVE (NEGATIVE); METHAMPHETAMINE SCREEN URINE S NEGATIVE (NEGATIVE); OPIATE SCREEN URINE NEGATIVE (NEGATIVE); OXYCODONE STAT NEGATIVE (NEGATIVE); PROPOXYPHENE STAT NEGATIVE (NEGATIVE); TRICYCLIC ANTIDEPRESSANTS SCRE NEGATIVE (NEGATIVE)
[2018-03-19] MEDS ORDERED: KETOROLAC 30 MG/ML VIAL IVP ONE (01:45)
[2018-03-19] MEDS ORDERED: cefTRIAXone FOR IV USE 1,000 MG in NS (IVPB) 50 ML IV ONE (01:45)
[2018-03-19] MEDS ORDERED: LACTATED RINGERS 1,000 ML IV ONE (02:22)
[2018-03-19 03:15] VITALS: BP 96/51
--- NOTE | 2018-03-19 04:37 | ED GI ---
General Chief Complaint: Abdominal/GI Problems Stated Complaint: SEPSIS;COLITIS;GASTROENTERITIS;UTI Nursing Triage Note: PT TO ROOM #1 VIA [facility] CART FROM HOME. C/O N/V FOR APPROX 15 MIN PRIOR TO EMS ARRIVAL. EMS ACCESSED 20G IV TO LT AC AND INFUSED 4MG ZOFRAN IN TRANSIT TO ED. UPON ARRIVAL TO ED PT HAS 1L NS BOLUS INFUSING. PT NOTED TO BE PALE, DIAPHORETIC, AND SATURATED IN OWN EMESIS. INITIAL TYMPANIC TEMP 103.3. EMS REPORTS PT HX OF MR AND SPEECH IMPAIRMENT. PT NOTED TO BE DROWSY AND WILL ANSWER SIMPLE COMMAND QUESTION. ALERT TO PERSON, PLACE, TIME, AND SITUATION AFTER NUMEROUS PROMPTINGS FROM NURSE. Sepsis Screen: No Definite Risk Source of Information: Patient (VERY LIMITED HISTORIAN--PT WITH MR/LOW IQ), EMS , Old Records History of Present Illness Date Seen by Provider: Mar 18, 2018 Time Seen by Provider: 23:25 Initial Comments PT ARRIVES VIA EMS FROM HOME C/O NAUSEA AND VOMITING --BEGAN 15 MINUTES PRIOR TO ARRIVAL STATES SHE ATE A SANDWICH AND HAD SOME MT. DEW AND THEN VOMITED PT WAS GIVEN ZOFRAN 4 MG BY EMS NO DIARRHEA NO ABDOMINAL PAIN NO PAIN ON URINATION TEMP IS 103.3 ON ARRIVAL--PT UNAWARE OF FEVER NO OTHER RELEVANT INFORMATION AVAILABLE FROM PT. LMP--UNKNOWN. PT HAS HAD BTL Allergies and Home Medications Allergies Coded Allergies: hydrocodone (Verified Allergy, Severe, ANAPHYLAXIS, 05/10/13) latex (Verified Allergy, Unknown, EDEMA, 10/20/13) Uncoded Allergies: BEES (Allergy, Unknown, 09/06/05) Patient Home Medication List Home Medication List Reviewed: Yes Review of Systems Review of Systems Constitutional: see HPI, fever, weakness Respiratory: No Symptoms Reported Cardiovascular: No Symptoms Reported Gastrointestinal: See HPI; Denies Abdominal Pain, Denies Diarrhea; Nausea, Vomiting Genitourinary: No Symptoms Reported Musculoskeletal: no symptoms reported Skin: no symptoms reported Psychiatric/Neurological: No Symptoms Reported, Pre-Existing Deficit (PT WITH MR/LOW IQ) Endocrine: No Symptoms Reported Hematologic/Lymphatic: No Symptoms Reported Past Ctvbpis-Cdopui-Oddett Hx Patient Social History Alcohol Use: Occasionally Uses Number of Drinks Today: DD Alcohol Beverage of Choice: Rum Recreational Drug Use: Yes (THC) Smoking Status: Current Everyday Smoker (2 PPD) Type Used: Cigarettes (2 PPD) 2nd Hand Smoke Exposure: Yes Recent Foreign Travel: No Contact w/Someone Who Travel: No Recent Infectious Disease Expo: Yes Recent Hopitalizations: No Physical Abuse: No Sexual Abuse: No Immunizations Up To Date Tetanus Booster (TDap): Less than 5yrs PED Vaccines UTD: Yes Date of Influenza Vaccine: Jan 14, 2015 Seasonal Allergies Seasonal Allergies: No Past Medical History Surgeries: Yes (ORAL SURGERY) Tubal Ligation Respiratory: No Cardiac: No Neurological: Yes (QUESTIONABLE HISTORY OF SEIZURES--PT IS NOT CURRENTLY ON SEIZURE MEDICATION) Seizure Disorder Hx : 3 Hx Para: 3 Hx Total # of Abortions (Sp): 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 ) Reproductive Disorders: No Female Reproductive Disorders: Denies TOP EXECUTIVE History: Tubal Ligation Sexually Transmitted Disease: No HIV/AIDS: No Genitourinary: Yes UTI-Chronic Gastrointestinal: Yes Gastroesophageal Reflux, Chronic Constipation, Hemorrhoids Musculoskeletal: Yes (bilateral elbows, knee pain, and ankle fracture; RIGHT KNEE AND LEFT ANKLE FX'S ; ELBOW FX'S ; --NO SURGERIES) Fractures Endocrine: No (OBESE) HEENT: No Cancer: No Psychosocial: Yes (Borderline mental retardation; LOW IQ) ADD/ADHD, Anxiety, Bipolar, Depression Integumentary: No Blood Disorders: No Adverse Reaction/Blood Tranf: No (hx of transfusion last year 2 units received) Family Medical History Aphasia G8 BROTHER Chest pain 19 MOTHER Family history: Arthritis 19 MOTHER Family history: Diabetes mellitus 19 MOTHER Family history: Hypertension 19 FATHER 19 MOTHER Family history: Thyroid disorder 19 MOTHER G8 BROTHER Headache 19 MOTHER History of drug abuse G8 BROTHER Seizure disorder 19 MOTHER No Family History of: Abdominal aortic aneurysm Radhames's disease Alcoholism Cancer Cancer of colon Cataract Congenital heart disease Congestive heart failure Cystic fibrosis Dementia Dysphagia Family history: Allergy Family history: Alzheimer's disease Family history: Asthma Family history: Breast disease Family history: Cardiovascular disease Family history: Coronary thrombosis Family history: Gastrointestinal disease Family history: Glaucoma Family history: Osteoporosis Hearing loss Heart disease Hereditary disease History of - anemia History of - disorder History of - respiratory disease Human immunodeficiency virus (HIV) seropositivity Hypercholesterolemia Infertile Kidney disease Malignant neoplasm of lung Myocardial infarction Not obtainable due to adoption Parkinson's disease Prostate cancer Psychotic disorder Stroke Tuberculosis Visual impairment No Pertinent Family Hx Physical Exam Vital Signs Vital Signs - First Documented 03/18/18 23:22 Temp 103.3 Pulse 115 Resp 22 B/P (MAP) 143/106 (118) Pulse Ox 97 O2 Delivery Room Air Capillary Refill : Less Than 3 Seconds Height/Weight/BMI Height: 5'2.00" Weight: 195lbs. 8.0oz. [id number]; 35.8 BMI Method:Stated General Appearance: no apparent distress, obese, other (DIRTY, MALODOROUS) HEENT: PERRL/EOMI, other (EXTENSIVE DENTAL DECAY WITH MULTIPLE TEETH DECAYED DOWN TO GUMS) Respiratory: normal breath sounds, no respiratory distress, no accessory muscle use Cardiovascular: no murmur, tachycardia (120'S) Gastrointestinal: normal bowel sounds, soft; No distended, No guarding, No rebound; tenderness (MILD DIFFUSE TENDERNESS. 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, no motor/sensory deficits, alert, normal mood/affect (FLAT AFFECT), oriented x 3, other (APPEARS TO HAVE MR /LOW IQ WITH SPEECH IMPEDIMENT) Skin: diaphoresis, pallor; No rash Focused Exam Lactate Level 03/18/18 23:33: Lactic Acid Level 2.37*H 03/19/18 01:38: Lactic Acid Level 0.99 Lactic Acid Level Laboratory Tests Test 03/18/18 23:33 03/19/18 01:38 Lactic Acid Level 2.37 MMOL/L (0.50-2.00) *H 0.99 MMOL/L (0.50-2.00) Progress/Results/Core Measures Results/Orders Lab Results Laboratory Tests Test 03/18/18 23:33 03/18/18 23:35 03/19/18 00:24 03/19/18 01:14 Range/Units White Blood Count 11.5 H 4.3-11.0 10^3/uL Red Blood Count 4.15 L 4.35-5.85 10^6/uL Hemoglobin 10.7 L 11.5-16.0 G/DL Hematocrit 32 L 35-52 % Mean Corpuscular Volume 78 L 80-99 FL Mean Corpuscular Hemoglobin 26 25-34 PG Mean Corpuscular Hemoglobin Concent 33 32-36 G/DL Red Cell Distribution Width 16.6 H 10.0-14.5 % Platelet Count 157 130-400 10^3/uL Mean Platelet Volume 12.0 H 7.4-10.4 FL Neutrophils (%) (Auto) 88 H 42-75 % Lymphocytes (%) (Auto) 7 L 12-44 % Monocytes (%) (Auto) 5 0-12 % Eosinophils (%) (Auto) 0 0-10 % Basophils (%) (Auto) 0 0-10 % Neutrophils # (Auto) 10.1 H 1.8-7.8 X 10^3 Lymphocytes # (Auto) 0.8 L 1.0-4.0 X 10^3 Monocytes # (Auto) 0.6 0.0-1.0 X 10^3 Eosinophils # (Auto) 0.0 0.0-0.3 10^3/uL Basophils # (Auto) 0.0 0.0-0.1 10^3/uL Sodium Level 134 L 135-145 MMOL/L Potassium Level 2.9 L 3.6-5.0 MMOL/L Chloride Level 106 98-107 MMOL/L Carbon Dioxide Level 15 L 21-32 MMOL/L Anion Gap 13 5-14 MMOL/L Blood Urea Nitrogen 8 7-18 MG/DL Creatinine 0.72 0.60-1.30 MG/DL Estimat Glomerular Filtration Rate > 60 BUN/Creatinine Ratio 11 Glucose Level 127 H 70-105 MG/DL Lactic Acid Level 2.37 *H 0.50-2.00 MMOL/L Calcium Level 8.7 8.5-10.1 MG/DL Corrected Calcium 9.0 8.5-10.1 MG/DL Magnesium Level 1.4 L 1.8-2.4 MG/DL Total Bilirubin 0.3 0.1-1.0 MG/DL Aspartate Amino Transf (AST/SGOT) 11 5-34 U/L Alanine Aminotransferase (ALT/SGPT) 9 0-55 U/L Alkaline Phosphatase 111 40-136 U/L Total Protein 7.0 6.4-8.2 GM/DL Albumin 3.6 3.2-4.5 GM/DL Amylase Level 33 25-125 U/L Lipase 9 8-78 U/L Serum Test, Qualitative NEGATIVE NEGATIVE Serum Alcohol < 10 <10 MG/DL Group A Streptococcus Screen NEGATIVE NEGATIVE Prothrombin Time 14.7 12.2-14.7 SEC INR Comment 1.1 0.8-1.4 Activated Partial Thromboplast Time 33 24-35 SEC Monoscreen NEGATIVE NEGATIVE Glucometer 154 H 70-110 MG/DL Urine Color YELLOW Urine Clarity SLIGHTLY CLOUDY Urine pH 5 5-9 Urine Specific [place] 1.005 L 1.016-1.022 Urine Protein 2+ H NEGATIVE Urine Glucose (UA) NEGATIVE NEGATIVE Urine Ketones NEGATIVE NEGATIVE Urine Nitrite NEGATIVE NEGATIVE Urine Bilirubin NEGATIVE NEGATIVE Urine Urobilinogen NORMAL NORMAL MG/DL Urine Leukocyte Esterase 3+ H NEGATIVE Urine RBC (Auto) 2+ H NEGATIVE Urine RBC NONE /HPF Urine WBC 2-5 /HPF Urine Squamous Epithelial Cells 10-25 H /HPF Urine Crystals NONE /LPF Urine Bacteria TRACE /HPF Urine Casts NONE /LPF Urine Mucus NEGATIVE /LPF Urine Culture Indicated YES Urine Opiates Screen NEGATIVE NEGATIVE Urine Oxycodone Screen NEGATIVE NEGATIVE Urine Methadone Screen NEGATIVE NEGATIVE Urine Propoxyphene Screen NEGATIVE NEGATIVE Urine Barbiturates Screen NEGATIVE NEGATIVE Ur Tricyclic Antidepressants Screen NEGATIVE NEGATIVE Urine Phencyclidine Screen NEGATIVE NEGATIVE Urine Amphetamines Screen NEGATIVE NEGATIVE Urine Methamphetamines Screen NEGATIVE NEGATIVE Urine Benzodiazepines Screen NEGATIVE NEGATIVE Urine Cocaine Screen NEGATIVE NEGATIVE Urine Cannabinoids Screen NEGATIVE NEGATIVE Test 03/19/18 01:38 Range/Units Lactic Acid Level 0.99 0.50-2.00 MMOL/L Micro Results Microbiology 03/18/18 Influenza Types A,B Antigen (JANIE) - Final, Complete My Orders Orders - YISSEL SERRATO DO Accucheck Stat ONCE (03/18/18 23:33) Monitor-Rhythm Ecg Trace Only (03/18/18 23:33) Straight Cath For Spec.-Adult (03/18/18 23:33) Alcohol (03/18/18 23:33) Amylase (03/18/18 23:33) Cbc With Automated Diff (03/18/18 23:33) Comprehensive Metabolic Panel (03/18/18 23:33) Drug Screen Stat (Urine) (03/18/18 23:33) Hcg,Qualitative Serum (03/18/18 23:33) Lactic Acid Analyzer (03/18/18 23:33) Lipase (03/18/18 23:33) Magnesium (03/18/18 23:33) Monotest (03/18/18 23:33) Protime With Inr (03/18/18 23:33) Partial Thromboplastin Time (03/18/18 23:33) Rapid Strep A Screen (03/18/18 23:33) Ua Culture If Indicated (03/18/18 23:33) Blood Culture (03/18/18 23:33) Influenza A And B Antigens (03/18/18 23:33) Saline Lock/Iv-Start (03/18/18 23:33) Lactated Ringers (Lr 1000 Ml Iv Solution (03/18/18 23:33) Ondansetron Injection (Zofran Injectio (03/18/18 23:45) Acetaminophen Tablet (Tylenol Tablet) (03/18/18 23:45) Ibuprofen Tablet (Motrin Tablet) (03/18/18 23:45) Chest Pa/Lat (2 View) (03/19/18 00:16) Ct Chest/Abdomen/Pelvis W (03/19/18 00:16) 1/2 Ns W/Kcl 20 Meq/L (0.45% Sodium Chlo (03/19/18 00:30) Iohexol Injection (Omnipaque 350 Mg/Ml 1 (03/19/18 00:30) Contrast Received (Contrast Received) (03/19/18 00:30) Ns (Ivpb) (Sodium Chloride 0.9%) (03/19/18 00:30) D5 1/2 Ns W/Kcl 20 Meq/L (Dextrose 5%/0. (03/19/18 00:37) Urine Culture (03/19/18 01:14) Saline Lock/Iv-Start (03/19/18 01:27) Ns Iv 1000 Ml (Sodium Chloride 0.9%) (03/19/18 01:27) Ceftriaxone For Iv Use (Rocephin For I (03/19/18 01:45) Medications Given in ED Current Medications Medications Dose Ordered Sig/Brissa Route Start Time Stop Time Status Last Admin Dose Admin Acetaminophen 1,000 mg ONCE ONCE PO 12 23:45 12 23:46 DC 03/19/18 00:10 1,000 MG Ibuprofen 800 mg ONCE ONCE PO 03/18/18 23:45 12 23:46 DC 03/19/18 00:10 800 MG Iohexol 100 ml ONCE ONCE IV 1218 00:30 12 00:31 DC 03/19/18 00:43 100 ML Lactated Ringer's 1,000 ml @ 0 mls/hr Q0M ONCE IV 03/18/18 23:33 03/18/18 23:36 DC 03/19/18 02:28 0 MLS/HR Ondansetron HCl 4 mg ONCE ONCE IVP 03/18/18 23:45 03/18/18 23:46 DC 03/18/18 23:58 4 MG Potassium Chloride/Dextrose/ Sod Cl 1,000 ml @ ud STK-MED ONCE IV 03/19/18 00:37 03/19/18 00:40 DC 03/19/18 02:29 100 MLS/HR Sodium Chloride 250 ml ONCE ONCE IV 03/19/18 00:30 03/19/18 00:31 DC 03/19/18 00:43 80 ML Sodium Chloride 1,000 ml @ 0 mls/hr Q0M ONCE IV 03/19/18 01:27 03/19/18 01:29 DC 03/19/18 01:52 0 MLS/HR Vital Signs/I&O 03/18/18 23:22 Temp 103.3 Pulse 115 Resp 22 B/P (MAP) 143/106 (118) Pulse Ox 97 O2 Delivery Room Air 03/19/18 00:00 Intake Total 100 ml Balance 100 ml Blood Pressure Mean: 57 FSBG Bedside Testing Finger Stick Blood Glucose: 154 Blood Glucose Action Taken: RN Notified Progress Progress Note : Progress Note GIVEN ZOFRAN AND IV FLUIDS NO FURTHER VOMITING DURING ER STAY TEMP AND HEART RATE DOWN AT TIME OF ADMIT. TEMP 99 AND HR IN 90'S Diagnostic Imaging Comments CXR--NO ACUTE PROCESS, PENDING RADIOLOGIST REVIEW CT CHEST/ABDOMEN/PELVIS--DIFFUSE COLON WALL THICKENING AND ADJACENT STRANDING WITH FLUID IN COLON, C/W COLITIS/ENTERITIS. LEFT OVARIAN CYST 2.9 CML SUBCENTIMETER RLQ LYMPH NODES, LIKELY REACTIVE--PER [facility] VIA FAX @ 0824 Reviewed: Reviewed by Me Departure Communication (Admissions) [id number]--SPOKE WITH DR. WHEELER, EMERGENCY REGISTRAR FOR [facility]. ACCEPTS PT FOR ADMIT Impression Primary Impression: Sepsis Additional Impressions: COLITIS/GASTROENTERITIS Electrolyte imbalance UTI (urinary tract infection) Disposition: ADMITTED INPATIENT Condition: Improved Admissions Decision to Admit Reason: Admit from ER (General) Decision to Admit/Date: Mar 19, 2018 Time/Decision to Admit Time: 01:40 Departure-Patient Inst. Referrals: GINGER JIMENEZ MD (PCP) Primary Care Physician YISSEL SERRATO DO Mar 19, 2018 04:37
[2018-03-19] MEDS ORDERED: ONDANSETRON 4 MG/2 ML (SDV) Z0FRAN IV PRN (04:45)
[2018-03-19] MEDS: metroNIDAZOLE 500 MG/100 ML IVPB (PRE-MIX) IV SCH ×4 (04:58→22:18)
[2018-03-19] MEDS: D5 1/2 NS W/KCL 20 MEQ/L 1,000 ML IV SCH ×4 (04:59→21:31)
[2018-03-19 05:15] VITALS: BP 105/56
[2018-03-19] MEDS: CIPROFLOXACIN 400 MG/D5W 200 ML (PRE-MIX) IV SCH ×2 (06:15→16:08)
--- NOTE | 2018-03-19 06:22 | Diagnostic Imaging Report ---
INDICATION: Chest pain, shortness of breath COMPARISON: 07/19/2016 FINDINGS: Frontal and lateral views of the chest demonstrate clear lungs bilaterally. The heart is normal. There is no pneumothorax. The osseous structures normal. IMPRESSION: Negative chest Dictated by: Dictated on workstation # [id number]
[2018-03-19] MEDS: ACETAMINOPHEN 500 MG TAB (TYLENOL) PO PRN ×2 (06:27→16:39)
--- NOTE | 2018-03-19 06:31 | History & Physicial (CHS) ---
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 Based upon emergency room notes she was noted to be pale and diaphoretic upon presentation. She is slow with speech. Source: EMS Exam Limitations: clinical condition Date seen by provider: Mar 19, 2018 Time Seen by Provider: 07:10 Attending Physician Jed Aguilera MD PCP Carrillo Calvin MD Consult Date of Admission Mar 19, 2018 at 01:40 Home Medications Home Medications Reviewed patient Home Medication Reconciliation performed by pharmacy medication reconciliations mri technician and/or nursing. Patients Allergies have been reviewed. Allergies Coded Allergies: hydrocodone (Verified Allergy, Severe, ANAPHYLAXIS, 05/10/13) latex (Verified Allergy, Unknown, EDEMA, 10/20/13) Uncoded Allergies: BEES (Allergy, Unknown, 09/06/05) UKQ-Ssyjrb-Nloivs Hx Patient Social History Marrital Status: single Alcohol Use: Occasionally Uses Recreational Drug Use: Yes (THC) Smoking Status: Current Everyday Smoker (2 PPD) Former smoker/When Quit: Apr 17, 2015 Type Used: Cigarettes (2 PPD) 2nd Hand Smoke Exposure: Yes Recent Foreign Travel: No Contact w/other who traveled: No Recent Hopitalizations: No Recent Infectious Disease Expo: Yes Physical Abuse Screen: No Sexual Abuse: No Immunizations Up To Date Tetanus Booster (TDap): Less than 5yrs Date of Influenza Vaccine: Jan 14, 2015 Past Medical History PMHx: Denies Family Medical History Significant Family History: No Pertinent Family Hx Family History: Aphasia G8 BROTHER Chest pain 19 MOTHER Family history: Arthritis 19 MOTHER Family history: Diabetes mellitus 19 MOTHER Family history: Hypertension 19 FATHER 19 MOTHER Family history: Thyroid disorder 19 MOTHER G8 BROTHER Headache 19 MOTHER History of drug abuse G8 BROTHER Seizure disorder 19 MOTHER No Family History of: Abdominal aortic aneurysm [place]'s disease Alcoholism Cancer Cancer of colon Cataract Congenital heart disease Congestive heart failure Cystic fibrosis Dementia Dysphagia Family history: Allergy Family history: Alzheimer's disease Family history: Asthma Family history: Breast disease Family history: Cardiovascular disease Family history: Coronary thrombosis Family history: Gastrointestinal disease Family history: Glaucoma Family history: Osteoporosis Hearing loss Heart disease Hereditary disease History of - anemia History of - disorder History of - respiratory disease Human immunodeficiency virus (HIV) seropositivity Hypercholesterolemia Infertile Kidney disease Malignant neoplasm of lung Myocardial infarction Not obtainable due to adoption Parkinson's disease Prostate cancer Psychotic disorder Stroke Tuberculosis Visual impairment Review of Systems (CHC) Constitutional: see HPI Reviewed Test Results Reviewed Test Results Lab Laboratory Tests Test 03/18/18 23:33 03/18/18 23:35 03/19/18 00:24 03/19/18 01:14 Range/Units White Blood Count 11.5 H 4.3-11.0 10^3/uL Red Blood Count 4.15 L 4.35-5.85 10^6/uL Hemoglobin 10.7 L 11.5-16.0 G/DL Hematocrit 32 L 35-52 % Mean Corpuscular Volume 78 L 80-99 FL Mean Corpuscular Hemoglobin 26 25-34 PG Mean Corpuscular Hemoglobin Concent 33 32-36 G/DL Red Cell Distribution Width 16.6 H 10.0-14.5 % Platelet Count 157 130-400 10^3/uL Mean Platelet Volume 12.0 H 7.4-10.4 FL Neutrophils (%) (Auto) 88 H 42-75 % Lymphocytes (%) (Auto) 7 L 12-44 % Monocytes (%) (Auto) 5 0-12 % Eosinophils (%) (Auto) 0 0-10 % Basophils (%) (Auto) 0 0-10 % Neutrophils # (Auto) 10.1 H 1.8-7.8 X 10^3 Lymphocytes # (Auto) 0.8 L 1.0-4.0 X 10^3 Monocytes # (Auto) 0.6 0.0-1.0 X 10^3 Eosinophils # (Auto) 0.0 0.0-0.3 10^3/uL Basophils # (Auto) 0.0 0.0-0.1 10^3/uL Sodium Level 134 L 135-145 MMOL/L Potassium Level 2.9 L 3.6-5.0 MMOL/L Chloride Level 106 98-107 MMOL/L Carbon Dioxide Level 15 L 21-32 MMOL/L Anion Gap 13 5-14 MMOL/L Blood Urea Nitrogen 8 7-18 MG/DL Creatinine 0.72 0.60-1.30 MG/DL Estimat Glomerular Filtration Rate > 60 BUN/Creatinine Ratio 11 Glucose Level 127 H 70-105 MG/DL Lactic Acid Level 2.37 *H 0.50-2.00 MMOL/L Calcium Level 8.7 8.5-10.1 MG/DL Corrected Calcium 9.0 8.5-10.1 MG/DL Magnesium Level 1.4 L 1.8-2.4 MG/DL Total Bilirubin 0.3 0.1-1.0 MG/DL Aspartate Amino Transf (AST/SGOT) 11 5-34 U/L Alanine Aminotransferase (ALT/SGPT) 9 0-55 U/L Alkaline Phosphatase 111 40-136 U/L Total Protein 7.0 6.4-8.2 GM/DL Albumin 3.6 3.2-4.5 GM/DL Amylase Level 33 25-125 U/L Lipase 9 8-78 U/L Serum Test, Qualitative NEGATIVE NEGATIVE Serum Alcohol < 10 <10 MG/DL Group A Streptococcus Screen NEGATIVE NEGATIVE Prothrombin Time 14.7 12.2-14.7 SEC INR Comment 1.1 0.8-1.4 Activated Partial Thromboplast Time 33 24-35 SEC Monoscreen NEGATIVE NEGATIVE Glucometer 154 H 70-110 MG/DL Urine Color YELLOW Urine Clarity SLIGHTLY CLOUDY Urine pH 5 5-9 Urine Specific [place] 1.005 L 1.016-1.022 Urine Protein 2+ H NEGATIVE Urine Glucose (UA) NEGATIVE NEGATIVE Urine Ketones NEGATIVE NEGATIVE Urine Nitrite NEGATIVE NEGATIVE Urine Bilirubin NEGATIVE NEGATIVE Urine Urobilinogen NORMAL NORMAL MG/DL Urine Leukocyte Esterase 3+ H NEGATIVE Urine RBC (Auto) 2+ H NEGATIVE Urine RBC NONE /HPF Urine WBC 2-5 /HPF Urine Squamous Epithelial Cells 10-25 H /HPF Urine Crystals NONE /LPF Urine Bacteria TRACE /HPF Urine Casts NONE /LPF Urine Mucus NEGATIVE /LPF Urine Culture Indicated YES Urine Opiates Screen NEGATIVE NEGATIVE Urine Oxycodone Screen NEGATIVE NEGATIVE Urine Methadone Screen NEGATIVE NEGATIVE Urine Propoxyphene Screen NEGATIVE NEGATIVE Urine Barbiturates Screen NEGATIVE NEGATIVE Ur Tricyclic Antidepressants Screen NEGATIVE NEGATIVE Urine Phencyclidine Screen NEGATIVE NEGATIVE Urine Amphetamines Screen NEGATIVE NEGATIVE Urine Methamphetamines Screen NEGATIVE NEGATIVE Urine Benzodiazepines Screen NEGATIVE NEGATIVE Urine Cocaine Screen NEGATIVE NEGATIVE Urine Cannabinoids Screen NEGATIVE NEGATIVE Test 03/19/18 01:38 Range/Units Lactic Acid Level 0.99 0.50-2.00 MMOL/L Physical Exam-(CHC) Physical Exam Vital Signs VS - Last 72 Hours, by Label 03/18/18 03/19/18 03/19/18 03/19/18 23:22 03:08 03:15 03:15 Temp 103.3 99.7 98.0 Pulse 115 95 90 Resp 22 18 20 B/P (MAP) 143/106 (118) 95/39 (57) 96/51 (66) Pulse Ox 97 99 97 O2 Delivery Room Air Room Air Room Air Room Air 03/19/18 03/19/18 03/19/18 03/19/18 03:54 05:15 07:00 08:00 Temp 98.0 Pulse 90 97 95 Resp 16 B/P (MAP) 105/56 (72) Pulse Ox 99 99 O2 Delivery Room Air Room Air Capillary Refill : Less Than 3 Seconds General Appearance: no apparent distress Eyes: Bilateral Eye Normal Inspection HEENT: pharynx normal Neck: non-tender, full range of motion, normal inspection Respiratory: lungs clear, normal breath sounds, no accessory muscle use Cardiovascular: normal peripheral pulses, regular rate, rhythm Gastrointestinal: tenderness (Diffuse) Rectal: deferred Extremities: normal capillary refill Assessment/Plan Assessment/Plan Admission Dx 1. Sepsis based upon lactic acid of 2.37, febrile 2. Colitis/gastroenteritis 3. Urinary tract infection 4. Electrolyte imbalance Admission Status: Inpatient Order (span 2 midnights) Reason for Inpatient Admission: Further IV antibiotics and fluid support. Assessment & Plan 1. Sepsis based upon lactic acid of 2.37, febrile -Patient to be admitted for IV fluids -Empiric treatment with IV antibiotics, as below, until cultures available 2. Colitis/gastroenteritis -IV fluid support -She has been started on metronidazole in ED 3. Urinary tract infection -Initiation of IV ciprofloxacin 4. Electrolyte imbalance -Fluid support and follow electrolytes Clinical Quality Measures DVT/VTE Risk/Contraindication: Risk Factor Score Per Nursin RFS Level Per Nursing on Admit: 4+=Very High JED AGUILERA MD Mar 19, 2018 06:30
[2018-03-19 08:00] VITALS: BP 100/51
--- NOTE | 2018-03-19 08:05 | Diagnostic Imaging Report ---
PROCEDURE: CT chest, abdomen, and pelvis with contrast. TECHNIQUE: Multiple contiguous axial images were obtained through the chest, abdomen, and pelvis after the administration of intravenous contrast. INDICATION: Pain. FINDINGS: There is an elevated fluid load within the colonic lumen. There is colonic wall thickening, hypodensity and likely mural edema, most pronounced proximally. There is mucosal hyperenhancement of the large bowel as well as inflammatory changes to the distal and terminal ileum. This could be inflammatory bowel disease or infectious enterocolitis suspected. No resultant obstruction, abscess or perforation. The left ovarian cyst showed no complexity measuring 2.9 cm. The uterus unremarkable. The urinary bladder nearly empty. Some subcentimeter presumed reactive nodes in the right lower quadrant mesentery. The liver, spleen, gallbladder, adrenals, pancreas and kidneys unremarkable. No pneumatosis, no free air. IMPRESSION: Fluid within the lumen of the colon. Mild colonic wall thickening and mucosal hyperemia and hyperenhancement with similar inflammatory changes to the distal ileum. Mild regional reactive adenopathy in the right lower quadrant with no abscess, obstruction or perforation. Findings are compatible with nonspecific enterocolitis and a diarrheal state which may reflect inflammatory bowel disease or infectious etiology. No other acute findings with left ovarian cyst noted Dictated by: Dictated on workstation # [id number]
[2018-03-19] MEDS ORDERED: SERT100T PO (09:52)
[2018-03-19 12:00] VITALS: BP 110/53
[2018-03-19] MEDS: IBUPROFEN 800 MG (MOTRIN) TAB PO PRN ×2 (13:01→21:29)
[2018-03-19] MEDS: HYOSCYAMINE 0.125 MG (LEVSIN) TAB SL PRN ×2 (13:01→21:29)
[2018-03-19 15:40] VITALS: BP 106/52
[2018-03-19 17:21] LABS: BILIRUBIN,URINE NEGATIVE (NEGATIVE); CLARITY,URINE CLEAR; COLOR,URINE YELLOW; GLUCOSE, URINE (UA) NEGATIVE (NEGATIVE); KETONES,URINE NEGATIVE (NEGATIVE); LEUKOCYTE ESTERASE ,URINE 2+ (NEGATIVE); NITRITE,URINE NEGATIVE (NEGATIVE); PH,URINE 6.5 (5-9); PROTEIN,URINE NEGATIVE (NEGATIVE); UROBILINOGEN,URINE NORMAL (NORMAL)
[2018-03-19 17:38] LABS: RBC,URINE RARE /HPF
[2018-03-19 17:39] LABS: BACTERIA,URINE TRACE /HPF
[2018-03-19] MEDS ORDERED: PATIENT MAY USE OWN MED,SINGLE MED PO SCH (18:30)
[2018-03-19 20:20] VITALS: BP 90/52
[2018-03-20 01:30] VITALS: BP 89/54
[2018-03-20] MEDS: CIPROFLOXACIN 400 MG/D5W 200 ML (PRE-MIX) IV SCH (04:17)
[2018-03-20 04:45] VITALS: BP 107/55
[2018-03-20] MEDS: metroNIDAZOLE 500 MG/100 ML IVPB (PRE-MIX) IV SCH ×2 (05:40→10:36)
[2018-03-20 05:57] LABS: BASOPHILS % (AUTO) 0 % (0-10); EOSINOPHILS # (AUTO) 0.1 10^3/uL (0.0-0.3); EOSINOPHILS % (AUTO) 1 % (0-10); HEMATOCRIT 30 % (35-52); HEMOGLOBIN 9.6 G/DL (11.5-16.0); LYMPHOCYTES # (AUTO) 1.5 X 10^3 (1.0-4.0); LYMPHOCYTES % (AUTO) 20 % (12-44); MEAN CORPUSCULAR HEMOGLOBIN 26 PG (25-34); MEAN CORPUSCULAR HGB CONC 33 G/DL (32-36); MEAN CORPUSCULAR VOLUME 79 FL (80-99); MEAN PLATELET VOLUME 11.7 FL (7.4-10.4); MONOCYTES # (AUTO) 0.5 X 10^3 (0.0-1.0); MONOCYTES % (AUTO) 7 % (0-12); NEUTROPHILS # (AUTO) 5.3 X 10^3 (1.8-7.8); NEUTROPHILS % (AUTO) 72 % (42-75); PLATELET COUNT 143 10^3/uL (130-400); RED BLOOD COUNT 3.73 10^6/uL (4.35-5.85); RED CELL DISTRIBUTION WIDTH 16.6 % (10.0-14.5); WHITE BLOOD COUNT 7.4 10^3/uL (4.3-11.0)
[2018-03-20 06:15] LABS: ALANINE AMINOTRANSFERASE 9 U/L (0-55); ALBUMIN 2.9 GM/DL (3.2-4.5); ALKALINE PHOSPHATASE 82 U/L (40-136); BILIRUBIN,TOTAL 0.2 MG/DL (0.1-1.0); BUN/CREATININE RATIO 7; CALCIUM 8.3 MG/DL (8.5-10.1); CARBON DIOXIDE 18 MMOL/L (21-32); CHLORIDE 113 MMOL/L (98-107); CREATININE SERUM 0.61 MG/DL (0.60-1.30); GFR ESTIMATED > 60; GLUCOSE 98 MG/DL (70-105); POTASSIUM 3.3 MMOL/L (3.6-5.0); SODIUM 139 MMOL/L (135-145); TOTAL PROTEIN 5.1 GM/DL (6.4-8.2)
[2018-03-20] MEDS: D5 1/2 NS W/KCL 20 MEQ/L 1,000 ML IV SCH ×2 (07:54→13:34)
[2018-03-20 08:00] VITALS: BP 106/52
[2018-03-20] MEDS ORDERED: ACET-2267 PO (09:31)
[2018-03-20] MEDS ORDERED: IBUP-30 PO (09:31)
[2018-03-20] MEDS ORDERED: SERT100T8 PO (09:31)
[2018-03-20] MEDS: POTASSIUM CL 10MEQ/50ML IVPB 50 ML IV SCH ×2 (10:36→10:52)
[2018-03-20] MEDS ORDERED: HYOS0.1296 SL (13:06)
[2018-03-20] MEDS ORDERED: METR-197 PO (13:06)
[2018-03-20] MEDS ORDERED: CIPR-225 PO (13:06)
--- NOTE | 2018-03-20 13:08 | Discharge Instructions ---
Discharge [facility] Discharge Medications New, Converted or Re-Newed RX: Transmitted to Pharmacy New Medications: Ciprofloxacin HCl (Cipro) 500 Mg Tablet 500 MG PO BID, #14 TAB 0 Refills Metronidazole (Metronidazole) 500 Mg Tablet 500 MG PO TID, #21 TAB 0 Refills Hyoscyamine Sulfate (Oscimin) 0.125 Mg Tablet 0.25 MG SL Q6H PRN for ABDOMINAL CRAMPING, #40 TAB 0 Refills Continued Medications: Acetaminophen (Tylenol Extra Strength) 500 Mg Tablet 500-1000 MG PO Q6H PRN for PAIN-MILD, TAB Ibuprofen (Advil) 200 Mg Tablet 400 MG PO TID PRN for PAIN-MILD, TAB Sertraline HCl (Sertraline HCl) 100 Mg Tablet 150 MG PO HS, TAB TAKES 1 & 1/2 (100MG) TABLET Patient Instructions Goal/Follow Up Appt: Follow up with Dr. Arredondo on 03/27 at 1140 at [facility]. Activity & Diet Discharge Diet: Eat Small Frequent Meals, Avoid Fatty Foods Activity as Tolerated: Yes Copy Copies To 1: ROSALIO ARREDONDO MD, BETHANY N MD Mar 20, 2018 13:08
[2018-03-20] MEDS ORDERED: SERTRALINE 100 MG (ZOLOFT) TAB PO SCH (21:00)
--- NOTE | 2018-03-21 21:22 | Discharge Summary ---
Diagnosis/Chief Complaint Date of Admission Mar 19, 2018 at 01:40 Date of Discharge Mar 20, 2018 at 14:30 Admission Diagnosis Admission Diagnosis 1. Sepsis based upon lactic acid of 2.37, febrile 2. Colitis/gastroenteritis 3. Urinary tract infection 4. Electrolyte imbalance Discharge Diagnosis 1. Sepsis based upon lactic acid of 2.37, febrile -Patient to be admitted for IV fluids -Empiric treatment with IV antibiotics, cultures negative 2. Colitis/gastroenteritis -IV fluid support -Started on cipro and flagyl in ER, discharged to complete 7 more days. 3. Urinary tract infection- culture with E coli sensitive to levofloxacin -Initiation of IV ciprofloxacin 4. 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 Based upon emergency room notes she was noted to be pale and diaphoretic upon presentation. She is slow with speech. Discharge Summary-Simple/Stand Consultations Discharge Physical Examination Allergies: Coded Allergies: hydrocodone (Verified Allergy, Severe, ANAPHYLAXIS, 05/10/13) latex (Verified Allergy, Unknown, EDEMA, 10/20/13) Uncoded Allergies: BEES (Allergy, Unknown, 09/06/05) Vitals & I&Os Vital Sign - Last 12Hours Date Time Temp Pulse Resp B/P (MAP) Pulse Ox O2 Delivery O2 Flow Rate FiO2 03/20/18 13:00 73 03/20/18 09:43 98 Room Air 03/20/18 08:00 98.9 18 106/52 (70) Intake and Output 03/20/18 23:59 Intake Total 100 ml Balance 100 ml General Appearance: Alert, No Acute Distress Respiratory: Clear to Auscultation, Normal Air Movement Cardiovascular: Regular Rate, No Murmurs Abdominal: Normal Bowel Sounds, Soft, Other (mild ttp lower quadrants bilaterally) Neuro: Normal Speech Hospital Course See final discharge diagnosis. Labs Laboratory Tests Test 03/20/18 05:35 Range/Units White Blood Count 7.4 4.3-11.0 10^3/uL Red Blood Count 3.73 L 4.35-5.85 10^6/uL Hemoglobin 9.6 L 11.5-16.0 G/DL Hematocrit 30 L 35-52 % Mean Corpuscular Volume 79 L 80-99 FL Mean Corpuscular Hemoglobin 26 25-34 PG Mean Corpuscular Hemoglobin Concent 33 32-36 G/DL Red Cell Distribution Width 16.6 H 10.0-14.5 % Platelet Count 143 130-400 10^3/uL Mean Platelet Volume 11.7 H 7.4-10.4 FL Neutrophils (%) (Auto) 72 42-75 % Lymphocytes (%) (Auto) 20 12-44 % Monocytes (%) (Auto) 7 0-12 % Eosinophils (%) (Auto) 1 0-10 % Basophils (%) (Auto) 0 0-10 % Neutrophils # (Auto) 5.3 1.8-7.8 X 10^3 Lymphocytes # (Auto) 1.5 1.0-4.0 X 10^3 Monocytes # (Auto) 0.5 0.0-1.0 X 10^3 Eosinophils # (Auto) 0.1 0.0-0.3 10^3/uL Basophils # (Auto) 0.0 0.0-0.1 10^3/uL Sodium Level 139 135-145 MMOL/L Potassium Level 3.3 L 3.6-5.0 MMOL/L Chloride Level 113 H 98-107 MMOL/L Carbon Dioxide Level 18 L 21-32 MMOL/L Anion Gap 8 5-14 MMOL/L Blood Urea Nitrogen 4 L 7-18 MG/DL Creatinine 0.61 0.60-1.30 MG/DL Estimat Glomerular Filtration Rate > 60 BUN/Creatinine Ratio 7 Glucose Level 98 70-105 MG/DL Calcium Level 8.3 L 8.5-10.1 MG/DL Corrected Calcium 9.2 8.5-10.1 MG/DL Total Bilirubin 0.2 0.1-1.0 MG/DL Aspartate Amino Transf (AST/SGOT) 13 5-34 U/L Alanine Aminotransferase (ALT/SGPT) 9 0-55 U/L Alkaline Phosphatase 82 40-136 U/L Total Protein 5.1 L 6.4-8.2 GM/DL Albumin 2.9 L 3.2-4.5 GM/DL Discharge Instructions to patient/family Please see electronic discharge instructions given to patient. Discharge Medications Reviewed and agree with Discharge Medication list on patient's Discharge Instruction sheet Clinical Quality Measures DVT/VTE Risk/Contraindication: Risk Factor Score Per Nursin RFS Level Per Nursing on Admit: 4+=Very High ROSALIO STOLL MD Mar 21, 2018 21:22
== END 2018-03-20 14:30 | disposition home or self-care (01) | DRG 872 ==
LOC: ER 23:20 → EDUNIT# 23:20 → 4TH 03-19 01:40
PROVIDERS: ADMIT Family Medicine; ATTEND Family Medicine
DX: A41.9 Sepsis, unspecified organism (principal); K52.9 Noninfective gastroenteritis and colitis, unspecified; N39.0 Urinary tract infection, site not specified; E87.8 Other disorders of electrolyte and fluid balance, not elsewhere classified; F17.210 Nicotine dependence, cigarettes, uncomplicated; K21.9 Gastro-esophageal reflux disease without esophagitis; K59.09 Other constipation; B96.20 Unspecified Escherichia coli [E. coli] as the cause of diseases classified elsewhere
CPT/HCPCS: 36415; 71046; 71260; 74177; 80053; 80306; 80320; 81000; 82150; 82962; 83605; 83690; 83735; 84703; 85025; 85610; 85730; 86308; 87040; 87088; 87186; 87430; 87804; 93041; 96361; 96365; 96375

== ENCOUNTER 2018-05-05 14:10 | Emergency (ER) | payer MEDICAID ==
[~2018-05-05] VITALS: Ht 157.5 cm; Wt 87.5 kg
[~2018-05-05 14:10] MED LIST changes: +ACET-2267 PO; +CIPR-225 PO; +HYOS0.1296 SL; +IBUP-30 PO; +METR-197 PO; +SERT100T PO; +SERT100T8 PO
[2018-05-05] MEDS ORDERED: KETOROLAC 60 MG/2 ML VIAL IM ONE (14:30)
--- NOTE | 2018-05-05 15:16 | ED Respiratory ---
General Chief Complaint: Abdominal/GI Problems Stated Complaint: LEFT RIB/FLANK PAIN Nursing Triage Note: Pt arrived by private vehicle for chief complaint of left side rib pain since last night at 1999. Pt stated she did not injury herself. She stated pain was 10, sharp and constant. Pt stated she took tylenol last night and cried herself to sleep from the pain. Source: patient Exam Limitations: no limitations History of Present Illness Date Seen by Provider: May 05, 2018 Time Seen by Provider: 14:27 Initial Comments 23-year-old female who presents to the emergency room with complaints of left rib pain with inspiration that started last night around 1999. She denies injury. Reports that she took Tylenol without relief. Timing/Duration: yesterday Prior Episodes/Possible Cause: no prior episodes Associated Symptoms: chest pain/soreness Allergies and Home Medications Allergies Coded Allergies: hydrocodone (Verified Allergy, Severe, ANAPHYLAXIS, 05/10/13) latex (Verified Allergy, Unknown, EDEMA, 10/20/13) Uncoded Allergies: BEES (Allergy, Unknown, 09/06/05) Home Medications Acetaminophen 500 Mg Tablet, 500-1,000 MG PO Q6H PRN for PAIN-MILD, (Reported) Ciprofloxacin HCl 500 Mg Tablet, 500 MG PO BID Prescribed by: ROSALIO STOLL on 03/20/18 1306 Hyoscyamine Sulfate 0.125 Mg Tablet, 0.25 MG SL Q6H PRN for ABDOMINAL CRAMPING Prescribed by: ROSALIO STOLL on 03/20/18 1306 Ibuprofen 200 Mg Tablet, 400 MG PO TID PRN for PAIN-MILD, (Reported) Metronidazole 500 Mg Tablet, 500 MG PO TID Prescribed by: ROSALIO STOLL on 03/20/18 1306 Sertraline HCl 100 Mg Tablet, 150 MG PO HS, (Reported) TAKES 1 & 1/2 (100MG) TABLET Patient Home Medication List Home Medication List Reviewed: Yes Review of Systems Review of Systems Constitutional: no symptoms reported, see HPI Respiratory: see HPI, other (left rib pain with breathing) All Other Systems Reviewed Negative Unless Noted: Yes Past Oulzfxb-Wiflup-Yofsyl Hx Past Med/Social Hx: Reviewed Nursing Past Med/Soc Hx Patient Social History Alcohol Use: Denies Use Number of Drinks Today: DD Alcohol Beverage of Choice: Rum Recreational Drug Use: No Smoking Status: Current Everyday Smoker Type Used: Cigarettes 2nd Hand Smoke Exposure: Yes Recent Foreign Travel: No Contact w/Someone Who Travel: No Recent Infectious Disease Expo: No Recent Hopitalizations: No Physical Abuse: No Sexual Abuse: No Mistreated: No Fear: No Immunizations Up To Date Tetanus Booster (TDap): Less than 5yrs PED Vaccines UTD: Yes Date of Influenza Vaccine: Jan 14, 2015 Seasonal Allergies Seasonal Allergies: No Past Medical History Surgeries: Yes (ORAL SURGERY) Tubal Ligation Respiratory: No Cardiac: No Neurological: Yes (QUESTIONABLE HISTORY OF SEIZURES--PT IS NOT CURRENTLY ON SEIZURE MEDICATION) Seizure Disorder Reproductive Disorders: No Female Reproductive Disorders: Denies 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 Sexually Transmitted Disease: No HIV/AIDS: No Genitourinary: Yes UTI-Chronic Gastrointestinal: Yes Gastroesophageal Reflux, Chronic Constipation, Hemorrhoids Musculoskeletal: Yes Fractures Endocrine: No (OBESE) HEENT: No Cancer: No Psychosocial: Yes (Borderline mental retardation; LOW IQ) ADD/ADHD, Anxiety, Bipolar, Depression Integumentary: No Blood Disorders: No Adverse Reaction/Blood Tranf: No (hx of transfusion last year 2 units received) Family Medical History Reviewed Nursing Family Hx Aphasia G8 BROTHER Chest pain 19 MOTHER Family history: Arthritis 19 MOTHER Family history: Diabetes mellitus 19 MOTHER Family history: Hypertension 19 FATHER 19 MOTHER Family history: Thyroid disorder 19 MOTHER G8 BROTHER Headache 19 MOTHER History of drug abuse G8 BROTHER Seizure disorder 19 MOTHER No Family History of: Abdominal aortic aneurysm Chatham's disease Alcoholism Cancer Cancer of colon Cataract Congenital heart disease Congestive heart failure Cystic fibrosis Dementia Dysphagia Family history: Allergy Family history: Alzheimer's disease Family history: Asthma Family history: Breast disease Family history: Cardiovascular disease Family history: Coronary thrombosis Family history: Gastrointestinal disease Family history: Glaucoma Family history: Osteoporosis Hearing loss Heart disease Hereditary disease History of - anemia History of - disorder History of - respiratory disease Human immunodeficiency virus (HIV) seropositivity Hypercholesterolemia Infertile Kidney disease Malignant neoplasm of lung Myocardial infarction Not obtainable due to adoption Parkinson's disease Prostate cancer Psychotic disorder Stroke Tuberculosis Visual impairment No Pertinent Family Hx Physical Exam Vital Signs - First Documented 05/05/18 14:25 Temp 99.0 Pulse 92 Resp 18 B/P (MAP) 108/85 (93) Pulse Ox 100 O2 Delivery Room Air Capillary Refill : Less Than 3 Seconds Height: 5'2.00" Weight: 193lbs. 0oz. 87.088485sn; 35.8 BMI Method:Stated General Appearance: WD/WN, no apparent distress Eyes: Bilateral Eye Normal Inspection, Bilateral Eye PERRL, Bilateral Eye EOMI Respiratory: chest non-tender, lungs clear, normal breath sounds, no respiratory distress, no accessory muscle use, respiratory distress Cardiovascular: normal peripheral pulses, regular rate, rhythm, no edema, no gallop, no JVD, no murmur Gastrointestinal: normal bowel sounds, non tender, soft, no organomegaly, no pulsatile mass Neurologic/Psychiatric: alert, normal mood/affect, oriented x 3 Skin: normal color, warm/dry Progress/Results/Core Measures Suspected Sepsis Recent Fever Within 48 Hours: No Infection Criteria Present: None New/Unexplained Altered Menta: No Sepsis Screen: No Definite Risk SIRS Temperature:99.0 Pulse: 92 Respiratory Rate: 18 Blood Pressure 108 /85 Mean: 93 Results/Orders My Orders Orders - ABHIJIT BATEMAN Chest Pa/Lat (2 View) (05/05/18 14:27) Ketorolac Injection (Toradol Injection) (05/05/18 14:30) Medications Given in ED Vital Signs/I&O 05/05/18 05/05/18 14:25 15:55 Temp 99.0 98.1 Pulse 92 79 Resp 18 18 B/P (MAP) 108/85 (93) 95/66 (76) Pulse Ox 100 99 O2 Delivery Room Air Room Air Capillary Refill : Less Than 3 Seconds Blood Pressure Mean: 93 Progress Note : Time: 15:23 Progress Note I have seen and evaluated the patient. Her pain is resolved at this time. I will be treating her for pleurisy. She agrees with plan of care, plans for discharge, return precautions were given. Diagnostic Imaging Diagonstic Imaging: Xray Plain Films/CT/US/NM/MRI: chest Comments NAME: JEANNE GOODE Lizbeth [facility] REC#: [id number] PT STATUS: REG ER : 1995 PHYSICIAN: ABHIJIT BATEMAN ADMIT DATE: 05/05/18/ER Signed Date of Exam: 05/05/18 CHEST PA/LAT (2 VIEW) INDICATION: Left-sided rib pain. TIME OF EXAM: 03:46 p.m. Correlation is made with prior study from 03/19/2018. FINDINGS: The heart size is stable. The lungs are clear. No parenchymal contusion, effusion, or pneumothorax is seen. Bony structures are unremarkable. IMPRESSION: No acute abnormality is detected. Dictated by: Dictated on workstation # [id number] Dict: 05/05/18 1527 Trans: 05/05/18 1538 Interpreted by: DEIRDRE SEYMOUR MD Electronically signed by: DEIRDRE SEYMOUR MD 05/05/18 1538 Reviewed: Reviewed by Me Departure Impression Primary Impression: Pleurisy Disposition: HOME, SELF-CARE Condition: Stable/Unchanged Departure-Patient Inst. Decision time for Depature: 15:24 Referrals: GINGER JIMENEZ MD (PCP/Family) Primary Care Physician Patient Instructions: Pleuritic Chest Pain (DC) Add. Discharge Instructions: Continue to use ibuprofen and Tylenol as directed by the bottle for pain relief. Follow-up with her primary care provider within 1 week for recheck. Return back to the emergency room for worsening symptoms or concerns as needed. All discharge instructions reviewed with patient and/or family. Voiced understanding. ABHIJIT BATEMAN May 05, 2018 15:16
--- NOTE | 2018-05-05 15:37 | Diagnostic Imaging Report ---
INDICATION: Left-sided rib pain. TIME OF EXAM: 03:46 p.m. Correlation is made with prior study from 03/19/2018. FINDINGS: The heart size is stable. The lungs are clear. No parenchymal contusion, effusion, or pneumothorax is seen. Bony structures are unremarkable. IMPRESSION: No acute abnormality is detected. Dictated by: Dictated on workstation # [id number]
[2018-05-05 15:55] VITALS: BP 95/66
== END 2018-05-05 15:55 | disposition home or self-care (01) ==
LOC: EDUNIT# 14:10 → ER 14:12
DX: R09.1 Pleurisy (principal); G40.909 Epilepsy, unspecified, not intractable, without status epilepticus; K21.9 Gastro-esophageal reflux disease without esophagitis; E66.9 Obesity, unspecified; F90.9 Attention-deficit hyperactivity disorder, unspecified type; F41.9 Anxiety disorder, unspecified; F31.9 Bipolar disorder, unspecified; F98.8 Other specified behavioral and emotional disorders with onset usually occurring in childhood and adolescence; F17.210 Nicotine dependence, cigarettes, uncomplicated; Z88.5 Allergy status to narcotic agent; Z91.040 Latex allergy status; Z82.49 Family history of ischemic heart disease and other diseases of the circulatory system; Z68.35 Body mass index [BMI] 35.0-35.9, adult; Z87.440 Personal history of urinary (tract) infections; Z87.19 Personal history of other diseases of the digestive system; Z98.890 Other specified postprocedural states; Z98.51 Tubal ligation status
CPT/HCPCS: 71046

== ENCOUNTER 2018-09-21 23:05 | Emergency (ER) | payer MEDICAID ==
[~2018-09-21] VITALS: Ht 157.5 cm; Wt 87.5 kg
[~2018-09-21 23:05] MED LIST changes: +METR-145 PO; -METR-197 PO
[2018-09-21] MEDS ORDERED: LIDO15SO2 MM (23:55)
[2018-09-21] MEDS ORDERED: NAPR-915 PO (23:55)
[2018-09-21] MEDS ORDERED: AMOX-358 PO (23:55)
--- NOTE | 2018-09-21 23:55 | ED EENT ---
History of Present Illness General Chief Complaint: Dental Problems/Pain Stated Complaint: DENTAL PAIN,SWOLLEN JAW,HURTS TO TALK OR EAT X 3 D Source: patient (PT IS LIMITED HISTORIAN--PT WITH MR/LOW IQ), old records History of Present Illness Date Seen by Provider: Sep 21, 2018 Time Seen by Provider: 23:43 Initial Comments PT ARRIVES VIA POV STATES "MY JAW" STATES SHE HAS BEEN HAVING PAIN IN RIGHT LOWER JAW/ DENTAL PAIN FOR THE LAST 3 DAYS STATES SHE HAS [facility] GET [facility] TEETH PULLED. PT TOOK ADVIL 3 HOURS AGO, WITHOUT RELIEF. OTHERWISE HAS NOT TAKEN ANYTHING ELSE FOR PAIN NO FEVER HAS NOT SOUGHT CARE UNTIL TODAY STATES "I PUT ME TO TEARS" TONIGHT [facility]CP: [facility] Allergies and Home Medications Allergies Coded Allergies: hydrocodone (Verified Allergy, Severe, ANAPHYLAXIS, 05/10/13) latex (Verified Allergy, Unknown, EDEMA, 10/20/13) Uncoded Allergies: BEES (Allergy, Unknown, 09/06/05) Home Medications Amoxicillin/Potassium Clav 1 Each Tablet, 1 EACH PO BID Prescribed by: YISSEL SERRATO on 09/21/182 Lidocaine HCl 15 Ml Solution, 15 ML MM Q 1-2 HOURS Prescribed by: YISSEL SERRATO on 09/21/18 5669 Naproxen 500 Mg Tablet, 500 MG PO BID Prescribed by: YISSEL SERRATO on 09/21/18 2260 Patient Home Medication List Home Medication List Reviewed: Yes Review of Systems Review of Systems Constitutional: No fever Mouth: see HPI Throat: no symptoms reported Respiratory: no symptoms reported Cardiovascular: no symptoms reported Musculoskeletal: no symptoms reported Skin: no symptoms reported Neurological: No Symptoms Reported Past Igbsmdk-Jiomwh-Iqbcky Hx Patient Social History Alcohol Use: Occasionally Uses Number of Drinks Today: DD Alcohol Beverage of Choice: Rum Recreational Drug Use: Yes (HAS TESTED + FOR METH IN THE PAST) Drug of Choice: HAS TESTED + FOR METH IN THE PAST Smoking Status: Current Everyday Smoker (2 PPD) Type Used: Cigarettes (2 PPD) 2nd Hand Smoke Exposure: Yes Recent Foreign Travel: No Contact w/Someone Who Travel: No Recent Hopitalizations: No Immunizations Up To Date Tetanus Booster (TDap): Less than 5yrs PED Vaccines UTD: Yes Date of Influenza Vaccine: Jan 14, 2015 Seasonal Allergies Seasonal Allergies: No Past Medical History Surgeries: Yes (ORAL SURGERY) Tubal Ligation Respiratory: No Cardiac: No Neurological: Yes (QUESTIONABLE HX OF SEIZURES--PT IS NOT ON ANTI-SEIZURE MEDICATION; PT WITH LOW IQ/MR) Seizure Disorder Hx : 3 Hx Para: 3 Hx Total # of Abortions (Sp): 0 (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) Reproductive Disorders: No Female Reproductive Disorders: Denies 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: Tubal 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 Sexually Transmitted Disease: No HIV/AIDS: No Genitourinary: Yes UTI-Chronic Gastrointestinal: Yes Gastroesophageal Reflux, Chronic Constipation, Hemorrhoids Musculoskeletal: Yes (RIGHT KNEE, ELBOW FX'S AND LEFT ANKLE FX'S--NO SURGERY; ) Fractures Endocrine: No HEENT: Yes (EXTENSIVE DENTAL DECAY) Cancer: No Psychosocial: Yes (BORDERLINE MR/LOW IQ) ADD/ADHD, Anxiety, Bipolar, Depression Integumentary: No Blood Disorders: Yes (ANEMIA) Adverse Reaction/Blood Tranf: No YES Family Medical History Aphasia G8 BROTHER Chest pain 19 MOTHER Family history: Arthritis 19 MOTHER Family history: Diabetes mellitus 19 MOTHER Family history: Hypertension 19 FATHER 19 MOTHER Family history: Thyroid disorder 19 MOTHER G8 BROTHER Headache 19 MOTHER History of drug abuse G8 BROTHER Seizure disorder 19 MOTHER No Family History of: Abdominal aortic aneurysm Hood's disease Alcoholism Cancer Cancer of colon Cataract Congenital heart disease Congestive heart failure Cystic fibrosis Dementia Dysphagia Family history: Allergy Family history: Alzheimer's disease Family history: Asthma Family history: Breast disease Family history: Cardiovascular disease Family history: Coronary thrombosis Family history: Gastrointestinal disease Family history: Glaucoma Family history: Osteoporosis Hearing loss Heart disease Hereditary disease History of - anemia History of - disorder History of - respiratory disease Human immunodeficiency virus (HIV) seropositivity Hypercholesterolemia Infertile Kidney disease Malignant neoplasm of lung Myocardial infarction Not obtainable due to adoption Parkinson's disease Prostate cancer Psychotic disorder Stroke Tuberculosis Visual impairment No Pertinent Family Hx Physical Exam Vital Signs Vital Signs - First Documented 09/21/18 23:42 Temp 97.2 Pulse 80 Resp 18 B/P (MAP) 121/84 (96) Pulse Ox 100 O2 Delivery Room Air Height, Weight, BMI Height: 5'2.00" Weight: 193lbs. 0oz. 87.253527qo; 35.8 BMI Method:Stated General Appearance: WD/WN, no apparent distress Eyes: bilateral eye normal inspection Ears: bilateral ear auricle normal Nose: normal inspection Mouth/Throat: dental tenderness; No excessive drooling; other (EXTENSIVE DENTAL DECAY, WITH NEARLY ALL TEETH COMPLETELY DECAYED AWAY DOWN TO GUM LINE. TENDERNESS TO RIGHT LOWER MOLAR AREA, WITH DIFFUSE GINGIVAL INFLAMMATION TO ALL GUM TISSUE. NO DISCRETE ABSCESS NOTED. NO SWELLING TO FACE OR JAW NOTED. 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, no motor/sensory deficits, alert, normal mood/affect, oriented x 3 Skin: normal color, warm/dry Progress/Results/Core Measures Results/Orders My Orders Orders - YISSEL SERRATO DO Amoxicillin/Clavulanate Tablet (Augmenti (09/22/18 00:00) Lidocaine 2% Viscous 15 Ml (Xylocaine Vi (09/22/18 00:00) Naproxen Tablet (Naprosyn Tablet) (09/22/18 00:00) Medications Given in ED Current Medications Medications Dose Ordered Sig/Brissa Route Start Time Stop Time Status Last Admin Dose Admin Lidocaine HCl 5 ml ONCE ONCE PO 09/22/18 00:00 09/22/18 00:01 DC 09/22/18 00:11 5 ML Naproxen 500 mg ONCE ONCE PO 09/22/18 00:00 09/22/18 00:01 DC 09/22/18 00:11 500 MG Vital Signs/I&O 09/21/18 09/22/18 09/22/18 23:42 00:11 00:12 Temp 97.2 97.2 97.2 Pulse 80 80 Resp 18 18 B/P (MAP) 121/84 (96) 121/84 (96) Pulse Ox 100 100 O2 Delivery Room Air Departure Impression Primary Impression: EXTENSIVE DENTAL CARIES Additional Impression: Pain due to dental caries Disposition: HOME, SELF-CARE Condition: Stable Departure-Patient Inst. Referrals: [facility] ([facility]) Primary Care Physician ROSALIO STOLL MD (Family) Primary Care Physician Patient Instructions: Tooth Decay, Adult (DC), Dental Pain (DC) Add. Discharge Instructions: FOLLOW UP WITH DENTIST THIS WEEK FOR FURTHER CARE KEEP YOUR APPOINTMENT IN OCTOBER TO GET YOUR TEETH PULLED All discharge instructions reviewed with patient and/or family. Voiced understanding. Scripts Naproxen (Naproxen) 500 Mg Tablet 500 MG PO BID, #20 TAB Prov: YISSEL SERRATO DO 09/21/18 Lidocaine HCl (Lidocaine HCl Viscous) 15 Ml Solution 15 ML MM Q 1-2 HOURS for Pain, #100 ML Prov: YISSEL SERRATO DO 09/21/18 Amoxicillin/Potassium Clav (Augmentin 875-125 Tablet) 1 Each Tablet 1 EACH PO BID for INFECTION, #20 TAB Prov: YISSEL SERRATO DO 09/21/18 YISSEL SERRATO DO Sep 21, 2018 23:55
[2018-09-22] MEDS ORDERED: AUGMENTIN 875 MG TAB (AMOXICILLIN/CLAVULANATE) PO SCH
[2018-09-22] MEDS ORDERED: NAPROXEN 250 MG (NAPROSYN) TABLET PO ONE
[2018-09-22] MEDS ORDERED: LIDOCAINE 2% VISCOUS 15 ML UDC PO ONE
[2018-09-22 00:12] VITALS: BP 121/84
== END 2018-09-22 00:13 | disposition home or self-care (01) ==
LOC: EDUNIT# 23:05 → ER 23:08
DX: K02.9 Dental caries, unspecified (principal); G40.909 Epilepsy, unspecified, not intractable, without status epilepticus; K21.9 Gastro-esophageal reflux disease without esophagitis; F90.9 Attention-deficit hyperactivity disorder, unspecified type; F41.9 Anxiety disorder, unspecified; F31.9 Bipolar disorder, unspecified; D64.9 Anemia, unspecified; F17.210 Nicotine dependence, cigarettes, uncomplicated; Z87.440 Personal history of urinary (tract) infections; Z88.5 Allergy status to narcotic agent; Z82.49 Family history of ischemic heart disease and other diseases of the circulatory system; Z87.19 Personal history of other diseases of the digestive system; Z91.040 Latex allergy status; Z98.51 Tubal ligation status
CPT/HCPCS: 99283

== ENCOUNTER 2022-12-21 19:38 | Emergency (ER) | payer SELFPAY ==
[~2022-12-21] VITALS: Ht 160 cm; Wt 115.0 kg
[~2022-12-21 19:38] MED LIST changes: +AMOX-358 PO; +CLOT15CR28 TP; -CLOT15CR5 TP; +LIDO15SO3 MM; +NAPR-915 PO; +SERT-414 PO; -SERT100T8 PO
[2022-12-21 19:59] VITALS: BP 146/83
== END 2022-12-21 22:03 | disposition left against medical advice (07) ==
LOC: EDUNIT# 19:38 → ER 19:40
DX: R07.89 Other chest pain (principal)
CPT/HCPCS: 99285